=== PATIENT | male | born 1970 | race Caucasian/White ===

== ENCOUNTER 2019-06-30 15:58 | Inpatient (IN) ==
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
[2019-06-30 17:13] LABS: Basophils # 0.1 K/mm3 (0-0.2); Basophils % 0.4 % (0.1-2.0); Eosinophils # 0.3 K/mm3 (0.0-0.4); Hematocrit 48.4 % (42.0-52.0); Hemoglobin 15.7 g/dL (14.1-18.0); Lymphocytes % 7.9 % (10-50); Mean Corpuscular HGB Conc 32.5 g/dL (31.8-35.4); Mean Corpuscular Volume 84.7 fl (80-94); Mean Platelet Volume 7.3 fl (7.4-10.4); Monocytes # 0.5 K/mm3 (0.1-1.0); Monocytes % 3.9 % (1.7-9.3); Neutrophils # 10.8 K/mm3 (1.8-7.8); Neutrophils % 85.7 % (37.0-80.0); Platelet Count 253 K/mm3 (142-424); Red Blood Count 5.72 M/mm3 (4.60-6.20); White Blood Count 12.6 K/mm3 (4.8-10.8)
[2019-06-30 17:24] LABS: Eosinophils % 1 % (0-3); Lymphocytes % 11 % (10-50); Monocytes % 7 % (2-9); Neutrophils % 81 % (42-76); RBC Morphology Normal; Total Cells Counted 100
[2019-06-30 17:31] LABS: Albumin Level 3.6 gm/dL (3.4-5.0); Albumin/Globulin Ratio 1.1 (1.1-1.8); Anion Gap 11.6 mEq/L (5-15); Bilirubin,Total 0.4 mg/dL (0.2-1.0); Calcium 8.8 mg/dL (8.5-10.1); Globulin 3.4 gm/dl (1.3-3.2)
[2019-06-30 18:20] LABS: Activated Partial Thrombo Time 25.7 seconds (23.6-34.0); INR 1.08 (0.9-1.1); Prothrombin Time 11.2 seconds (9.4-11.8)
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
--- NOTE | 2019-06-30 20:44 | Progress Note ---
[facility] Anesthesia Record Part I Intake, IV Amount: 750 Estimated blood loss (mL): 100 Urine output (mL): 0 Blood Products used (#): none Blood Pressure: 149/84 SaO2: 99 Pulse Rate: 109 Respiratory Rate: 20 Temperature: 97.5 F Patient is:: Awake, Nasal O2, Stable Stable to PACU at:: 20:37
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
[2019-07-01 07:31] LABS: Hematocrit 40.8 % (42.0-52.0); Lymphocytes # 0.7 K/mm3 (0.7-4.5); Monocytes # 0.7 K/mm3 (0.1-1.0); Neutrophils # 9.7 K/mm3 (1.8-7.8); Red Blood Count 4.74 M/mm3 (4.60-6.20); White Blood Count 11.1 K/mm3 (4.8-10.8)
[2019-07-01 07:35] LABS: Anion Gap 11.8 mEq/L (5-15)
[2019-07-01 07:48] LABS: Calcium 7.7 mg/dL (8.5-10.1)
[2019-07-01 07:54] LABS: Basophils % 0.1 % (0.1-2.0); Eosinophils % 0.1 % (0.1-12.0); Lymphocytes % 6.3 % (10-50); Mean Corpuscular HGB Conc 31.7 g/dL (31.8-35.4); Mean Platelet Volume 7.7 fl (7.4-10.4); Monocytes % 6.4 % (1.7-9.3); Neutrophils % 87.2 % (37.0-80.0); Platelet Count 233 K/mm3 (142-424); Red Cell Distribution Width 15.3 % (11.5-17.5)
[2019-07-01 07:57] LABS: Hemoglobin 12.9 g/dL (14.1-18.0)
--- NOTE | 2019-07-01 08:09 | Progress Note ---
[facility] Anesthesia Record Part II Discharge Time: 21:07 Destination: Medical Surgical Department PACU nurse assessment reviewed?: Yes Patient Condition:: Good Anesthesia Complications:: None Swallowing reflex intact?: Yes Cyanosis?: No Blood Pressure: 138/71 Pulse Rate: 122 Temperature: 97.7 F Mental Status: Alert & Oriented Pain level:: 0 Nausea and/or vomitting:: None Intake, IV Amount: 0
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
[2019-07-01 10:15] LABS: Lymphocytes % 5 % (10-50); Monocytes % 9 % (2-9); Neutrophils % 86 % (42-76); RBC Morphology Normal; Total Cells Counted 100
--- NOTE | 2019-07-01 10:23 | Progress Note ---
Subjective Date: 07/01/19 Time: 09:00 Principal diagnosis: RUE compartment syndrome Interval history: The patient is doing well this morning, has little pain and has not needed pain medication overnight; he feels much better than he did pre-operatively. Some residual numbness persists in the ulnar digits of the hand. PN: Obj Ex Vital signs: Temp Pulse Resp BP Pulse Ox 97.7 F 122 H 16 138/71 95 07/01/19 08:09 07/01/19 08:09 07/01/19 04:10 07/01/19 08:09 07/01/19 06:05 - Constitutional no acute distress - Routine HEENT Exam Head: Present: normocephalic Eye: Present: EOMI ENT: Present: mucous membranes moist - Routine Respiratory Exam Present: CTA bilaterally - Routine Cardiovascular Exam Present: RRR - Routine Extremities Exam Comments: RUE dressings c/d/i, no strikethrough, compartments soft AIN/PIN/ulnar nerves motor intact distally RUE SILT distally m/r/u dist RUE palpable radial pulse R wrist fingers warm, pink, well-perfused ROM R elbow remains difficult for patient, but wrist flex/ext intact - Routine Neurological Exam Present: alert, oriented X3 - Urinary Catheter Management Laureano Cath placed during this visit: no Progress Note: A&P (1) Compartment syndrome of right upper extremity Status: Acute Current Visit: Yes (2) Biceps tendon rupture, proximal Status: Acute Current Visit: Yes (3) Elevated blood pressure reading Status: Acute Current Visit: Yes Assessment and Plan for All Diagnoses:: 49yo M POD 1 s/p RUE fasciotomy for ACS triggered by proximal biceps tendon rupture -- continue elevation, ice RUE -- continue IV antibiotics while wound is open, will d/w pharmacy -- pain control PRN -- d/c laureano today, switch to straight caths q3-4hr per patient's baseline schedule -- plan on wound closure in OR in 1-2 days
--- NOTE | 2019-07-01 10:59 | Pharmacy Consult Notes ---
- Pharmacy Consult Date: 07/01/19 Time: 10:58 Referring provider: DR. VORA Reason for Consult:: VANCOMYCIN DOSING Allergies and ADEs:: Allergies Allergy/AdvReac Type Severity Reaction Status Date / Time cephalexin [From KEFLEX] Allergy Unknown Verified 07/01/19 05:21 nitrofurantoin Allergy Unknown Verified 07/01/19 05:21 [From MACRODANTIN] Penicillins [PENICILLINS] Allergy Unknown Verified 07/01/19 05:21 Home Medications:: Home Medications Medication Instructions Recorded Confirmed Type No Known Home Medications 06/30/19 06/30/19 History Height: 1.73 m Weight: 103.192 kg Laboratory Results:: Laboratory Results - last 24 hr 06/30/19 17:00: WBC 12.6 H, RBC 5.72, Hgb 15.7, Hct 48.4, MCV 84.7, MCH 27.5, MCHC 32.5, RDW 15.0, Plt Count 253, MPV 7.3 L, Neut % (Auto) 85.7 H, Lymph % (Auto) 7.9 L, [place] % (Auto) 3.9, Eos % (Auto) 2.0, Baso % (Auto) 0.4, Neut # (Auto) 10.8 H, Lymph # (Auto) 1.0, [place] # (Auto) 0.5, Eos # (Auto) 0.3, Baso # (Auto) 0.1, Total Counted 100, Neutrophils % (Manual) 81 H, Lymphocytes % (Manual) 11, Monocytes % (Manual) 7, Eosinophils % (Manual) 1, Platelet Estimate Normal, RBC Morphology Normal 06/30/19 17:00: Sodium 142, Potassium 3.6, Chloride 105, Carbon Dioxide 29, Anion Gap 11.6, BUN 14, Creatinine 0.61 L, Estimated Creat Clear 207, Estimated GFR 140, Est GFR ( Amer) 170, Glucose 145 H, Calcium 8.8, Total Bilirubin 0.4, AST 13 L, ALT 22, Alkaline Phosphatase 123 H, Total Protein 7.0, Albumin 3.6, Globulin 3.4 H, Albumin/Globulin Ratio 1.1 06/30/19 18:05: PT 11.2, INR 1.08, APTT 25.7 06/30/19 21:30: Urine Color Yellow, Urine Appearance Cloudy, Urine pH 7.5, Ur Specific [place] 1.020, Urine Protein Trace, Urine Glucose (UA) Negative, Urine Ketones Negative, Urine Blood Negative, Urine Nitrate Negative, Urine Bilirubin Negative, Urine Urobilinogen 2.0, Ur Leukocyte Esterase Negative 07/01/19 06:51: WBC 11.1 H, RBC 4.74, Hgb 12.9 L D, Hct 40.8 L, MCV 86.0, MCH 27.2, MCHC 31.7 L, RDW 15.3, Plt Count 233, MPV 7.7, Neut % (Auto) 87.2 H, Lymph % (Auto) 6.3 L, [place] % (Auto) 6.4, Eos % (Auto) 0.1, Baso % (Auto) 0.1, Neut # (Auto) 9.7 H, Lymph # (Auto) 0.7, [place] # (Auto) 0.7, Eos # (Auto) 0.0, Baso # (Auto) 0.0, Total Counted 100, Neutrophils % (Manual) 86 H, Lymphocytes % (Manual) 5 L, Monocytes % (Manual) 9, Platelet Estimate Normal, RBC Morphology Normal 07/01/19 06:51: Sodium 141, Potassium 3.8, Chloride 106, Carbon Dioxide 27, Anion Gap 11.8, BUN 12, Creatinine 0.51 L, Estimated Creat Clear 256, Estimated GFR 173, Est GFR ( Amer) 209 D, Glucose 145 H, Calcium 7.7 L D Medical History: Reports:: Asthma Denies:: Cancer, Diabetes Mellitus Type 1, Diabetes Mellitus Type 2, MRSA, Seizures Assessment and Plan (1) Compartment syndrome of right upper extremity Current visit: Yes Status: Acute Category: Medical Code(s): T79.A11A - Traumatic compartment syndrome of right upper extremity, initial encounter (2) Biceps tendon rupture, proximal Current visit: Yes Status: Acute Category: Medical Code(s): S46.119A - Strain of muscle, fascia and tendon of long head of biceps, unspecified arm, initial encounter (3) Elevated blood pressure reading Current visit: Yes Status: Acute Category: Medical Code(s): R03.0 - Elevated blood-pressure reading, without diagnosis of hypertension - Assessment and plan all Dx Assessment and Plan for all problems:: RECOMMEND STARTING VANCOMYCIN AT 1750 MG Q8H AT THIS TIME. WILL OBTAIN TROUGH LEVEL PRIOR TO 4TH DOSE (07/02 1100 DOSE). PHARMACY WILL FOLLOW DAILY AND ADJUST APPROPRIATE.
--- NOTE | 2019-07-01 11:28 | Pharmacy Consult Notes ---
[facility] Pharmacy VTE Monitoring - Patient Demographics Admission date: 06/30/19 Report Date: 07/01/19 Time: 11:27 Allergies/Adverse Reactions: Patient Allergies cephalexin [From KEFLEX] Allergy (Unknown, Verified 07/01/19 05:21) nitrofurantoin [From MACRODANTIN] Allergy (Unknown, Verified 07/01/19 05:21) Penicillins [PENICILLINS] Allergy (Unknown, Verified 07/01/19 05:21) Height: 1.73 m Weight: 103.192 kg Patient Problems: Current Active Problems Compartment syndrome of right upper extremity (Acute) Biceps tendon rupture, proximal (Acute) Elevated blood pressure reading (Acute) - VTE Risk Labs: VTE Related Lab Results Hgb 12.9 g/dL (14.1-18.0) L D 07/01/19 06:51 Hct 40.8 % (42.0-52.0) L 07/01/19 06:51 Plt Count 233 K/mm3 (142-424) 07/01/19 06:51 PT 11.2 seconds (9.4-11.8) 06/30/19 18:05 INR 1.08 (0.9-1.1) 06/30/19 18:05 APTT 25.7 seconds (23.6-34.0) 06/30/19 18:05 BUN 12 mg/dL (7-18) 07/01/19 06:51 Creatinine 0.51 mg/dL (0.70-1.30) L 07/01/19 06:51 Estimated Creat Clear 256 mL/min (50-200) 07/01/19 06:51 Was VTE Risk Assessment Performed: Yes VTE Score: 2 VTE Risk Level: Very Low Risk - Prophylaxis VTE Prophylaxis Ordered?: Yes Types of VTE Prophylaxis: IPCS Thigh High (SCDS ORDERED BUT PATIENT IS A PARAPLEGIC) Location of Applied Device: Bilateral Lower Extremeties
--- NOTE | 2019-07-02 13:27 | Progress Note ---
Internal Medicine - PN: Subj *Date: 07/02/19 *Time: 13:24 Interval history: Mr. Bauer is done well overnight. Pain is fairly well-controlled. Neurovascularly intact in his hands distal to the injury. Blood pressure stable. Denies any shortness of breath or chest pain. Overall doing well. Exam Vital signs and Labs for Last 24 Hours: Temp Pulse Resp BP Pulse Ox 98.5 F 93 H 17 135/87 93 L 07/02/19 07:55 07/02/19 07:55 07/02/19 07:55 07/02/19 07:55 07/02/19 07:55 Laboratory Results - last 24 hr 07/02/19 10:40: Vancomycin Trough 26.6 H I & O for Last 24 hours: Intake & Output 06/29/19 06/30/19 07/01/19 07/02/19 23:59 23:59 23:59 23:59 Intake Total 750 / 750 3432 / 3672 2255 / 2255 Output Total 2000 / 2000 800 / 800 Balance 750 / 750 1432 / 1672 1455 / 1455 Weight 103.192 kg 104.043 kg Narrative: No change in patient's neurologic exam from baseline; neurovascularly intact in distal right upper extremity He is awake, alert, oriented x3. Heart rate regular. No JVD or murmur Abdomen soft and benign. Lungs clear. Right arm in surgical dressing, good capillary refill in fingers Assessment and Plan (1) Compartment syndrome of right upper extremity Current visit: Yes Status: Acute Category: Medical Code(s): T79.A11A - Traumatic compartment syndrome of right upper extremity, initial encounter (2) Biceps tendon rupture, proximal Current visit: Yes Status: Acute Category: Medical Code(s): S46.119A - Strain of muscle, fascia and tendon of long head of biceps, unspecified arm, initial encounter (3) Elevated blood pressure reading Current visit: Yes Status: Acute Category: Medical Code(s): R03.0 - Elevated blood-pressure reading, without diagnosis of hypertension - Assessment and plan all Dx Assessment and Plan for all problems:: Elevated blood-pressure reading, without diagnosis of hypertension Postoperative hypertension. Possible essential hypertension now presenting given his age and other risk factors versus neurologic changes from autonomic neuropathy issues versus postoperative pain issues. Continue low-dose carvedilol given his slightly high heart rate, fluid support, close observation. Would recommend stopping at time of discharge and we will follow-up in the outpatient setting for further management given high suspicion is related to pain and surgery.
--- NOTE | 2019-07-02 14:57 | Progress Note ---
[facility] Anesthesia Record Part I Intake, IV Amount: 700 Estimated blood loss (mL): 50 Urine output (mL): 0 (NM) Blood Products used (#): none Blood Pressure: 140/83 SaO2: 96 Pulse Rate: 81 Respiratory Rate: 16 Temperature: 97.5 F Patient is:: Awake, Drowsy, Nasal O2, Stable Stable to PACU at:: 14:50
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
[2019-07-03 06:58] LABS: Anion Gap 10.2 mEq/L (5-15); Calcium 7.7 mg/dL (8.5-10.1)
[2019-07-03 07:06] LABS: Basophils % 0.2 % (0.1-2.0); Eosinophils # 0.1 K/mm3 (0.0-0.4); Eosinophils % 0.4 % (0.1-12.0); Hematocrit 36.8 % (42.0-52.0); Lymphocytes # 1.2 K/mm3 (0.7-4.5); Lymphocytes % 10.5 % (10-50); Mean Corpuscular HGB Conc 32.6 g/dL (31.8-35.4); Mean Corpuscular Volume 86.8 fl (80-94); Mean Platelet Volume 7.7 fl (7.4-10.4); Monocytes % 8.5 % (1.7-9.3); Neutrophils # 9.2 K/mm3 (1.8-7.8); Neutrophils % 80.4 % (37.0-80.0); Platelet Count 211 K/mm3 (142-424); Red Blood Count 4.24 M/mm3 (4.60-6.20); Red Cell Distribution Width 14.4 % (11.5-17.5); White Blood Count 11.4 K/mm3 (4.8-10.8)
--- NOTE | 2019-07-03 09:48 | Progress Note ---
Internal Medicine - PN: Subj *Date: 07/03/19 *Time: 09:47 Interval history: Internal medicine follow-up consult note Surgery note reviewed from yesterday. Good results. Patient feels good, minimal pain. No tachypnea, tachycardia or palpitation sensations. Exam Vital signs and Labs for Last 24 Hours: Temp Pulse Resp BP Pulse Ox 98.6 F 88 16 139/74 96 07/03/19 07:57 07/03/19 07:57 07/03/19 07:57 07/03/19 07:57 07/03/19 07:57 Laboratory Results - last 24 hr 07/02/19 10:40: Vancomycin Trough 26.6 H 07/03/19 06:28: WBC 11.4 H, RBC 4.24 L, Hgb 12.0 L, Hct 36.8 L, MCV 86.8, MCH 28.3, MCHC 32.6, RDW 14.4, Plt Count 211, MPV 7.7, Neut % (Auto) 80.4 H, Lymph % (Auto) 10.5, [place] % (Auto) 8.5, Eos % (Auto) 0.4, Baso % (Auto) 0.2, Neut # (Auto) 9.2 H, Lymph # (Auto) 1.2, [place] # (Auto) 1.0, Eos # (Auto) 0.1, Baso # (Auto) 0.0 07/03/19 06:28: Sodium 143, Potassium 4.2, Chloride 108 H, Carbon Dioxide 29, Anion Gap 10.2, BUN 20 H D, Creatinine 0.86 D, Estimated Creat Clear 155, Estimated GFR 95, Est GFR ( Amer) 114 D, Glucose 166 H, Calcium 7.7 L I & O for Last 24 hours: Intake & Output 06/30/19 07/01/19 07/02/19 07/03/19 11:59 11:59 11:59 11:59 Intake Total 3942 / 3942 2495 / 2495 820 / 820 Output Total 1000 / 1000 1800 / 1800 1575 / 1575 Balance 2942 / 2942 695 / 695 -755 / -755 Weight 227 lb 8 oz 229 lb 6 oz 232 lb 8.027 oz Narrative: Alert. Pleasant. No JVD. Heart rate regular without murmurs. Lungs are clear and well-expanded. Neurologic exam unchanged. Abdomen soft and nontender. Assessment and Plan (1) Compartment syndrome of right upper extremity Current visit: Yes Status: Acute Category: Medical Code(s): T79.A11A - Traumatic compartment syndrome of right upper extremity, initial encounter (2) Biceps tendon rupture, proximal Current visit: Yes Status: Acute Category: Medical Code(s): S46.119A - Strain of muscle, fascia and tendon of long head of biceps, unspecified arm, initial encounter (3) Elevated blood pressure reading Current visit: Yes Status: Acute Category: Medical Code(s): R03.0 - Elevated blood-pressure reading, without diagnosis of hypertension - Assessment and plan all Dx Assessment and Plan for all problems:: Blood pressure under good control. Continue low-dose beta-nina. Patient will be getting up and trying his bowel regimen and sitting in a chair today. I discussed letting us know if he has palpitations or orthostasis symptomatology.
--- NOTE | 2019-07-03 09:50 | Progress Note ---
[facility] Anesthesia Record Part II Discharge Time: 15:20 Destination: Medical Surgical Department PACU nurse assessment reviewed?: Yes Patient Condition:: Good Anesthesia Complications:: None Swallowing reflex intact?: Yes Cyanosis?: No Blood Pressure: 155/79 Pulse Rate: 116 Temperature: 97.5 F Mental Status: Alert & Oriented Pain level:: 0 Nausea and/or vomitting:: None Intake, IV Amount: 0
--- NOTE | 2019-07-03 13:21 | Progress Note ---
Subjective Date: 07/03/19 Time: 12:00 Principal diagnosis: RUE compartment syndrome Interval history: The patient is doing well today, requiring very little pain medication. Having some persistent numbness over the ulnar aspect of the hand. Motor function intact. Drain has not been emptied since surgery. PN: Obj Ex Vital signs: Temp Pulse Resp BP Pulse Ox 98.6 F 80 17 139/76 95 07/03/19 12:00 07/03/19 12:00 07/03/19 12:00 07/03/19 12:07/03/19 12:00 - Constitutional no acute distress - Routine HEENT Exam Head: Present: normocephalic Eye: Present: EOMI ENT: Present: mucous membranes moist - Routine Respiratory Exam Present: CTA bilaterally - Routine Cardiovascular Exam Present: RRR - Routine Abdominal Exam Present: soft. Absent: tenderness - Routine Extremities Exam Comments: RUE dressings c/d/i, no strikethrough, compartments soft hemovac drain RUE emptied, 90cc out (since around 5pm yesterday) AIN/PIN/ulnar nerves motor intact distally RUE SILT distally m/r/u dist RUE; patient reports slightly diminished sensation in ulnar distribution palpable radial pulse R wrist fingers warm, pink, well-perfused ROM R elbow improving, able to perform small arc of motion without pain - Routine Skin Exam Present: warm - Routine Neurological Exam Present: alert, oriented X3 - Routine Psychiatric Exam Present: normal affect - Urinary Catheter Management Rosas Cath placed during this visit: no Straight Cath placed during this visit: no Progress Note: A&P (1) Compartment syndrome of right upper extremity Status: Acute Current Visit: Yes (2) Biceps tendon rupture, proximal Status: Acute Current Visit: Yes (3) Elevated blood pressure reading Status: Acute Current Visit: Yes Assessment and Plan for All Diagnoses:: 49yo M s/p RUE acute compartment syndrome from proximal biceps tendon rupture, POD #3 s/p fasciotomy, POD #1 s/p I&D with wound closure and biceps tenodesis -- will leave drain for now, anticipate removal tomorrow; empty & record output each shift -- continue elevation and cryotherapy RUE -- ok to perform light ROM of elbow but refrain from FWB -- may be out of bed ad quinten with assist -- IV blew and a new one could not be placed, will transition patient to oral antibiotics x5 days; this is for prophylaxis, both routine post-op and because of size of incision/dissection, presence of drain, and having wound open for 2 days -- dispo: will return home after home health is arranged, anticipate Monday
[2019-07-04 06:33] LABS: Basophils # 0.1 K/mm3 (0-0.2); Basophils % 0.5 % (0.1-2.0); Eosinophils # 0.3 K/mm3 (0.0-0.4); Eosinophils % 2.9 % (0.1-12.0); Hematocrit 37.2 % (42.0-52.0); Hemoglobin 12.1 g/dL (14.1-18.0); Lymphocytes # 1.5 K/mm3 (0.7-4.5); Lymphocytes % 14.3 % (10-50); Mean Corpuscular HGB Conc 32.5 g/dL (31.8-35.4); Mean Corpuscular Volume 87.1 fl (80-94); Mean Platelet Volume 7.6 fl (7.4-10.4); Monocytes # 0.9 K/mm3 (0.1-1.0); Neutrophils # 7.9 K/mm3 (1.8-7.8); Neutrophils % 74.4 % (37.0-80.0); Platelet Count 214 K/mm3 (142-424); Red Blood Count 4.27 M/mm3 (4.60-6.20); Red Cell Distribution Width 14.7 % (11.5-17.5); White Blood Count 10.7 K/mm3 (4.8-10.8)
[2019-07-04 06:40] LABS: Calcium 7.7 mg/dL (8.5-10.1)
--- NOTE | 2019-07-04 09:39 | Progress Note ---
Internal Medicine - PN: Subj *Date: 07/04/19 *Time: 09:35 Interval history: Mr. Bauer looks very good this morning. States he is doing very well and has no acute complaints. Pain well managed. Right arm and postsurgical bandage and ice wrapped. Blood pressure has been well controlled overnight. Tolerating regular diet. Had bowel movement yesterday. Afebrile. Denies shortness of breath, chest pain Exam Vital signs and Labs for Last 24 Hours: Temp Pulse Resp BP Pulse Ox 98 F 94 H 18 162/114 H 94 L 07/04/19 08:00 07/04/19 08:00 07/04/19 08:00 07/04/19 08:00 07/04/19 08:00 Laboratory Results - last 24 hr 07/03/19 15:12: ESR 20 H 07/03/19 15:12: C-Reactive Protein 2.6 H 07/04/19 05:55: WBC 10.7, RBC 4.27 L, Hgb 12.1 L, Hct 37.2 L, MCV 87.1, MCH 28.3, MCHC 32.5, RDW 14.7, Plt Count 214, MPV 7.6, Neut % (Auto) 74.4, Lymph % (Auto) 14.3, Davis % (Auto) 8.0, Eos % (Auto) 2.9, Baso % (Auto) 0.5, Neut # (A uto) 7.9 H, Lymph # (Auto) 1.5, Davis # (Auto) 0.9, Eos # (Auto) 0.3, Baso # (Auto) 0.1 07/04/19 05:55: Sodium 141, Potassium 4.0, Chloride 107, Carbon Dioxide 28, Anion Gap 10.0, BUN 19 H, Creatinine 0.70, Estimated Creat Clear 193, Estimated GFR 120, Est GFR ( Amer) 145 D, Glucose 109 H D, Calcium 7.7 L 07/04/19 08:50: Random Vancomycin 11.1 I & O for Last 24 hours: Intake & Output 07/01/19 07/02/19 07/03/19 07/04/19 23:59 23:59 23:59 23:59 Intake Total 3432 / 3672 2955 / 2955 960 / 960 240 / 240 Output Total 1999 1650 / 2175 1060 / 1060 435 / 435 Balance 1432 / 1672 1305 / 780 -100 / -100 -195 / -195 Weight 104.043 kg 105.461 kg 106.651 kg Narrative: Alert. Pleasant. No JVD. Heart rate regular without murmurs. Lungs are clear and well-expanded. Neurologic exam unchanged. Abdomen soft and nontender. Right upper extremity in surgical wrap. Neurovascularly intact in distal right upper extremity. Assessment and Plan (1) Compartment syndrome of right upper extremity Current visit: Yes Status: Acute Category: Medical Code(s): T79.A11A - Traumatic compartment syndrome of right upper extremity, initial encounter (2) Biceps tendon rupture, proximal Current visit: Yes Status: Acute Category: Medical Code(s): S46.119A - Strain of muscle, fascia and tendon of long head of biceps, unspecified arm, initial encounter (3) Elevated blood pressure reading Current visit: Yes Status: Acute Category: Medical Code(s): R03.0 - Elevated blood-pressure reading, without diagnosis of hypertension (4) Paraplegia Current visit: Yes Status: Chronic Category: Medical Code(s): G82.20 - Paraplegia, unspecified On admission. Complicates his disposal. Patient is very reliant on his upper extremities for transferring and mobility. Given his torn bicep, placed physical therapy consult as he may benefit from care home care and re habilitation prior to going home. - Assessment and plan all Dx Assessment and Plan for all problems:: Blood pressure under good control. Continue low-dose beta-nina, decreased by half today as I suspect his hypertension is more related to pain than true need. If tolerates this well plan to discharge on no blood pressure medication and will follow-up closely in the clinic for further adjustments or resumption. Patient will be getting up and trying his bowel regimen and sitting in a chair today.
--- NOTE | 2019-07-04 17:23 | Progress Note ---
Subjective Date: 07/04/19 Time: 17:00 Principal diagnosis: RUE compartment syndrome Interval history: The patient is doing well today, no pain reported in the arm. He has not had a BM since admission. Otherwise without complaint. PN: Obj Ex Vital signs: Temp Pulse Resp BP Pulse Ox 98.4 F 88 18 162/98 H 94 L 07/04/19 15:25 07/04/19 15:25 07/04/19 15:25 07/04/19 15:25 07/04/19 15:25 - Constitutional no acute distress - Routine HEENT Exam Head: Present: normocephalic Eye: Present: EOMI ENT: Present: mucous membranes moist - Routine Respiratory Exam Present: CTA bilaterally - Routine Cardiovascular Exam Present: RRR - Routine Abdominal Exam Present: soft. Absent: tenderness - Routine Extremities Exam Comments: RUE dressings c/d/i, no strikethrough, compartments soft hemovac drain RUE emptied, scant output --> removed intact, no drainage AIN/PIN/ulnar nerves motor intact distally RUE SILT distally m/r/u dist RUE; patient reports slightly diminished sensation in ulnar distribution palpable radial pulse R wrist fingers warm, pink, well-perfused ROM R elbow improving, able to perform small arc of motion without pain - Routine Neurological Exam Present: alert, oriented X3 - Routine Psychiatric Exam Present: normal affect - Urinary Catheter Management Rosas Cath placed during this visit: no Straight Cath placed during this visit: no Progress Note: A&P (1) Compartment syndrome of right upper extremity Status: Acute Current Visit: Yes (2) Biceps tendon rupture, proximal Status: Acute Current Visit: Yes (3) Elevated blood pressure reading Status: Acute Current Visit: Yes (4) Paraplegia Status: Chronic Current Visit: Yes Assessment and Plan for All Diagnoses:: 49yo M s/p RUE acute compartment syndrome from proximal biceps tendon rupture, POD #4 s/p fasciotomy, POD #2 s/p I&D with wound closure and biceps tenodesis -- drain removed, dressing changed -- continue elevation and cryotherapy RUE -- ok to perform light ROM of elbow but refrain from FWB -- may be out of bed ad quinten with assist -- continue oral antibiotics -- dispo: looking at d/c with HHPT vs SNF; patient is very independent at baseline and should not require a long SNF admission
--- NOTE | 2019-07-05 08:53 | Progress Note ---
Internal Medicine - PN: Subj *Date: 07/05/19 *Time: 11:02 Interval history: Mr. Bauer had some constipation which was addressed overnight with suppository, manual disimpaction, enema. Feeling much better. Tolerating regular diet. Denies any significant arm pain today. Blood pressure did creep up again yesterday after decreasing dose of carvedilol, transition to back to higher dose for today. Denies any symptoms. No shortness of breath, chest pain, nausea, vomiting. Of note he is concerned as he has developed a wound on his coccyx. Has had pressure wounds before on his sacrum. Denies any pain due to his paraplegia. Mom at bedside this morning, she is frustrated with this news. Exam Vital signs and Labs for Last 24 Hours: Temp Pulse Resp BP Pulse Ox 98.3 F 93 H 19 181/104 H 92 L 07/05/19 08:00 07/05/19 08:00 07/05/19 08:00 07/05/19 08:00 07/05/19 08:00 Laboratory Results - last 24 hr 07/04/19 08:50: Random Vancomycin 11.1 I & O for Last 24 hours: Intake & Output 07/02/19 07/03/19 07/04/19 07/05/19 23:59 23:59 23:59 23:59 Intake Total 2955 / 2955 960 / 960 480 / 480 360 / 360 Output Total 1650 / 2175 1060 / 1060 1035 / 1035 375 / 375 Balance 1305 / 780 -100 / -100 -555 / -555 -15 / -15 Weight 104.043 kg 105.461 kg 106.651 kg 106.141 kg Narrative: Alert. Pleasant. No acute distress on room air. Heart rate regular without murmurs. Lungs are clear and well-expanded. Neurologic exam unchanged, lack of muscle mass and movement in lower extremities. Abdomen soft and nontender, bowel sounds normoactive Stage II decubitus ulcer overlying sacrum. Approximately 4 cm in diameter. Breakdown of epidermis. [place] to red base. No surrounding erythema. Nontender to touch. No weeping or drainage Right upper extremity in surgical wrap. Neurovascularly intact in distal right upper extremity Assessment and Plan (1) Compartment syndrome of right upper extremity Current visit: Yes Status: Acute Category: Medical Code(s): T79.A11A - Traumatic compartment syndrome of right upper extremity, initial encounter (2) Biceps tendon rupture, proximal Current visit: Yes Status: Acute Category: Medical Code(s): S46.119A - Strain of muscle, fascia and tendon of long head of biceps, unspecified arm, initial encounter (3) Elevated blood pressure reading Current visit: Yes Status: Acute Category: Medical Code(s): R03.0 - Elevated blood-pressure reading, without diagnosis of hypertension (4) Paraplegia Current visit: Yes Status: Chronic Category: Medical Code(s): G82.20 - Paraplegia, unspecified (5) Decubitus ulcer Current visit: Yes Status: Acute Qualifiers: Pressure injury location: sacral region Pressure injury stage: stage 2 Qualified Code(s): L89.152 - Pressure ulcer of sacral region, stage 2 Category: Medical Code(s): L89.90 - Pressure ulcer of unspecified site, unspecified stage Sacral pressure ulcer in place. Wound consult placed. Treatment per wound care. Will attempt to place patient in bariatric bed with air mattress today if available. - Assessment and plan all Dx Assessment and Plan for all problems:: 49-year-old male with right biceps tear and compartment syndrome. Status post surgical fixation. Physical therapy has assessed patient, [facility] assessing patient today for possible rehab disposition. Blood pressure has been responding well to 6.25 mg carvedilol twice a day. New finding of decubitus ulcer on sacrum today. Continues to require inpatient management. Anticipate discharge to group home/rehab facility. At this time would recommend continuing carvedilol at discharge. Pressure ulcer management per wound care recommendations.
--- NOTE | 2019-07-05 15:08 | Progress Note ---
Subjective Date: 07/05/19 Time: 12:00 Principal diagnosis: RUE compartment syndrome Interval history: The patient has had a BM after suppository, edema and digital stimulation; he feels much better and his abdomen feels less distended. Otherwise the last 24 hours have been relatively uneventful: vitals are stable, patient remain afebrile, drain was removed and dressing change performed yesterday, and PT/OT have evaluated the patient. He has developed a small stage II sacral decubitus ulcer that has been evaluated/dressing by wound care. The patient was seen this morning by a home office representative from [facility], who is working to obtain insurance approval for treatment there. PN: Obj Ex Vital signs: Temp Pulse Resp BP Pulse Ox 98.3 F 93 H 19 153/82 H 98 07/05/19 08:00 07/05/19 08:00 07/05/19 08:00 07/05/19 12:57 07/05/19 12:57 - Constitutional no acute distress - Routine HEENT Exam Head: Present: normocephalic Eye: Present: EOMI ENT: Present: mucous membranes moist - Routine Respiratory Exam Present: CTA bilaterally - Routine Cardiovascular Exam Present: RRR - Routine Abdominal Exam Present: soft. Absent: tenderness - Routine Extremities Exam Comments: RUE dressings c/d/i, no strikethrough, compartments soft --> dressings changed AIN/PIN/ulnar nerves motor intact distally RUE SILT distally m/r/u dist RUE; patient reports slightly diminished sensation in ulnar distribution palpable radial pulse R wrist fingers warm, pink, well-perfused ROM R elbow improving, able to perform small arc of motion without pain - Routine Skin Exam Present: intact - Routine Neurological Exam Present: alert, oriented X3. Absent: altered mental status - Urinary Catheter Management Rosas Cath placed during this visit: no Straight Cath placed during this visit: no Progress Note: A&P (1) Compartment syndrome of right upper extremity Status: Acute Current Visit: Yes (2) Biceps tendon rupture, proximal Status: Acute Current Visit: Yes (3) Elevated blood pressure reading Status: Acute Current Visit: Yes (4) Paraplegia Status: Chronic Current Visit: Yes (5) Decubitus ulcer Status: Acute Current Visit: Yes Assessment and Plan for All Diagnoses:: 49yo M s/p RUE acute compartment syndrome from proximal biceps tendon rupture, POD #5 s/p fasciotomy, POD #3 s/p I&D with wound closure and biceps tenodesis -- dressings changed again today by myself -- continue elevation and cryotherapy RUE -- ok to perform light ROM of elbow but refrain from FWB; light activity is ok (i.e. eating, keyboarding, etc.) -- may be out of bed ad quinten with assist -- continue PT/OT -- continue oral antibiotics -- dispo: looking at d/c to [facility], awaiting insurance approval
--- NOTE | 2019-07-06 07:51 | Progress Note ---
Internal Medicine - PN: Subj *Date: 07/06/19 *Time: 07:49 Interval history: Patient has no complaints this morning. He reports his day went well yesterday. We discussed his blood pressure and how he will likely need additional medicine or increase in his carvedilol. Patient reports with initiation of carvedilol he noticed dyspnea. His dose was increased to 6.25 mg yesterday. Patient had no dyspnea overnight. Exam Vital signs and Labs for Last 24 Hours: Temp Pulse Resp BP Pulse Ox 98.1 F 82 18 161/91 H 96 07/06/19 07:28 07/06/19 07:28 07/06/19 07:28 07/06/19 07:28 07/06/19 07:28 Laboratory Results - last 24 hr 07/05/19 09:25: C-Reactive Protein 3.6 H D I & O for Last 24 hours: Intake & Output 07/03/19 07/04/19 07/05/19 07/06/19 11:59 11:59 11:59 11:59 Intake Total 820 / 820 1080 / 1080 600 / 600 1340 / 1340 Output Total 1575 / 1575 770 / 770 1300 / 1300 1335 / 1335 Balance -755 / -755 310 / 310 -700 / -700 5 / 5 Weight 232 lb 8.027 oz 235 lb 2 oz 234 lb 234 lb - Constitutional no acute distress - *Routine Respiratory Exam Present: CTA bilaterally - *Routine Cardiovascular Exam Present: RRR, Normal S1, Normal S2 Assessment and Plan (1) Compartment syndrome of right upper extremity Current visit: Yes Status: Acute Category: Medical Code(s): T79.A11A - Traumatic compartment syndrome of right upper extremity, initial encounter (2) Biceps tendon rupture, proximal Current visit: Yes Status: Acute Category: Medical Code(s): S46.119A - Strain of muscle, fascia and tendon of long head of biceps, unspecified arm, initial encounter (3) Elevated blood pressure reading Current visit: Yes Status: Acute Category: Medical Code(s): R03.0 - Elevated blood-pressure reading, without diagnosis of hypertension (4) Paraplegia Current visit: Yes Status: Chronic Category: Medical Code(s): G82.20 - Paraplegia, unspecified (5) Decubitus ulcer Current visit: Yes Status: Acute Qualifiers: Pressure injury location: sacral region Pressure injury stage: stage 2 Qualified Code(s): L89.152 - Pressure ulcer of sacral region, stage 2 Category: Medical Code(s): L89.90 - Pressure ulcer of unspecified site, unspecified stage - Assessment and plan all Dx Assessment and Plan for all problems:: Add lisinopril 5 mg to his regimen. Continue carvedilol 6.25 twice daily
--- NOTE | 2019-07-06 15:23 | Progress Note ---
Subjective Date: 07/06/19 Time: 15:00 Principal diagnosis: RUE compartment syndrome Interval history: Patient is status post anterior compartment fasciotomy right upper arm and subsequent second look and wound closure, post op day #6 fasciotomy and postop day #4 second look and wound closure. Patient is sitting out in the chair and says is doing well and reports no problems. Patient says he has no pain or discomfort in his right upper extremity. Patient says he is eating and drinking well. PN: Obj Ex Vital signs: Temp Pulse Resp BP Pulse Ox 98.1 F 82 18 143/86 H 96 07/06/19 07:28 07/06/19 07:28 07/06/19 07:28 07/06/19 11:43 07/06/19 07:28 Narrative: Exam General appearance: alert, active, awake, no acute distress Cardiovascular: regular rate & rhythm, normal peripheral pulses Respiratory: No respiratory distress noted, speaks in full sentences ABD: soft and non tender Neuro: alert, awake, oriented x 3 Psych: Appropriate mood and affect On examination of the right upper extremity, the dressings are clean, dry and intact; no strikethrough or bleeding noted; the compartments are soft. Movements of the elbow are limited; good range of wrist and finger movements noted. AIN/PIN/ulnar nerves motor intact distally RUE. Sensation intact to light touch distally over the median, ulnar and radial nerve distribution. Distal pulses are 2+; capillary refill brisk. Distal sensation is intact to light touch throughout. No motor deficits noted distally. - Urinary Catheter Management Rosas Cath placed during this visit: no Straight Cath placed during this visit: no Progress Note: A&P (1) Compartment syndrome of right upper extremity Status: Acute Current Visit: Yes (2) Biceps tendon rupture, proximal Status: Acute Current Visit: Yes (3) Elevated blood pressure reading Status: Acute Current Visit: Yes (4) Paraplegia Status: Chronic Current Visit: Yes (5) Decubitus ulcer Status: Acute Current Visit: Yes Assessment and Plan for All Diagnoses:: I have reviewed the clinical findings and with the patient and family. Patient is doing well and reports no problems. He is awaiting insurance approval for short-term rehab placement. Continue PT/OT as ordered by Dr. Galvan. Continue oral antibiotics. Continue medical management as per Dr. Faria.
--- NOTE | 2019-07-07 08:30 | Progress Note ---
Internal Medicine - PN: Subj *Date: 07/07/19 *Time: 08:29 Interval history: Patient has no complaints today. His arm is causing very little pain. Addition of lisinopril to his antihypertensive regimen yesterday showed improvement in blood pressures. Exam Vital signs and Labs for Last 24 Hours: Temp Pulse Resp BP Pulse Ox 98.0 F 85 18 145/77 H 98 07/07/19 07:18 07/07/19 07:18 07/07/19 07:18 07/07/19 07:18 07/07/19 07:18 I & O for Last 24 hours: Intake & Output 07/04/19 07/05/19 07/06/19 07/07/19 11:59 11:59 11:59 11:59 Intake Total 1080 / 1080 600 / 600 1460 / 1460 1090 / 1090 Output Total 770 / 770 1300 / 1300 1585 / 1585 1020 / 1020 Balance 310 / 310 -700 / -700 -125 / -125 70 / 70 Weight 235 lb 2 oz 234 lb 234 lb 236 lb 5.369 oz - Constitutional no acute distress - *Routine Respiratory Exam Present: CTA bilaterally - *Routine Cardiovascular Exam Present: RRR, Normal S1, Normal S2 Assessment and Plan (1) Compartment syndrome of right upper extremity Current visit: Yes Status: Acute Category: Medical Code(s): T79.A11A - Traumatic compartment syndrome of right upper extremity, initial encounter (2) Biceps tendon rupture, proximal Current visit: Yes Status: Acute Category: Medical Code(s): S46.119A - St rain of muscle, fascia and tendon of long head of biceps, unspecified arm, initial encounter (3) Elevated blood pressure reading Current visit: Yes Status: Acute Category: Medical Code(s): R03.0 - Elevated blood-pressure reading, without diagnosis of hypertension (4) Paraplegia Current visit: Yes Status: Chronic Category: Medical Code(s): G82.20 - Paraplegia, unspecified (5) Decubitus ulcer Current visit: Yes Status: Acute Qualifiers: Pressure injury location: sacral region Pressure injury stage: stage 2 Qualified Code(s): L89.152 - Pressure ulcer of sacral region, stage 2 Category: Medical Code(s): L89.90 - Pressure ulcer of unspecified site, unspecified stage - Assessment and plan all Dx Assessment and Plan for all problems:: 1. I will increase his lisinopril to 10 mg. Continue carvedilol 6.25 mg twice daily.
--- NOTE | 2019-07-07 18:13 | Progress Note ---
Subjective Date: 07/07/19 Time: 17:45 Principal diagnosis: RUE compartment syndrome Interval history: Patient is status post anterior compartment fasciotomy right upper arm and subsequent second look and wound closure, post op day #7 fasciotomy and postop day #5 second look and wound closure. Patient is sitting out in the chair and says is doing well and reports no problems. Patient says he has no pain or discomfort in his right upper extremity. He is eating and drinking well. PN: Obj Ex Vital signs: Temp Pulse Resp BP Pulse Ox 98.1 F 83 20 154/86 H 98 07/07/19 16:00 07/07/19 16:00 07/07/19 16:00 07/07/19 16:00 07/07/19 16:00 Narrative: Exam General appearance: alert, active, awake, no acute distress Cardiovascular: regular rate & rhythm, normal peripheral pulses Respiratory: No respiratory distress noted, speaks in full sentences ABD: soft and non tender Neuro: alert, awake, oriented x 3 Psych: Appropriate mood and affect On examination of the right upper extremity, the dressings are clean, dry and intact; no strikethrough or bleeding noted; the compartments are soft. Mild edema of the forearm and hand noted. Movements of the elbow are limited; good range of wrist and finger movements noted. AIN/PIN/ulnar nerves motor intact distally RUE. Sensation intact to light touch distally over the median, ulnar and radial nerve distribution. Distal pulses are 2+; capillary refill brisk. Distal sensation is intact to light touch throughout. No motor deficits noted distally. - Urinary Catheter Management Rosas Cath placed during this visit: no Straight Cath placed during this visit: no Progress Note: A&P (1) Compartment syndrome of right upper extremity Status: Acute Current Visit: Yes (2) Biceps tendon rupture, proximal Status: Acute Current Visit: Yes (3) Elevated blood pressure reading Status: Acute Current Visit: Yes (4) Paraplegia Status: Chronic Current Visit: Yes (5) Decubitus ulcer Status: Acute Current Visit: Yes Assessment and Plan for All Diagnoses:: I have reviewed the clinical findings and progress with the patient. Patient is doing well and reports no problems related to his surgery. He is awaiting insurance approval for short-term rehab placement. Continue PT/OT as ordered by Dr. Galvan. Continue oral antibiotics. Continue medical management as per Dr. Faria.
--- NOTE | 2019-07-08 08:50 | Progress Note ---
Internal Medicine - PN: Subj *Date: 07/08/19 *Time: 08:50 Interval history: Continues to have better blood pressure control on lisinopril. Continues to have some shortness of air and a mild oxygen requirement Exam Vital signs and Labs for Last 24 Hours: Temp Pulse Resp BP Pulse Ox 98.0 F 78 20 147/79 H 98 07/08/19 08:00 07/08/19 08:00 07/08/19 08:00 07/08/19 08:00 07/08/19 08:00 I & O for Last 24 hours: Intake & Output 07/05/19 07/06/19 07/07/19 07/08/19 11:59 11:59 11:59 11:59 Intake Total 600 / 600 1460 / 1460 1090 / 1090 720 / 720 Output Total 1300 / 1300 1585 / 1585 1295 / 1295 550 / 550 Balance -700 / -700 -125 / -125 -205 / -205 170 / 170 Weight 234 lb 234 lb 236 lb 5.369 oz 236 lb 5.369 oz Narrative: Pleasant, talkative, minimal crackles in both lower lung [place]. Heart rate regular. Assessment and Plan (1) Compartment syndrome of right upper extremity Current visit: Yes Status: Acute Category: Medical Code(s): T79.A11A - Traumatic compartment syndrome of right upper extremity, initial encounter (2) Biceps tendon rupture, proximal Current visit: Yes Status: Acute Category: Medical Code(s): S46.119A - Strain of muscle, fascia and tendon of long head of biceps, unspecified arm, initial encounter (3) Elevated blood pressure reading Current visit: Yes Status: Acute Category: Medical Code(s): R03.0 - Elevated blood-pressure reading, without diagnosis of hypertension (4) Paraplegia Current visit: Yes Status: Chronic Category: Medical Code(s): G82.20 - Paraplegia, unspecified (5) Decubitus ulcer Current visit: Yes Status: Acute Qualifiers: Pressure injury location: sacral region Pressure injury stage: stage 2 Qualified Code(s): L89.152 - Pressure ulcer of sacral region, stage 2 Category: Medical Code(s): L89.90 - Pressure ulcer of unspecified site, unspecified stage - Assessment and plan all Dx Assessment and Plan for all problems:: Continue blood pressure medications. 1 dose of IV Lasix.
--- NOTE | 2019-07-08 12:23 | Progress Note ---
Subjective Date: 07/08/19 Time: 12:00 Principal diagnosis: RUE compartment syndrome Interval history: The patient reports shortness of breath this morning, has required supplemental O2. No tachycardia or chest pain, but he feels his SOB is worsening. His mother reports he had difficulty getting words out yesterday on the phone due to his SOB. He has a past history of occasional dyspnea with exertion and reports a negative cardiac workup, but he says dyspnea at rest, especially to this level, is not normal for him. PN: Obj Ex Vital signs: Temp Pulse Resp BP Pulse Ox 98.0 F 78 20 147/79 H 98 07/08/19 08:00 07/08/19 08:00 07/08/19 08:40 07/08/19 08:00 07/08/19 08:40 - Constitutional no acute distress - Routine HEENT Exam Head: Present: normocephalic Eye: Present: EOMI ENT: Present: mucous membranes moist - Routine Respiratory Exam Absent: accessory muscle use, wheezes - Routine Cardiovascular Exam Present: RRR - Routine Abdominal Exam Present: soft. Absent: tenderness - Routine Extremities Exam Comments: RUE dressings c/d/i, no strikethrough, compartments soft AIN/PIN/ulnar nerves motor intact distally RUE SILT distally m/r/u dist RUE; patient reports slightly diminished sensation in ulnar distribution palpable radial pulse R wrist fingers warm, pink, well-perfused ROM R elbow improving, able to perform small arc of motion without pain - Routine Skin Exam Present: warm - Routine Neurological Exam Present: alert, oriented X3 - Urinary Catheter Management Rosas Cath placed during this visit: no Urethral indwelling: No Straight Cath placed during this visit: no Progress Note: A&P (1) Compartment syndrome of right upper extremity Status: Acute Current Visit: Yes (2) Biceps tendon rupture, proximal Status: Acute Current Visit: Yes (3) Elevated blood pressure reading Status: Acute Current Visit: Yes (4) Paraplegia Status: Chronic Current Visit: Yes (5) Decubitus ulcer Status: Acute Current Visit: Yes Assessment and Plan for All Diagnoses:: 49yo M s/p RUE acute compartment syndrome from proximal biceps tendon rupture, POD #8 s/p fasciotomy, POD #6 s/p I&D with wound closure and biceps tenodesis -- stat labs, CXR -- will d/w Dr. Corea CT chest PE protocol -- daily dressing changes, continue elevation/cryotherapy RUE -- ok to perform light ROM of elbow but refrain from FWB; light activity is ok (i.e. eating, keyboarding, etc.) -- may be out of bed ad quinten with assist -- continue PT/OT -- DVT prophy: SCDs BLE, continue lovenox -- dispo: looking at SNF/ARF options, being considered for [facility]
[2019-07-08 12:34] LABS: Basophils % 0.4 % (0.1-2.0); Eosinophils # 0.6 K/mm3 (0.0-0.4); Eosinophils % 7.8 % (0.1-12.0); Hemoglobin 10.9 g/dL (14.1-18.0); Lymphocytes # 0.9 K/mm3 (0.7-4.5); Lymphocytes % 11.5 % (10-50); Mean Corpuscular HGB Conc 33.1 g/dL (31.8-35.4); Mean Corpuscular Volume 85.7 fl (80-94); Mean Platelet Volume 8.4 fl (7.4-10.4); Monocytes # 0.4 K/mm3 (0.1-1.0); Monocytes % 5.8 % (1.7-9.3); Neutrophils # 5.7 K/mm3 (1.8-7.8); Neutrophils % 74.5 % (37.0-80.0); Platelet Count 285 K/mm3 (142-424); Red Blood Count 3.85 M/mm3 (4.60-6.20); Red Cell Distribution Width 14.4 % (11.5-17.5); White Blood Count 7.6 K/mm3 (4.8-10.8)
[2019-07-08 12:41] LABS: Calcium 8.1 mg/dL (8.5-10.1)
[2019-07-08 23:31] LABS: Microscopic, Urine URINE MICROSCOPIC (MICROSCOPIC)
[2019-07-08 23:33] LABS: Appearance,Urine CLEAR (Clear); Bilirubin,Urine Negative (Negative); Blood, Urine Negative (Negative); Color,Urine YELLOW (Yellow); Glucose,Urine (UA) Negative (Negative); Ketones,Urine Negative (Negative); Leukocyte Esterase,Urine Negative (Negative); PH,Urine 5.5 (5.0-8.5); Protein,Urine Negative (Negative); Specific Gravity, Urine 1.015 (1.005-1.030); Urobilinogen,Urine 0.2 EU/dl (0.2)
[2019-07-08 23:40] LABS: Bacteria,Urine Trace /lpf; WBC,Urine Occasional #/hpf (0-3)
--- NOTE | 2019-07-09 09:20 | Progress Note ---
Internal Medicine - PN: Subj *Date: 07/09/19 *Time: 09:16 Interval history: Patient did well overnight. Continuing to use oxygen however slept better and feels less dyspneic this morning. CT performed last night showing atelectasis and small effusions bilaterally, right worse than left. Continues to have normal hemodynamics, remains afebrile. Denies productive cough, nausea, vomiting. Overall feeling better. Using incentive spirometer. No overt sign of infection at this time. Decubitus ulcer on coccyx/sacrum transition to different dressing last night due to concern for some irritation from adhesive from prior dressing. Continues to await placement with [facility]. Worked w [facility] physical therapy yesterday. Exam Vital signs and Labs for Last 24 Hours: Temp Pulse Resp BP Pulse Ox 97.6 F 73 18 119/57 L 96 07/09/19 08:01 07/09/19 08:01 07/09/19 08:01 07/09/19 08:01 07/09/19 08:01 Laboratory Results - last 24 hr 07/08/19 11:55: D-Dimer 1910 H* 07/08/19 12:25: C-Reactive Protein 2.5 H 07/08/19 12:25: WBC 7.6, RBC 3.85 L, Hgb 10.9 L, Hct 33.0 L, MCV 85.7, MCH 28.3, MCHC 33.1, RDW 14.4, Plt Count 285, MPV 8.4, Neut % (Auto) 74.5, Lymph % (Auto) 11.5, [place] % (Auto) 5.8, Eos % (Auto) 7.8, Baso % (Auto) 0.4, Neut # (Auto) 5.7, Lymph # (Auto) 0.9, [place] # (Auto) 0.4, Eos # (Auto) 0.6 H, Baso # (Auto) 0.0 07/08/19 12:25: Sodium 139, Potassium 4.0, Chloride 103, Carbon Dioxide 32, Anion Gap 8.0, BUN 18, Creatinine 0.59 L, Estimated Creat Clear 230, Estimated GFR 146, Est GFR ( Amer) 177, Glucose 125 H, Calcium 8.1 L 07/08/19 21:35: Urine Color Yellow, Urine Appearance Clear, Urine pH 5.5, Ur Specific [place] 1.015, Urine Protein Negative, Urine Glucose (UA) Negative, Urine Ketones Negative, Urine Blood Negative, Urine Nitrate Negative, Urine Bilirubin Negative, Urine Urobilinogen 0.2, Ur Leukocyte Esterase Negative, Urine WBC Occasional, Urine Bacteria Trace I & O for Last 24 hours: Intake & Output 07/06/19 07/07/19 07/08/19 07/09/19 23:59 23:59 23:59 23:59 Intake Total 1470 / 1470 480 / 600 1440 / 1440 360 / 360 Output Total 1670 / 1670 975 / 975 1275 / 2675 1810 / 1810 Balance -200 / -200 -495 / -375 165 / -1235 -1450 / -1450 Weight 106.141 kg 107.2 kg 107.2 kg 106.9 kg Narrative: And oriented x3, no acute distress on 2 L nasal cannula oxygen. Lungs with good air movement bilaterally, faint end inspiratory crackles right lower lobe. Minimal wheeze right upper lobe. No rhonchi Heart rate regular, trace edema Abdomen soft, nontender, bowel sounds normoactive. Surgical incision clean dry and intact, no weeping or drainage Assessment and Plan (1) Compartment syndrome of right upper extremity Current visit: Yes Status: Acute Category: Medical Code(s): T79.A11A - Traumatic compartment syndrome of right upper extremity, initial encounter (2) Biceps tendon rupture, proximal Current visit: Yes Status: Acute Category: Medical Code(s): S46.119A - Strain of muscle, fascia and tendon of long head of biceps, unspecified arm, initial encounter (3) Elevated blood pressure reading Current visit: Yes Status: Acute Category: Medical Code(s): R03.0 - Elevated blood-pressure reading, without diagnosis of hypertension (4) Paraplegia Current visit: Yes Status: Chronic Category: Medical Code(s): G82.20 - Paraplegia, unspecified (5) Decubitus ulcer Current visit: Yes Status: Acute Qualifiers: Pressure injury location: sacral region Pressure injury stage: stage 2 Qualified Code(s): L89.152 - Pressure ulcer of sacral region, stage 2 Category: Medical Code(s): L89.90 - Pressure ulcer of unspecified site, unspecified stage (6) Pleural effusion Current visit: Yes Status: Acute Category: Medical Code(s): J90 - Pleural effusion, not elsewhere classified - Assessment and plan all Dx Assessment and Plan for all problems:: Overall doing well today. Continue diuresis with another dose of Lasix today. Requiring oxygen due to atelectasis and pleural effusion however no overt sign of infection. We will continue to hold on antibiotics at this time and assess response to diuretics. Continues to await placement with [facility] pending insurance approval. Continue wound care management for decubitus ulcer.
--- NOTE | 2019-07-09 14:05 | Progress Note ---
Subjective Date: 07/09/19 Time: 12:00 Principal diagnosis: RUE compartment syndrome Interval history: The patient is feeling much better today after diuresis. No chest pain, no shortness of breath, no pain in RUE. He has been accepted by Dr. Estrada at [facility] and transfer is expected today. PN: Obj Ex Vital signs: Temp Pulse Resp BP Pulse Ox 97.6 F 73 18 119/57 L 96 07/09/19 08:01 07/09/19 08:01 07/09/19 08:01 07/09/19 08:01 07/09/19 08:01 - Constitutional no acute distress - Routine Extremities Exam Comments: RUE dressings c/d/i, no strikethrough, compartments soft AIN/PIN/ulnar nerves motor intact distally RUE SILT distally m/r/u dist RUE; patient reports slightly diminished sensation in ulnar distribution palpable radial pulse R wrist fingers warm, pink, well-perfused ROM R elbow improving, able to perform small arc of motion without pain stage II sacral decub, stable - Urinary Catheter Management Rosas Cath placed during this visit: no Urethral indwelling: No Straight Cath placed during this visit: no Progress Note: A&P (1) Compartment syndrome of right upper extremity Status: Acute Current Visit: Yes (2) Biceps tendon rupture, proximal Status: Acute Current Visit: Yes (3) Elevated blood pressure reading Status: Acute Current Visit: Yes (4) Paraplegia Status: Chronic Current Visit: Yes (5) Decubitus ulcer Status: Acute Current Visit: Yes (6) Pleural effusion Status: Acute Current Visit: Yes Assessment and Plan for All Diagnoses:: 49yo M s/p RUE acute compartment syndrome from proximal biceps tendon rupture, POD #9 s/p fasciotomy, POD #7 s/p I&D with wound closure and biceps tenodesis -- to be transferred to [facility] today -- RUE: wound healing well, keep covered and change dressing as needed. May perform ROM of elbow/shoulder as tolerated, light activity ok but recommend lifting <1-2 pounds. Weightbearing will be protected until incision has healed, to prevent dehiscence. Once healed, can resume regular activity/transfers. -- continue PT/OT at [facility] -- continue DVT prophy: transition to Xarelto x2 weeks -- continue carvedilol, lisinopril, symbicort -- wound care for sacral decub, air flotation mattress, frequent turning while in bed -- f/u with me on 07/15/19 at 10am
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
== END 2019-07-09 15:38 | DRG 908 ==
LOC: ER 15:58 → SDC 18:45 → ER 18:51 → 2ND 20:08
PROVIDERS: ADMIT Orthopaedic Surgery; ATTEND Orthopaedic Surgery
DX: Z72.0 Tobacco use; Z88.1 Allergy status to other antibiotic agents; J90 Pleural effusion, not elsewhere classified; Z88.0 Allergy status to penicillin; X50.0XXA Overexertion from strenuous movement or load, initial encounter; R03.0 Elevated blood-pressure reading, without diagnosis of hypertension; S46.111A Strain of muscle, fascia and tendon of long head of biceps, right arm, initial encounter; J45.909 Unspecified asthma, uncomplicated; Z79.51 Long term (current) use of inhaled steroids; L89.152 Pressure ulcer of sacral region, stage 2; T79.A11A Traumatic compartment syndrome of right upper extremity, initial encounter; Y92.012 Bathroom of single-family (private) house as the place of occurrence of the external cause; G82.20 Paraplegia, unspecified; Z88.2 Allergy status to sulfonamides
CPT/HCPCS: 36415; 71010; 71045; 71275; 73030; 73060; 80048; 80053; 80202; 81001; 85007; 85025; 85378; 85610; 85651; 85730; 86140; 94761; 97140; 97163; 97166; 97530; 97535; 99283; J2405; J3370; Q9967; S0077

== ENCOUNTER → 2019-07-26 14:09 | Outpatient (CLI) | payer OTHER, SELFPAY ==
[2019-07-26 14:42] LABS: Basophils % 0.5 % (0.1-2.0); Eosinophils # 0.4 K/mm3 (0.0-0.4); Hematocrit 38.3 % (42.0-52.0); Hemoglobin 11.6 g/dL (14.1-18.0); Lymphocytes # 1.3 K/mm3 (0.7-4.5); Lymphocytes % 16.6 % (10-50); Mean Corpuscular HGB Conc 30.2 g/dL (31.8-35.4); Mean Corpuscular Hemoglobin 26.6 pg (27.0-31.2); Mean Corpuscular Volume 88.3 fl (80-94); Mean Platelet Volume 8.1 fl (7.4-10.4); Monocytes # 0.6 K/mm3 (0.1-1.0); Neutrophils # 5.5 K/mm3 (1.8-7.8); Neutrophils % 69.9 % (37.0-80.0); Platelet Count 247 K/mm3 (142-424); Red Blood Count 4.34 M/mm3 (4.60-6.20); Red Cell Distribution Width 15.1 % (11.5-17.5); White Blood Count 7.8 K/mm3 (4.8-10.8)
[2019-07-26 15:34] LABS: Alanine Aminotransferase 29 U/L (12-78); Albumin Level 3.5 gm/dL (3.4-5.0); Albumin/Globulin Ratio 1.3 (1.1-1.8); Alkaline Phosphatase 86 U/L (46-116); Aspartate Amino Transferase 14 U/L (15-37); Bilirubin,Total 0.4 mg/dL (0.2-1.0); Blood Urea Nitrogen 22 mg/dL (7-18); Calcium 8.8 mg/dL (8.5-10.1); Carbon Dioxide 37 mmol/L (21.0-32.0); Chloride 105 mmol/L (98-107); Creatinine,Serum 0.62 mg/dL (0.70-1.30); Estimated Glomerular Filt Rate 138 ml/min (>60); GFR (African American) 167 ML/MIN (>60); Globulin 2.8 gm/dl (1.3-3.2); Glucose 80 mg/dL (74-106); Sodium 145 mmol/L (136-145); Total Protein,Serum 6.3 gm/dL (6.4-8.2)
== END ==
PROVIDERS: Visit Provider Orthopaedic Surgery
DX: Z09 Encounter for follow-up examination after completed treatment for conditions other than malignant neoplasm (principal); S46.211D Strain of muscle, fascia and tendon of other parts of biceps, right arm, subsequent encounter; T79.A11D Traumatic compartment syndrome of right upper extremity, subsequent encounter; G82.20 Paraplegia, unspecified
CPT/HCPCS: 36415; 80053; 85025

== ENCOUNTER → 2020-07-28 15:48 | Outpatient (CLI) | payer OTHER, SELFPAY ==
--- NOTE | 2020-07-28 15:55 | XR_ITS ---
PROCEDURE: XR CHEST 2V CLINICAL HISTORY: SEVERE HYPERTENSION, SOA COMPARISON: CR XR CHEST PORTABLE from 07/08/2019 FINDINGS: Limited exam performed in the wheelchair. Hartley rods are present along with lateral bone plate and cage device along the lower thoracic spine. There is cardiomegaly with mild prominence of the mediastinum. The lower lobe pneumonia has shown improvement from the previous exam. There are old right-sided rib fractures. Suspect some residual pneumonia in the right lower lobe. Lateral view is very limited for the lung findings.. IMPRESSION: Improving bilateral pneumonia with some residual infiltrate in the right lower lobe. Postsurgical changes with cardiomegaly Dictated by: Salas Hobbs MD 07/28/2020 16:39 Salas Hobbs MD in [place] 07/28/2020 16:39
== END ==
PROVIDERS: PCP Internal Medicine; Visit Provider Internal Medicine
DX: R06.02 Shortness of breath (principal); I10 Essential (primary) hypertension
CPT/HCPCS: 71046

== ENCOUNTER → 2020-08-04 17:35 | Outpatient (CLI) | payer OTHER, SELFPAY ==
[2020-08-04 18:41] LABS: Chloride 98 mmol/L (98-107); Potassium 3.9 mmoL/L (3.5-5.1); Sodium 141 mmol/L (136-145)
[2020-08-04 18:44] LABS: Blood Urea Nitrogen 19 mg/dl (9-20); Estimated Glomerular Filt Rate 143 ml/min (>60); GFR (African American) 173 ML/MIN (>60)
[2020-08-04 18:45] LABS: Anion Gap 10.9 mEq/L (5-15); Calcium 9.2 mg/dl (8.4-10.2); Carbon Dioxide 36 mmol/L (22.0-30.0); Glucose 80 mg/dl (74-100)
== END ==
PROVIDERS: Visit Provider Internal Medicine
DX: I11.0 Hypertensive heart disease with heart failure (principal)
CPT/HCPCS: 80048

== ENCOUNTER → 2020-08-27 15:31 | Outpatient (CLI) | payer OTHER, SELFPAY ==
--- NOTE | 2020-08-27 | CA_ITS ---
APPROVED REPORT EXAM: Comprehensive 2D, Doppler, and color-flow Echocardiogram Budget Engineer: Marita Mckinney [facility], S Ht: 5 ft 9 in Wt: 235lbs BSA: 2.21 BP: 167/78 mmHg Indications: paraplegic since age 5, Asthma, HTN, smoker, CHF Echo Enhancing Agent Comments: Poor acoustic windows throughout exam, limited by large body habitus. Patient declined contrast. 2D Dimensions Left Atrium 3.41 cm LA Volume 34.80 mL LVOT 2.19 cm (M/F) 1.5-2.5 LA Volume Index 15.30 mL/m2 (M/F) 16-34 Ascending Aorta 3.25 cm M-Mode Dimensions RVDd 3.13 cm (0.9-2.6) LA Diam 3.24 cm (1.9-4.0) LVDd 4.23 cm (3.5-5.7) Ao Diam 3.36 cm (2.0-3.7) LVDs 3.39 cm (3.5-5.7) IVSd 1.33 cm (0.6-1.1) PWd 1.18 cm (0.6-1.1) EF (Teich) 41.10% EPSs 1.26 cm FS 19.90% EDV (Teich) 79.90 mL TAPSE 2.18 (<1.7) ESV (Teich) 47.10 mL LV Diastology E Decel Time 113.00 (160-240 msec) E/A Ratio 0.87 MED E' 5.30 (< 7 cm/sec) MED A' 9.30 cm/s E'/MED E' Ratio 13.36 (>14) LAT E' 6.30 (<10 cm/sec) LAT A' 8.10 cm/s E/LAT E' Ratio 11.24 (>14) Aortic Valve AO Peak GR. 2.80 mmHg Mitral Valve MV E Max Errol. 71.00 (40-130 cm/s) MV A Velocity 82.00 (40-130 cm/s) E/A Ratio 0.87 MV Decel. Time 113.00 (160-240 ms) MV PHT 33.00 ms Tricuspid Valve TR P. Velocity 357.00 cm/s RAP Estimate 10.00 mmHg RVSP 61.10 mmHg Left Ventricle Left atrium is mildly enlarged, left ventricle is normal size, mild concentric left ventricular hypertrophy, visually estimated ejection fraction 55% with no regional wall motion abnormality, grade 1 diastolic dysfunction seen without tissue Doppler evidence of raise left atrial pressure. Right Ventricle Right atrium and right ventricle are mildly enlarged with normal contractility. Aortic Valve Aortic valve is minimally thickened and fibrosed, there is no aortic stenosis or aortic insufficiency. Mitral Valve Mitral valve is grossly normal, there is trace mitral regurgitation. Tricuspid Valve Tricuspid valve grossly normal, there is trace tricuspid regurgitation, tricuspid regurgitation jet velocity is inadequate for accurate assessment of the right ventricular systolic pressure. Pulmonic Valve Pulmonic valve is poorly visualized. Great Vessels Aortic root is normal size. Pericardium No significant pericardial effusion noted. Conclusion 1. Mild biatrial enlargement, normal left ventricular size, mild concentric left ventricular hypertrophy, visually estimated ejection fraction 55% with no regional wall motion abnormality, grade 1 diastolic dysfunction seen without tissue Doppler evidence of raise left atrial pressure. 2. Mildly enlarged right ventricle with normal contractility. 3. Trace mitral and tricuspid regurgitation. 4. No significant pericardial effusion noted. Electronically signed by : Wesley Gonsalez, 08/28/2020 10:11:53
== END ==
PROVIDERS: PCP Internal Medicine; Visit Provider Internal Medicine
DX: I11.0 Hypertensive heart disease with heart failure (principal)
CPT/HCPCS: 93306

== ENCOUNTER → 2020-10-22 12:18 | Outpatient (CLI) | payer OTHER, SELFPAY ==
--- NOTE | 2020-10-22 | CA_ITS ---
APPROVED REPORT Exam: Pharmacologic Technologist: Ene Moralez, Ht: 5 ft 9 in Wt: 235 lbs BSA: 2.21 m2 HR: 76 bpm Rhythm: NSR/ RAD/borderline voltage criteria for FELICITA Medical History Medical History: HTN Medications: Hydralazine,,,,, Lasix,,,,, SyMBICORT,,,,, Albuterol,,,,, Lisinopri/HCTZ,,,,, Stress Test Details Test: LEXISCAN HR Resting HR: 80 bpm Max Heart Rate (APMHR): 170.604809 bpm Max HR Achieved: 103 bpm Target HR (85% APMHR): 144.387309 bpm % of APMHR: 60.59 Recovery HR: 83 bpm BP Resting BP: 177/99 mmHg Max BP: 177/99 mmHg Recovery BP: 153.0/74.0 mmHg ECG Resting ECG: NSR/RAD/BORDERLINE VOLTAGE CRITERIA FOR FELICITA Clinical Exercise duration: 04:22 min Highest Stage Achieved: Stress ECG Conclusion DURING LEXISCAN PT EXPERINCED SOA, MALAISE, NO CP. TRANSILENT, SEVERE SINUS ANGELA AND [address] PAUSE. NS [address] CHNAGES INFERIORLY AND LATERALLY. SINUS PAUSE AMD TRANSIENT MARKED ANGELA. OTHERWISE UNREMARKABLE LEXISCAN STRESS. MYOVIEW IMAGES REPORTED SEPARATELY. Electronically signed by : Wesley Gonsalez, 10/22/2020 16:58:57
--- NOTE | 2020-10-22 12:18 | NM_ITS ---
APPROVED REPORT Exam: Nuclear Stress Test Indication: SOB, Abnormal EKG, HTN Patient Location: Outpatient Stress Tech: Tatiana Zafar OR Tech:Yanelis Brewer, ARRT, RT (R)(N) Ht: 5 ft 10 in Wt: 245 lbs HR: 76 bpm BP: 177/99 mmHg BSA: 2.28 m2 BMI: 35.1 History: SOB, Abnormal EKG, HTN Procedure: Patient received a 0.4 mg of intravenous Lexiscan, resting heart rate 76 bpm, resting blood pressure 177/99 mmHg, with Lexiscan maximum heart rate achived was 89 bpm which is Less than 85 % of the maximum predicted heart rate and blood pressure was 141/69 mmHg. With Lexiscan, patient denied any complaint of chest pain. Electrocardiogram Resting electrocardiogram shows sinus rhythm nonspecific ST-T changes, with Lexiscan there is less than 1.[address] segment depression noted from the baseline EKG. Cardiac Stress and Resting SPECT Images: Cardiac Stress and Resting SPECT images were obtained using technetium 99m Myoview 30.9 mCi stress and 10.23 mCi at rest. Patient is a paraplegic. Unable to lay on stomach to do prone images. Gated SPECT for analysis of segmental wall motion and calculation of the ejection fraction also done. Cardiac stress and resting SPECT images show uniform myocardial activity without segmental perfusion abnormality, computer derived ejection fraction is 51% with no regional wall motion abnormality, there is transient ischemic dilatation of the left ventricle seen, raising the concern for presence of balanced ischemia, other causes for for transient ischemic dilatation includes increased left ventricular end-diastolic pressure, microvascular disease and hypertensive heart disease. Conclusion: 1. The EKG portion of the Lexiscan is nondiagnostic. 2. No scintigraphic evidence of reversible ischemia seen, computer derived ejection fraction is 51% with no regional wall motion abnormality, right ventricle is normal size and contractility, however there is transient ischemic dilatation of the left ventricle as described above seen. Clinical correlation is recommended. Electronically signed by : Wesley Gonsalez, 10/22/2020 17:02:06
--- NOTE | 2020-10-22 14:02 | HMH.ITSHM ---
Current Home Medications as stated by this patient Martin Bauer or regional sales representative. []METOPROLOL LISINOPRIL FUROSEMIDE AMLODIPINE BUDESONIDE ALBUTEROL
== END ==
PROVIDERS: PCP Family Medicine; Visit Provider Internal Medicine Cardiovascular Disease
DX: R06.00 Dyspnea, unspecified (principal); R94.31 Abnormal electrocardiogram [ECG] [EKG]; G82.20 Paraplegia, unspecified; I10 Essential (primary) hypertension; G47.9 Sleep disorder, unspecified; R06.83 Snoring; Z87.891 Personal history of nicotine dependence
CPT/HCPCS: 78452; 93017; A9502; J2785

== ENCOUNTER → 2020-10-29 08:30 | Outpatient (CLI) | payer SELFPAY ==
--- NOTE | 2020-10-29 08:31 | CT_ITS ---
PROCEDURE: CT HEART W CALCIUM SCORE CLINICAL HISTORY: dyspnea COMPARISON: CT CT ANGIO CHEST from 07/08/[address] ANGIO CHEST from 07/08/2019 TECHNIQUE: Axial images obtained with sagittal and coronal reformats. All CT scans at the facility use one or more dose reduction, viz: automated exposure control, ma/kV adjustment per patient size (including targeted exams where dose is matched to indication, i.e. head), or iterative reconstruction technique. FINDINGS: Coronary artery calcium score is 1. Minimal calcific plaque burden with low cardiovascular disease risk. Calcified nodes are present in the right hilar region. There are small rods and inter pedicular screws within the thoracic spine with bony hypertrophy and a cage device in the lower thoracic region and upper lumbar spine. IMPRESSION: Minimal calcific plaque burden with low cardiovascular disease risk Dictated by: Salas Hobbs MD 10/29/2020 18:50 Salas Hobbs MD in [place] 10/29/2020 18:50
== END ==
PROVIDERS: PCP Family Medicine; Visit Provider Internal Medicine Cardiovascular Disease
DX: Z13.6 Encounter for screening for cardiovascular disorders (principal); R94.31 Abnormal electrocardiogram [ECG] [EKG]
CPT/HCPCS: 75571

== ENCOUNTER → 2020-10-29 10:08 | Outpatient (CLI) | payer OTHER, SELFPAY ==
--- NOTE | 2020-10-29 10:09 | CA_ITS ---
APPROVED REPORT Soldering Inspector: Yvette Venegas RVT Study Quality: Adequate Indications: HTN,HX KIDNEY STONES,PARAPLEGIC Risk Factors Hypertension Obesity Renal Artery Doppler Mid (R) 102.8/ cm/sec Distal (R) 56.3/ cm/sec Renal Aorta Ratio (R) 1.60 Segmental A. (R) 25.5/9.6 cm/sec RI: 0.62 Segmental A. Sup (R) 18.5/4.9 cm/sec Segmental A. Mid (R) 25.5/9.6 cm/sec Segmental A. Inf (R) 16.7/5.6 cm/sec Mid (L) 104.4/ cm/sec Distal (L) 73.0/ cm/sec Renal Aorta Ratio (L) 1.62 Segmental A. (L) 34.6/11.5 cm/sec RI: 0.66 Segmental A. Sup (L) 34.6/11.5 cm/sec Segmental A. Mid (L) 28.8/9.9 cm/sec Segmental A. Inf (L) 33.7/13.2 cm/sec Renal Measurements Kidney Size (R) 10.7x7.0 cm Cortical Thickness (R) 1.6 cm Kidney Size (L) 10.9x8.2 cm Cortical Thickness (L) 1.1 cm Findings Study suggests no evidence of stenosis of the bilateral renal arteries. Bilateral proximal renal arteries were not visualized. Non-obstructing nephrolithiasis seen in the right kidney. Conclusion Study suggests no evidence of stenosis of the bilateral renal arteries. Bilateral proximal renal arteries were not visualized. Non-obstructing nephrolithiasis seen in the right kidney. Electronically signed by : Salas Hobbs MD 10/29/2020 18:30:24
== END ==
PROVIDERS: PCP Family Medicine; Visit Provider Internal Medicine Cardiovascular Disease
DX: R06.00 Dyspnea, unspecified (principal); I10 Essential (primary) hypertension; R94.31 Abnormal electrocardiogram [ECG] [EKG]; G82.20 Paraplegia, unspecified; G47.9 Sleep disorder, unspecified; R06.83 Snoring
CPT/HCPCS: 93976

== ENCOUNTER → 2020-11-05 12:46 | Outpatient (CLI) | payer OTHER, SELFPAY ==
[2020-11-05 13:55] LABS: Chloride 99 mmol/L (98-107)
[2020-11-05 13:56] LABS: Sodium 141 mmol/L (136-145)
[2020-11-05 13:59] LABS: Blood Urea Nitrogen 16 mg/dl (9-20); Calcium 9.2 mg/dl (8.4-10.2); Carbon Dioxide 36 mmol/L (22.0-30.0); Estimated Glomerular Filt Rate 143 ml/min (>60); GFR (African American) 173 ML/MIN (>60); Glucose 105 mg/dl (74-100)
[2020-11-05 14:09] LABS: NT Pro Brain Natriuretic Pep. 248 pg/mL (0-125)
== END ==
PROVIDERS: Visit Provider Internal Medicine Cardiovascular Disease
DX: G82.20 Paraplegia, unspecified (principal); R06.00 Dyspnea, unspecified; R94.31 Abnormal electrocardiogram [ECG] [EKG]; I50.9 Heart failure, unspecified; G47.9 Sleep disorder, unspecified; I10 Essential (primary) hypertension
CPT/HCPCS: 36415; 80048; 83880

== ENCOUNTER → 2020-11-13 18:38 | Outpatient (CLI) | payer OTHER, SELFPAY | PROVIDERS: PCP Family Medicine; Visit Provider Internal Medicine Cardiovascular Disease | DX: G47.33 Obstructive sleep apnea (adult) (pediatric) (principal); R06.83 Snoring; R06.00 Dyspnea, unspecified | CPT/HCPCS: 95806 ==

== ENCOUNTER → 2021-01-14 12:49 | Outpatient (CLI) | payer OTHER, SELFPAY ==
--- NOTE | 2021-01-14 12:52 | XR_ITS ---
PROCEDURE: XR CHEST 2V CLINICAL HISTORY: HTN COMPARISON: CT CT ANGIO CHEST from 07/08/2019 CR XR CHEST PORTABLE from 07/08/2019 DX XR CHEST 2V from 07/28/2020 FINDINGS: There is mild cardiomegaly without failure. Hartley rods are in place as before. There is thoracic scoliosis convex left. There is a cage like device with right-sided paralumbar fixator at the thoracolumbar junction. Study is somewhat under penetrated . No definite lobar consolidation or collapse. There is an old right 5th rib fracture. There has been resection of the right 6th rib IMPRESSION: Stable appearance of the chest. No change with no acute finding. Extensive postsurgical changes of the thoracic spine which appear stable compared to the previous exam Dictated by: Salas Hobbs MD 01/14/2021 14:19 Salas Hobbs MD in [place] 01/14/2021 14:19
== END ==
PROVIDERS: PCP Family Medicine; Visit Provider Family Medicine
DX: I10 Essential (primary) hypertension (principal)
CPT/HCPCS: 71046

== ENCOUNTER → 2021-02-28 14:41 | Outpatient (CLI) | payer OTHER, SELFPAY | PROVIDERS: PCP Family Medicine; Visit Provider Specialist | DX: Z01.812 Encounter for preprocedural laboratory examination (principal); Z11.52 Encounter for screening for COVID-19; U07.1 COVID-19 | CPT/HCPCS: U0003 ==

== ENCOUNTER → 2021-03-17 16:51 | Outpatient (CLI) | payer OTHER, SELFPAY ==
[2021-03-17 19:41] LABS: Anion Gap 14.3 mEq/L (5-15); Blood Urea Nitrogen 15 mg/dl (9-20); Calcium 9.1 mg/dl (8.4-10.2); Carbon Dioxide 30 mmol/L (22.0-30.0); Chloride 102 mmol/L (98-107); Estimated Glomerular Filt Rate 142 ml/min (>60); GFR (African American) 172 ML/MIN (>60); Glucose 111 mg/dl (74-100); Potassium 4.3 mmoL/L (3.5-5.1); Sodium 142 mmol/L (136-145)
== END ==
PROVIDERS: Visit Provider Internal Medicine Cardiovascular Disease
DX: R06.00 Dyspnea, unspecified (principal); I10 Essential (primary) hypertension; R94.31 Abnormal electrocardiogram [ECG] [EKG]; G47.33 Obstructive sleep apnea (adult) (pediatric); G47.9 Sleep disorder, unspecified; G82.20 Paraplegia, unspecified; Z87.891 Personal history of nicotine dependence
CPT/HCPCS: 36415; 80048

== ENCOUNTER → 2021-04-08 09:57 | Outpatient (CLI) | payer OTHER, SELFPAY ==
[2021-04-08 11:05] LABS: Coronavirus 19 IgG Antibody Positive (Negative); Coronavirus 19 IgM Antibody Negative (Negative)
[2021-04-08 11:06] LABS: Glucose,Random 150 mg/dL (74-100)
[2021-04-08 11:43] LABS: Hemoglobin A1C 7.2 % (4.0-6.0)
== END ==
PROVIDERS: Visit Provider Family Medicine
DX: Z11.52 Encounter for screening for COVID-19 (principal); U07.1 COVID-19; R73.9 Hyperglycemia, unspecified
CPT/HCPCS: 36415; 82947; 83036; 86328

== ENCOUNTER 2021-10-24 15:28 | Emergency (ER) | payer OTHER, SELFPAY ==
[2021-10-24 15:29] VITALS: BP 168/93; PULSE 84; RESP 16; TEMP 37.1; O2SAT 100; BMI 36.5
[2021-10-24 15:32] VITALS: BP 168/93; PULSE 81; RESP 21; O2SAT 99
--- NOTE | 2021-10-24 15:34 | HMH.EDGENADL ---
ED Disposition Clinical Impression: Tendinitis of wrist Disposition: Home, Self-Care Condition on Discharge: Good Additional Instructions: Wear wrist brace. Prednisone as prescribed. [place] as needed for pain. Follow-up with orthopedics, Dr. Hadley. Call tomorrow morning to make appointment to be seen this week. Ice 20 minutes 4 times a day and elevate your extremity to reduce pain and swelling. Additional instructions for EXTREMITY PAIN: Return to an emergency department immediately if you have uncontrollable pain, fever, loss of feeling or inability to move your injured extremity. Prescriptions: Hydrocod/Acet 5/325 mg [[place] 5/325mg tablet] 1 tab PO Q6HP PRN #10 tab PRN Reason: Pain Transmission Status: Sent to [id number] predniSONE [Prednisone 20mg Tab] 20 mg PO BID #10 tab Transmission Status: Pending to [facility] Referrals: Wilmar Diego MD [Primary Care Provider] - - Critical Care Critical Care Time: No Attestation: On , the high probability of a clinically significant, sudden or life threatening deterioration of the following system(s) required my full and direct attention, intervention and personal management. The time I documented below is in addition to time spent performing reported procedures but includes the following listed in this critical care notation. Medical Decision Making - Sumanth Inquiry Pt receiving controlled substance: Yes (Declines pain medication in the ER but would like prescription) Sumanth was queried for this patient: Yes Risks and benefits of using a controlled substance: were discussed with pt by me Vital Signs: 10/24/21 15:29 10/24/21 15:32 Temperature 98.7 F Temperature Source Oral Pulse Rate 81 Pulse Rate [Right Radial] 84 Respiratory Rate 16 21 Blood Pressure 168/93 H Blood Pressure [Right Arm] 168/93 H Blood Pressure Mean 118 Blood Pressure Mean [Right Arm] 118 Blood Pressure Source [Right Arm] Automatic Cuff Blood Pressure Position [Right Arm] Supine 02 Sat by Pulse Oximetry 100 99 Oxygen Delivery Method Room Air Orders (Tests/Meds): ORDERS Category Date Time Status Wrist XR left minimum 3 views [XR wrist LT min 3V] Stat Exams 10/24/21 15:49 Taken Medical Decision Narrative: No findings to suggest compartment syndrome. Patient's symptoms in his left wrist today seem most consistent with a tendinitis of the extensor tendons. However, he also has some intermittent sharp pains in his flexor aspect of his forearm for the past month and noticed some weakness of his left wellness nurse over the past week. I am also concerned that he may have a nerve compression/neuropathy. I have advised him to follow-up with orthopedics for both of these conditions. General Adult HPI - General Stated complaint: wrist pain Time Seen by Provider: 10/24/21 15:34 - History of Present Illness HPI narrative: Patient is paraplegic, he arrives by ambulance with complaint of left wrist pain and swelling. States that he developed some pain in his left wrist yesterday. He saw his primary care provider yesterday for routine follow-up visit for hypertension and mentioned his wrist pain. He says that his primary care provider, Dr. Diego, examined his wrist, but at that time it was not swollen. He told him it might be related to some tendon problems. Since then his pain is increased and he has developed swelling of the wrist. No fever. No trauma recalled. He locates the pain as on the dorsum of the wrist at the joint between the radius and ulna. It hurts when he tries to extend his wrist. It does not hurt when he deviates his wrist radially and ulnarly. No numbness. No fever, no redness. He also states that he has had some intermittent sharp pains in his left forearm with certain movements, sporadically, over the past month. He says that he began using some spring-loaded hand wellness nurse strength thinners abou
--- NOTE | 2021-10-24 15:49 | XR_ITS ---
PROCEDURE INFORMATION: Exam: XR Left Wrist Exam date and time: 10/24/2021 3:53 PM Age: 51 years old Clinical indication: Patient HX: Left wrist pain and swelling started yesterday. Patient stated he was using a hand exercising device last week. ; Additional info: Pain, swelling TECHNIQUE: Imaging protocol: XR Left wrist. Views: 3 or more views. COMPARISON: No relevant prior studies available. FINDINGS: Bones/joints: Mild osteophytosis and eburnation most notably in the region of the trapezium and 1st metacarpal. Periosteal reaction of the distal ulnar diaphysis appears nonaggressive and likely is due to remote injury and healing. Soft tissues: No radiopaque foreign object or focal soft tissue IMPRESSION: No acute fracture is identified. Osteoarthritis. Periosteal reaction of the distal ulnar diaphysis appears nonaggressive and likely is due to remote injury and healing.
[2021-10-24 16:01] VITALS: BP 165/91; PULSE 79; RESP 18; O2SAT 98
[2021-10-24 17:07] VITALS: BP 164/91; PULSE 79; RESP 17; TEMP 37.1; O2SAT 99
== END 2021-10-24 17:09 | disposition home or self-care (01) ==
PROVIDERS: Emergency Provider Emergency Medicine; PCP Family Medicine
DX: M70.832 Other soft tissue disorders related to use, overuse and pressure, left forearm (principal); I10 Essential (primary) hypertension; E78.5 Hyperlipidemia, unspecified; J45.909 Unspecified asthma, uncomplicated; Z87.891 Personal history of nicotine dependence
CPT/HCPCS: 73110; 99283

== ENCOUNTER 2021-12-14 08:00 | Emergency (ER) | payer OTHER, SELFPAY ==
[2021-12-14 08:16] VITALS: BP 151/77; PULSE 66; RESP 17; TEMP 37; O2SAT 96; BMI 36.5
--- NOTE | 2021-12-14 08:24 | HMH.EDUTC ---
[facility] [place] Clinical Impression: Viral syndrome Disposition: Home, Self-Care Condition on Discharge: Good Instructions: Sore Throat, DI for COVID-19 (Suspected or Confirmed ), Preventing the Spread of Coronavirus Discharge Instructions Additional Instructions: *Monitor Temp, Over the counter Motrin or Tylenol as directed/as needed Tylenol every 4 hours and Motrin every 6 hours (as long as your family doctor has told you that you can take it) for fever or pain. and straight to ER if unable to lower temp less than 101.0 after medication given *Warm salt water gargles may help to soothe the throat *Throat Lozenges *Warm fluids like tea with honey may help to soothe the throat *Sleep elevated *Humidifier/Vaporizer Your throat swab was sent for culture. Those results are typically sent to your primary care. Be sure to follow up in 2-3 days with your family doctor/primary care physician if no improvement so they can review those result and treat if necessary. If you don?t have a primary care doctor, I recommend you get one but in the mean time, you will have to return to a walk in clinic Follow up IMMEDIATELY for new or worsening symptoms or no Noticeable improvement over the next 48-72 hours. 911 for difficulty breathing or swallowing You were tested for today for COVID19 your test result should be back in the next 24-48 hours, your results will be available for viewing on the [facility] My Health Portal Referrals: Wilmar Diego MD [Primary Care Provider] - As needed Forms: Work/School Release Time of Disposition: 08:45 Medical Decision Making - Sumanth Inquiry Pt receiving controlled substance: No Sumanth was queried for this patient: No Vital Signs: 12/14/21 08:16 Temperature 98.6 F Temperature Source Oral Pulse Rate [Left Radial] 66 Respiratory Rate 17 Blood Pressure [Right Arm] 151/77 H Blood Pressure Mean [Right Arm] 101 02 Sat by Pulse Oximetry 96 - Lab Data Lab Results 12/14/21 08:19: Group A Strep Rapid Negative Orders (Tests/Meds): ORDERS Category Date Time Status Covid-19 Nasal PCR ([facility]) Routine Lab 12/14/21 08:19 Received Strep Screen Confirmation Stat Micro 12/14/21 08:19 Received [facility] HPI - General Stated complaint: cough, sore throat, covid exposure Time Seen by Provider: 12/14/21 08:24 Mode of Arrival: Wheelchair Source of Information: Patient Description of Symptoms (Recalled from Triage Doc. by RN): patient comes in today with sore throat and congestion. patient lives with mother, who was recently diagnosed with covid, 12/06/21. patient began having symptoms yesterday. HEENT Symptoms (Recalled from RN notes): Yes Resp Symptoms (Recalled from RN notes): Yes Skin Symptoms (Recalled from RN notes): No MS Symptoms (Recalled from RN notes): No Functional Status (Recalled from RN notes): wnl - History of Present Illness Provider Complaint: Patient states that he lives with his mother that tested positive last week for COVID States that now he is having sore throat and nasal congestion yesterday and not sure if he may have strep throat or COVID so he came in to get tested - Related Data Home Medications Medication Instructions Recorded Confirmed Albuterol Sulfate [Albuterol 2 puffs IH QID PRN 07/01/19 11/10/21 Sulfate Hfa] Budesonide/Formoterol Fumarate 2 puffs IH BID 07/01/19 12/14/21 [Symbicort 160-4.5 Mcg Inhaler] furosemide 40 mg tablet 40 mg PO DAILY tab 10/15/20 11/10/21 empagliflozin 10 mg tablet 10 mg PO DAILY 10/29/21 11/10/21 amlodipine 5 mg tablet 5 mg PO DAILY 11/10/21 11/10/21 clonidine HCl 0.1 mg tablet 0.1 mg PO BID 11/10/21 11/10/21 Previous Rx's Medication Instructions Recorded spironolactone 25 mg tablet 25 mg PO DAILY #30 tab 02/18/21 metoprolol succinate 25 mg See Rx Instructions .ROUTE 09/27/21 tablet,extended release 24 hr .COMPLEX #30 tab lisinopril 40 mg tablet See Rx Instructions .ROUTE 10/25/21 .COMPLEX #90 tab
[2021-12-14 08:40] LABS: Strep Scrn Group A (Rapid) Negative (Negative)
[2021-12-14 08:45] VITALS: BP 151/77; PULSE 66; RESP 17; TEMP 37
== END 2021-12-14 08:49 | disposition home or self-care (01) ==
PROVIDERS: Emergency Provider Nurse Practitioner; PCP Family Medicine
DX: B34.9 Viral infection, unspecified (principal); J02.9 Acute pharyngitis, unspecified; R94.31 Abnormal electrocardiogram [ECG] [EKG]; Z20.822 Contact with and (suspected) exposure to COVID-19; I11.0 Hypertensive heart disease with heart failure; I50.30 Unspecified diastolic (congestive) heart failure; E78.5 Hyperlipidemia, unspecified; I49.9 Cardiac arrhythmia, unspecified; G47.33 Obstructive sleep apnea (adult) (pediatric); G25.81 Restless legs syndrome; G47.69 Other sleep related movement disorders; J45.909 Unspecified asthma, uncomplicated; Z79.51 Long term (current) use of inhaled steroids; Z79.899 Other long term (current) drug therapy; Z87.891 Personal history of nicotine dependence; Z88.0 Allergy status to penicillin; Z88.2 Allergy status to sulfonamides; Z88.8 Allergy status to other drugs, medicaments and biological substances
CPT/HCPCS: 87430; 99213; C9803; G0463; U0003; U0005

== ENCOUNTER 2022-03-12 15:17 | Emergency (ER) | payer OTHER, SELFPAY ==
[2022-03-12 15:32] VITALS: BP 187/82; PULSE 80; RESP 18; TEMP 37; O2SAT 96; BMI 31.2
--- NOTE | 2022-03-12 15:42 | HMH.EDGENADL ---
Discharge Plan Disposition Patient Disposition: Home, Self-Care Condition: Good Prescriptions Prescriptions: New clindamycin HCl 300 mg capsule 300 mg PO Q8H 7 Days Qty: 21 0RF No Action furosemide 40 mg tablet 40 mg PO DAILY amlodipine 5 mg tablet 5 mg PO DAILY spironolactone [Aldactone] 25 mg tablet 25 mg PO DAILY Qty: 30 5RF Jardiance 10 mg tablet 10 mg PO DAILY lisinopril 40 mg tablet See Rx Instructions .ROUTE .COMPLEX Qty: 90 1RF Dose Instruction: Take 1 tablet by mouth once daily Rx Instructions: Take 1 tablet by mouth once daily metoprolol succinate 25 mg tablet extended release 24 hr See Rx Instructions .ROUTE .COMPLEX Qty: 30 5RF Dose Instruction: Take 1 tablet by mouth once daily Rx Instructions: Take 1 tablet by mouth once daily clonidine HCl 0.1 mg tablet See Rx Instructions .ROUTE .COMPLEX Qty: 90 5RF Dose Instruction: TAKE 1 TABLET BY MOUTH EVERY 8 HOURS Rx Instructions: TAKE 1 TABLET BY MOUTH EVERY 8 HOURS albuterol sulfate 8.5 GM HFA aerosol inhaler 2 puffs IH QID PRN (Reason: Shortness Of Breath) Label Comments: INHALE 2 PUFFS BY MOUTH 4 TIMES DAILY NEEDED budesonide-formoterol 10.2 GM HFA aerosol inhaler 2 puffs IH BID Label Comments: INHALE 2 PUFFS BY MOUTH TWICE DAILY FOR 30 DAYS Referrals Follow up/Referrals: Bharti Chen MD [Primary Care Provider] - See instructions Moira Hidalgo DPM [Staff Physician] - See instructions (foot ulcer, paraplegic) Activity Restrictions/Add. Instructions Additional Instructions/Restrictions: You have been evaluated for foot wound, diagnosed with an ulcer. Concern for infection. Please take clindamycin as prescribed. Keep wound dressed and use antibiotic ointment. Follow-up with podiatry, Dr. Hidalgo as soon as available. Return to the emergency department at once for any new or worsening symptoms, redness, swelling, fevers, pain or other concerns. Clinical Impressions Clinical Impression: Diabetic foot ulcer Instructions Patient Instructions: DI for Skin Abscess Discharge ED Provider: Cristela Izaguirre Adult [facility] General Chief complaint: Skin/Abscess/Foreign Body Stated complaint: Diab/right foot with a sore Time Seen by Provider: 03/12/22 15:42 Mode of Arrival: Wheelchair Source of Information: Patient Limitations: No Limitations History of Present Illness HPI narrative: 52-year-old male presenting to the emergency department with a wound on the right foot. He noticed it this morning. When he was putting on his socks there was a small amount of dark red blood. When he checked the bottom of his foot he saw a small circular clear lesion on the plantar aspect of the foot, near the base of the pinky toe. It is not painful. However, he is a paraplegic and does not have sensation in his legs or feet. Also diabetic. Does not follow with a gem expert. Has not needed foot exams. No other wounds. No fevers, chills, nausea, vomiting. Related Data Home Medications Medication Instructions Recorded Confirmed albuterol sulfate 90 mcg/actuation 2 puffs inhalation QID PRN 07/01/19 03/02/22 aerosol inhaler Shortness Of Breath budesonide-formoterol HFA 160 2 puffs inhalation BID Asthma 07/01/19 03/02/22 mcg-4.5 mcg/actuation aerosol inhaler furosemide 40 mg tablet 40 mg PO DAILY 10/15/20 03/02/22 empagliflozin 10 mg tablet 10 mg PO DAILY 10/29/21 03/02/22 (Jardiance) amlodipine 5 mg tablet 5 mg PO DAILY 11/10/21 03/02/22 Previous Rx's Medication Instructions Recorded spironolactone 25 mg tablet 25 mg PO DAILY #30 tabs 02/18/21 (Aldactone) lisinopril 40 mg tablet See Rx Instructions .Route 10/25/21 .COMPLEX #90 tabs metoprolol succinate 25 mg See Rx Instructions .Route 12/27/21 tablet,extended release 24 hr .COMPLEX #30 tabs clonidine HCl 0.1 mg tablet See Rx Instructions .Route 01/17/22 .COMPLEX #90 tabs
[2022-03-12 16:04] LABS: POC Glucose,Bedside 115 (70-110)
[2022-03-12 16:17] VITALS: BP 167/88; PULSE 84; RESP 17; TEMP 37; O2SAT 96
== END 2022-03-12 16:19 | disposition home or self-care (01) ==
PROVIDERS: Emergency Provider Emergency Medicine; PCP Family Medicine
DX: E11.621 Type 2 diabetes mellitus with foot ulcer (principal); L97.519 Non-pressure chronic ulcer of other part of right foot with unspecified severity; Z79.84 Long term (current) use of oral hypoglycemic drugs; G82.20 Paraplegia, unspecified
CPT/HCPCS: 82962; 99283

== ENCOUNTER → 2022-03-17 16:00 | Outpatient (CLI) | payer OTHER, SELFPAY ==
--- NOTE | 2022-03-17 16:15 | XR_ITS ---
FINAL REPORT CLINICAL HISTORY: Right foot pain FINDINGS: RIGHT FOOT 3 views were obtained. There is no acute fracture or dislocation. There is diffuse osteopenia. There is a cavus deformity of the foot. There are cucp-cy-gsoilhlm degenerative changes. There is soft tissue swelling of the forefoot. IMPRESSION: No acute bony abnormality. Reviewed, Interpreted and Dictated by Andrew Berkowitz III, MD Transcribed by Sharon Barillas Authenticated and [facility]
[2022-03-17 16:28] LABS: Basophils # 0.2 K/mm3 (0-0.2); Basophils % 1.5 % (0.1-2.0); Eosinophils # 0.6 K/mm3 (0.0-0.4); Eosinophils % 5.1 % (0.1-12.0); Hematocrit 46.9 % (42.0-52.0); Hemoglobin 15.4 g/dL (14.1-18.0); Lymphocytes # 1.6 K/mm3 (0.7-4.5); Lymphocytes % 15.1 % (10-50); Mean Corpuscular HGB Conc 32.8 g/dL (31.8-35.4); Mean Corpuscular Hemoglobin 28.9 pg (27.0-31.2); Mean Corpuscular Volume 87.9 fl (80-94); Mean Platelet Volume 7.8 fl (7.4-10.4); Monocytes # 0.9 K/mm3 (0.1-1.0); Monocytes % 8.2 % (1.7-9.3); Neutrophils # 7.5 K/mm3 (1.8-7.8); Neutrophils % 70.1 % (37.0-80.0); Platelet Count 264 K/mm3 (142-424); Red Blood Count 5.33 M/mm3 (4.60-6.20); White Blood Count 10.7 K/mm3 (4.8-10.8)
[2022-03-17 16:54] LABS: Hemoglobin A1C 5.8 % (4.0-6.0)
[2022-03-17 16:55] LABS: Alanine Aminotransferase 22 U/L (12-78); Albumin Level 4.1 g/dl (3.5-5.0); Albumin/Globulin Ratio 1.4 (1.1-1.8); Alkaline Phosphatase 115 U/L (38-126); Anion Gap 13.3 mEq/L (5-15); Aspartate Amino Transferase 30 U/L (17-59); Bilirubin,Total 0.2 mg/dl (0.2-1.3); Blood Urea Nitrogen 24 mg/dl (9-20); Calcium 8.8 mg/dl (8.4-10.2); Carbon Dioxide 31 mmol/L (22.0-30.0); Chloride 100 mmol/L (98-107); Estimated Glomerular Filt Rate 141 ml/min (>60); GFR (African American) 171 ML/MIN (>60); Globulin 2.9 g/dL (1.3-3.2); Glucose 93 mg/dl (74-100); Potassium 4.3 mmoL/L (3.5-5.1); Sodium 140 mmol/L (136-145)
[2022-03-17 17:02] LABS: C-Reactive Protein 18.5 mg/L (0-4)
[2022-03-17 17:46] LABS: Erythrocyte Sedimentation Rate 24 mm/hr (0-20)
== END ==
PROVIDERS: PCP Family Medicine; Visit Provider Nurse Practitioner Family
DX: Z51.89 Encounter for other specified aftercare (principal); M79.671 Pain in right foot
CPT/HCPCS: 36415; 73630; 80053; 83036; 85025; 85651; 86140; 87070; 87077; 87102; 87186; 87205; 87206

== ENCOUNTER 2022-04-02 19:47 | Emergency (ER) | payer OTHER, SELFPAY ==
[2022-04-02 19:50] VITALS: BP 131/90; PULSE 88; RESP 19; TEMP 36.8; O2SAT 98; BMI 37.5
--- NOTE | 2022-04-02 20:09 | EXP.UTC ---
Discharge Plan Disposition Patient Disposition: Home, Self-Care Condition: Good Prescriptions Prescriptions: No Action furosemide 40 mg tablet 40 mg PO DAILY amlodipine 5 mg tablet 5 mg PO DAILY Januvia 100 mg tablet 100 mg PO DAILY spironolactone [Aldactone] 25 mg tablet 25 mg PO DAILY Qty: 30 5RF Jardiance 10 mg tablet 10 mg PO DAILY lisinopril 40 mg tablet See Rx Instructions .ROUTE .COMPLEX Qty: 90 1RF Dose Instruction: Take 1 tablet by mouth once daily Rx Instructions: Take 1 tablet by mouth once daily metoprolol succinate 25 mg tablet extended release 24 hr See Rx Instructions .ROUTE .COMPLEX Qty: 30 5RF Dose Instruction: Take 1 tablet by mouth once daily Rx Instructions: Take 1 tablet by mouth once daily clonidine HCl 0.1 mg tablet See Rx Instructions .ROUTE .COMPLEX Qty: 90 5RF Dose Instruction: TAKE 1 TABLET BY MOUTH EVERY 8 HOURS Rx Instructions: TAKE 1 TABLET BY MOUTH EVERY 8 HOURS albuterol sulfate 8.5 GM HFA aerosol inhaler 2 puffs IH QID PRN (Reason: Shortness Of Breath) Label Comments: INHALE 2 PUFFS BY MOUTH 4 TIMES DAILY NEEDED budesonide-formoterol 10.2 GM HFA aerosol inhaler 2 puffs IH BID Label Comments: INHALE 2 PUFFS BY MOUTH TWICE DAILY FOR 30 DAYS Referrals Follow up/Referrals: Bharti Chen MD [Primary Care Provider] - See instructions Clinical Impressions Clinical Impression: Tendinitis of wrist Instructions Patient Instructions: DI for Tendinitis [facility] [facility] [place] General Stated complaint: left wrist pain Mode of Arrival: Ambulatory Source of Information: Patient Limitations: No Limitations Time Seen by Provider: 04/02/22 20:09 Description of Symptoms (Recalled from Triage Doc. by RN): PATIENT C/O LEFT WRIST PAIN X 1 WEEK. NO KNOWN INJURIES HEENT Symptoms (Recalled from RN notes): No Resp Symptoms (Recalled from RN notes): No Skin Symptoms (Recalled from RN notes): No MS Symptoms (Recalled from RN notes): Yes Functional Status (Recalled from RN notes): WNL History of Present Illness Provider Complaint: 52 yr old male presents for left wrist pain. pt states he was told he has arthritis in the wrist. pt states he had this flare up a month ago and had a steroid shot and it improved. Related Data Home Medications Medication Instructions Recorded Confirmed albuterol sulfate 90 mcg/actuation 2 puffs inhalation QID PRN 07/01/19 03/23/22 aerosol inhaler Shortness Of Breath budesonide-formoterol HFA 160 2 puffs inhalation BID Asthma 07/01/19 03/23/22 mcg-4.5 mcg/actuation aerosol inhaler furosemide 40 mg tablet 40 mg PO DAILY 10/15/20 03/23/22 empagliflozin 10 mg tablet 10 mg PO DAILY 10/29/21 03/23/22 (Jardiance) amlodipine 5 mg tablet 5 mg PO DAILY 11/10/21 03/23/22 sitagliptin 100 mg tablet (Januvia) 100 mg PO DAILY 03/17/22 03/23/22 Previous Rx's Medication Instructions Recorded spironolactone 25 mg tablet 25 mg PO DAILY #30 tabs 02/18/21 (Aldactone) lisinopril 40 mg tablet See Rx Instructions .Route 10/25/21 .COMPLEX #90 tabs metoprolol succinate 25 mg See Rx Instructions .Route 12/27/21 tablet,extended release 24 hr .COMPLEX #30 tabs clonidine HCl 0.1 mg tablet See Rx Instructions .Route 01/17/22 .COMPLEX #90 tabs Allergies Allergy/AdvReac Type Severity Reaction Status Date / Time cephalexin [From KEFLEX] Allergy Unknown Unknown Verified 03/23/22 11:17 allergy reaction nitrofurantoin Allergy Unknown Unknown Verified 03/23/22 11:17 [From MACRODANTIN] allergy reaction Penicillins [PENICILLINS] Allergy Unknown Unknown Verified 03/23/22 11:17 allergy reaction sulfamethoxazole Allergy Unknown Unknown Verified 03/23/22 11:17 [From Bactrim] allergy reaction trimethoprim [From Bactrim] Allergy Unknown Unknown Verified 03/23/22 11:17 allergy
[2022-04-02 20:18] VITALS: BP 131/90; PULSE 88; RESP 19; TEMP 36.8; O2SAT 98
== END 2022-04-02 20:30 | disposition home or self-care (01) ==
PROVIDERS: Emergency Provider Nurse Practitioner Family; PCP Family Medicine
DX: M77.8 Other enthesopathies, not elsewhere classified (principal)
CPT/HCPCS: 96372; 99212; G0463

== ENCOUNTER → 2022-04-21 13:25 | Outpatient (CLI) | payer OTHER, SELFPAY ==
--- NOTE | 2022-04-21 13:33 | CA_ITS ---
FINAL REPORT TECHNIQUE: Duplex color Doppler with spectral analysis performed of the lower extremity. CLINICAL HISTORY: dectreased pulses, paraplegic from age 6, dm,htn FINDINGS: RIGHT LOWER EXTREMITY: Velocities cm/sec: Exam is limited due to contracture of legs. FIREWOOD CUTTER: 113 SFA Mid: 71 SFA Dist: POP: 54 PT: T2 PT Ankle: 50 DP Distal: 54 TIFFANIE: 0.8 Waveforms are biphasic and biphasic. IMPRESSION: Limited exam. No significant peripheral vascular disease. Reviewed, Interpreted and Dictated by Andrew Berkowitz III, MD Transcribed by Sharon Barillas Authenticated and [facility]
== END ==
PROVIDERS: PCP Family Medicine; Visit Provider Student in an Organized Health Care Education/Training Program
DX: L97.523 Non-pressure chronic ulcer of other part of left foot with necrosis of muscle (principal); I73.9 Peripheral vascular disease, unspecified; I87.2 Venous insufficiency (chronic) (peripheral); E11.621 Type 2 diabetes mellitus with foot ulcer; Z79.84 Long term (current) use of oral hypoglycemic drugs
CPT/HCPCS: 93926

== ENCOUNTER 2022-09-14 16:20 | Emergency (ER) | payer OTHER, SELFPAY ==
[2022-09-14 16:21] VITALS: BP 134/80; PULSE 95; RESP 20; TEMP 37; O2SAT 99; BMI 36.5
--- NOTE | 2022-09-14 16:50 | EXP.UTC ---
Discharge Plan Disposition Patient Disposition: Home, Self-Care Condition: Good Prescriptions Prescriptions: New azithromycin [Zithromax] 250 mg tablet 250 mg PO UD DOSE PK Qty: 6 0RF Rx Instructions: Take two (2) tablets today, then one (1) tablet days #2 thru #5 benzonatate [benzonatate] 100 mg capsule 100 mg PO TIDP PRN (Reason: Cough) Qty: 30 0RF No Action furosemide 40 mg tablet 40 mg PO DAILY amlodipine 5 mg tablet 5 mg PO DAILY Januvia 100 mg tablet 100 mg PO DAILY spironolactone [Aldactone] 25 mg tablet 25 mg PO DAILY Qty: 30 5RF Jardiance 10 mg tablet 10 mg PO DAILY lisinopril 40 mg tablet See Rx Instructions .ROUTE .COMPLEX Qty: 90 1RF Dose Instruction: Take 1 tablet by mouth once daily Rx Instructions: Take 1 tablet by mouth once daily clonidine HCl 0.1 mg tablet See Rx Instructions .ROUTE .COMPLEX Qty: 90 5RF Dose Instruction: TAKE 1 TABLET BY MOUTH EVERY 8 HOURS Rx Instructions: TAKE 1 TABLET BY MOUTH EVERY 8 HOURS metoprolol succinate 25 mg tablet extended release 24 hr See Rx Instructions .ROUTE .COMPLEX Qty: 90 3RF Dose Instruction: Take 1 tablet by mouth once daily Rx Instructions: Take 1 tablet by mouth once daily albuterol sulfate 8.5 GM HFA aerosol inhaler 2 puffs IH QID PRN (Reason: Shortness Of Breath) Label Comments: INHALE 2 PUFFS BY MOUTH 4 TIMES DAILY NEEDED budesonide-formoterol 10.2 GM HFA aerosol inhaler 2 puffs IH BID Label Comments: INHALE 2 PUFFS BY MOUTH TWICE DAILY FOR 30 DAYS Referrals Follow up/Referrals: Wilmar Diego MD [Primary Care Provider] - See instructions Activity Restrictions/Add. Instructions Additional Instructions/Restrictions: Drink plenty of fluids. Take tylenol or ibuprofen for pain or fever. Take the medications as directed. Follow up with your regular doctor. GO TO THE ER FOR ANY WORSENING SYMPTOMS Clinical Impressions Clinical Impression: Sinusitis Instructions Patient Instructions: DI for Sinusitis Discharge ED Provider: Nain Mcrae [facility] HPI General Stated complaint: exposed,want COVID test,sore throat Time Seen by Provider: 09/14/22 16:48 History of Present Illness Provider Complaint: He states that for the past 3 days he has had worsening bilateral ear pain and sinus congestion Related Data Home Medications Medication Instructions Recorded Confirmed albuterol sulfate 90 mcg/actuation 2 puffs inhalation QID PRN 07/01/19 04/28/22 aerosol inhaler Shortness Of Breath budesonide-formoterol HFA 160 2 puffs inhalation BID Asthma 07/01/19 04/28/22 mcg-4.5 mcg/actuation aerosol inhaler furosemide 40 mg tablet 40 mg PO DAILY 10/15/20 04/28/22 empagliflozin 10 mg tablet 10 mg PO DAILY 10/29/21 04/28/22 (Jardiance) amlodipine 5 mg tablet 5 mg PO DAILY 11/10/21 04/28/22 sitagliptin phosphate 100 mg 100 mg PO DAILY 03/17/22 04/28/22 tablet (Januvia) Previous Rx's Medication Instructions Recorded spironolactone 25 mg tablet 25 mg PO DAILY #30 tabs 02/18/21 (Aldactone) lisinopril 40 mg tablet See Rx Instructions .Route 10/25/21 .COMPLEX #90 tabs clonidine HCl 0.1 mg tablet See Rx Instructions .Route 01/17/22 .COMPLEX #90 tabs metoprolol succinate 25 mg See Rx Instructions .Route 07/04/22 tablet,extended release 24 hr .COMPLEX #90 tabs azithromycin 250 mg tablet 250 mg PO UD DOSE PK #6 tabs 09/14/22 (Zithromax) benzonatate 100 mg capsule 100 mg PO TIDP PRN Cough #30 caps 09/14/22 Allergies Allergy/AdvReac Type Severity Reaction Status Date / Time cephalexin [From KEFLEX] Allergy Unknown Unknown Verified 09/14/22 16:53 allergy reaction nitrofurantoin Allergy Unknown Unknown Verified 09/14/22 16:53 [From MACRODANTIN] allergy reaction Penicillins [PENICILLINS] Allergy Unknown Unknown Verified 09/14/22 16:53 allergy reactio
[2022-09-14 17:01] LABS: UTC Strep Screen (Rapid) Negative (Negative)
[2022-09-14 17:59] VITALS: BP 134/80; PULSE 95; RESP 20; TEMP 37; O2SAT 99
== END 2022-09-14 17:58 | disposition home or self-care (01) ==
PROVIDERS: Emergency Provider Nurse Practitioner Family; PCP Family Medicine
DX: U07.1 COVID-19 (principal); J01.90 Acute sinusitis, unspecified; R07.0 Pain in throat
CPT/HCPCS: 87880; 99212; 99214; C9803; G0463; U0003; U0005

== ENCOUNTER 2022-10-10 18:10 | Observation (INO) | payer OTHER, SELFPAY ==
[2022-10-10] VITALS (12 sets, daily range): BP systolic 139–176; BP diastolic 53–86; PULSE 91–121; RESP 15–20; TEMP 36.6–37.5; O2SAT 94–99; BMI 46.8; BMI 33.4; BMI 32.0
[2022-10-10 19:14] LABS: Apearance,Urine Clear (Clear); Bilirubin,Urine Negative (Negative); Blood, Urine Trace (Negative); Color,Urine Dark Yellow (Yellow); Glucose,Urine (UA) Negative (Negative); Ketones,Urine Negative (Negative); PH,Urine 5.5 (5.0-8.5); Protein,Urine Trace (Negative); Specific Gravity, Urine 1.025 (1.005-1.030); UTC Leukocyte Esterase,Urine 1+ (Negative); UTC Nitrate,Urine Negative (Negative); Urobilinogen,Urine 0.2 EU/dl (0.2)
--- NOTE | 2022-10-10 19:15 | EXP.UTC ---
Discharge Plan Disposition Patient Disposition: Still a Patient Condition: Fair Prescriptions Prescriptions: No Action furosemide 40 mg tablet 40 mg PO DAILY amlodipine 5 mg tablet 5 mg PO DAILY Januvia 100 mg tablet 100 mg PO DAILY spironolactone [Aldactone] 25 mg tablet 25 mg PO DAILY Qty: 30 5RF Jardiance 10 mg tablet 10 mg PO DAILY lisinopril 40 mg tablet See Rx Instructions .ROUTE .COMPLEX Qty: 90 1RF Dose Instruction: Take 1 tablet by mouth once daily Rx Instructions: Take 1 tablet by mouth once daily clonidine HCl 0.1 mg tablet See Rx Instructions .ROUTE .COMPLEX Qty: 90 5RF Dose Instruction: TAKE 1 TABLET BY MOUTH EVERY 8 HOURS Rx Instructions: TAKE 1 TABLET BY MOUTH EVERY 8 HOURS metoprolol succinate 25 mg tablet extended release 24 hr See Rx Instructions .ROUTE .COMPLEX Qty: 90 3RF Dose Instruction: Take 1 tablet by mouth once daily Rx Instructions: Take 1 tablet by mouth once daily albuterol sulfate 8.5 GM HFA aerosol inhaler 2 puffs IH QID PRN (Reason: Shortness Of Breath) Label Comments: INHALE 2 PUFFS BY MOUTH 4 TIMES DAILY NEEDED budesonide-formoterol 10.2 GM HFA aerosol inhaler 2 puffs IH BID Label Comments: INHALE 2 PUFFS BY MOUTH TWICE DAILY FOR 30 DAYS azithromycin [Zithromax] 250 mg tablet 250 mg PO UD DOSE PK Qty: 6 0RF Rx Instructions: Take two (2) tablets today, then one (1) tablet days #2 thru #5 benzonatate [benzonatate] 100 mg capsule 100 mg PO TIDP PRN (Reason: Cough) Qty: 30 0RF Referrals Follow up/Referrals: Wilmar Diego MD [Primary Care Provider] - See instructions Discharge ED Provider: Tatiana Rosenberg [facility] HPI General Stated complaint: Fever, Right foot/Hip wound, possible uti Mode of Arrival: Ambulatory Source of Information: Patient Limitations: No Limitations Time Seen by Provider: 10/10/22 19:15 Description of Symptoms (Recalled from Triage Doc. by RN): PATIENT C/O FEVER AND CHILLS SINCE THIS MORNING. HE STATES HE THINKS HE HAS A POSSILBE UTI OR POSSIBLE INFECTION TO WOUNDS ON HIS RIGHT FOOT AND HIP HEENT Symptoms (Recalled from RN notes): No Resp Symptoms (Recalled from RN notes): No Skin Symptoms (Recalled from RN notes): No MS Symptoms (Recalled from RN notes): No Functional Status (Recalled from RN notes): WNL History of Present Illness Provider Complaint: Patient paraplegia states he had a skin graph about 2 weeks ago on his right foot States he also has a wound on his right hip that they have been watching States that he does self cath and since this morning he has been having fever and chills noticed the bottom of his foot is now getting more red and worried about infection Related Data Home Medications Medication Instructions Recorded Confirmed albuterol sulfate 90 mcg/actuation 2 puffs inhalation QID PRN 07/01/19 04/28/22 aerosol inhaler Shortness Of Breath budesonide-formoterol HFA 160 2 puffs inhalation BID Asthma 07/01/19 04/28/22 mcg-4.5 mcg/actuation aerosol inhaler furosemide 40 mg tablet 40 mg PO DAILY 10/15/20 04/28/22 empagliflozin 10 mg tablet 10 mg PO DAILY 10/29/21 04/28/22 (Jardiance) amlodipine 5 mg tablet 5 mg PO DAILY 11/10/21 04/28/22 sitagliptin phosphate 100 mg 100 mg PO DAILY 03/17/22 04/28/22 tablet (Januvia) Previous Rx's Medication Instructions Recorded spironolactone 25 mg tablet 25 mg PO DAILY #30 tabs 02/18/21 (Aldactone) lisinopril 40 mg tablet See Rx Instructions .Route 10/25/21 .COMPLEX #90 tabs clonidine HCl 0.1 mg tablet See Rx Instructions .Route 01/17/22 .COMPLEX #90 tabs metoprolol succinate 25 mg See Rx Instructions .Route 07/04/22 tablet,extended release 24 hr .COMPLEX #90 tabs azithromycin 250 mg tablet 250 mg PO UD DOSE PK #6 tabs 09/14/22 (Zithromax) benzonatate 100 mg capsule 100 mg PO TIDP PRN Cough #30 caps 09/14/22 Allergies Allergy/AdvReac T
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
--- NOTE | 2022-10-10 19:33 | CT_ITS ---
PROCEDURE INFORMATION: Exam: CT Right Lower Extremity With Contrast, Foot Exam date and time: 10/10/2022 8:35 PM Age: 52 years old Clinical indication: Other: Deep tissue injury TECHNIQUE: Imaging protocol: CT of the right lower extremity with intravenous contrast was performed. Exam focused on the foot. Radiation optimization: All CT scans at this facility use at least one of these dose optimization techniques: automated exposure control; mA and/or kV adjustment per patient size (includes targeted exams where dose is matched to clinical indication); or iterative reconstruction. Contrast material: ISOVUE; Contrast volume: 75 ml; Contrast route: IV; REPORTING DATA: Count of CT and Cardiac NM exams in prior 12 months: This patient has received [address] and 0 known cardiac nuclear medicine studies in the 12 months prior to the current study. COMPARISON: CT HIP RT W CON 10/10/2022 8:30 PM FINDINGS: Bones/joints: Bones appear osteopenic. Moderate degenerative changes. No acute fracture or dislocation. Soft tissues: Normal. IMPRESSION: Chronic changes without definite acute abnormality. If there is concern for soft tissue injury, MRI would be more sensitive.
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
--- NOTE | 2022-10-10 19:46 | PC.NURSE ---
Patient changed into gown by staff, assisted into bed without incident.
[2022-10-10 19:57] LABS: Basophils # 0.1 K/mm3 (0-0.2); Basophils % 0.3 % (0.1-2.0); Eosinophils # 0.1 K/mm3 (0.0-0.4); Eosinophils % 0.5 % (0.1-12.0); Hemoglobin 14.6 g/dL (14.1-18.0); Lymphocytes # 1.3 K/mm3 (0.7-4.5); Mean Corpuscular HGB Conc 32.5 g/dL (31.8-35.4); Mean Corpuscular Hemoglobin 27.8 pg (27.0-31.2); Mean Corpuscular Volume 85.7 fl (80-94); Mean Platelet Volume 7.3 fl (7.4-10.4); Monocytes % 5.8 % (1.7-9.3); Neutrophils # 14.2 K/mm3 (1.8-7.8); Neutrophils % 85.5 % (37.0-80.0); Platelet Count 248 K/mm3 (142-424); Red Blood Count 5.25 M/mm3 (4.60-6.20); Red Cell Distribution Width 14.6 % (11.5-17.5); White Blood Count 16.7 K/mm3 (4.8-10.8)
[2022-10-10 19:58] LABS: MANUAL DIFFERENTIAL MANUAL DIFFERENTIAL (MANUAL DIFF)
[2022-10-10 20:02] LABS: Alanine Aminotransferase 22 U/L (12-78); Albumin Level 4.2 g/dl (3.5-5.0); Alkaline Phosphatase 75 U/L (38-126); Anion Gap 10.4 mEq/L (5-15); Aspartate Amino Transferase 24 U/L (17-59); Bilirubin,Indirect 0.6 mg/dL (0.0-0.9); Bilirubin,Total 0.6 mg/dl (0.2-1.3); Bilirubin,Unconjugated 0.7 mg/dL (0.0-1.1); Blood Urea Nitrogen 31 mg/dl (9-20); Carbon Dioxide 26 mmol/L (22.0-30.0); Chloride 102 mmol/L (98-107); Creatinine Clearance Estimated 136 mL/min (50-200); Estimated Glomerular Filt Rate 89 ml/min (>60); GFR (African American) 107 ML/MIN (>60); Glucose 119 mg/dl (74-100); Potassium 3.4 mmoL/L (3.5-5.1); Sodium 135 mmol/L (136-145); Total Protein,Serum 7.7 g/dl (6.3-8.2)
[2022-10-10 20:03] LABS: Lactic Acid 1.3 mmol/L (0.7-2.1)
[2022-10-10 20:04] LABS: Coronavirus 19, PCR Not Detected (NotDetected); Influenza A, PCR Not Detected (NotDetected); Influenza B, PCR Not Detected (NotDetected)
[2022-10-10 20:08] LABS: C-Reactive Protein 131.1 mg/L (0-4)
--- NOTE | 2022-10-10 20:16 | PC.NURSE ---
Radiology questioned validity of ct scan orders with dr galvan at this time. Reviewed labs with and rad and noted his renal function was adequate for scanning.
--- NOTE | 2022-10-10 20:22 | PC.NURSE ---
patient in CT at this time.
[2022-10-10 20:28] LABS: Lymphocytes % 10 % (10-50); Monocytes % 7 % (2-9); Neutrophils % 82 % (42-76); Total Cells Counted 100
[2022-10-10 20:29] LABS: Hypochromasia 1+; Platelet Estimate Normal
[2022-10-10 20:34] LABS: Erythrocyte Sedimentation Rate 37 mm/hr (0-20)
--- NOTE | 2022-10-10 20:45 | PC.NURSE ---
patient back in room at this time.
--- NOTE | 2022-10-10 20:49 | PC.NURSE ---
Rounded on patient, patient voiced no needs at this time.
[2022-10-10 21:16] LABS: Microscopic,Cath URINE MICROSCOPIC (MICROSCOPIC)
[2022-10-10 21:42] LABS: Appearance,Urine/Cath CLEAR (Clear); Bilirubin,Cath Negative (Negative); Blood, Urine/Cath 1+ (Negative); Color,Urine/Cath YELLOW (Yellow); Glucose,Urine/Cath (UA) Negative (Negative); Ketones,Urine/Cath Negative (Negative); Leukocyte Esterase,Cath 1+ (Negative); Nitrate,Cath Negative (Negative); PH,Urine/Cath 5.5 (5.0-8.5); Protein,Urine/Cath Negative (Negative); Urobilinogen,Cath 0.2 EU/dl (0.2)
[2022-10-10 22:05] LABS: Bacteria,Urine/Cath 1+ /lpf; RBC,Urine/Cath Occasional # /hpf (0-3)
--- NOTE | 2022-10-10 22:14 | PC.NURSE ---
Melanie speaking with Gustavo at this time
--- NOTE | 2022-10-10 22:18 | PC.NURSE ---
career technical supervisor notified for bed assignment
--- NOTE | 2022-10-10 22:46 | PC.NURSE ---
pt arrived to floor at this time
[2022-10-10 23:54] LABS: POC Glucose,Bedside 118 (70-110)
[2022-10-11] VITALS (7 sets, daily range): BP systolic 131–169; BP diastolic 66–96; PULSE 85–99; RESP 17–20; TEMP 36.6–37.3; O2SAT 92–99; BMI 32.0
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
[2022-10-11 05:37] LABS: POC Glucose,Bedside 119 (70-110)
[2022-10-11 06:28] LABS: Basophils # 0.1 K/mm3 (0-0.2); Basophils % 0.6 % (0.1-2.0); Eosinophils # 0.2 K/mm3 (0.0-0.4); Eosinophils % 1.9 % (0.1-12.0); Hematocrit 45.9 % (42.0-52.0); Hemoglobin 14.2 g/dL (14.1-18.0); Lymphocytes # 1.1 K/mm3 (0.7-4.5); Lymphocytes % 10.2 % (10-50); Mean Corpuscular HGB Conc 31.1 g/dL (31.8-35.4); Mean Corpuscular Hemoglobin 27.8 pg (27.0-31.2); Mean Corpuscular Volume 89.5 fl (80-94); Mean Platelet Volume 8.2 fl (7.4-10.4); Monocytes # 0.9 K/mm3 (0.1-1.0); Monocytes % 8.3 % (1.7-9.3); Neutrophils # 8.1 K/mm3 (1.8-7.8); Neutrophils % 78.9 % (37.0-80.0); Platelet Count 180 K/mm3 (142-424); Red Blood Count 5.12 M/mm3 (4.60-6.20); Red Cell Distribution Width 14.4 % (11.5-17.5); White Blood Count 10.3 K/mm3 (4.8-10.8)
[2022-10-11 06:41] LABS: Chloride 108 mmol/L (98-107); Sodium 140 mmol/L (136-145)
[2022-10-11 06:44] LABS: Blood Urea Nitrogen 22 mg/dl (9-20); Creatinine Clearance Estimated 195 mL/min (50-200); Estimated Glomerular Filt Rate 141 ml/min (>60); GFR (African American) 171 ML/MIN (>60)
[2022-10-11 06:45] LABS: Calcium 8.1 mg/dl (8.4-10.2); Carbon Dioxide 22 mmol/L (22.0-30.0); Glucose 118 mg/dl (74-100)
--- NOTE | 2022-10-11 07:31 | HMH.PHAINT1 ---
Pharmacy Intervention Comments: Reconciled patient's home medications using pharmacy fill history and patient/spouse interview.
--- NOTE | 2022-10-11 08:15 | EXP.PHA.CONS ---
Pharmacy Consult Date: 10/11/22 Time: 08:15 Referring provider: DR RIGGINS Reason for Consult:: VANCOMYCIN DOSING CONSULT Allergies Allergy/AdvReac Type Severity Reaction Status Date / Time cephalexin [From KEFLEX] Allergy Unknown Unknown Verified 09/14/22 16:53 allergy reaction nitrofurantoin Allergy Unknown Unknown Verified 09/14/22 16:53 [From MACRODANTIN] allergy reaction Penicillins [PENICILLINS] Allergy Unknown Unknown Verified 09/14/22 16:53 allergy reaction sulfamethoxazole Allergy Unknown Unknown Verified 09/14/22 16:53 [From Bactrim] allergy reaction trimethoprim [From Bactrim] Allergy Unknown Unknown Verified 09/14/22 16:53 allergy reaction gabapentin [From Neurontin] Allergy Verified 09/14/22 16:53 Sulfa (Sulfonamide Allergy Verified 09/14/22 16:53 Antibiotics) Home Medications Medication Instructions Recorded Confirmed Type albuterol sulfate 90 mcg/actuation 2 puffs inhalation QID PRN 07/01/19 10/10/22 History aerosol inhaler Shortness Of Breath furosemide 40 mg tablet 40 mg PO DAILY Fluid 10/15/20 10/11/22 History empagliflozin 10 mg tablet 10 mg PO DAILY Diabetes 10/29/21 10/11/22 History (Jardiance) amlodipine 5 mg tablet 5 mg PO DAILY High blood pressure 11/10/21 10/11/22 History sitagliptin phosphate 100 mg 100 mg PO DAILY Diabetes 03/17/22 10/11/22 History tablet (Januvia) clonidine HCl 0.1 mg tablet 0.1 mg PO BID Hypertension 10/10/22 10/11/22 History lisinopril 40 mg tablet 40 mg PO DAILY High blood pressure 10/10/22 10/11/22 History metoprolol succinate 25 mg 25 mg PO DAILY heart rate 10/10/22 10/11/22 History tablet,extended release 24 hr spironolactone 25 mg tablet 25 mg PO DAILY Fluid 10/10/22 10/10/22 History (Aldactone) New Prescriptions to Start Prescriptions: Height: 1.73 m Weight: 95.821 kg Laboratory Results:: Laboratory Results - last 24 hr 10/10/22 18:55: Urine Color Dark yellow, Urine Appearance Clear, Urine pH 5.5, Ur Specific [place] 1.025, Urine Protein Trace, Urine Glucose (UA) Negative, Urine Ketones Negative, Urine Blood Trace, Urine Nitrate Negative, Urine Bilirubin Negative, Urine Urobilinogen 0.2, Ur Leukocyte Esterase 1+ A 10/10/22 19:30: Urine Color Yellow, Urine Appearance Clear, Urine pH 5.5, Ur Specific [place] 1.020, Urine Protein Negative, Urine Glucose (UA) Negative, Urine Ketones Negative, Urine Blood 1+, Urine Nitrate Negative, Urine Bilirubin Negative, Urine Urobilinogen 0.2, Ur Leukocyte Esterase 1+ A, Urine RBC Occasional, Urine WBC 10-20 A, Urine Bacteria 1+ 10/10/22 19:38: WBC 16.7 H, RBC 5.25, Hgb 14.6, Hct 45.0, MCV 85.7, MCH 27.8, MCHC 32.5, RDW 14.6, Plt Count 248, MPV 7.3 L, Neut % (Auto) 85.5 H, Lymph % (Auto) 8.0 L, [place] % (Auto) 5.8, Eos % (Auto) 0.5, Baso % (Auto) 0.3, Neut # (Auto) 14.2 H, Lymph # (Auto) 1.3, [place] # (Auto) 1.0, Eos # (Auto) 0.1, Baso # (Auto) 0.1, Total Counted 100, Neutrophils % (Manual) 82 H, Lymphocytes % (Manual) 10, Monocytes % (Manual) 7, Basophils % (Manual) 1.0, Platelet Estimate Normal, Hypochromasia 1+ 10/10/22 19:38: Sodium 135 L, Potassium 3.4 L, Chloride 102, Carbon Dioxide 26, Anion Gap 10.4, BUN 31 H, Creatinine 0.90, Estimated Creat Clear 136, Estimated GFR 89, Est GFR ( Amer) 107, Glucose 119 H, Calcium 9.0, Total Bilirubin 0.6, Direct Bilirubin 0.0, Conjugated Bilirubin 0.0, Indirect Bilirubin 0.6, Unconjugated Bilirubin 0.7, AST 24, ALT 22, Alkaline Phosphatase 75, C-Reactive Protein 131.1 H, Total Protein 7.7, Albumin 4.2 10/10/22 19:38: Lactate 1.3 10/10/22 19:38: ESR 37 H 10/10/22 20:00: SARS-CoV-2 (PCR) Not detected, Influenza A Untype (PCR) Not detected, Influenza Type B (PCR) Not detected 10/10/22 23:46: POC Glucose 118 H 10/11/22 05:30: POC Glucose 119 H 10/11/22 06:00: WBC 10.3 D, RBC 5.12, Hgb 14.2, Hct 45.9, MCV 89.5, MCH 27.8, MCHC 31.1 L, RDW 14.4, Plt Count 180 D, MPV 8.2, Neut % (Auto) 78.9, Lymph % (Auto) 10.2, [place] % (Auto) 8.3, Eos %
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
[2022-10-11 11:31] LABS: POC Glucose,Bedside 112 (70-110)
[2022-10-11 16:42] LABS: POC Glucose,Bedside 96 (70-110)
[2022-10-11 20:27] LABS: POC Glucose,Bedside 119 (70-110)
[2022-10-12] VITALS: BP 154/84; PULSE 88; RESP 18; TEMP 36.8; O2SAT 95
[2022-10-12 04:00] VITALS: BP 139/71; PULSE 73; RESP 18; TEMP 36.6; O2SAT 97; BMI 32.3
--- NOTE | 2022-10-12 05:01 | PC.NURSE ---
No changes during the night.
[2022-10-12 05:15] LABS: POC Glucose,Bedside 99 (70-110)
[2022-10-12 06:33] LABS: MANUAL DIFFERENTIAL MANUAL DIFFERENTIAL (MANUAL DIFF)
[2022-10-12 06:42] LABS: Basophils % 0.4 % (0.1-2.0); Eosinophils # 0.6 K/mm3 (0.0-0.4); Eosinophils % 6.5 % (0.1-12.0); Hematocrit 41.1 % (42.0-52.0); Hemoglobin 13.2 g/dL (14.1-18.0); Lymphocytes # 1.3 K/mm3 (0.7-4.5); Lymphocytes % 14.7 % (10-50); Mean Corpuscular HGB Conc 32.2 g/dL (31.8-35.4); Mean Corpuscular Hemoglobin 27.7 pg (27.0-31.2); Mean Corpuscular Volume 86.2 fl (80-94); Monocytes # 0.7 K/mm3 (0.1-1.0); Monocytes % 8.2 % (1.7-9.3); Neutrophils # 6.4 K/mm3 (1.8-7.8); Neutrophils % 70.2 % (37.0-80.0); Platelet Count 219 K/mm3 (142-424); Red Blood Count 4.77 M/mm3 (4.60-6.20); Red Cell Distribution Width 14.5 % (11.5-17.5); White Blood Count 9.1 K/mm3 (4.8-10.8)
[2022-10-12 06:45] LABS: Chloride 113 mmol/L (98-107); Potassium 4.1 mmoL/L (3.5-5.1); Sodium 143 mmol/L (136-145)
[2022-10-12 06:48] LABS: Anion Gap 12.1 mEq/L (5-15); Blood Urea Nitrogen 17 mg/dl (9-20); Calcium 7.9 mg/dl (8.4-10.2); Carbon Dioxide 22 mmol/L (22.0-30.0); Creatinine Clearance Estimated 237 mL/min (50-200); Estimated Glomerular Filt Rate 175 ml/min (>60); GFR (African American) 211 ML/MIN (>60); Glucose 101 mg/dl (74-100)
[2022-10-12 07:45] LABS: Eosinophils % 1 % (0-3); Lymphocytes % 16 % (10-50); Monocytes % 9 % (2-9); Neutrophils % 74 % (42-76); Platelet Estimate Normal; RBC Morphology Normal; Total Cells Counted 100
[2022-10-12 07:54] VITALS: BP 150/97; PULSE 76; RESP 16; TEMP 36.8; O2SAT 94
--- NOTE | 2022-10-12 07:55 | EXP.ACUTE.PN ---
Subjective *Date: 10/12/22 *Time: 07:55 Interval history: Patient states he is doing well. He slept well. He is eating as usual. He denies chest pain and shortness of breath. He has had no further chilling spells. He denies any pain. White blood cell count has returned normal. Final culture results are pending. Intermittent cathing with 800 cc out last evening. Bowels have moved. Medical Exam Vital signs and Labs for Last 24 Hours: Vital Signs Temp Pulse Resp BP Pulse Ox 10/12/22 04:00 97.9 F 73 18 139/71 97 10/12/22 00:00 98.2 F 88 18 154/84 H 95 10/11/22 20:00 98.9 F 95 H 20 160/90 H 93 L 10/11/22 19:56 99 10/11/22 14:59 98.5 F 99 H 18 135/87 98 10/11/22 11:23 98.1 F 85 17 169/87 H 93 L Intake and Output 10/11/22 10/12/22 10/12/22 19:59 03:59 11:59 Intake Total 1900 / 1900 800 / 2700 Output Total 0 / 0 800 / 800 Balance 1900 / 1900 0 / 1900 Intake: Intake, Oral Amount 600 / 600 Intake, Total IV Amount 800 / 800 0.9 % Sodium Chloride 1000ML 1, 800 / 800 000 ml @ 100 mls/hr IV .Q10H RONNIE Rx#:[id number] Infusion Intake 1300 / 1300 0.9 % Sodium Chloride 1000ML 1, 1300 / 1300 000 ml @ 100 mls/hr IV .Q10H RONNIE Rx#:[id number] Output: Output, Urine Amount 0 / 0 800 / 800 Other: Number of Unmeasured Voids 0 1 Number of Bowel Movements 1 Weight 211 lb 3.951 oz 213 lb 10.047 oz Patient Weight 10/12/22 11:59 Weight 213 lb 10.047 oz Laboratory Results - last 24 hr 10/11/22 11:25: POC Glucose 112 H 10/11/22 16:36: POC Glucose 96 10/11/22 20:19: POC Glucose 119 H 10/12/22 05:06: POC Glucose 99 10/12/22 06:03: WBC 9.1, RBC 4.77, Hgb 13.2 L, Hct 41.1 L, MCV 86.2, MCH 27.7, MCHC 32.2, RDW 14.5, Plt Count 219, MPV 8.0, Neut % (Auto) 70.2, Lymph % (Auto) 14.7, [place] % (Auto) 8.2, Eos % (Auto) 6.5, Baso % (Auto) 0.4, Neut # (Auto) 6.4, Lymph # (Auto) 1.3, [place] # (Auto) 0.7, Eos # (Auto) 0.6 H, Baso # (Auto) 0.0, Total Counted 100, Neutrophils % (Manual) 74, Lymphocytes % (Manual) 16, Monocytes % (Manual) 9, Eosinophils % (Manual) 1, Platelet Estimate Normal, RBC Morphology Normal 10/12/22 06:03: Sodium 143, Potassium 4.1, Chloride 113 H, Carbon Dioxide 22, Anion Gap 12.1, BUN 17, Creatinine 0.50 L, Estimated Creat Clear 237, Estimated GFR 175, Est GFR ( Amer) 211 D, Glucose 101 H, Calcium 7.9 L I & O for Labs for Last 24 Hours: Intake & Output 10/09/22 10/10/22 10/11/22 10/12/22 11:59 11:59 11:59 11:59 Intake Total 1969 2700 / 2700 Output Total 0 / 0 800 / 800 Balance 1969 1900 / 1900 Weight 211 lb 4 oz 213 lb 10.047 oz Microbiology Reports for the Last 24 Hours: Microbiology 10/10/22 19:30 Urine,Clean Catch Urine Culture - Preliminary Gram Negative Rods Gram Negative Rods#2 Constitutional: Present no acute distress Comment:: Sitting up in the bed eating breakfast. Respiratory: Present CTA bilaterally Cardiac: Present Regular Rate GI: Present soft; Absent distention or tenderness Extremities: Present edema; Absent tenderness Comment:: Right lower leg and foot which is improved today. Erythema of the right foot is much less. Neuro: Present alert and oriented x 3 Assessment and Plan *Assessment and plan (1) Acute UTI (urinary tract infection): Status: Acute Category: Medical Code(s): N39.0 - Urinary tract infection, site not specified (2) Paraplegia: Status: Acute Category: Medical Code(s): G82.20 - Paraplegia, unspecified (3) Type 2 diabetes mellitus: Status: Acute Category: Medical Code(s): E11.9 - Type 2 diabetes mellitus without complications (4) HTN (hypertension): Status: Chronic Qualifiers: Hypertension type: essential hypertension Qualified Code(s): I10 - Essential (primary) hypertension Category: Medical
[2022-10-12 10:06] LABS: Hemoglobin A1C 8.6 % (4.0-6.0)
[2022-10-12 11:18] VITALS: BP 177/96; PULSE 70; RESP 18; TEMP 36.6; O2SAT 97
--- NOTE | 2022-10-12 11:58 | PC.NURSE ---
Gone to OR for surgery.
[2022-10-12 12:03] LABS: Vancomycin,Trough 15.7 ug/mL (5.0-10.0)
[2022-10-12 15:13] VITALS: BP 174/83; PULSE 77; RESP 18; TEMP 36.7; O2SAT 97
[2022-10-12 17:42] LABS: Vancomycin,Peak 34.8 ug/ml (11-39)
[2022-10-12 20:00] VITALS: BP 163/93; PULSE 82; RESP 18; TEMP 36.7; O2SAT 95
[2022-10-13] VITALS: BP 153/86; PULSE 84; RESP 18; TEMP 36.5; O2SAT 96
[2022-10-13 04:00] VITALS: BP 136/76; PULSE 72; RESP 18; TEMP 37.6; O2SAT 96; BMI 32.4
[2022-10-13 05:35] LABS: POC Glucose,Bedside 101 (70-110)
[2022-10-13 06:08] LABS: POC Glucose,Bedside 106 (70-110)
--- NOTE | 2022-10-13 06:11 | PC.NURSE ---
pt rested well through the night, pt wore home cpap most of night, no complaints of pain, pt is alert and oriented x4, vss, pt with mona boot to RLE, pt stated he had debridement with graft to right foot about a month ago, pt is alert and oriented x4, no acute distress, pt has not required any insulin coverage, pt was assisted x1 with in and out cath and noted clear yellow urine with aprox 200 ml of urine noted, pt tolerated well, pt stated he has a hard time cathing self laying in bed, pt sates he will get up to chair today. no other issues or concerns at this time.
[2022-10-13 06:19] LABS: MANUAL DIFFERENTIAL MANUAL DIFFERENTIAL (MANUAL DIFF)
[2022-10-13 06:21] LABS: Basophils % 0.3 % (0.1-2.0); Eosinophils # 0.8 K/mm3 (0.0-0.4); Eosinophils % 7.6 % (0.1-12.0); Hematocrit 42.3 % (42.0-52.0); Lymphocytes # 1.3 K/mm3 (0.7-4.5); Lymphocytes % 11.8 % (10-50); Mean Corpuscular HGB Conc 33.1 g/dL (31.8-35.4); Mean Corpuscular Hemoglobin 28.4 pg (27.0-31.2); Mean Corpuscular Volume 85.8 fl (80-94); Mean Platelet Volume 8.1 fl (7.4-10.4); Monocytes # 0.7 K/mm3 (0.1-1.0); Monocytes % 6.8 % (1.7-9.3); Neutrophils # 7.9 K/mm3 (1.8-7.8); Neutrophils % 73.4 % (37.0-80.0); Platelet Count 262 K/mm3 (142-424); Red Blood Count 4.93 M/mm3 (4.60-6.20); Red Cell Distribution Width 14.5 % (11.5-17.5); White Blood Count 10.8 K/mm3 (4.8-10.8)
[2022-10-13 06:30] LABS: Chloride 108 mmol/L (98-107); Potassium 4.8 mmoL/L (3.5-5.1); Sodium 137 mmol/L (136-145)
[2022-10-13 06:33] LABS: Anion Gap 14.8 mEq/L (5-15); Blood Urea Nitrogen 15 mg/dl (9-20); Calcium 8.1 mg/dl (8.4-10.2); Carbon Dioxide 19 mmol/L (22.0-30.0); Creatinine Clearance Estimated 237 mL/min (50-200); Estimated Glomerular Filt Rate 175 ml/min (>60); GFR (African American) 211 ML/MIN (>60); Glucose 107 mg/dl (74-100)
[2022-10-13 07:38] LABS: Eosinophils % 8 % (0-3); Lymphocytes % 12 % (10-50); Monocytes % 8 % (2-9); Neutrophils % 72 % (42-76); Platelet Estimate Normal; RBC Morphology Normal; Total Cells Counted 100
[2022-10-13 07:53] VITALS: BP 170/93; PULSE 71; RESP 16; TEMP 36.7; O2SAT 97
--- NOTE | 2022-10-13 08:22 | EXP.ACUTE.PN ---
Subjective *Date: 10/13/22 *Time: 08:22 Interval history: Patient states he is feeling much better this morning. He denies any pain and slept well last night. He has been eating normally. Medical Exam Vital signs and Labs for Last 24 Hours: Vital Signs Temp Pulse Resp BP Pulse Ox 10/13/22 07:53 98.0 F 71 16 170/93 H 97 10/13/22 04:00 99.7 F H 72 18 136/76 96 10/12/22 20:00 95 10/13/22 00:00 97.7 F 84 18 153/86 H 96 10/12/22 20:00 98.1 F 82 18 163/93 H 95 10/12/22 15:13 98.0 F 77 18 174/83 H 97 10/12/22 11:18 97.9 F 70 18 177/96 H 97 Intake and Output 10/12/22 10/13/22 10/13/22 19:59 03:59 11:59 Intake Total 600 / 1510 370 / 1510 540 / 1510 Output Total 1700 / 1701 1 / 1701 0 / 1701 Balance -1100 / -191 369 / -191 540 / -191 Intake: Intake, Oral Amount 600 / 1140 540 / 1140 Intake, Other Amount 20 / 20 Intake, Total IV Amount 350 / 350 Ceftriaxone Sodium 1 gm In 0.9 50 / 50 % Sodium Chloride 50 ml @ 100 mls/hr IV Q24H RONNIE Rx#:[id number] Vancomycin/Water For Inj (Peg) 300 / 300 1.5 gm In 300 ml @ 150 mls/hr IV Q12H RONNIE Rx#:[id number] Output: Output, Urine Amount 1700 / 1701 1 / 1701 0 / 1701 Other: Intake, Other Source Saline Solution Number of Unmeasured Voids 2 1 1 Weight 214 lb 1.102 oz Patient Weight 10/13/22 11:59 Weight 214 lb 1.102 oz Laboratory Results - last 24 hr 10/12/22 06:03: Hemoglobin A1c 8.6 H 10/12/22 11:03: Vancomycin Trough 15.7 H 10/12/22 16:15: Vancomycin Peak 34.8 10/12/22 20:55: POC Glucose 101 10/13/22 06:02: POC Glucose 106 10/13/22 06:04: WBC 10.8, RBC 4.93, Hgb 14.0 L, Hct 42.3, MCV 85.8, MCH 28.4, MCHC 33.1, RDW 14.5, Plt Count 262, MPV 8.1, Neut % (Auto) 73.4, Lymph % (Auto) 11.8, [place] % (Auto) 6.8, Eos % (Auto) 7.6, Baso % (Auto) 0.3, Neut # (Auto) 7.9 H, Lymph # (Auto) 1.3, [place] # (Auto) 0.7, Eos # (Auto) 0.8 H, Baso # (Auto) 0.0, Total Counted 100, Neutrophils % (Manual) 72, Lymphocytes % (Manual) 12, Monocytes % (Manual) 8, Eosinophils % (Manual) 8 H, Platelet Estimate Normal, RBC Morphology Normal 10/13/22 06:04: Sodium 137, Potassium 4.8, Chloride 108 H, Carbon Dioxide 19 L, Anion Gap 14.8, BUN 15, Creatinine 0.50 L, Estimated Creat Clear 237, Estimated GFR 175, Est GFR ( Amer) 211, Glucose 107 H, Calcium 8.1 L I & O for Labs for Last 24 Hours: Intake & Output 10/10/22 10/11/22 10/12/22 10/13/22 11:59 11:59 11:59 11:59 Intake Total 1969 3060 / 3060 1510 / 1510 Output Total 0 / 0 800 / 800 1701 / 1701 Balance 1969 2260 / 2260 -191 / -191 Weight 211 lb 4 oz 213 lb 10.047 oz 214 lb 1.102 oz Microbiology Reports for the Last 24 Hours: Microbiology 10/10/22 19:30 Urine,Clean Catch Urine Culture - Final Klebsiella pneumoniae Proteus mirabilis 10/10/22 19:38 Blood Blood Culture - Preliminary NO GROWTH AFTER 48 HOURS 10/10/22 19:38 Blood Blood Culture - Preliminary NO GROWTH AFTER 48 HOURS Constitutional: Present no acute distress Respiratory: Present CTA bilaterally Cardiac: Present Regular Rate GI: Present soft; Absent distention or tenderness Extremities: Present edema; Absent tenderness Comment:: Erythema of the right foot is much less. Neuro: Present alert and oriented x 3 Assessment and Plan *Assessment and plan (1) Acute UTI (urinary tract infection): Status: Acute Category: Medical Code(s): N39.0 - Urinary tract infection, site not specified (2) Paraplegia: Status: Acute Category: Medical Code(s): G82.20 - Paraplegia, unspecified (3) Type 2 diabetes mellitus: Status: Acute Category: Medical Code(s): E11.9 - Type 2 diabetes mellitus without complications (4) HTN (hypertension): Status: Chronic Qualifiers: Hypertension ty
--- NOTE | 2022-10-13 08:54 | EXP.PHA.CONS ---
Pharmacy Consult Date: 10/13/22 Time: 08:54 Referring provider: DR. CHEN Reason for Consult:: VANCOMYCIN LEVELS Allergies Allergy/AdvReac Type Severity Reaction Status Date / Time cephalexin [From KEFLEX] Allergy Unknown Unknown Verified 09/14/22 16:53 allergy reaction nitrofurantoin Allergy Unknown Unknown Verified 09/14/22 16:53 [From MACRODANTIN] allergy reaction Penicillins [PENICILLINS] Allergy Unknown Unknown Verified 09/14/22 16:53 allergy reaction sulfamethoxazole Allergy Unknown Unknown Verified 09/14/22 16:53 [From Bactrim] allergy reaction trimethoprim [From Bactrim] Allergy Unknown Unknown Verified 09/14/22 16:53 allergy reaction gabapentin [From Neurontin] Allergy Verified 09/14/22 16:53 Sulfa (Sulfonamide Allergy Verified 09/14/22 16:53 Antibiotics) Home Medications Medication Instructions Recorded Confirmed Type albuterol sulfate 90 mcg/actuation 2 puffs inhalation QID PRN 07/01/19 10/10/22 History aerosol inhaler Shortness Of Breath furosemide 40 mg tablet 40 mg PO DAILY Fluid 10/15/20 10/11/22 History empagliflozin 10 mg tablet 10 mg PO DAILY Diabetes 10/29/21 10/11/22 History (Jardiance) amlodipine 5 mg tablet 5 mg PO DAILY High blood pressure 11/10/21 10/11/22 History sitagliptin phosphate 100 mg 100 mg PO DAILY Diabetes 03/17/22 10/11/22 History tablet (Januvia) clonidine HCl 0.1 mg tablet 0.1 mg PO BID Hypertension 10/10/22 10/11/22 History lisinopril 40 mg tablet 40 mg PO DAILY High blood pressure 10/10/22 10/11/22 History metoprolol succinate 25 mg 25 mg PO DAILY heart rate 10/10/22 10/11/22 History tablet,extended release 24 hr spironolactone 25 mg tablet 25 mg PO DAILY Fluid 10/10/22 10/10/22 History (Aldactone) cefdinir 300 mg capsule 300 mg PO BID #14 caps 10/13/22 Rx New Prescriptions to Start Prescriptions: cefdinir Bharti Chen Height: 1.73 m Weight: 97.1 kg Laboratory Results:: Laboratory Results - last 24 hr 10/12/22 06:03: Hemoglobin A1c 8.6 H 10/12/22 11:03: Vancomycin Trough 15.7 H 10/12/22 16:15: Vancomycin Peak 34.8 10/12/22 20:55: POC Glucose 101 10/13/22 06:02: POC Glucose 106 10/13/22 06:04: WBC 10.8, RBC 4.93, Hgb 14.0 L, Hct 42.3, MCV 85.8, MCH 28.4, MCHC 33.1, RDW 14.5, Plt Count 262, MPV 8.1, Neut % (Auto) 73.4, Lymph % (Auto) 11.8, [place] % (Auto) 6.8, Eos % (Auto) 7.6, Baso % (Auto) 0.3, Neut # (Auto) 7.9 H, Lymph # (Auto) 1.3, [place] # (Auto) 0.7, Eos # (Auto) 0.8 H, Baso # (Auto) 0.0, Total Counted 100, Neutrophils % (Manual) 72, Lymphocytes % (Manual) 12, Monocytes % (Manual) 8, Eosinophils % (Manual) 8 H, Platelet Estimate Normal, RBC Morphology Normal 10/13/22 06:04: Sodium 137, Potassium 4.8, Chloride 108 H, Carbon Dioxide 19 L, Anion Gap 14.8, BUN 15, Creatinine 0.50 L, Estimated Creat Clear 237, Estimated GFR 175, Est GFR ( Amer) 211, Glucose 107 H, Calcium 8.1 L Medical History: Medical History (Updated 10/11/22 @ 09:16 by Dorothy Davies APRN) Abnormal EKG Arrhythmia Asthma Compartment syndrome Compartment syndrome of right upper extremity Diastolic dysfunction Dyspnea Ex-smoker HLD (hyperlipidemia) HTN (hypertension) KODI (obstructive sleep apnea) Overweight or obesity Paraplegia Pleural effusion Pressure injury of skin Restless sleeper Rupture of proximal biceps tendon Snoring T2DM (type 2 diabetes mellitus) Assessment and Plan Assessment and plan all Dx Assessment and Plan for all problems:: PATIENT'S VANCOMYCIN LEVELS WERE 15.7 MCG/ML AND 34.8 MCG/ML FOR TROUGH AND PEAK, RESPECTIVELY. RECOMMEND CONTINUING WITH CURRENT DOSE AND INTERVAL OF VANCOMYCIN 1500 MG Q12H AT THIS TIME.
[2022-10-13 11:17] VITALS: BP 151/76; PULSE 70; RESP 16; TEMP 36.8; O2SAT 93
--- NOTE | 2022-10-13 11:19 | HMH.PHAINT1 ---
Pharmacy Intervention Comments: Counseled patient on new medication (cefdinir) to START on discharge. Patient expressed understanding of medication indication, dose, route, frequency, and potential side effects.
[2022-10-13 11:38] LABS: POC Glucose,Bedside 103 (70-110)
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
--- NOTE | 2022-10-13 13:08 | PC.NURSE ---
patient ride would not be here before 330.
--- NOTE | 2022-10-14 15:04 | CARE MANAGER ---
Spoke with patient, for post-discharge phone interview. No issues noted.
== END 2022-10-13 15:22 | disposition home or self-care (01) ==
LOC: UTC 18:12 → ER 19:15 → 2ND 22:23
PROVIDERS: Nurse Practitioner; Admitting Provider Family Medicine; Emergency Provider Emergency Medicine; PCP Family Medicine; Visit Provider Family Medicine
DX: N39.0 Urinary tract infection, site not specified (principal); G82.20 Paraplegia, unspecified; I10 Essential (primary) hypertension; E11.621 Type 2 diabetes mellitus with foot ulcer; L97.511 Non-pressure chronic ulcer of other part of right foot limited to breakdown of skin; G47.33 Obstructive sleep apnea (adult) (pediatric); B96.4 Proteus (mirabilis) (morganii) as the cause of diseases classified elsewhere; B96.89 Other specified bacterial agents as the cause of diseases classified elsewhere; M77.8 Other enthesopathies, not elsewhere classified; Z79.84 Long term (current) use of oral hypoglycemic drugs; Z79.899 Other long term (current) drug therapy; Z20.822 Contact with and (suspected) exposure to COVID-19
CPT/HCPCS: 36415; 73701; 80048; 80076; 80202; 81001; 81003; 82962; 83036; 83605; 85007; 85014; 85018; 85025; 85048; 85049; 85651; 86140; 87040; 87086; 87088; 87186; 99285; C9803; G0378; J0696; J3370; Q9967; U0003; U0005

== ENCOUNTER 2022-10-14 10:55 | Outpatient (CLI) | payer OTHER, SELFPAY ==
[2022-10-14 11:24] VITALS: BP 144/85; PULSE 82; RESP 18; TEMP 36.8; O2SAT 98
[2022-10-14 11:30] VITALS: BP 151/84; PULSE 86; RESP 18; O2SAT 98
== END 2022-10-14 11:45 | disposition home or self-care (01) ==
LOC: INF 10:56
PROVIDERS: PCP Family Medicine; Visit Provider Physician Assistant
DX: N39.0 Urinary tract infection, site not specified (principal)
CPT/HCPCS: 96372; J1335

== ENCOUNTER → 2022-10-15 08:04 | Outpatient (CLI) | payer OTHER, SELFPAY | PROVIDERS: PCP Family Medicine; Visit Provider Physician Assistant | DX: N39.0 Urinary tract infection, site not specified (principal) | CPT/HCPCS: 96372; G0463; J1335 ==

== ENCOUNTER → 2022-10-16 10:10 | Outpatient (CLI) | payer OTHER, SELFPAY | PROVIDERS: PCP Family Medicine; Visit Provider Physician Assistant | DX: N39.0 Urinary tract infection, site not specified (principal) | CPT/HCPCS: 96372; G0463; J1335 ==

== ENCOUNTER 2022-10-17 10:08 | Outpatient (CLI) | payer OTHER, SELFPAY ==
[2022-10-17 10:30] VITALS: BP 136/95; PULSE 69; RESP 20; TEMP 36.6; O2SAT 95
== END 2022-10-17 10:56 | disposition home or self-care (01) ==
LOC: INF 10:08
PROVIDERS: PCP Family Medicine; Visit Provider Physician Assistant
DX: N39.0 Urinary tract infection, site not specified (principal)
CPT/HCPCS: 96372; J1335

== ENCOUNTER 2022-10-18 09:59 | Outpatient (CLI) | payer OTHER, SELFPAY ==
[2022-10-18 10:27] VITALS: BP 143/94; PULSE 61; RESP 18; TEMP 36.6; O2SAT 97
== END 2022-10-18 10:52 | disposition home or self-care (01) ==
LOC: INF 10:00
PROVIDERS: PCP Family Medicine; Visit Provider Physician Assistant
DX: N39.0 Urinary tract infection, site not specified (principal)
CPT/HCPCS: 96372; J1335

== ENCOUNTER → 2022-12-08 09:53 | Outpatient (CLI) | payer OTHER, SELFPAY ==
[2022-12-08 11:11] LABS: Alanine Aminotransferase 21 U/L (12-78); Albumin Level 4.5 g/dl (3.5-5.0); Alkaline Phosphatase 97 U/L (38-126); Aspartate Amino Transferase 25 U/L (17-59); Bilirubin,Indirect 0.3 mg/dL (0.0-0.9); Bilirubin,Total 0.3 mg/dl (0.2-1.3); Bilirubin,Unconjugated 0.4 mg/dL (0.0-1.1); Chol/HDL Ratio 7.3 (1-3.5); Cholesterol 174 mg/dl (140-200); HDL Cholesterol 24 mg/dl (40-60); Total Protein,Serum 7.8 g/dl (6.3-8.2); Triglycerides 159 mg/dl (30-150); VLDL Cholesterol 32 mg/dL (0-40)
[2022-12-08 11:22] LABS: Direct LDL Cholesterol 113.98 mg/dL (100-129)
== END ==
PROVIDERS: PCP Family Medicine; Visit Provider Nurse Practitioner
DX: I25.10 Atherosclerotic heart disease of native coronary artery without angina pectoris (principal); I10 Essential (primary) hypertension; E78.5 Hyperlipidemia, unspecified; E11.9 Type 2 diabetes mellitus without complications; Z79.84 Long term (current) use of oral hypoglycemic drugs
CPT/HCPCS: 36415; 80061; 80076

== ENCOUNTER 2023-09-21 08:43 | Emergency (ER) | payer BC, SELFPAY ==
[2023-09-21 09:05] VITALS: BP 160/98; PULSE 112; RESP 19; TEMP 37.2; O2SAT 98; BMI 34.0
[2023-09-21 09:12] LABS: Apearance,Urine Cloudy (Clear); Bilirubin,Urine Negative (Negative); Blood, Urine Trace (Negative); Color,Urine Dark Yellow (Yellow); Glucose,Urine (UA) Negative (Negative); Ketones,Urine Negative (Negative); PH,Urine 5.5 (5.0-8.5); Protein,Urine Negative (Negative); Urobilinogen,Urine 1 EU/dl (0.2)
[2023-09-21 09:13] LABS: UTC Leukocyte Esterase,Urine 2+ (Negative); UTC Nitrate,Urine Negative (Negative)
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
[2023-09-21 09:30] VITALS: BP 160/98; PULSE 112; RESP 19; TEMP 37.2; O2SAT 98
[2023-09-21 09:56] LABS: Coronavirus 19, PCR Not Detected (NotDetected); Influenza A, PCR Not Detected (NotDetected); Influenza B, PCR Not Detected (NotDetected)
== END 2023-09-21 09:53 | disposition home or self-care (01) ==
PROVIDERS: Emergency Provider Nurse Practitioner; PCP Family Medicine
DX: N39.0 Urinary tract infection, site not specified (principal); B96.29 Other Escherichia coli [E. coli] as the cause of diseases classified elsewhere; B96.89 Other specified bacterial agents as the cause of diseases classified elsewhere; G82.20 Paraplegia, unspecified; E11.9 Type 2 diabetes mellitus without complications; I10 Essential (primary) hypertension; E78.5 Hyperlipidemia, unspecified; Z87.891 Personal history of nicotine dependence; Z79.84 Long term (current) use of oral hypoglycemic drugs
CPT/HCPCS: 81003; 87086; 87636; 99212; 99214; G0463

== ENCOUNTER 2023-11-01 11:49 | Emergency (ER) | payer BC, SELFPAY ==
[2023-11-01 11:51] VITALS: BP 158/85; PULSE 85; RESP 18; TEMP 36.3; O2SAT 96; BMI 33.0
[2023-11-01 11:57] VITALS: BP 158/85; PULSE 83; O2SAT 95
--- NOTE | 2023-11-01 12:06 | XR_ITS ---
PROCEDURE INFORMATION: Exam: XR Right Foot Exam date and time: 11/01/2023 12:17 PM Age: 53 years old Clinical indication: Pain; Foot; Right; Additional info: Wound plantar 1st mtp, erythema TECHNIQUE: Imaging protocol: Radiologic exam of the right foot. Views: 3 or more views. COMPARISON: CT FOOT RT W CON 10/10/2022 8:35 PM FINDINGS: Bones/joints: Diffuse osteopenia is present. Soft tissues: Severe soft tissue swelling is seen around the foot especially in the dorsal aspect. IMPRESSION: 1. No acute findings. MRI is more sensitive for evaluation of acute osteomyelitis. 2. Diffuse osteopenia is present. 3. Severe soft tissue swelling is seen around the foot especially in the dorsal aspect.
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
[2023-11-01 12:31] VITALS: BP 138/76; PULSE 74; O2SAT 97
[2023-11-01 12:50] VITALS: BP 137/78; PULSE 72; O2SAT 98
[2023-11-01 12:50] LABS: Basophils # 0.1 K/mm3 (0-0.2); Basophils % 0.9 % (0.1-2.0); Eosinophils # 0.3 K/mm3 (0.0-0.4); Eosinophils % 2.5 % (0.1-12.0); Hematocrit 46.9 % (42.0-52.0); Hemoglobin 15.4 g/dL (14.1-18.0); Lymphocytes % 10.7 % (10-50); Mean Corpuscular HGB Conc 32.9 g/dL (31.8-35.4); Mean Corpuscular Hemoglobin 29.1 pg (27.0-31.2); Mean Corpuscular Volume 88.5 fl (80-94); Mean Platelet Volume 7.8 fl (7.4-10.4); Monocytes # 0.6 K/mm3 (0.1-1.0); Monocytes % 6.5 % (1.7-9.3); Neutrophils # 7.8 K/mm3 (1.8-7.8); Neutrophils % 79.4 % (37.0-80.0); Platelet Count 221 K/mm3 (142-424); Red Cell Distribution Width 16.4 % (11.5-17.5); White Blood Count 9.8 K/mm3 (4.8-10.8)
[2023-11-01 12:55] LABS: Alanine Aminotransferase 29 U/L (12-78); Albumin Level 4.4 g/dl (3.5-5.0); Albumin/Globulin Ratio 1.4 (1.1-1.8); Alkaline Phosphatase 75 U/L (38-126); Anion Gap 11.5 mEq/L (5-15); Aspartate Amino Transferase 28 U/L (17-59); Bilirubin,Total 0.9 mg/dl (0.2-1.3); Blood Urea Nitrogen 15 mg/dl (9-20); Calcium 9.6 mg/dl (8.4-10.2); Carbon Dioxide 27 mmol/L (22.0-30.0); Chloride 106 mmol/L (98-107); Creatinine Clearance Estimated 231 mL/min (50-200); Estimated Glomerular Filt Rate 174 ml/min (>60); GFR (African American) 210 ML/MIN (>60); Globulin 3.1 g/dL (1.3-3.2); Glucose 108 mg/dl (74-100); Potassium 3.5 mmoL/L (3.5-5.1); Sodium 141 mmol/L (136-145); Total Protein,Serum 7.5 g/dl (6.3-8.2)
[2023-11-01 13:05] LABS: Microscopic, Urine URINE MICROSCOPIC (MICROSCOPIC)
[2023-11-01 13:10] LABS: Appearance,Urine CLEAR (Clear); Bilirubin,Urine Negative (Negative); Blood, Urine 1+ (Negative); Color,Urine YELLOW (Yellow); Glucose,Urine (UA) Negative (Negative); Ketones,Urine Negative (Negative); Leukocyte Esterase,Urine 3+ (Negative); Nitrate,Urine POSITIVE (Negative); Protein,Urine Negative (Negative); Specific Gravity, Urine 1.025 (1.005-1.030); Urobilinogen,Urine 0.2 EU/dl (0.2)
[2023-11-01 13:27] LABS: Erythrocyte Sedimentation Rate 13 mm/hr (0-20)
[2023-11-01] MEDS: DALBAVANCIN HCL 1,500 MG in DEXTROSE 5 % IN WATER 250 ML 500 MG IV (13:51)
[2023-11-01 14:12] LABS: Bacteria,Urine 2+ /lpf; Calcium Oxalate Crystals,Urine 1+ /lpf; RBC,Urine Occasional #/hpf (0-3); Yeast,Urine 1+ /lpf
[2023-11-01] MEDS: levoFLOXacin 750 MG TABLET PO (14:19)
[2023-11-01 15:01] VITALS: BP 125/75; PULSE 80; RESP 18; TEMP 37.1; O2SAT 97
--- NOTE | 2023-11-03 18:29 | PC.NURSE ---
urine culture prelim discussed with scooter Randhawa on levaquin, ntd
== END 2023-11-01 15:02 | disposition home or self-care (01) ==
PROVIDERS: Emergency Provider Emergency Medicine; PCP Family Medicine
DX: N39.0 Urinary tract infection, site not specified (principal); B96.29 Other Escherichia coli [E. coli] as the cause of diseases classified elsewhere; R50.9 Fever, unspecified; L03.115 Cellulitis of right lower limb; E11.621 Type 2 diabetes mellitus with foot ulcer; G82.20 Paraplegia, unspecified; I10 Essential (primary) hypertension; E78.5 Hyperlipidemia, unspecified; Z79.84 Long term (current) use of oral hypoglycemic drugs
CPT/HCPCS: 73630; 80053; 81001; 85025; 85651; 87086; 96374; 99284; J0875

== ENCOUNTER 2024-01-31 09:19 | Outpatient (CLI) | payer BC, SELFPAY ==
[2024-01-31 10:05] LABS: Basophils # 0.1 K/mm3 (0-0.2); Basophils % 1.1 % (0.1-2.0); Eosinophils # 0.4 K/mm3 (0.0-0.4); Eosinophils % 5.8 % (0.1-12.0); Hematocrit 48.5 % (42.0-52.0); Hemoglobin 15.4 g/dL (14.1-18.0); Lymphocytes # 1.4 K/mm3 (0.7-4.5); Lymphocytes % 18.8 % (10-50); Mean Corpuscular HGB Conc 31.8 g/dL (31.8-35.4); Mean Corpuscular Hemoglobin 29.3 pg (27.0-31.2); Mean Corpuscular Volume 92.1 fl (80-94); Mean Platelet Volume 7.7 fl (7.4-10.4); Monocytes # 0.6 K/mm3 (0.1-1.0); Monocytes % 7.8 % (1.7-9.3); Neutrophils # 5.1 K/mm3 (1.8-7.8); Neutrophils % 66.5 % (37.0-80.0); Platelet Count 213 K/mm3 (142-424); Red Blood Count 5.27 M/mm3 (4.60-6.20); Red Cell Distribution Width 15.3 % (11.5-17.5); White Blood Count 7.6 K/mm3 (4.8-10.8)
[2024-01-31 11:30] LABS: Albumin Level 4.2 g/dl (3.5-5.0); Chloride 109 mmol/L (98-107); Sodium 141 mmol/L (136-145)
[2024-01-31 11:33] LABS: Alanine Aminotransferase 20 U/L (12-78); Alkaline Phosphatase 79 U/L (38-126); Aspartate Amino Transferase 25 U/L (17-59); Bilirubin,Direct 0.1 mg/dl (0.0-0.4); Bilirubin,Indirect 0.5 mg/dL (0.0-0.9); Bilirubin,Total 0.6 mg/dl (0.2-1.3); Bilirubin,Unconjugated 0.5 mg/dL (0.0-1.1); Blood Urea Nitrogen 23 mg/dl (9-20); Calcium 9.2 mg/dl (8.4-10.2); Carbon Dioxide 24 mmol/L (22.0-30.0); Cholesterol 159 mg/dl (140-200); Estimated Glomerular Filt Rate 173 ml/min (>60); GFR (African American) 210 ML/MIN (>60); Glucose 116 mg/dl (74-100); Total Protein,Serum 6.7 g/dl (6.3-8.2); Triglycerides 104 mg/dl (30-150); VLDL Cholesterol 21 mg/dL (0-40)
[2024-01-31 11:34] LABS: Chol/HDL Ratio 6.4 (1-3.5); HDL Cholesterol 25 mg/dl (40-60)
[2024-01-31 11:44] LABS: Direct LDL Cholesterol 109.31 mg/dL (100-129)
[2024-01-31 12:05] LABS: Thyroid Stimulating Hormone 1.66 uIU/mL (0.465-4.68)
[2024-01-31 18:50] LABS: Free T4 (Free Thyroxine) 1.37 ng/dl (0.78-2.19)
[2024-02-05 10:09] LABS: Dopamine, Plasma < 30 pg/mL (0-48); Epinephrine, Plasma < 15 pg/mL (0-62); Norepinephrine, Plasma 258 pg/mL (0-874)
[2024-02-05 14:11] LABS: Metanephrine Plasma < 25.0 pg/mL (0.0-88.0); Normetanephrine Plasma 26.9 pg/mL (0.0-244.0)
== END 2024-01-31 23:59 | disposition home or self-care (01) ==
LOC: LAB 09:20
PROVIDERS: PCP Family Medicine; Visit Provider Physician Assistant
DX: I10 Essential (primary) hypertension (principal); E78.5 Hyperlipidemia, unspecified; E11.69 Type 2 diabetes mellitus with other specified complication; G47.33 Obstructive sleep apnea (adult) (pediatric); I25.10 Atherosclerotic heart disease of native coronary artery without angina pectoris; Z87.891 Personal history of nicotine dependence; Z79.84 Long term (current) use of oral hypoglycemic drugs
CPT/HCPCS: 36415; 80048; 80061; 80076; 82088; 82384; 83735; 83835; 84244; 84439; 84443; 85025

== ENCOUNTER 2024-05-31 11:09 | Emergency (ER) | payer BC, SELFPAY ==
[2024-05-31 12:34] VITALS: BP 165/93; PULSE 76; RESP 18; TEMP 37.1; O2SAT 100; BMI 36.2
[2024-05-31 12:49] LABS: UTC Influenza A Antigen Negative (Negative); UTC Strep Screen (Rapid) Negative (Negative)
[2024-05-31 12:50] LABS: UTC Influenza B Antigen Negative (Negative)
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
[2024-05-31 13:09] VITALS: BP 165/93; PULSE 75; RESP 18; TEMP 37.1
== END 2024-05-31 13:09 | disposition home or self-care (01) ==
PROVIDERS: Emergency Provider Nurse Practitioner Family; PCP Family Medicine
DX: J01.90 Acute sinusitis, unspecified (principal)
CPT/HCPCS: 87804; 87880; 99213; G0381

== ENCOUNTER 2024-08-16 08:21 | Emergency (ER) | payer BC, SELFPAY ==
[2024-08-16 08:21] VITALS: BP 172/92; PULSE 79; RESP 20; TEMP 36.9; O2SAT 99; BMI 31.9
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
[2024-08-16 08:34] LABS: Coronavirus 19, PCR Not Detected (NotDetected); Influenza A, PCR Not Detected (NotDetected); Influenza B, PCR Not Detected (NotDetected)
[2024-08-16 08:52] VITALS: BP 172/90; PULSE 80; RESP 20; TEMP 36.9; O2SAT 99
== END 2024-08-16 08:58 | disposition home or self-care (01) ==
PROVIDERS: Emergency Provider Emergency Medicine; PCP Family Medicine
DX: J06.9 Acute upper respiratory infection, unspecified (principal); L98.9 Disorder of the skin and subcutaneous tissue, unspecified
CPT/HCPCS: 87636; 99283

== ENCOUNTER 2025-02-24 11:34 | Observation (INO) | payer BC, SELFPAY ==
--- OUTSIDE RECORDS SUMMARY | 2025-02-04 05:45 | XMS_ITS ---
Author Organization [facility] Address [address] [facility] 36 [facility] [address] [place] [phone] Care Team Providers Care Single Pointed Operator Name Role Phone Cherelle Diego Primary Care Provider [phone] Dinora Davies Unavailable [phone] Allergies Allergen (clinical drug ingredient) Drug/Non Drug [...] 22 Performing Lab: Notes/Report: Test performed by [email or web address] [address] [place] [address] , [address], [place] [address] Issac Romero MD, Chief Cloth Finishing Range Operator CLIA: [id number] Sodium 139 135-145 mmol/L Potassium 4.0 3.5-5.3 [...] Interpretation:293 Performing Lab: Notes/Report: Test performed by [email or web address] [address] [place] [address] , [place] [address] Issac Romero MD, Chief Cloth Finishing Range Operator CLIA: [id number] Testosterone Total 293.00 264.00-916.00 ng/dL P-Lipid Panel Reviewed date:02/05/2025 06:07:33 PM Interpretation:trigs 169, hdl 24, chol/hdl 6.58, non-hdl 134, ldl/hdl 4.2 Performing Lab: Notes/Report: Test performed by [email or web address] [address] [place] [address] , [address], [place] [address] Issac Romero MD, Chief Cloth Finishing Range Operator CLIA: [id number] Cholesterol 158 <200 mg/dL Triglycerides 169 <150 [...] Interpretation:Normal Performing Lab: Notes/Report: Test performed by [facility] [employer], [address] , [address], [place] [address] Issac Romero MD, Chief Cloth Finishing Range Operator CLIA: [id number] PSA 0.49 <4.00 ng/mL Please note this is an ultrasensitive PSA assay with a lower limit of detection of 0.014 ng/mL. This test is performed by the [employer] ECLIA methodology. Values obtained with different assay methods or kits cannot be directly compared. P-Microalbumin/Creatinine, R andom Urine Sample Reviewed date:02/05/2025 06:08:30 PM Interpretation:Normal Performing Lab: Notes/Report: Test performed by [email or web address] [address] [place] [address] , [address], [place] [address] Issac Romero MD, Chief Cloth Finishing Range Operator CLIA: [id number] Albumin/Creatinine Ratio, Urine 19 0-30 ug/mg Microalbumin, Urine, Random 1.9 Creatinine, Urine 100.2 P-Uric Acid Reviewed date:02/05/2025 06:07:58 PM Interpretation:Normal Performing Lab: Notes/Report: Test performed by [email or web address] [address] [place] [address] , [address], [place] [address] Issac Romero MD, Chief Cloth Finishing Range Operator CLIA: [id number] Uric Acid 5.1 3.4-8.0 mg/dL REASON FOR VISIT yearly checkup with fasting labs, Needs labs with PSA & shingles vaccine Medications Medication SIG (Take, Route, Frequency, Duration) Notes Start Date End Date Status Crestor 5 MG 1 tablet Orally Once a day; Duration: 30 day(s) 08/21/2023 Not-Taking CATHETER SELF-CATHETER 14FR - PRN [facility] code A4352, In&out Urinary catheters 14 Kenyan Quad tip 03/16/2022 Active Spironolactone 25 MG [...] Status Risk Notes Problem Erectile dysfunction (disorder) (780146152) ED (erectile dysfunction) (N52.9) Active confirmed Problem Neurogenic dysfunction of the urinary bladder (691563222) Neurogenic bladder disorder (N31.9) Active confirmed Vital Signs Blood pressure systolic 139 mm Hg 02/05/20 25 Blood pressure diastolic 91 mm Hg 025 Heart Rate 72 /min 02/04/2025 Height 000 in 02/04/2025 Weight 000 lbs 02/04/2025 Encounters Encounter Location Date Provider Diagnosis [place] [address] [id number] 02/04/2025 Dinora Davies ED (erectile dysfunction) N52.9 [...] routinely monitor BS; has been on a 4619-6339 amara diet for the last week with [...] Notes CATHETER SELF-CATHETER 14FR - PRN 03/16/2022 [facility] A4352 , In&out Urinary catheters 14 Kenyan Quad tip Spironolactone 25 MG 1 tab(s) [...] routinely monitor BS; has been on a 3068-6686 amara diet for the last week with [...] * LATANYA BAUEROB:1970 ([age] yo M)Acc No.[id number]:02/04/2025 Progress Notes Patient: JOSELINE LUTHER Provider: TIARA Ruiz :1970 A ge:55 Y S ex:Male Date:02/04/2025 Address:[address] [place] [address] Pcp:Cherelle Diego Subjective: * Chief Complaints: * 1 . Yearly checkup with fasting labs. 2. Needs labs with PSA & shingles vaccine. * HPI: C ardiology: The pt is here today for a check-up on Hypertension and diabetes. Pt states he is doing good and denies any new concerns. Pt is fasting. Pt states he is needing a refill for Spironolactone sent to [facility] in [place]. Denies : Chest Pain. D enies : [...] [facility] code A4352, In&out Urinary catheters 14 Kenyan Quad tip, Taking Januvia 100 MG Tablet [...] routinely monitor BS; has been on a 3454-7099 amara diet for the last week with [...] [facility] code A4352, In&out Urinary catheters 14 Kenyan Quad tip.??12.?Others? Continue Power Chair Battery, as directed, prn.?? Notes: encouraged his restart of exercise; will consider the Shingrix; had cicken pox as a child?? * Procedure Codes: 8 5025 CBC WITH AUTO DIFF, 62464 GLYCATED HEMOGLOBIN TEST, Modifiers: QW , 3044F HG A1C LEVEL LT 7.0%, 1036F TOBACCO NON-USER * Follow Up: 1 Year,and prn * Images: Billing Information: * Visit Code: 58262 Office Visit, Est Pt., Level 4. * Procedure Codes: 68084 CBC WITH AUTO DIFF. 67003 GLYCATED HEMOGLOBIN TEST. Modifiers: QW 3044F HG A1C LEVEL LT 7.0%. 1036F TOBACCO NON-USER. * Electronic signature of Rebecca Davies APRN on 02/24/2025 at 12:15 PM EDT Sign off status: Pending * Provider: TIARA Ruiz Date: 0 02/04/2025 Generated for Praveena spaulding/Adebayo/Denis on: 0 02/24/2025 12:15 PM EDT History and Physical Notes * [...]
[2025-02-24] VITALS (11 sets, daily range): BP systolic 110–144; BP diastolic 57–88; PULSE 92–106; RESP 16–20; TEMP 37.2–37.4; O2SAT 92–98; BMI 32.1
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
--- OUTSIDE RECORDS SUMMARY | 2025-02-24 12:15 | XMS_ITS | Clinical Summary ---
Author Organization [employer] ([place], [place], [place], [place]) Address [address] [place] [address] Care Team Providers Care Warehouse Guard Name Role Phone Provider Not In System, [facility] Primary Care Provide r Unavailable Roxann Corona RN Unavailable Unavailab Maddison Beth DPM Unavailable [phone] Roxann Corona RN Unavailable Unavailab le Allergies Active Allergy Reactions Criticality Noted Date Comments Cephalexin 05/02/2022 Nitrofurantoin Macrocrystal 05/02/20 22 Norfloxacin 05/16/2022 Penicillin 05/02/2022 Sulfa (Sulfonamide Antibiotics) 04/04 Medications amLODIPine (NORVASC) 10 MG tabletIndication s:Hypertension, unspecified type Take 5 mg by mouth daily. Active furosemide (LASIX) 40 MG tabletIndication s:Hypertension, unspecified type Take 40 mg by mouth daily. Active cloNIDine HCL (CATAPRES) 0.1 MG tabletIndication s:Hypertension, unspecified type Take 0.1 mg by mouth 2 (two) times daily. Active empagliflozin (Jardiance) 10 mg tabletIndication s:Type 2 diabetes mellitus with right diabetic foot ulcer (HCC) Take 10 mg by mouth daily. Active metoprolol succinate (TOPROL-XL) 100 MG 24 hr tabletIndication s:Hypertension, unspecified type Take 24 mg by mouth daily. Active spironolactone (ALDACTONE) 25 MG tabletIndication s:Hypertension, unspecified type Take 25 mg by mouth daily. Active diclofenac (VOLTAREN) 75 MG EC tablet Take 1 tablet (75 mg total) by mouth in the morning and 1 tablet (75 mg total) before bedtime. Active Active Problems No known active problems Family History Medical History Relation Name Comments Cancer Father Cancer Paternal Grandfather Cancer Paternal Grandmother Relation Name Status Comments Father Paternal Grandfather Paternal Grandmother Social History Tobacco Use Types Packs/Day Years Used Date Smoking Tobacco: Never Smokeless Tobacco: Never Tobacco Cessation:Counseling Given: Not Answered Alcohol Use Standard Drinks/Week Comments Never 0 (1 standard drink = 0.6 oz pur e alcohol) Food Insecurity Answer Date Recorded Food run out past 12 months Not on file 07/03 Food did not last past 12 months Not on file 07/21/2023 Employment Answer Date Recorded Help finding and keeping a job Not on file 0 07/21/2023 Family and Community Support Answer Shemar e Recorded Help with Day to Day Activities Not on file 07/21/2023 Feeling Lonely or Isolated Not on file 07/21 Educational Attainment Answer Date Kamran rded Speak language other than Persian at home Not on file 07/21/2023 Want help with school or training Not on file 07/21/2023 Substance Use Answer Date Recorded Used prescription meds for non-medical reasons N ot on file 07/21/2023 Used illegal drugs past 12 months Not on file 07/21/2023 Sex and Gender Information Value Date Recorded Sex Assigned at Male 12/30/2021 5:50 PM CDT Legal Sex Male 7:04 PM CDT Gender Identity Male 12/30/2021 5:50 PM CDT Sexual Orientation Not on file Last Filed Vital Signs Vital Sign Reading Time Taken Comments Blood Pressure 143/84 03/17/2023 9:06 AM EDT Pulse 67 03/17/2023 9:06 AM EDT Temperature 36.4 C (97.5 F) 03/17/2023 9:06 AM EDT Respiratory Rate 18 03/17/2023 9:06 AM EDT Oxygen Saturation - - Inhaled Oxygen Concentration - - Weight 107.5 kg (237 lb) 05/02/2022 9:31 AM EDT Height 172.7 cm (5' 8 ) 05/02/2022 9:31 AM EDT Body Mass Index 36.04 05/02/2022 9:31 AM EDT Plan of Treatment Health Maintenance Due Date Last Done Comments CT Colonography 1970 Colonoscopy 1970 Colorectal Cancer Screening 1970 FOBT/FIT 1970 Fit-DNA (Cologuard) 1970 Sigmoidoscopy 1970 Depression Screening (12+) 1982 HIV Screening 1985 Hepatitis C Screening 01/11/1988 Lipid Panel 2005 Pneumococcal 50+ years (1 of 1 - PCV) 01/11/2020 Shingles Vaccine (Zoster) (1 of 2) 01/11/2020 COVID-19 VACCINE (1 - 2023- season) 2024 Tobacco Cessation Counseling and Screening (12+) 03/1703/17/2023 Influenza Vaccine (#1) 2025 DTAP/TDAP/TD VACCINES (2 - Td or Tdap) 02/22/2028 Insurance [employer] Care Teams Warehouse Guard Relationship Specialty Start Date End Date Provider Not In System, [facility]T PCP - General 05/02/22 Roxann Corona, RN Registered Nurse 05/16/22 Maddison Mcfadden, DPBrian [address] [facility] [address] [place] [address] Consulting Physician Podiatry 06/06/22 Roxann Corona, RN Registered Nurse 10/04/22
--- OUTSIDE RECORDS SUMMARY | 2025-02-24 12:16 | XMS_ITS | Encounter Summary ---
Author Organization [employer] ([place], [place], [place], [place]) Address [address] [place] [address] Care Team Providers Care Pantomimist Name Role Phone Provider Not In System, [facility] Primary Care Provide r Unavailable Roxann Corona RN Unavailable Unavailab Maddison Beth DPM Unavailable Roxann Corona RN Unavailable Unavailab le Encounter Details Date Type Department Care Team (Late st Contact Info) Description 12/23/2019 Transcribed Document [facility] Family Medicine [place] [place] [address] ProviderMayte MD [address] [place] [id number] Social History Tobacco Use Types Packs/Day Years Used Date Smoking Tobacco: Never Assessed Sex and Gender Information Value Date Recorded Sex Assigned at Male 12/30/2021 5:50 PM CDT Legal Sex Male 7:04 PM CDT Gender Identity Male 12/30/2021 5:50 PM CDT Sexual Orientation Not on file documented as of this encounter Miscellaneous Notes * Cerner Conversion Note - Historical ProviderMD - 12/23/2019 12:25 PM CDT Advance Directive Entered On: 12/23/2019 14:39 EDT Performed On: 12/23/2019 12:25 EDT by SUHAIL RESENDIZ Advance Directive Patient has Advance Directive *Q : No, patient requests assist formulating Advance Directive Advance Directive Comment : Patient will request Drawer Upfitter when feeling up to discussing. SUHAIL RESENDIZ - 12/23/2019 14:39 EDT documented in this encounter Plan of Treatment Not on file documented as of this encounter Visit Diagnoses Not on filedocumented in this encounter Care Teams Pantomimist Relationship Specialty Start Date End Date Provider Not In System, [facility] PCP - General 05/02/22 Roxann Corona, RN Registered Nurse 05/16/22 Maddison Mcfadden DPM [address] [place] [address] Consulting Physician Podiatry 06/06/22 Roxann Corona, RN Registered Nurse 10/04/22 documented as of this encounter
--- OUTSIDE RECORDS SUMMARY | 2025-02-24 12:16 | XMS_ITS | Encounter Summary ---
Author Organization [employer] ([place], [place], [place], [place]) Address [address] [place] [address] Care Team Providers Care Forensic Toxicologist Name Role Phone Provider Not In System, [facility]T Primary Care Provide r Unavailable Roxann Corona RN Unavailable Unavailab Maddison Beth DPM Unavailable [phone] Roxann Corona RN Unavailable Unavailab le Encounter Details Date Type Department Care Team (Late st Contact Info) Description 12/23/2019 Transcribed Document [facility] Family [facility] [place] [address] ProviderMayte MD [address] [place] [id number] Social History Tobacco Use Types Packs/Day Years Used Date Smoking Tobacco: Never Assessed Sex and Gender Information Value Date Recorded Sex Assigned at Male 12/30/2021 5:50 PM CDT Legal Sex Male 7:04 PM CDT Gender Identity Male 12/30/2021 5:50 PM CDT Sexual Orientation Not on file documented as of this encounter Miscellaneous Notes * Cerner Conversion Note - Mayte ProviderMD - 12/23/2019 10:53 AM CDT Spiritual Care Assessment Entered On: 12/23/2019 14:40 EDT Performed On: 12/23/2019 12:25 EDT by SUHAIL RESENDIZ General Information Initial Visit : Yes Referred by : Patient Referral Reason Comment : Advance directive Ministry Provided to : Patient SUHAIL RESENDIZ - 12/23/2019 14:40 EDT Spiritual Assessment Spiritual Assessment Comment/Summary Points : Patient will request Agency Manager when feeling up to discussing advance directive. Provided supportive presence. Spirital Assessment Comment/Summary Report : SPIRITUAL ASSESSMENT COMMENT/SUMMARY No qualifying data available. SUHAIL RESENDIZ P - 12/23/2019 14:40 EDT Interventions Advance Directive Information Provided : No Spiritual and Anabaptist : Spiritual/Anabaptist support provided SUHAIL RESENDIZ P - 12/23/2019 14:40 EDT Electronically signed by [facility], [facility] Conversion Pit Inspector Cerner at 10/17/2022 2:17 PM CDT documented in this encounter Plan of Treatment Not on file documented as of this encounter Visit Diagnoses Not on filedocumented in this encounter Care Teams Forensic Toxicologist Relationship Specialty Start Date End Date Provider Not In System, [facility] PCP - General 05/02/22 Roxann Corona, RN Registered Nurse 05/16/22 Maddison Mcfadden DPM [address] [place] [address] Consulting Physician Podiatry 06/06/22 Roxann Corona, RN Registered Nurse 10/04/22 documented as of this encounter
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
--- OUTSIDE RECORDS SUMMARY | 2025-02-24 12:16 | XMS_ITS | Encounter Summary ---
Author Organization [employer] ([place], [place], [place], [place]) Address [address] [place] [address] Care Team Providers Care Director Of Strategic Marketing Name Role Phone Provider Not In System, McT Primary Care Provide r Unavailable Roxann Corona RN Unavailable Unavailab le Maddison Mcfadden DPM Unavailable [phone] Roxann Corona RN Unavailable Unavailab le Encounter Details Date Type Department Care Team (Late st Contact Info) Description 12/23/2019 Transcribed Document [facility] [place] [facility] [place] [address] ProviderMayte MD [address] [place] [address] Social History Tobacco Use Types Packs/Day Years Used Date Smoking Tobacco: Never Assessed Sex and Gender Information Value Date Recorded Sex Assigned at Male 12/30/2021 5:50 PM CDT Legal Sex Male 7:04 PM CDT Gender Identity Male 12/30/2021 5:50 PM CDT Sexual Orientation Not on file documented as of this encounter Miscellaneous Notes * Cerner Conversion Note - Mayte ProviderMD - 12/23/2019 5:00 AM CDT Chart Check - Review Order Profile Entered On: 12/25/2019 1:51 EDT Performed On: 12/23/2019 5:00 EDT by Samina Franco RN Chart Check Powerplans Initiated/Discontinued as Appropriate : Yes All Active Orders Reviewed : Yes Samina Franco RN - 12/25/2019 1:51 EDT Electronically signed by [facility] Conversion Logistics Analytics Manager Cerner at 10/17/2022 2:28 PM CDT documented in this encounter Plan of Treatment Not on file documented as of this encounter Visit Diagnoses Not on filedocumented in this encounter Care Teams Director Of Strategic Marketing Relationship Specialty Start Date End Date Provider Not In System, [facility] PCP - General 05/02/22 Roxann Corona, RN Registered Nurse 05/16/22 Maddison Mcfadden DPM [address] [place] [address] Consulting Physician Podiatry 06/06/22 Roxann Corona, RN Registered Nurse 10/04/22 documented as of this encounter
--- OUTSIDE RECORDS SUMMARY | 2025-02-24 12:16 | XMS_ITS | Encounter Summary ---
Author Organization [employer] ([place], [place], [place], [place]) Address [address] [place] [address] Care Team Providers Care Field Captain Name Role Phone Provider Not In System, McT Primary Care Provide r Unavailable Roxann Corona RN Unavailable Unavailab le Maddison Mcfadden DPM Unavailable [phone] Roxann Corona RN Unavailable Unavailab le Encounter Details Date Type Department Care Team (Late st Contact Info) Description 12/23/2019 Transcribed Document [facility] [place] [facility] [place] [address] ProviderMayte MD [address] [place] [id number] Social History Tobacco Use Types Packs/Day Years Used Date Smoking Tobacco: Never Assessed Sex and Gender Information Value Date Recorded Sex Assigned at Male 12/30/2021 5:50 PM CDT Legal Sex Male 7:04 PM CDT Gender Identity Male 12/30/2021 5:50 PM CDT Sexual Orientation Not on file documented as of this encounter Miscellaneous Notes * Cerner Conversion Note - Mayte ProviderMD - 12/23/2019 4:58 AM CDT [facility] Inpatient Documentation Entered On: 12/24/2019 6:51 EDT Performed On: 12/24/2019 6:50 EDT by CULLEN MACDONALD RN [facility] Admission Date : Admit Date 12/23/2019 03:[address] : Diagnosis (7) Chills Sepsis, unspecified organism Urinary tract infection, site not specified Paraplegia, unspecified Non-pressure chronic ulcer of back with unspecified severity Sepsis, unspecified organism Sepsis, unspecified organism Reason for WOCN Visit : Initial consult Admitting Diagnosis ST : Reason for Admission sepsis, uti WOCN Assessment Summary : Staff documented a stage 2 pressure injury to coccyx that has already been addressed using the PUPP. Staff to evaluate and reconsult WOCN if wound worsens. CULLEN MACDONALD RN - 12/24/2019 6:50 EDT Wound & Pressure Ulcer WOCN Wound Pressure Ulcer Documentation : No incision/wound/skin abnormality or pressure ulcer assessments reported. WOCN Ostomy Documentation : No ostomy assessments reported. CULLEN MACDONALD RN - 12/24/2019 6:50 EDT Electronically signed by [facility] Conversion Stone Product Fabricator Cerner at 10/17/2022 2:26 PM CDT documented in this encounter Plan of Treatment Not on file documented as of this encounter Visit Diagnoses Not on filedocumented in this encounter Care Teams Field Captain Relationship Specialty Start Date End Date Provider Not In System, [facility] PCP - General 05/02/22 Roxann Corona, RN Registered Nurse 05/16/22 Maddison Mcfadden DPM [address] [place] [address] Consulting Physician Podiatry 06/06/22 Roxann Corona, RN Registered Nurse 10/04/22 documented as of this encounter
--- OUTSIDE RECORDS SUMMARY | 2025-02-24 12:16 | XMS_ITS | Encounter Summary ---
Author Organization [employer] ([place], [place], [place], [place]) Address [address] [place] [address] Care Team Providers Care Mobility Architect Name Role Phone Provider Not In System, McT Primary Care Provide r Unavailable Roxann Corona RN Unavailable Unavailab le Maddison Mcfadden DPM Unavailable [phone] Roxann Corona RN Unavailable Unavailab le Encounter Details Date Type Department Care Team (Late st Contact Info) Description 12/23/2019 Transcribed Document [facility] [place] [facility] [place] [address] ProviderMayte MD [address] [place] [phone] Social History Tobacco Use Types Packs/Day Years Used Date Smoking Tobacco: Never Assessed Sex and Gender Information Value Date Recorded Sex Assigned at Male 12/30/2021 5:50 PM CDT Legal Sex Male 7:04 PM CDT Gender Identity Male 12/30/2021 5:50 PM CDT Sexual Orientation Not on file documented as of this encounter Miscellaneous Notes * [employer]ner Conversion Note - Mayte ProviderMD - 12/23/2019 8:12 AM CDT ED Event Note Entered On: 12/23/2019 8:13 EDT Performed On: 12/23/2019 8:12 EDT by JEAN CLAUDE SYED, OYSTERMAN Event Note ED Event Date/Time : 12/23/2019 8:12 EDT ED Event Location : Assigned room ED Description of Event : Pt is sleeping. JEAN CLAUDE SYED RN - 12/23/2019 8:12 EDT Electronically signed by [facility] Conversion Trim Carpenter Cerner at 10/17/2022 2:13 PM CDT documented in this encounter Plan of Treatment Not on file documented as of this encounter Visit Diagnoses Not on filedocumented in this encounter Care Teams Mobility Architect Relationship Specialty Start Date End Date Provider Not In System, [facility] PCP - General 05/02/22 Roxann Corona, RN Registered Nurse 05/16/22 Maddison Mcfadden DPM [address] [place] [address] Consulting Physician Podiatry 06/06/22 Roxann Corona, RN Registered Nurse 10/04/22 documented as of this encounter
--- OUTSIDE RECORDS SUMMARY | 2025-02-24 12:16 | XMS_ITS | Encounter Summary ---
Author Organization [employer] ([place], [place], [place], [place]) Address [address] [place] [address] Care Team Providers Care Data Engineer Name Role Phone Provider Not In System, McT Primary Care Provide r Unavailable Roxann Corona RN Unavailable Unavailab Maddison Beth DPM Unavailable [phone] Roxann Corona RN Unavailable Unavailab le Encounter Details Date Type Department Care Team (Late st Contact Info) Description 12/23/2019 Transcribed Document [facility] [place] Family Medicine [facility] [place] [address] ProviderMayte MD [address] [place] [address] Social History Tobacco Use Types Packs/Day Years Used Date Smoking Tobacco: Never Assessed Sex and Gender Information Value Date Recorded Sex Assigned at Male 12/30/2021 5:50 PM CDT Legal Sex Male 7:04 PM CDT Gender Identity Male 12/30/2021 5:50 PM CDT Sexual Orientation Not on file documented as of this encounter Miscellaneous Notes * Cerner Conversion Note - Mayte ProviderMD - 12/23/2019 1:03 AM CDT ED Triage Entered On: 12/23/2019 1:21 EDT Performed On: 12/23/2019 0:13 EDT by LANCE DENNIS ED Triage Across the Room Chief Complaint : c/o fever and chills onset tonight at approx 6pm, SOA with exertion. hx of T4 paraplegic. healing bedsore to coccyx. HR 142 Triage Date/Time : 12/23/2019 1:13 EDT LANCE DENNIS - 12/23/2019 1:17 EDT DCP GENERIC CODE Tracking Acuity : 2 - Emergent Tracking Group : [facility] LANCE DENNIS - 12/23/2019 1:17 EDT Mode of Arrival : Wheelchair Transported to ED by : Private vehicle To Room Via : Wheelchair Accompanied By : Unaccompanied ED Vital Signs : Document Height & Weight : Document ED Allergies : Document ED Reason for Visit : Document LANCE DENNIS - 12/23/2019 1:17 EDT Infectious Disease History Has the patient ever been tested for COVID-19? : No, Patient stated COVID19 Screening : No Experiencing Infectious Disease Symptoms : Chills Physical contact outside [place] in the last 30 days : No Infectious Disease Symptoms Score : 0.1 Infectious Disease History : None Tuberculosis Symptoms : None LANCE DENNIS - 12/23/2019 1:17 EDT Vital Signs ED Temperature Source : Oral Temperature Mode : Fahrenheit Temperature, Fahrenheit : 99.8 Deg F (HI) Clinical Temperature, C : 37.7 Deg C Oxygen Therapy Mode : Room air Peripheral Pulse Rate : 140 bpm (HI) Respiratory Rate : 22 Breaths/Min (HI) Oxygen Saturation : 93 % (LOW) JEANNIELANCE JUÁREZ Jorge - 12/23/2019 1:17 EDT Allergy (As Of: 12/23/2019 01:21:35 EDT) Allergies (Active) Macrodantin Estimated Onset Date: Unspecified ; Created By: LANCE DENNIS; Reaction Status: Active ; Category: Drug ; Substance: Macrodantin ; Type: Allergy ; Updated By: LANCE DENNIS; Reviewed Date: 12/23/2019 1:18 EDT sulfa drugs Estimated Onset Date: Unspecified ; Created By: LANCE DENNIS; Reaction Status: Active ; Category: Drug ; Substance: sulfa drugs ; Type: Allergy ; Updated By: LANCE DENNIS; Reviewed Date: 12/23/2019 1:18 EDT Diagnosis Control ED (As Of: 12/23/2019 01:21:35 EDT) Diagnoses(Active) Chills Date: 12/23/2019 ; Diagnosis Type: Reason For Visit ; Confirmation: Complaint of ; Clinical Dx: Chills ; Classification: Medical ; Clinical Service: Emergency medicine ; Code: PNED ; Probability: 0 ; Diagnosis Code: [id number] ED Height and Weight Height Source : Stated Height Entry Format : [place] Height, Feet : 5 ft(Converted to: 152 cm, 60 Inch) Height, Inches : 7 Inch(Converted to: 0 ft 7 Inch, 17.78 cm) Clinical Height : 170.18 cm Weight Source, ED : Critical estimated dosing weight Weight Entry Format : [place] Weight, Pounds : 230 lb Clinical Dosing Weight : 104.55 kg Body Surface Area (BSA) : 2.15 m2 Body Mass Index : 36.1 kg/m2 (HI) [place] Body Weight (IBW) : 65.16 kg LANCE DENNIS 12/23/2019 1:17 EDT Electronically signed by [facility] Conversion Tongue And Quarter Stitcher Cerner at 10/17/2022 2:25 PM CDT documented in this encounter Plan of Treatment Not on file documented as of this encounter Visit Diagnoses Not on filedocumented in this encounter Care Teams Data Engineer Relationship Specialty Start Date End Date Provider Not In System, [facility] PCP - General 05/02/22 Roxann Corona, RN Registered Nurse 05/16/22 Maddison Mcfadden DPM [address] [place] [address] Consulting Physician Podiatry 06/06/22 Roxann Corona, RN Registered Nurse 10/04/22 documented as of this encounter
--- OUTSIDE RECORDS SUMMARY | 2025-02-24 12:16 | XMS_ITS | Encounter Summary ---
Author Organization [employer] ([place], [place], [place], [place]) Address [address] [place] [address] Care Team Providers Care Component Assembler Supervisor Name Role Phone Provider Not In System, McT Primary Care Provide r Unavailable Roxann Corona RN Unavailable Unavailab le Maddison Mcfadden DPM Unavailable [phone] Roxann Corona RN Unavailable Unavailab le Encounter Details Date Type Department Care Team (Late st Contact Info) Description 12/23/2019 Transcribed Document [facility] [place] [address] ProviderMayte MD [address] [place] [id number] Social History Tobacco Use Types Packs/Day Years [...] ProviderMD - 12/23/2019 1:03 AM CDT ED Assessment Entered On: 12/23/2019 1:31 EDT Performed On: 12/23/2019 1:26 EDT by LANCE DENNIS ED Quick Look Assessment Level of Consciousness : Alert Affect/Behavior : Appropriate Orientation : Oriented x 4 Skin Temperature : Warm Skin Description : Dry LANCE DENNIS - 12/23/2019 1:26 EDT ED General-Functional Assess Information Obtained From : Patient Communication Barrier : None Primary Language : Cypriot Any Spiritual/Cultural Needs or Requests : No Currently in Unsafe Situation : No LANCE DENNIS Jorge James 12/23/2019 1:26 EDT Social Habits Smoking Status : Never (less than 100 in lifetime; none in last 30 days) Smokeless Tobacco Status : Never Desires Tobacco Cessation Calc : 0 LANCE DENNIS Jorge James 12/23/2019 1:26 EDT Social History (As Of: 12/23/2019 01:31:45 EDT) Tobacco: Comments: 12/23/2019 1:31 - RANJAN ELLIS MD-EMR: nonsmoker (Last Updated: 12/23/2019 01:31:04 EDT by RANJAN ELLIS MD-EMR) Substance Abuse: Drug Use Hx: No. Use in Last 12 Months: No. (Last Updated: 12/23/2019 01:31:09 EDT by RANJAN ELLIS MD-EMR) Cardiovascular ASMT, ED Cardiovascular Assessment WDL : WDL with exceptions Nail Bed Color : [place] Chest Pain : Yes EKG Time Completed : 12/23/2019 1:22 EDT EKG Communicated to Provider : RANJAN ELLIS MD-EMR EKG Time Communicated to Provider : 12/23/2019 1:23 EDT JEANNIE LANCE James 12/23/2019 1:26 EDT Respiratory Respiratory Assessment WDL : WDL with exceptions YAA DENNISDAPHNIE James 12/23/2019 1:26 EDT Breath Sounds Assessment Grid All Lobes Breath Sounds : Clear YAA DENNISDAPHNIE James 12/23/2019 1:26 EDT Respiratory Pattern Description : Tachypnea YAA DENNISDAPHNIE James 12/23/2019 1:26 EDT Gastrointestinal ED Gastrointestinal Assessment WDL : WDFABIO ULLOA RN - 12/23/2019 1:48 EDT Genitourinary Assessment, ED Genitourinary Assessment WDL : WDApryl with exceptions (Comment: self caths at home, states his urine has had a foul odor [FABIO VINCENT RN - 12/23/2019 1:48 EDT] ) FABIO VINCENT RN - 12/23/2019 1:48 EDT Musculoskeletal Musculoskeletal Assessment WDL : FABIO HUTCHINSON RN - 12/23/2019 1:48 EDT Integumentary Assessment Integumentary Assessment WDL : WDL FABIO VINCENT RN - 12/23/2019 1:48 EDT Neurologic ASMT, ED Neurologic Assessment WDL : WDL Neurological Symptoms : None Level of Consciousness : Alert, Awake Affect/Behavior : Appropriate, Calm Orientation : Oriented x 4 FABIO VINCENT RN - 12/23/2019 1:48 EDT Electronically signed by [facility] Conversion Machine Pack Assembler Cerner at 10/17/2022 2:29 PM CDT documented in this encounter Plan of Treatment Not on file documented as of this encounter Visit Diagnoses Not on filedocumented in this encounter Care Teams Component Assembler Supervisor Relationship Specialty Start Date End Date Provider Not In System, [facility] PCP - General 05/02/22 Roxann Corona, RN Registered Nurse 05/16/22 Maddison Mcfadden, DPM [address] [place] [address] Consulting Physician Podiatry 06/06/22 Roxann Corona, RN Registered Nurse 10/04/22 documented as of this encounter
--- OUTSIDE RECORDS SUMMARY | 2025-02-24 12:16 | XMS_ITS | Encounter Summary ---
Author Organization [employer] ([place], [place], [place], [place]) Address [address] [place] [address] Care Team Providers Care Water Ski Assembler Name Role Phone Provider Not In System, McT Primary Care Provide r Unavailable Roxann Corona RN Unavailable Unavailab Maddison Beth DPM Unavailable [phone] Roxann Corona RN Unavailable Unavailab le Encounter Details Date Type Department Care Team (Late st Contact Info) Description 12/23/2019 Transcribed Document [facility] [place] [address] ProviderMayte MD [address] [place] [address] [id number] Social History Tobacco Use Types Packs/Day Years Used Date Smoking Tobacco: Never Assessed Sex and Gender Information Value Date Recorded Sex Assigned at Male 12/30/2021 5:50 PM CDT Legal Sex Male 7:04 PM CDT Gender Identity Male 12/30/2021 5:50 PM CDT Sexual Orientation Not on file documented as of this encounter Miscellaneous Notes * Cerner Conversion Note - Mayte Giles MD - 12/23/2019 7:04 AM CDT Patient: MARTIN BAUER Age: 49 years Sex: Male : 1970 Associated Diagnoses: None Author: BENNY ROBINS MD-INF Basic Information CC: Fever, acute bacterial cystitis History of Present Illness 49-year-old white male with a history of T4 paraplegia since 1975 with a chronic sacral ulcer complained of increased fever and chills which began on 12/22/2019, and increased shortness of breath. No productive cough. [facility] custodial [facility] 12/23/2019. I was consulted on 12/23/2019 for further evaluation and treatment. Patient denies ill contacts, zoonotic exposures, TB, HIV, or significant travel. No previous MRSA exposure. No other localizing signs or symptoms of infection. He has allergies to Macrodantin and Bactrim. Laboratories revealed sodium 140, potassium 2.9, chloride 103, bicarb 27, glucose 110, BUN 14, creatinine 0.9, LFTs unremarkable except for a bilirubin of 1.3, lactic acid 3.1, WBC 12.4, hemoglobin 16, platelet 216. 91% PMNs. Urinalysis with 50-100 WBCs. Procalcitonin 0.16. Respiratory panel PCR negative. Chest x-ray from 12/22-. The patient was started empirically on meropenem and doxycycline. Antibiotics are changing to Zosyn until 12/30/2019 and reassess. Review of Systems Constitutional: Fever, Chills, Weakness, No sweats. Eye: No recent visual problem, No icterus, No blurring, No visual disturbances. Ear/Nose/Mouth/Throat: No decreased hearing, No sore throat. Respiratory: Shortness of breath, No cough, No sputum production. Cardiovascular: No palpitations, No bradycardia. Gastrointestinal: No nausea, No vomiting, No diarrhea, No abdominal pain. Genitourinary: No dysuria, No hematuria, No change in urine stream. Hematology/Lymphatics: No bruising tendency, No bleeding tendency, No swollen lymph glands. Endocrine: No excessive thirst, No polyuria, No cold intolerance. Immunologic: Not immunocompromised, No recurrent fevers, No recurrent infections. Musculoskeletal: No back pain, No neck pain, No joint pain, No muscle pain, No claudication, No decreased range of motion. Integumentary: Negative except as documented in history of present illness, No rash, No abrasions. Neurologic: No confusion, No headache. Psychiatric: No anxiety, No depression. Health Status Allergies: Allergies (2) Active Reaction Macrodantin None Documented sulfa drugs None Documented Current medications: Medications by Classification Antimicrobials meropenem + Sodium Chloride 0.9% intravenous solution 50 mL - 500 mg, IV Piggyback, Q6HInt, infuse over 3 Hour(s) doxycycline - 100 mg, Oral, Cap, BID Anticoagulant heparin - 5,000 Units, SubCutaneous, Inj, Q8H, Routine Cardiovascular cloNIDine - 0.1 mg, Oral, Tab, Q4H, PRN for Hypertension, Routine Respiratory albuterol-ipratropium (DuoNeb 0.5 mg-2.5 mg/3 mL inhalation - 3 mL, Nebulized Inhalation, Inh, Q2H, PRN for Shortness of Breath, Routine promethazine (Phenergan) - 6.25 mg, IntraVENous, Inj, Q6H, PRN for Nausea, Routine GI ondansetron (Zofran) - 4 mg, IV Push, Inj, Q4H, PRN for Nausea, Routine famotidine (Pepcid) - 20 mg, Oral, Tab, Daily, Routine Pain Meds morphine - 2 mg, IV Push, Inj, Q2H, PRN for Pain (Severe 7-10), Routine acetaminophen (Tylenol) - 650 mg, Oral, Tab, Q4H, PRN for Other (See Comment), Routine Undefined Medications hydrALAZINE - 10 mg, IV Push, Inj, Q6H, PRN for Hypertension, Routine Problem list: Medical History of UTI / SNOMED CT 6066609255 / Confirmed Paraplegia / SNOMED CT 460312364 / Confirmed Pressure ulcer of hip / SNOMED CT 9253532356 / Confirmed, Active Problems (3) History of UTI Paraplegia Pressure ulcer of hip Histories Past Medical History: No active or resolved past medical history items have been selected or recorded. Family History: No family history items have been selected or recorded. Procedure history: No active procedure history items have been selected or recorded. Social History Social & Psychosocial Habits Substance Abuse 12/23/2019 Recreational Drug Use History No Recreational Drug Use Last 12 Months No Tobacco Comment: nonsmoker - 12/23/2019 01:31 - RANJAN ELLIS MD-EMR . EXPOSURE HX: VACCINES: Physical Examination VS/Measurements Vitals Signs (last 24 hrs) Last Charted Minimum Maximum Temp 97.9 (DEC 22 05:00) 97.9 (DEC 22 05:00) H 99.8 (DEC 22:13) Mon HR 80 (DEC 22:30) 80 (DEC 22:30) 130 (DEC 22:30) Periph HR 140 (DEC 22:13) 140 (DEC 22:13) 140 (DEC 22:13) Resp Rate 19 (DEC 22:30) 19 (DEC 22 06:00) H 22 (DEC 22:13) SBP 93 (DEC 22:30) 93 (DEC 22:30) H 142 (DEC 22:) DBP L 42 (DEC 22) L 42 (DEC 22:30) 72 (DEC 22:13) MAP 56 (DEC 22:30) 56 (DEC 22:30) 91 (DEC 22:30) SpO2 L 91 (DEC 22) L 90 (DEC 22:00) L 93 (DEC 22:) General: Alert and oriented, Moderate distress. Eye: Pupils are equal, round and reactive to light, Extraocular movements are intact, Normal conjunctiva. HENT: Normocephalic, Oral mucosa is moist, No pharyngeal erythema, Ears externally normal, nose externally normal. Neck: Supple, Non-tender, No jugular venous distention, No lymphadenopathy. Respiratory: Lungs are clear to auscultation, Respirations are non-labored, Breath sounds are equal. Cardiovascular: Normal rate, No gallop, Normal peripheral perfusion. Gastrointestinal: Soft, Non-tender, Non-distended, Normal bowel sounds, No organomegaly. Genitourinary: No genital lesions, back straight, no CVA tenderness, breasts symmetric, rectal per history of present illness. Lymphatics: No lymphadenopathy neck, axilla, groin. Musculoskeletal: Normal range of motion, Normal strength, No tenderness. Integumentary: Warm, Dry, [place], No pallor, No rash, Sacral decub into subcutaneous tissue, no bone. Neurologic: Alert, Oriented, No focal deficits, Cranial Nerves II-XII are grossly intact, Normal deep tendon reflexes, T4 paraplegia with upper extremity strength 5/5. Cognition and Speech: Oriented, Speech clear and coherent. Psychiatric: Cooperative, Appropriate mood & affect. Review / Management Results review: Labs (Last four charted values) WBC H 12.4 (DEC 22) HB 16.3 (DEC 22) HCT 49.2 (DEC 22) Plt 216 (DEC 22) Na 140 (DEC 22) K L 2.9 (DEC 22) Cl 103 (DEC 22) CO2 27 (DEC 22) BUN 14 (DEC 22) Cr 0.90 (DEC 22) Glu R H 110 (DEC 22) Ca 9.3 (DEC 22) Lactic 1.5 (DEC 22) C 3.1 (DEC 22) PT 11.9 (DEC 22) INR 1.1 (DEC 22) AST 15 (DEC 22) ALT 21 (DEC 22) ALK P 93 (DEC 22) T Bili H 1.3 (DEC 22) PTN 8.0 (DEC 22) ALB 3.7 (DEC 22) Lipase 82 (DEC 22) . Radiology results No Radiology Results Found Diagnostic Findings: ACC: [id number] ORDER: Flu A/B Rapid Screen DATE: 12/23/2019 01:30 SOURCE: Nasal SITE: Reports Final 12/23/2019 02:07 Negative for Rapid Influenza A and B Antigen Rapid Influenza tests are for screening purposes only. Negative tests should be confirmed by more sensitive methodologies. == ACC: [id number] ORDER: Strep Throat Screen DATE: 12/23/2019 01:30 SOURCE: Throat SITE: Reports Final 12/23/2019 02:00 Strep Screen negative for Group A; Culture confirmation to follow == . Impression and Plan 1. Sepsis, present on admission, related to acute bacterial cystitis. Usual organisms are gram-negative rods of enterococci. Less likely from sacral decubitus. COVID test pending. 2. Acute bacterial cystitis. See organism discussion above. 3. Sacral decubitus chronic, increased risk for underlying osteomyelitis. 4. T4 paraplegia, 1976. 5. Leukocytosis, neutrophilic related to above issues. 6. Hypokalemia. 7. Cholestasis related to sepsis versus other. REC: 1. Diagnostically, continue to follow patient's physical exam, CBC, CMP, CRP, radiographic studies, and cultures which have been obtained from the blood and urine from 12/23/2019. 2. Therapeutically, changed to Zosyn 3.375 g IV every 6 hours until 12/30/2019 and reassess. Discontinue meropenem and doxycycline. 3. Continue local wound care. Thank you for consultation. I will follow. Plan has been discussed with patient including side effects of medications and line. At increased risk for side effects of abx and line. Electronically signed by Emir Braun Conversion Horticultural Specialty Grower Inside Cerner at 10/17/2022 2:23 PM CDT documented in this encounter Plan of Treatment Not on file documented as of this encounter Visit Diagnoses Not on filedocumented in this encounter Care Teams Water Ski Assembler Relationship Specialty Start Date End Date Provider Not In System, [facility] PCP - General 05/02/22 Roxann Corona, RN Registered Nurse 05/16/22 Maddison Mcfadden DPM [address] [place] [address] Consulting Physician Podiatry 06/06/22 Roxann Corona, RN Registered Nurse 10/04/22 documented as of this encounter
--- OUTSIDE RECORDS SUMMARY | 2025-02-24 12:16 | XMS_ITS | Encounter Summary ---
Author Organization [employer] ([place], [place], [place], [place]) Address [address] [place] [address] Care Team Providers Care Feed Weigher Name Role Phone Provider Not In System, McT Primary Care Provide r Unavailable Roxann Corona RN Unavailable Unavailab le Maddison Mcfadden DPM Unavailable [phone] Roxann Corona RN Unavailable Unavailab le Encounter Details Date Type Department Care Team (Late st Contact Info) Description 12/23/2019 Transcribed Document [facility] [place] [facility] [place] [address] ProviderMayte MD [address] [place] [address] [id number] Social History Tobacco Use Types Packs/Day Years [...] Mayte ProviderMD - 12/23/2019 1:03 AM CDT [place] Suicide Severity Rating Scale (C-SSRS) Entered On: 12/23/2019 1:31 EDT Performed On: 12/23/2019 1:26 EDT by LANCE DENNIS [place] Suicide Severity Rating Scale (C-SSRS) CSSRS Past Month Wish to be : No CSSRS Past Month Suicidal Thoughts : No CSSRS Lifetime Suicide Behavior : No Suicide Severity Rating Score : 0 Suicide Severity Rating : No Additional Care Required at this time LANCE DENNIS Jorge James 12/23/2019 1:26 EDT documented in this encounter Plan of Treatment Not on file documented as of this encounter Visit Diagnoses Not on filedocumented in this encounter Care Teams Feed Weigher Relationship Specialty Start Date End Date Provider Not In System, [facility] PCP - General 05/02/22 Roxann Corona, RN Registered Nurse 05/16/22 Maddison Mcfadden DPM [address] [place] [address] Consulting Physician Podiatry 06/06/22 Roxann Corona, RN Registered Nurse 10/04/22 documented as of this encounter
--- OUTSIDE RECORDS SUMMARY | 2025-02-24 12:16 | XMS_ITS | Encounter Summary ---
Author Organization [employer] ([place], [place], [place], [place]) Address [address] [place] [address] Care Team Providers Care Structural Design Engineer Name Role Phone Provider Not In System, McT Primary Care Provide r Unavailable Roxann Corona RN Unavailable Unavailab le Maddison Mcfadden DPM Unavailable [phone] Roxann Corona RN Unavailable Unavailab le Encounter Details Date Type Department Care Team (Late st Contact Info) Description 12/23/2019 Transcribed Document [facility] [place] [facility] [place] [address] ProviderMayte MD [address] [place] [address] [id number] Social History Tobacco Use Types Packs/Day Years Used Date Smoking Tobacco: Never Assessed Sex and Gender Information Value Date Recorded Sex Assigned at Male 12/30/2021 5:50 PM CDT Legal Sex Male 7:04 PM CDT Gender Identity Male 12/30/2021 5:50 PM CDT Sexual Orientation Not on file documented as of this encounter Miscellaneous Notes * Cerner Conversion Note - Mayte ProviderMD - 12/23/2019 3:58 AM CDT Pain Assessment Entered On: 12/25/2019 8:46 EDT Performed On: 12/24/2019 21:59 EDT by Samina Franco, RN Intervention Information: acetaminophen Performed by Samina Franco, RN on 12/24/2019 20:59:00 EDT acetaminophen,650mg Oral,Other (See Comment) Pain Assessment Pain Assessment : Follow-up assessment Pain Scale Goal : 0 Pain Improved by Intervention : Yes Samina Franco RN - 12/25/2019 8:46 EDT documented in this encounter Plan of Treatment Not on file documented as of this encounter Visit Diagnoses Not on filedocumented in this encounter Care Teams Structural Design Engineer Relationship Specialty Start Date End Date Provider Not In System, [facility] PCP - General 05/02/22 Roxann Corona, RN Registered Nurse 05/16/22 Maddison Mcfadden DPM [address] [place] [address] Consulting Physician Podiatry 06/06/22 Roxann Corona, RN Registered Nurse 10/04/22 documented as of this encounter
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
--- OUTSIDE RECORDS SUMMARY | 2025-02-24 12:16 | XMS_ITS | Encounter Summary ---
Author Organization [email or web address] ([place], [place], [place], [place]) Address [address] [place] [address] Care Team Providers Care Automatic Data Processing Planner Name Role Phone Provider Not In System, McT Primary Care Provide r Unavailable Roxann Corona RN Unavailable Unavailab le Maddison Mcfadden DPM Unavailable [phone] Roxann Corona RN Unavailable Unavailab le Encounter Details Date Type Department Care Team (Late st Contact Info) Description 12/23/2019 Transcribed Document [facility] [place] Medicine [facility] [place] [address] ProviderMayte MD [address] [place] [address] [id number] Social History Tobacco Use Types Packs/Day Years Used Date Smoking Tobacco: Never Assessed Sex and Gender Information Value Date Recorded Sex Assigned at Male 12/30/2021 5:50 PM CDT Legal Sex Male 7:04 PM CDT Gender Identity Male 12/30/2021 5:50 PM CDT Sexual Orientation Not on file documented as of this encounter Miscellaneous Notes * Cerner Conversion Note - Mayte ProviderMD - 12/23/2019 1:30 AM CDT Pain Assessment Entered On: 12/23/2019 2:53 EDT Performed On: 12/23/2019 2:53 EDT by FABIO VINCENT, RN Intervention Information: acetaminophen Performed by LANCE DENNIS on 12/23/2019 01:37:00 EDT acetaminophen,975mg Oral Pain Assessment Pain Assessment : Follow-up assessment Pain Scale Used : 0-10 Scale FABIO VINCENT RN - 12/23/2019 2:53 EDT Pain Scale Intensity : 0 FABIO VINCENT RN - 12/23/2019 2:53 EDT Image 4 - Images currently included in the form version of this document have not been included in the text rendition version of the form. Electronically signed by Aparna, [facility] Conversion Office Specialist Cerner at 10/17/2022 2:12 PM CDT documented in this encounter Plan of Treatment Not on file documented as of this encounter Visit Diagnoses Not on filedocumented in this encounter Care Teams Automatic Data Processing Planner Relationship Specialty Start Date End Date Provider Not In System, [facility] PCP - General 05/02/22 Roxann Corona, MATHEW Registered Nurse 05/16/22 Maddison Mcfadden DPM [address] [place] [address] Consulting Physician Podiatry 06/06/22 Roxann Corona, RN Registered Nurse 10/04/22 documented as of this encounter
--- OUTSIDE RECORDS SUMMARY | 2025-02-24 12:16 | XMS_ITS | Encounter Summary ---
Author Organization [employer] ([place], [place], [place], [place]) Address [address] [place] [address] Care Team Providers Care Commissary Worker Name Role Phone Provider Not In System, McT Primary Care Provide r Unavailable Roxann Corona RN Unavailable Unavailab Maddison Beth DPM Unavailable [phone] Roxann Corona RN Unavailable Unavailab le Encounter Details Date Type Department Care Team (Late st Contact Info) Description 12/24/2019 Transcribed Document [facility] [place] [facility] [place] [address] ProviderMayte MD [place] [address] Social History Tobacco Use Types Packs/Day Years Used Date Smoking Tobacco: Never Assessed Sex and Gender Information Value Date Recorded Sex Assigned at Male 12/30/2021 5:50 PM CDT Legal Sex Male 7:04 PM CDT Gender Identity Male 12/30/2021 5:50 PM CDT Sexual Orientation Not on file documented as of this encounter Miscellaneous Notes * Cerner Conversion Note - Mayte ProviderMD - 12/24/2019 7:39 PM CDT PLEASE MODIFY BEFORE SIGNING CLINICAL DOCUMENTATION CLARIFICATION FORM: Dear : Tammi Diaz Date: _12/24/19 Please exercise your independent, professional judgment in responding to the clarification form. Clinical indicators are provided on the bottom of this form for your review Please check appropriate box(es): Pressure Ulcer Location: __Stage 2 to Coccyx POA [ x ] Yes [ ] No [ ] Unable to determine No pressure ulcer diagnosis [ ] Other diagnosis [ ] Unable to determine [ ] For continuity of documentation, please document condition throughout progress notes and discharge summary. Thank You. To be completed by CDI/Coding staff for physician review: Present Clinical Indicators - Signs / Symptoms / Labs Results and Location in Medical Record [X] Abrasion, blister, partial thickness skin loss involving epidermis and/or dermis (Stage 2) 12/22 WOCN: Stage 2 to coccyx Present Risk Factors Results and Location in Medical Record [X] Paraplegia 12/22 H&P: Paraplegia [X] ADL'S 12/22 Nursing Note: Assist x 2 [X] Malnutrition 12/23 PN: Mild Malnutrition Present Treatments Results and Location in Medical Record [X] Wound care consult 12/22 Orders: WOCN [X] Specialty mattress 12/22 Orders: Envella AFT support [X] PUPP 12/22 Orders: PUPP in place per protocol prn [X] Silicone Dressing 12/22 Orders: Silicone dressing prn CDS Signature: __Daphne Mo RN Phone #: _[phone] PRESSURE ULCER STAGES Stage I: Erythema Stage II: Partial thickness Stage III: Full thickness Stage IV: Necrosis to muscle/bone This is a permanent part of the Medical Record Q50 2019 CrossCurrent Updated: documented in this encounter Plan of Treatment Not on file documented as of this encounter Visit Diagnoses Not on filedocumented in this encounter Care Teams Commissary Worker Relationship Specialty Start Date End Date Provider Not In System, [facility] PCP - General 05/02/22 Roxann Corona, RN Registered Nurse 05/16/22 Maddison Mcfadden DPM [address] [place] [address] Consulting Physician Podiatry 06/06/22 Roxann Corona, RN Registered Nurse 10/04/22 documented as of this encounter
--- OUTSIDE RECORDS SUMMARY | 2025-02-24 12:16 | XMS_ITS | Encounter Summary ---
Author Organization [employer] ([place], [place], [place], [place]) Address [address] [place] [address] Care Team Providers Care Heel Boom Operator Name Role Phone Provider Not In System, McT Primary Care Provide r Unavailable Roxann Corona RN Unavailable Unavailab le Maddison Mcfadden DPM Unavailable [phone] Roxann Corona RN Unavailable Unavailab le Encounter Details Date Type Department Care Team (Late st Contact Info) Description 12/24/2019 Transcribed Document [facility] Family Medicine [facility] [place] [address] ProviderMayte MD [address] [place] [address] [id number] Social History Tobacco Use Types Packs/Day Years Used Date Smoking Tobacco: Never Assessed Sex and Gender Information Value Date Recorded Sex Assigned at Male 12/30/2021 5:50 PM CDT Legal Sex Male 7:04 PM CDT Gender Identity Male 12/30/2021 5:50 PM CDT Sexual Orientation Not on file documented as of this encounter Miscellaneous Notes * Cerner Conversion Note - Mayte ProviderMD - 12/24/2019 8:15 AM CDT UM Authorization Entered On: 12/24/2019 8:15 EDT Performed On: 12/24/2019 8:15 EDT by CHELSY HENDERSON Rn-Utilization Review Primary Insurance Authorization Authorization and Policy Numbers : Insurance 1 Health Plan: [employer] Policy Number: [id number] Authorization Number: Insurance Primary Name : [employer] Policy Number: [id number] Historical Authorization Comments-Primary : No Authorization Comments Found CHELSY HENDERSON Rn-Utilization Review - 12/24/2019 8:15 EDT Electronically signed by Aparna [facility] Conversion Dye Penetrant Testing Technician Cerner at 10/17/2022 2:11 PM CDT documented in this encounter Plan of Treatment Not on file documented as of this encounter Visit Diagnoses Not on filedocumented in this encounter Care Teams Heel Boom Operator Relationship Specialty Start Date End Date Provider Not In System, [facility] PCP - General 05/02/22 Roxann Corona, RN Registered Nurse 05/16/22 Maddison Mcfadden DPM [address] [place] [address] Consulting Physician Podiatry 06/06/22 Roxann Corona, RN Registered Nurse 10/04/22 documented as of this encounter
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
--- OUTSIDE RECORDS SUMMARY | 2025-02-24 12:16 | XMS_ITS | Encounter Summary ---
Author Organization [employer] ([place], [place], [place], [place]) Address [address] [place] [address] Care Team Providers Care Permit Specialist Name Role Phone Provider Not In System, McT Primary Care Provide r Unavailable Roxann Corona RN Unavailable Unavailab le Maddison Mcfadden DPM Unavailable [phone] Roxann Corona RN Unavailable Unavailab le Encounter Details Date Type Department Care Team (Late st Contact Info) Description 12/23/2019 Transcribed Document [facility] [place] Family [place] [facility] [place] [address] ProviderMayte MD [address] [place] [address] [phone] Social History Tobacco Use Types Packs/Day Years Used Date Smoking Tobacco: Never Assessed Sex and Gender Information Value Date Recorded Sex Assigned at Male 12/30/2021 5:50 PM CDT Legal Sex Male 7:04 PM CDT Gender Identity Male 12/30/2021 5:50 PM CDT Sexual Orientation Not on file documented as of this encounter Miscellaneous Notes * Cerner Conversion Note - Historical ProviderMD - 12/23/2019 9:00 AM CDT Consult Phone Call Documentation Entered On: 12/23/2019 15:53 EDT Performed On: 12/23/2019 9:00 EDT by Geneva Chawla, [employer] Phone Call for Consults Consult Phone Call/Page Attempt : Other: already seen by doctor Geneva Chawla, [employer] [facility] [employer] - 12/23/2019 15:53 EDT documented in this encounter Plan of Treatment Not on file documented as of this encounter Visit Diagnoses Not on filedocumented in this encounter Care Teams Permit Specialist Relationship Specialty Start Date End Date Provider Not In System, [facility] PCP - General 05/02/22 Roxann Corona, RN Registered Nurse 05/16/22 Maddison Mcfadden DPM [address] [place] [address] Consulting Physician Podiatry 06/06/22 Roxann Corona, RN Registered Nurse 10/04/22 documented as of this encounter
--- OUTSIDE RECORDS SUMMARY | 2025-02-24 12:17 | XMS_ITS | Encounter Summary ---
Author Organization [employer] ([place], [place], [place], [place]) Address [address] [place] [address] Care Team Providers Care Bindery Manager Name Role Phone Provider Not In System, McT Primary Care Provide r Unavailable Roxann Corona RN Unavailable Unavailab Maddison Beth DPM Unavailable [phone] Roxann Corona RN Unavailable Unavailab le Encounter Details Date Type Department Care Team (Late st Contact Info) Description 08/29/2019 Transcribed Document [facility] [place] [address] ProviderMayte MD [address] [place] [address] [phone] Social History Tobacco Use Types Packs/Day Years Used Date Smoking Tobacco: Never Assessed Sex and Gender Information Value Date Recorded Sex Assigned at Male 12/30/2021 5:50 PM CDT Legal Sex Male 7:04 PM CDT Gender Identity Male 12/30/2021 5:50 PM CDT Sexual Orientation Not on file documented as of this encounter Miscellaneous Notes * Cerner Conversion Note - Historical ProviderMD - 08/29/2019 6:41 PM VALUATION CONSULTANT DATE OF CONSULTATION: 08/29/2019 SUBJECTIVE: A 49-year-old male paraplegic with pressure injuries on his sacral-buttock area. This first came up about 4 weeks ago. Primarily had a cluster of pressure injuries on his upper inner right buttock and then over a couple weeks this expanded to include part of the sacral area and the upper lynda cleft. We are currently treating this with topical Santyl. His mother does most of his wound care for him. On examination today, in contrast to last visit, there has been a nice interval improvement in the size of the wounds and the quality of the wounds. Skin edges starting to flow into the wound bed. The degree of necrotic tissue is diminishing and periwound skin is free from evidence of pressure. We are still struggling to get placement for a proper offloading mattress for him and possibly upgrade his wheelchair cushion. We had a discussion about continue with the Santyl. His co-pay is 50 dollars or so. However, the wound is responding rather nicely, so we mutually agreed to try another tube of Santyl, so a prescription for 30 g was prepared. We will see him back here again in 2 weeks to reassess our treatment. /[id number] MD WESLEY Farrell III/JEANETTE / WESLEY / MODL /[id number] Electronically signed by Aparna, [facility] Conversion Sales And Service Representative Cerner at 10/17/2022 2:20 PM CDT documented in this encounter Plan of Treatment Not on file documented as of this encounter Visit Diagnoses Not on filedocumented in this encounter Care Teams Bindery Manager Relationship Specialty Start Date End Date Provider Not In System, [facility] PCP - General 05/02/22 Roxann Corona, RN Registered Nurse 05/16/22 Maddison Mcfadden DPM [address] [place] [address] Consulting Physician Podiatry 06/06/22 Roxann Corona, RN Registered Nurse 10/04/22 documented as of this encounter
--- OUTSIDE RECORDS SUMMARY | 2025-02-24 12:17 | XMS_ITS | Encounter Summary ---
Author Organization [employer] ([place], [place], [place], [place]) Address [address] [place] [address] Care Team Providers Care Structural Steel Fitter Name Role Phone Provider Not In System, McT Primary Care Provide r Unavailable Roxann Corona RN Unavailable Unavailab Maddison Beth DPM Unavailable [phone] Roxann Corona RN Unavailable Unavailab le Encounter Details Date Type Department Care Team (Late st Contact Info) Description 08/27/2019 Transcribed Document [facility] [place] [facility] [place] [address] ProviderMayte MD [address] [place] [address] [phone] Social History Tobacco Use Types Packs/Day Years Used Date Smoking Tobacco: Never Assessed Sex and Gender Information Value Date Recorded Sex Assigned at Male 12/30/2021 5:50 PM CDT Legal Sex Male 7:04 PM CDT Gender Identity Male 12/30/2021 5:50 PM CDT Sexual Orientation Not on file documented as of this encounter Miscellaneous Notes * Cerner Conversion Note - Historical ProviderMD - 08/27/2019 5:10 PM ORDER PICKER/ASSEMBLER DATE OF CONSULTATION: 08/15/2019 This a 49-year-old paraplegic male, who recently acquired a fairly expansive area of pressure injury on his right upper buttock encroaching on the sacral space. At the time we saw him this was actually rather fresh and only stage II, not breaching through the dermis. However, the patient does not have proper offloading mattress at home. He is trying to acquire some local sources, but is having difficulty doing so. Our current dressing is Santyl daily dressing. This is held in place with gauze and OptiLock. On examination, the wound still weeps moderately. There has also been some expansion of the wound and is now encroaching more into the sacral space and in addition, we are seeing some areas of breach through the dermis down in to the underlying fat layer making this now a stage III wound. We need to press on with the Santyl. We will try to arrange for him to get an improved offloading mattress and plan to reassess him here again in 2 weeks. /[id number] MD WESLEY Farrell III/JEANETTE / WESLEY / MODL /[id number] documented in this encounter Plan of Treatment Not on file documented as of this encounter Visit Diagnoses Not on filedocumented in this encounter Care Teams Structural Steel Fitter Relationship Specialty Start Date End Date Provider Not In System, [facility] PCP - General 05/02/22 Roxann Corona, RN Registered Nurse 05/16/22 Maddison Mcfadden, DPM [address] [place] [address] Consulting Physician Podiatry 06/06/22 Roxann Corona, RN Registered Nurse 10/04/22 documented as of this encounter
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
--- OUTSIDE RECORDS SUMMARY | 2025-02-24 12:17 | XMS_ITS | Encounter Summary ---
Author Organization [employer] ([place], [place], [place], [place]) Address [address] [place] [address] Care Team Providers Care Water Control Supervisor Name Role Phone Provider Not In System, McT Primary Care Provide r Unavailable Roxann Corona RN Unavailable Unavailab le Maddison Mcfadden DPM Unavailable [phone] Roxann Corona RN Unavailable Unavailab le Encounter Details Date Type Department Care Team (Late st Contact Info) Description 12/23/2019 Transcribed Document [facility] [place] [facility] [place] [address] ProviderMayte MD [address] [place] [address] [phone] Social History Tobacco Use Types Packs/Day Years Used Date Smoking Tobacco: Never Assessed Sex and Gender Information Value Date Recorded Sex Assigned at Male 12/30/2021 5:50 PM CDT Legal Sex Male 7:04 PM CDT Gender Identity Male 12/30/2021 5:50 PM CDT Sexual Orientation Not on file documented as of this encounter Miscellaneous Notes * Cerner Conversion Note - Mayte ProviderMD - 12/23/2019 3:58 PM CDT WOCN Inpatient Documentation Entered On: 12/23/2019 16:00 EDT Performed On: 12/23/2019 15:58 EDT by Mandie Dominguez Rn-Enterostomal WOCN Admission Date : Admit Date 12/23/2019 03:[address] : Diagnosis (7) Chills Sepsis, unspecified organism Urinary tract infection, site not specified Paraplegia, unspecified Non-pressure chronic ulcer of back with unspecified severity Sepsis, unspecified organism Sepsis, unspecified organism Mandie Dominguez Rn-Enterostomjuventino - 12/23/2019 16:04 EDT Reason for WOCN Visit : Initial consult Mandie Dominguez Rn-Enterostomjuventino - 12/23/2019 15:[address] : Reason for Admission sepsis, uti Mandie Dominguez Rn-Enterostomal - 12/23/2019 16:04 EDT Past Medical History/Comorbidities : History of UTI Paraplegia Pressure ulcer of hip Mandie Dominguez Rn-Enterostomjuventino - 12/23/2019 15:58 EDT WOCN Assessment Summary : Patient with documented stage 2 PI to coccyx POA with silicone border dressing documented in place which is appropriate per guidelines. Note patient previously followed in the outpatient wound care center for a healing stage 3 PI to the right buttock. Per last visit 12/10 this area was closed. PIPP in place, patient on KENROY surface. Discussed with bedside RN, patient would like to try an Envella AFT support surface with maximum envelopment and immersion. Order placed. Please see orders for additional recommendations. If alteration in skin integrity observed or change in wound bed presentation noted please contact WOCN department. Mandie Dominguez Rn-Enterostomjuventino - 12/23/2019 16:04 EDT documented in this encounter Plan of Treatment Not on file documented as of this encounter Visit Diagnoses Not on filedocumented in this encounter Care Teams Water Control Supervisor Relationship Specialty Start Date End Date Provider Not In System, [facility] PCP - General 05/02/22 Roxann Corona, RN Registered Nurse 05/16/22 Maddison Mcfadden DPM [address] [place] [address] Consulting Physician Podiatry 06/06/22 Roxann Corona, RN Registered Nurse 10/04/22 documented as of this encounter
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
--- OUTSIDE RECORDS SUMMARY | 2025-02-24 12:17 | XMS_ITS | Clinical Summary ---
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 coli infection, non-shiga toxing-produci ng B96.29 (ICD-10-CM ) 12/31 Active 12/31 Chioma Bill Other Escherichia coli [E. coli] as the cause of diseases classified elsewhere Gram-neg mihir infection B96.89 (ICD-10-CM ) 12/31 Active 12/31 Chioma Bill Other specified bacterial agents as the cause of diseases classified elsewhere Neutrophilic leukemoid reaction D72.823 (ICD-10-CM ) 12/31 Active 12/31 Chioma Bill Leukemoid reaction Cholestasis 48554455 (SNOMED CT) 12/31 Active 12/31 Chioma Bill Cholestasis Hypoalbuminemi a 854211895 (SNOMED CT) 12/31 Active 12/31 Chioma Bill Hypoalbuminemia Anemia in chronic diseases(docum ent disease) D63.8 (ICD-10-CM ) 12/31 Active 12/31 Chioma Khan Anemia in other chronic diseases classified elsewhere Medications Medication Instructions Start Date Stop Date Generic Name NDC Provider SYMBICORT 80-4.5 MCG/ACT AERO 2 Puff, Inhalation, BID 0 BUDESONIDE-FOR MOTEROL FUMARATE 82773490775 Paige Aguirre POTASSIUM CHLORIDE ER 10 MEQ CR-CAPS Take by mouth twice a day 0 POTASSIUM CHLORIDE 95357531900 Paige Aguirre LISINOPRIL-HYD ROCHLOROTHIAZI DE 10-12.5 MG TABS Take one by mouth daily 0 LISINOPRIL-HYD ROCHLOROTHIAZI DE [id number] Paige Aguirre CEFUROXIME AXETIL 500 MG TABS Take by mouth twice a day 0 CEFUROXIME AXETIL 01451463095 Paige Aguirre Medications Administered No information available. 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 Vital Signs Date Name Value Unit Description BMI (Body Mass Index) 34.97 kg/m2 Bod y Mass Index (Ratio) Body Temperature 97.5 [degF] temperat ure E&M BP Diastolic 70 mm[Hg] blood pressu re, diastolic BP Systolic 148 mm[Hg] blood pressur e, systolic Heart Rate 76 /min pulse rate Height 68 [in_us] height E&M Respiratory Rate 12 /min respirat ory rate E&M Weight Measured 230 [lb_av] weight E& M Weight Measured 230 [lb_av] weight E& M Immunizations No information available. Advance Directives Directive Description Start Date NO DIRECTIVES AT THIS TIME
--- OUTSIDE RECORDS SUMMARY | 2025-02-24 12:17 | XMS_ITS | Encounter Summary ---
Author Organization [employer] ([place], [place], [place], [place]) Address [address] [place] [address] Care Team Providers Care Servicing Rep Name Role Phone Provider Not In System, McT Primary Care Provide r Unavailable Roxann Corona RN Unavailable Unavailab le Maddison Mcfadden DPM Unavailable [phone] Roxann Corona RN Unavailable Unavailab le Encounter Details Date Type Department Care Team (Late st Contact Info) Description 12/24/2019 Transcribed Document [facility] [place] [address] ProviderMayte MD [address] [place] [address] [id number] Social History Tobacco Use Types Packs/Day Years Used Date Smoking Tobacco: Never Assessed Sex and Gender Information Value Date Recorded Sex Assigned at Male 12/30/2021 5:50 PM CDT Legal Sex Male 7:04 PM CDT Gender Identity Male 12/30/2021 5:50 PM CDT Sexual Orientation Not on file documented as of this encounter Miscellaneous Notes * Cerner Conversion Note - Mayte ProviderMD - 12/24/2019 8:05 AM CDT WO Inpatient Documentation Entered On: 12/25/2019 12:02 EDT Performed On: 12/24/2019 8:05 EDT by CULLEN MACDONALD RN [facility] Admission Date : Admit Date 12/24/2019 08:[address] : Diagnosis (7) Chills Sepsis, unspecified organism Urinary tract infection, site not specified Paraplegia, unspecified Non-pressure chronic ulcer of back with unspecified severity Sepsis, unspecified organism Sepsis, unspecified organism Reason for WOCN Visit : Initial consult, Assessment, ongoing Admitting Diagnosis ST : Reason for Admission per MD WOCN Assessment Summary : Pt in Envella bed but not comfortable. Breakfast tray over his bed. WOCN to assess wound. Pt states he has been followed by Dr Garcia at the [facility] and currently states his coccyx wound has healed but has a scab. Pt has pictures on his phone from his last [facility] visit. WOCNs able to assess wound to reveal exactly what is noted on pt's phone. Pt has a healing stage 3 or 4 Coccyx pressure injury with echar /vs/Scabbing noted. Periwound has blancable redness . Staff have appropriately place an Allevyn dressing and the Envella bed was restarted and straightened to allow pt for comfort. Pt repositioned and pulled up to allow for better placement in bed. Pt states he feels better. Will continue with PUPP> CULLEN MACDONALD RN - 12/25/2019 11:56 EDT Wound & Pressure Ulcer WOCN Wound Pressure Ulcer Documentation : Pressure Ulcer Assessment: Coccyx Middle on 12/25/2019 11:52 by CULLEN MACDONALD RN Present on Adm to Hosp: Yes Stage: Stage 3 Dressing Status: Clean, Dry, Intact Dressing Activity: Assessed Bed Color(s): Black, Brown PU Bed Color Black Percentage: 50 PU Bed Color Brown Percentage: 50 Wound Edge: Attached Surrounding Tissue: Other: Blanchable Redness Length: 1 Width: 1 Photographed: Yes Dressing Type/Treatment: Silicone Foam WOCN Ostomy Documentation : No ostomy assessments reported. CULLEN MACDONALD RN - 12/25/2019 11:56 EDT Electronically signed by Apar[facility] Conversion Cable Installation Manager Cerner at 10/17/2022 2:15 PM CDT documented in this encounter Plan of Treatment Not on file documented as of this encounter Visit Diagnoses Not on filedocumented in this encounter Care Teams Servicing Rep Relationship Specialty Start Date End Date Provider Not In System, [facility] PCP - General 05/02/22 Roxann Corona, RN Registered Nurse 05/16/22 Maddison Mcfadden, JAIR [address] [place] [address] Consulting Physician Podiatry 06/06/22 Roxann Corona, RN Registered Nurse 10/04/22 documented as of this encounter
--- OUTSIDE RECORDS SUMMARY | 2025-02-24 12:17 | XMS_ITS | Encounter Summary ---
Author Organization [employer] ([place], [place], [place], [place]) Address [address] [place] [address] Care Team Providers Care Learning Engineer Name Role Phone Provider Not In System, McT Primary Care Provide r Unavailable Roxann Corona RN Unavailable Unavailab le Maddison Mcfadden DPM Unavailable [phone] Roxann Corona RN Unavailable Unavailab le Encounter Details Date Type Department Care Team (Late st Contact Info) Description 12/23/2019 Transcribed Document [facility] [place] [facility] [place] [address] ProviderMayte MD [address] [place] [address] [id number] Social History Tobacco Use Types Packs/Day Years Used Date Smoking Tobacco: Never Assessed Sex and Gender Information Value Date Recorded Sex Assigned at Male 12/30/2021 5:50 PM CDT Legal Sex Male 7:04 PM CDT Gender Identity Male 12/30/2021 5:50 PM CDT Sexual Orientation Not on file documented as of this encounter Miscellaneous Notes * [employer]ner Conversion Note - Mayte ProviderMD - 12/23/2019 4:11 AM CDT Admission History, Adult Entered On: 12/23/2019 10:53 EDT Performed On: 12/23/2019 10:46 EDT by Nessa España, RN Advance Directive Patient has Advance Directive *Q : No, patient requests assist formulating Advance Directive Nessa España RN - 12/23/2019 10:46 EDT Anesthesia/Transfusion History Family History of Anesthesia Reaction : Prior transfusion without reaction Transfusion History : Prior anesthesia without reaction Family History of Anesthesia Reaction : None Nessa España RN - 12/23/2019 10:46 EDT Anticipated Discharge Needs Discharge To, Anticipated : Home Anticipated Discharge Needs at This Time : Nessa Hancock RN - 12/23/2019 10:46 EDT Education Topics, Admission Orientation DCP GENERIC CODE Advance Directives : Verbalizes understanding Allergy Band Applied : Verbalizes understanding Assessment/Vital Signs : Verbalizes understanding Bed Control : Verbalizes understanding Call Light : Verbalizes understanding Confidentiality : Verbalizes understanding Diet/Room Service : Verbalizes understanding Fall Prevention : Verbalizes understanding Hand Hygiene : Verbalizes understanding Healthcare Provider Visit : Verbalizes understanding ID Band Applied : Verbalizes understanding Isolation Precautions : Verbalizes understanding Orientation to Room/Bathroom : Verbalizes understanding Patient Bill of Rights : Verbalizes understanding Patient Rights/Responsibilities : Verbalizes understanding Patient Safety : Verbalizes understanding Personal Privacy Code : Verbalizes understanding Rapid Response Initiated by Patient/Family : Verbalizes understanding Rounding : Verbalizes understanding Siderails use/risks : Verbalizes understanding Skin Precautions : Verbalizes understanding Smoking Policy : Verbalizes understanding Telemetry Monitoring : Verbalizes understanding Television/Phone : Verbalizes understanding Visiting Policy : Verbalizes understanding Nessa España RN - 12/23/2019 10:46 EDT Functional Assessment Living Situation : Home Patient Lives With : Parent(s) Mobility Assistance Prior to Admission : Partial assistance LOVE Hx Falls Immediate/Within 3 Months : No Current Home Treatments : Wound care Wound Date of Last Care *Q : 12/23/2019 EDT Nessa España RN - 12/23/2019 10:46 EDT General Info Mode of Arrival on Unit : Wheelchair Legal Guardian : Unaccompanied Contact Password : snowball Want Family/Rep/Phys Notified of Admit : No Emergency Contact #1 : Yojana Bauer Emergency Contact #1 Emergency Contact #1 Relationship : mom Emergency Contact #2 : n/a Emergency Contact #2 Phone Number : n/a Emergency Contact #2 Relationship : n/a Chief Complaint : c/o fever and chills onset tonight at approx 6pm, SOA with exertion. hx of T4 paraplegic. healing bedsore to coccyx. HR 142 Information Obtained From : Patient Primary Language : Tamazight Communication Barrier : None Nessa España RN - 12/23/2019 10:46 EDT Fall Risk Scales ABCs Fall Injury Risk Identification : Bones ABC Fall Injury Risk : Moderate to high injury risk Injury Moderate to High Risk Interventions : Fall contract/letter per facility policy, High Risk for Fall Injury sign in place per policy, Personal alarm on, Specialty low bed, Supervise toileting as indicated, Toileting schedule, Transport methods appropriate to patient, Visual cues in place LOVE Hx Falls Immediate/Within 3 Months : No Love Secondary Diagnosis : Yes LOVE Use of Ambulatory Aid : Crutches/Cane/Walker LOVE IV Therapy or IV Access : Yes Love Gait/Transferring : Weak Love Mental Status : Oriented to own ability Love Fall Risk Score : 60 LOVE Fall Scale Risk Level : 46 or > High Risk [place] Fall Interventions : Adequate lighting, Assistive devices within reach, Bed in low position, Call device within reach, Fall prevention handout/education per facility policy, Frequent orientation to call device, Frequent orientation to surroundings, Hourly comfort/safety rounds, Non-slip footwear, Personal items within reach, Reinforced to call for assistance before getting out of bed, Room free of clutter/spills, Upper side-rails up, Wheels locked, Wires/Cords secured Fall Moderate to High Risk Interventions : Fall contract/letter per facility policy, High Risk for Fall sign in place per policy, Supervise toileting as indicated, Transport methods appropriate to patient, Toileting schedule, Visual cues in place, Wrist band (fall risk) on Nessa España RN - 12/23/2019 10:46 EDT Fall Risk Education Grid Alarms : Verbalizes understanding Assistive Equipment Use : Verbalizes understanding Bed Height/Stabilization : Verbalizes understanding Call light use : Verbalizes understanding Door Open : Verbalizes understanding Environmental Management : Verbalizes understanding Eyeglasses Use : Verbalizes understanding Fall Community Resources : Verbalizes understanding Fall Contract/Letter : Verbalizes understanding Fall Prevention in the Home : Verbalizes understanding Fall Prevention Protocol : Verbalizes understanding Hearing Aid Use : Verbalizes understanding Home Risk Assessment : Verbalizes understanding Need Constant Observation : Verbalizes understanding Night Light Use : Verbalizes understanding Nonskid Footwear Use : Verbalizes understanding Notification of Staff When Leaving : Verbalizes understanding Orthostatic Hypotension Precautions : Verbalizes understanding Personal Article Availability : Verbalizes understanding Prevention Responsibility Family : Verbalizes understanding Prevention Responsibility Patient : Verbalizes understanding Risk Alert Methods : Verbalizes understanding Risk Factors : Verbalizes understanding Safety Aids : Verbalizes understanding Siderails use/risks : Verbalizes understanding Special Assistive Devices : Verbalizes understanding Staff Responsiveness : Verbalizes understanding Symptom Identification & Action Plan *Q : Verbalizes understanding Symptom Reporting : Verbalizes understanding Toileting Schedule : Verbalizes understanding Transfer/Mobility Techniques : Verbalizes understanding Urinal/Bedpan Availability : Verbalizes understanding Wait for Assistance : Verbalizes understanding Wheelchair Safety : Verbalizes understanding Nessa España RN - 12/23/2019 10:46 EDT Fall Risk Scale Calc Temp : 1 Nessa España RN - 12/23/2019 10:46 EDT Health Histories Smoking Status : Never (less than 100 in lifetime; none in last 30 days) Smokeless Tobacco Status : Never Nessa España RN - 12/23/2019 10:46 EDT Social History (As Of: 12/23/2019 10:53:26 EDT) Tobacco: Comments: 12/23/2019 1:31 - RANJAN ELLIS MD-EMR: nonsmoker (Last Updated: 12/23/2019 01:31:04 EDT by RANJAN ELLIS MD-EMR) Substance Abuse: Drug Use Hx: No. Use in Last 12 Months: No. (Last Updated: 12/23/2019 01:31:09 EDT by RANJAN ELLIS MD-EMR) Height and Weight, Clinical Dosing Height Source : Stated Height Entry Format : [place] Height, Feet : 5 ft(Converted to: 152 cm, 60 Inch) Height, Inches : 7 Inch(Converted to: 0 ft 7 Inch, 17.78 cm) Clinical Height : 170.18 cm Weight Source : Bed scale Weight Entry Format : [place] Clinical Dosing Weight : 104.55 kg Weight, Pounds : 230 lb Body Surface Area (BSA) : 2.15 m2 Body Mass Index : 36.1 kg/m2 (HI) [place] Body Weight : 65 kg Nessa España RN - 12/23/2019 10:46 EDT Infectious Disease History Has the patient ever been tested for COVID-19? : No, Patient stated COVID19 Screening : No Experiencing Infectious Disease Symptoms : Chills Physical contact outside [place] in the last 30 days : No Infectious Disease Symptoms Score : 0.1 Infectious Disease History : None Tuberculosis Symptoms : None Nessa España RN - 12/23/2019 10:46 EDT Tetanus Immunization Status Previous Tetanus Immunizations : No qualifying data available. Nessa España RN - 12/23/2019 10:46 EDT Influenza Vaccine Asmt, Adult Previous Vaccines from Immunization Schedule : No qualifying data available. Influenza Immunization, Current Season : Outside of influenza season Nessa España RN - 12/23/2019 10:46 EDT Pneumococcal Vaccine Previous Vaccines from Immunization Schedule : No qualifying data available. Pneumonia Immunization Received : No Pneumococcal Risk Assessment < Age 65 : None Nessa España RN - 12/23/2019 10:46 EDT Order Details Transport Mode Order Detail : Stretcher/Gurney Isolation Precautions Order Detail : Standard Precautions Order Detail : N/A IV Order Detail : 1 Oxygen Order Detail : 0 Nurse Collect Order Detail : 0 Lift/Transfer : Moderate assist Central Line Order Detail : No Room Service : Appropriate Arterial Line : No Nessa España RN - 12/23/2019 10:46 EDT Nutrition History Eating Poorly Due to Decreased Appetite : No Unplanned Weight Loss in Past 3-6 Months : No Malnutrition Screening Tool Total(mal) : 0 Malnutrition Screening Tool Risk Level : Patient not at risk Nessa España RN - 12/23/2019 10:46 EDT [place] Suicide Severity Rating Scale (C-SSRS) CSSRS Past Month Wish to be : No CSSRS Past Month Suicidal Thoughts : No CSSRS Lifetime Suicide Behavior : No Suicide Severity Rating Score : 0 Suicide Severity Rating : No Additional Care Required at this time Nessa España RN - 12/23/2019 10:46 EDT Psychosocial History Currently in Unsafe Situation : No Nessa España RN - 12/23/2019 10:46 EDT Sleep Apnea Risk Assmt Hx of Obstructive Sleep Apnea Diagnosis : No Snore Loudly : Yes Tired, Fatigued, or Sleepy During Day : No Observed Stopping Breathing During Sleep : No Have/Are Being Treated for Hypertension : Yes BMI Greater Than 35 kg/m2 : Yes Age over 50 Years Old : No Neck Circumference Greater Than 40 cm : No Gender Male : Yes STOP-BANG Sleep Apnea Risk Level Score : 4 Nessa España RN - 12/23/2019 10:46 EDT Spiritual/Cultural Needs Any Spiritual/Cultural Needs or Requests : No Nessa España RN - 12/23/2019 10:46 EDT Valuables and Belongings Valuables and Belongings : Personal devices, Personal items, Medications Personal Device Disposition : Bedside, With patient Personal Devices : Glasses Personal Items : Cell phone Personal Items Disposition : Bedside, With patient, Declines to send to security/safe Medication Disposition : Bedside, With patient, Declines to send to security/safe Medication Brought With Patient : Yes Nessa España RN - 12/23/2019 10:46 EDT Electronically signed by [facility] Conversion Group Reservations Coordinator Cerner at 10/17/2022 2:11 PM CDT documented in this encounter Plan of Treatment Not on file documented as of this encounter Visit Diagnoses Not on filedocumented in this encounter Care Teams Learning Engineer Relationship Specialty Start Date End Date Provider Not In System, [facility] PCP - General 05/02/22 Roxann Corona, RN Registered Nurse 05/16/22 Maddison Mcfadden DPM [address] [place] [address] Consulting Physician Podiatry 06/06/22 Roxann Corona, RN Registered Nurse 10/04/22 documented as of this encounter
--- OUTSIDE RECORDS SUMMARY | 2025-02-24 12:17 | XMS_ITS | Encounter Summary ---
Author Organization [employer] ([place], [place], [place], [place]) Address [address] [place] [address] Care Team Providers Care Fibrous Wallboard Inspector Name Role Phone Provider Not In System, McT Primary Care Provide r Unavailable Roxann Corona RN Unavailable Unavailab Maddison Beth DPM Unavailable [phone] Roxann Corona RN Unavailable Unavailab le Encounter Details Date Type Department Care Team (Late st Contact Info) Description 12/23/2019 Transcribed Document [facility] Family [place] [facility] [place] [address] ProviderMayte MD [address] [place] [address] [id number] Social History Tobacco Use Types Packs/Day Years Used Date Smoking Tobacco: Never Assessed Sex and Gender Information Value Date Recorded Sex Assigned at Male 12/30/2021 5:50 PM CDT Legal Sex Male 7:04 PM CDT Gender Identity Male 12/30/2021 5:50 PM CDT Sexual Orientation Not on file documented as of this encounter Miscellaneous Notes * Cerner Conversion Note - Mayte Giles MD - 12/23/2019 1:32 AM CDT Patient: MARTIN BAUER Age: 49 years Sex: Male : 1970 Associated Diagnoses: Sepsis; Acute UTI; Paraplegia; Sacral ulcer Author: RANJAN ELLIS MD-EMR Basic Information Additional information: Chief Complaint from Nursing Triage Note : Chief Complaint 12/23/2019 0:13 EDT Chief Complaint c/o fever and chills onset tonight at approx 6pm, SOA with exertion. hx of T4 paraplegic. healing bedsore to coccyx. HR 142 . History of Present Illness The patient is a 49-year-old white male. He is a history of T4 paraplegia since 1975. He presents with sudden onset of fever chills at approximately 1800 last night, 12/22/19. He admits to mild shortness of breath which is chronic for him. No productive cough. He does report a pressure ulceration on his sacral area which has been chronic in nature. He does self catheterize and does report a known history of previous urinary tract infections. No vomiting. He did take some Tylenol at approximately 6 PM last night. No known sick contacts. No travel abroad. Review of Systems Constitutional symptoms: Negative except as documented in HPI. Skin symptoms: Negative except as documented in HPI. Eye symptoms: Negative except as documented in HPI. ENMT symptoms: Negative except as documented in HPI. Respiratory symptoms: Negative except as documented in HPI. Cardiovascular symptoms: Negative except as documented in HPI. Gastrointestinal symptoms: Negative except as documented in HPI. Genitourinary symptoms: Negative except as documented in HPI. Musculoskeletal symptoms: Negative except as documented in HPI. Neurologic symptoms: Negative except as documented in HPI. Psychiatric symptoms: Negative except as documented in HPI. Endocrine symptoms: Negative except as documented in HPI. Hematologic/Lymphatic symptoms: Negative except as documented in HPI. Allergy/immunologic symptoms: Negative except as documented in HPI. Additional review of systems information: All other systems reviewed and otherwise negative, All systems reviewed as documented in chart. Health Status Allergies: Allergic Reactions (Selected) Severity Not Documented Macrodantin- No reactions were documented. Sulfa drugs- No reactions were documented.. Medications: (Selected) Inpatient Medications Ordered Sodium Chloride 0.9% intravenous solution 1,000 mL: 1,000 mL/Hr, IntraVENous Tylenol: 975 mg, Oral, 1-Time. Past Medical/ Family/ Social History Surgical history: No active procedure history items have been selected or recorded.. Family history: No family history items have been selected or recorded.. Social history: Social & Psychosocial Habits Substance Abuse 12/23/2019 Recreational Drug Use History No Recreational Drug Use Last 12 Months No Tobacco Comment: nonsmoker - 12/23/2019 01:31 - RANJAN ELLIS MD-EMR . Problem list: Active Problems (3) History of UTI Paraplegia Pressure ulcer of hip . Physical Examination Vital Signs Vital Signs/Vital Measures 12/23/2019 0:13 EDT Systolic Blood Pressure 114 mmHg Diastolic Blood Pressure 72 mmHg Temperature Source Oral Temperature Mode Fahrenheit Temperature, Fahrenheit 99.8 Deg F HI Clinical Temperature, C 37.7 Deg C Peripheral Pulse Rate 140 bpm HI Respiratory Rate 22 Breaths/Min HI Oxygen Saturation 93 % LOW Oxygen Therapy Mode Room air . Measurements 12/23/2019 0:13 EDT Height Source Stated Height Entry Format Coffee Height/Length, TOGOLESE (ft) 5 ft Height/Length TOGOLESE 7 Inch CLINICALHEIGHT 170.18 cm [place] Body Weight 65.16 kg Weight Source, ED Critical estimated dosing weight Weight Entry Format Coffee Weight Yi lb 230 lb CLINICALWEIGHT 104.55 kg Body Surface Area (BSA) 2.15 m2 Body Mass Index 36.1 kg/m2 HI . Oxygen Saturation 12/23/2019 0:13 EDT Oxygen Saturation 93 % LOW . General: Alert, mild distress. Skin: Warm, moist, On the sacral area there is a very small stage II ulceration with some scab noted. No secondary cellulitis. Head: Normocephalic, atraumatic. Neck: Supple, No meningismus. Eye: Pupils are equal, round and reactive to light, extraocular movements are intact. Ears, nose, mouth and throat: Oral mucosa moist. Cardiovascular: Rate is rapid, rhythm is regular. Trace pretibial edema bilaterally. Respiratory: Decreased breath sounds in the bases, clear bilaterally. Gastrointestinal: Soft, Nontender, Non distended, Normal bowel sounds. Back: Nontender. Musculoskeletal: Patient is paraplegic. Well healing incision right upper arm.. Neurological: Patient is awake alert oriented ??4. Speech intact. No facial palsy. 5 over 5 strength bilateral upper extremities. He is a T4 paraplegic.. Lymphatics: No lymphadenopathy. Psychiatric: Cooperative. Medical Decision Making Documents reviewed: Emergency department nurses' notes. Orders Include Previous Orders (Selected) Inpatient Orders Ordered Aerosol Treatment (RT): Air Mattress: Ambulate: CAUTI Risk Assessment: Consult to Case Management: DVT VTE Prophylaxis Education: DVT VTE Prophylaxis Education: Diet, Adult: DuoNeb 0.5 mg-2.5 mg/3 mL inhalation solution: 3 mL, Nebulized Inhalation, Q6H, PRN: Shortness of Breath ECG: ED Fall Risk Documented: ED Isolation: ED SIRS Alert: Facility Protocol: Isolation: Pepcid: 20 mg, Oral, Daily Phenergan: 6.25 mg, IntraVENous, Q6H, PRN: Nausea Place in Observation: Respiratory Care Assessment: Resuscitation Status: Saline Lock Insert: Sequential Compression Device: Telemetry ADT: Telemetry Monitoring: Tylenol: 650 mg, Oral, Q4H, PRN: Other (See Comment) Vital Signs: Zofran: 4 mg, IV Push, Q4H, PRN: Nausea cloNIDine: 0.1 mg, Oral, Q4H, PRN: Hypertension hydrALAZINE: 10 mg, IV Push, Q6H, PRN: Hypertension morphine: 2 mg, IV Push, Q2H, PRN: Pain (Severe 7-10) Ordered (Collected) Culture Urine: Ordered (Dispatched) COVID-19: Ordered (Exam Completed) CR Chest 1 Vw Portable: Ordered (In-Lab) .Strep A Confirmation: Completed .Automated Differential: .RBC Morphology: .Urinalysis Microscopic: CBC w/ Auto Diff: CMP Comprehensive Metabolic Panel: Cardiac Monitoring: ED Adult Fall Risk Assessment: ED Adult Triage: ED C-SSRS: ED Clinical Reconciliation: ED community relations specialist: ED Sepsis Alert: Flu A/B Rapid Screen: Lactic Acid Level with Reflex if Indicated: Lactic Acid Level: Lipase Level: Magnesium Level: Merrem + Sodium Chloride 0.9% intravenous solution 50 mL: 1 Gram, 16.67 mL/Hr, IV Piggyback, 1-Time PT/INR Prothrombin Time: Pepcid: 20 mg, IV Push, 1-Time Peripheral IV Insertion: Phosphorus Level: Procalcitonin: Pulse Oximetry Continuous Monitoring: Rapid Strep Screen: TSH Thyroid Stimulating Hormone: Tylenol: 975 mg, Oral, 1-Time Urinalysis w Microscopic: Urinary Catheter Insertion: potassium chloride 20 mEq oral tablet, extended release: 40 mEq, 2 Tab, Oral, 1-Time Pending Complete (Ordered) Culture Blood: Voided With Results Sodium Chloride 0.9% intravenous solution 1,000 mL: 1,000 mL/Hr, IntraVENous. Results review: Lab results : Lab Results 12/23/2019 3:20 EDT Lactic Acid Level 1.5 mmol/L 12/23/2019 1:49 EDT Specimen Type, Urine POC Urine Action Taken, Urine Testing Orders received 12/23/2019 1:32 EDT Sodium Level 140 mmol/L Potassium Level 2.9 mmol/L LOW Chloride Level 103 mmol/L Carbon Dioxide Level 27 mmol/L Anion Gap 13 Glucose Level 110 mg/dL HI Blood Urea Nitrogen 14 mg/dL Creatinine Level 0.90 mg/dL eGFR >60 mL/min/1.73m2 eGFR NonAfrican >60 mL/min/1.73m2 Bun/Creatinine 15.6 Calcium Level 9.3 mg/dL Protein Total 8.0 Gram/dL Albumin Level 3.7 Gram/dL Globulin 4.3 Gram/dL A/G Ratio 0.9 LOW Bilirubin Total 1.3 mg/dL HI Alk Phos 93 Units/Liter AST 15 Units/Liter ALT 21 Units/Liter Magnesium Level 1.9 mg/dL Phosphorus 0.9 mg/dL LOW Lipase Level 82 Units/Liter Lactic Acid Level 3.1 mmol/L CRIT WBC 12.4 K/uL HI RBC 5.88 Million/uL HI Hgb 16.3 g/dL Hct 49.2 % MCV 83.7 fL MCH 27.7 pg MCHC 33.1 Gram/dL Platelet Count 216 K/uL MPV 10.0 fL RDW 15.2 % HI Neut % 91.1 % HI Neut # 11.33 K/uL HI Lymph % 2.4 % LOW Lymph # 0.30 x10(3)/uL LOW Wilcox % 5.0 % Wilcox # 0.62 K/uL Eos % 0.5 % Eos # 0.06 x10(3)/uL Baso % 0.3 % Baso # 0.04 x10(3)/uL RBC Morphology Normal Anisocytosis 1+ Platelet Ct Estimate Adequate Slide Review Technologist IG# 0.09 x10(3)/uL HI IG% 0.70 % HI PT 11.9 Second(s) INR 1.1 Urine Type U CleanCatch Urine Color Yellow Urine Appearance Cloudy Urine Specific [place] 1.012 Urine pH Dipstick 6.0 Urine Leukocyte Esterase Large Urine Nitrite Negative Urine Protein Dipstick 30 Urine Glucose Dipstick Negative Urine Ketones Dipstick Negative Urine Urobilinogen Dipstick 2.0 EU/dL Urine Bilirubin Dipstick Negative Urine Blood Dipstick Moderate Ur RBC 2-5 /HPF Ur WBC 50-100 /HPF Ur WBC Clumps Present Ur Bacteria 2+ Ur Mucous Trace Ur Amorph 1+ Procalcitonin 0.62 ng/mL TSH 0.761 mcInt Units/mL Rapid Strep Test See Result Influenza A+B Antigen See Result . Notes: EKG at 0122 reveals sinus tachycardia with a rate of 137. Nonspecific ST-T wave changes. Reexamination/ Reevaluation Time: 12/23/2019 04:00:00 . Assessment: exam improved. Impression and Plan Diagnosis Sepsis - Discharge, Emergency medicine, Medical Acute UTI - Discharge, Emergency medicine, Medical Paraplegia - Discharge, Emergency medicine, Medical Sacral ulcer - Discharge, Emergency medicine, Medical Calls-Consults - 12/23/2019 04:01:00 , AKASH GREY MD-[facility], will admit to observation. Plan Condition: Improved, Stable. Counseled: Patient. Electronically signed by Aparna [facility] Conversion Industrial/Organizational Psychologist Cerner at 10/17/2022 2:04 PM CDT documented in this encounter Plan of Treatment Not on file documented as of this encounter Visit Diagnoses Not on filedocumented in this encounter Care Teams Fibrous Wallboard Inspector Relationship Specialty Start Date End Date Provider Not In System, [facility] PCP - General 05/02/22 Roxann Corona, RN Registered Nurse 05/16/22 Maddison Mcfadden DPM [address] [place] [address] Consulting Physician Podiatry 06/06/22 Roxann Corona, RN Registered Nurse 10/04/22 documented as of this encounter
--- OUTSIDE RECORDS SUMMARY | 2025-02-24 12:17 | XMS_ITS | Encounter Summary ---
Author Organization [email or web address] ([place], [place], [place], [place]) Address [address] [place] [address] Care Team Providers Care Business Analytics Faculty Member Name Role Phone Provider Not In System, McT Primary Care Provide r Unavailable Roxann Corona RN Unavailable Unavailab Maddison Beth DPM Unavailable [phone] Roxann Corona RN Unavailable Unavailab le Encounter Details Date Type Department Care Team (Late st Contact Info) Description 11/07/2019 Transcribed Document [facility] Family [place] [facility] [place] [address] ProviderMayte MD [address] [place] [id number] Social History Tobacco Use Types Packs/Day Years Used Date Smoking Tobacco: Never Assessed Sex and Gender Information Value Date Recorded Sex Assigned at Male 12/30/2021 5:50 PM CDT Legal Sex Male 7:04 PM CDT Gender Identity Male 12/30/2021 5:50 PM CDT Sexual Orientation Not on file documented as of this encounter Miscellaneous Notes * Cerner Conversion Note - Historical ProviderMD - 11/07/2019 4:47 PM CDT DATE OF CONSULTATION: 11/06/2019 A 49-year-old paraplegic male, we have been following for some time for pressure injuries primarily in the sacral area. These were re-openings of previous stage IV wound sites. We had arranged for the patient to get a proper offloading mattress, and the patient has been very adherent about staying out of his wheelchair except for just a couple of hours a day. We have used a variety of topicals, most recently Santyl ointment and saline moistened gauze. We have not seen the patient since September 11, primarily due to the COVID pandemic. He was able to make it at today for reassessment. There is just a small 0.5 cm area left in the sacral area. His anatomy has been significantly distorted by previous surgery and kyphoscoliosis. Nonetheless, this wound is all just excellent granulation tissue. All other wound sites and areas of erosion have resolved. We therefore discussed re-mobilizing up into his wheelchair. He has been getting up for about 2 hours a day, principally for supper. My recommendation is to start doing two 2-hour sessions a day, do that for a week, inspect the area closely and if no evident relapse, increase to three 2-hour sessions daily. We will then see him back in about 3 weeks or so and see how he is holding up with this increase in activity. He does have a high quality offloading cushion for his wheelchair in addition to his low air loss mattress. He lives with his mother, who is his primary caregiver and is very vigilant over his wounds and needs. PLAN: The patient had been in the habit of working from his wheelchair. Obviously, he has not been able to do that for the past few months because of his severe limitation on time up in his wheelchair. This offloading was an essential part of his recovery and he has in fact done better than most patients in this status perform, largely because of adherence to the offloading requirements. This information will be provided to [employer], which has requested updates on his temporarily added disability. /[id number] MD WESLEY Farrell III/JEANETTE / WESLEY / MICKIL /[id number] Electronically signed by Emir Braun Conversion Workers Compensation Claims Specialist Cerner at 10/17/2022 2:26 PM CDT documented in this encounter Plan of Treatment Not on file documented as of this encounter Visit Diagnoses Not on filedocumented in this encounter Care Teams Business Analytics Faculty Member Relationship Specialty Start Date End Date Provider Not In System, [facility] PCP - General 05/02/22 Roxann Corona, RN Registered Nurse 05/16/22 Maddison Mcfadden DPBrian [address] [place] [address] Consulting Physician Podiatry 06/06/22 Roxann Corona, RN Registered Nurse 10/04/22 documented as of this encounter
--- OUTSIDE RECORDS SUMMARY | 2025-02-24 12:17 | XMS_ITS | Encounter Summary ---
Author Organization [employer] ([place], [place], [place], [place]) Address [address] [place] [address] Care Team Providers Care Sign Language Teacher Name Role Phone Provider Not In System, McT Primary Care Provide r Unavailable Roxann Corona RN Unavailable Unavailab le Maddison Mcfadden DPM Unavailable [phone] Roxann Corona RN Unavailable Unavailab le Encounter Details Date Type Department Care Team (Late st Contact Info) Description 12/24/2019 Transcribed Document [facility] [place] [address] ProviderMayte MD [address] [place] [id number] Social History Tobacco Use Types Packs/Day Years Used Date Smoking Tobacco: Never Assessed Sex and Gender Information Value Date Recorded Sex Assigned at Male 12/30/2021 5:50 PM CDT Legal Sex Male 7:04 PM CDT Gender Identity Male 12/30/2021 5:50 PM CDT Sexual Orientation Not on file documented as of this encounter Miscellaneous Notes * Cerner Conversion Note - Mayte ProviderMD - 12/24/2019 5:00 AM CDT Chart Check - Review Order Profile Entered On: 12/24/2019 8:00 EDT Performed On: 12/24/2019 5:00 EDT by Samina Franco RN Chart Check Powerplans Initiated/Discontinued as Appropriate : Yes All Active Orders Reviewed : Yes Samina Franco RN - 12/24/2019 8:00 EDT Electronically signed by Aparna [facility] Conversion Horse Racing Manager Cerner at 10/17/2022 2:20 PM CDT documented in this encounter Plan of Treatment Not on file documented as of this encounter Visit Diagnoses Not on filedocumented in this encounter Care Teams Sign Language Teacher Relationship Specialty Start Date End Date Provider Not In System, [facility] PCP - General 05/02/22 Roxann Corona, RN Registered Nurse 05/16/22 Maddison Mcfadden DPM [address] [place] [address] Consulting Physician Podiatry 06/06/22 Roxann Corona, RN Registered Nurse 10/04/22 documented as of this encounter
--- OUTSIDE RECORDS SUMMARY | 2025-02-24 12:17 | XMS_ITS | Encounter Summary ---
Author Organization [employer] ([place], [place], [place], [place]) Address [address] [place] [address] Care Team Providers Care Stock Supervisor Name Role Phone Provider Not In System, McT Primary Care Provide r Unavailable Roxann Corona RN Unavailable Unavailab le Maddison Mcfadden DPM Unavailable [phone] Roxann Corona RN Unavailable Unavailab le Encounter Details Date Type Department Care Team (Late st Contact Info) Description 12/25/2019 Transcribed Document [facility] Family [place] [address] ProviderMayte MD [address] [place] [id number] Social History Tobacco Use Types Packs/Day Years Used Date Smoking Tobacco: Never Assessed Sex and Gender Information Value Date Recorded Sex Assigned at Male 12/30/2021 5:50 PM CDT Legal Sex Male 7:04 PM CDT Gender Identity Male 12/30/2021 5:50 PM CDT Sexual Orientation Not on file documented as of this encounter Miscellaneous Notes * Cerner Conversion Note - Mayte ProviderMD - 12/25/2019 5:00 AM CDT Chart Check - Review Order Profile Entered On: 12/25/2019 8:45 EDT Performed On: 12/25/2019 5:00 EDT by Samina Franco RN Chart Check Powerplans Initiated/Discontinued as Appropriate : Yes All Active Orders Reviewed : Yes Samina Franco RN - 12/25/2019 8:45 EDT Electronically signed by Aparna [facility] Conversion Wallet Assembler Cerner at 10/17/2022 2:21 PM CDT documented in this encounter Plan of Treatment Not on file documented as of this encounter Visit Diagnoses Not on filedocumented in this encounter Care Teams Stock Supervisor Relationship Specialty Start Date End Date Provider Not In System, [facility] PCP - General 05/02/22 Roxann Corona, RN Registered Nurse 05/16/22 Maddison Mcfadden DPM [address] [place] [address] Consulting Physician Podiatry 06/06/22 Roxann Corona, RN Registered Nurse 10/04/22 documented as of this encounter
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
--- OUTSIDE RECORDS SUMMARY | 2025-02-24 12:17 | XMS_ITS | Encounter Summary ---
Author Organization [employer] ([place], [place], [place], [place]) Address [address] [place] [address] Care Team Providers Care Bus Mechanic Name Role Phone Provider Not In System, McT Primary Care Provide r Unavailable Roxann Corona RN Unavailable Unavailab Maddison Beth DPM Unavailable [phone] Roxann Corona RN Unavailable Unavailab le Encounter Details Date Type Department Care Team (Late st Contact Info) Description 12/25/2019 Transcribed Document [facility] [place] [facility] [place] [address] ProviderMayte MD [address] [place] [id number] Social History Tobacco Use Types Packs/Day Years Used Date Smoking Tobacco: Never Assessed Sex and Gender Information Value Date Recorded Sex Assigned at Male 12/30/2021 5:50 PM CDT Legal Sex Male 7:04 PM CDT Gender Identity Male 12/30/2021 5:50 PM CDT Sexual Orientation Not on file documented as of this encounter Miscellaneous Notes * Cerner Conversion Note - Mayte ProviderMD - 12/25/2019 2:00 AM CDT Inspector Raw Quartz Details Entered On: 12/25/2019 8:45 EDT Performed On: 12/25/2019 2:00 EDT by Samina Franco RN Order Details Transport Mode Order Detail : Stretcher/Gurney Isolation Precautions Order Detail : Standard Precautions Order Detail : N/A IV Order Detail : 1 Oxygen Order Detail : 0 Nurse Collect Order Detail : 0 Lift/Transfer : Moderate assist Central Line Order Detail : No Room Service : Appropriate Arterial Line : No Samina Franco, MATHEW - 12/25/2019 8:45 EDT documented in this encounter Plan of Treatment Not on file documented as of this encounter Visit Diagnoses Not on filedocumented in this encounter Care Teams Bus Mechanic Relationship Specialty Start Date End Date Provider Not In System, [facility] PCP - General 05/02/22 Roxann Corona, RN Registered Nurse 05/16/22 Maddison Mcfadden DPM [address] [place] [address] Consulting Physician Podiatry 06/06/22 Roxann Corona, RN Registered Nurse 10/04/22 documented as of this encounter
--- OUTSIDE RECORDS SUMMARY | 2025-02-24 12:17 | XMS_ITS | Encounter Summary ---
Author Organization [employer] ([place], [place], [place], [place]) Address [address] [place] [address] Care Team Providers Care Brickmason Apprentice Name Role Phone Provider Not In System, McT Primary Care Provide r Unavailable Roxann Corona RN Unavailable Unavailab Maddison Beth DPM Unavailable [phone] Roxann Corona RN Unavailable Unavailab le Encounter Details Date Type Department Care Team (Late st Contact Info) Description 12/11/2019 Transcribed Document [facility] [place] Family Medicine [facility] [place] [address] ProviderMayte MD [address] [place] [id number] Social History Tobacco Use Types Packs/Day Years Used Date Smoking Tobacco: Never Assessed Sex and Gender Information Value Date Recorded Sex Assigned at Male 12/30/2021 5:50 PM CDT Legal Sex Male 7:04 PM CDT Gender Identity Male 12/30/2021 5:50 PM CDT Sexual Orientation Not on file documented as of this encounter Miscellaneous Notes * Cerner Conversion Note - Historical ProviderMD - 12/11/2019 6:01 PM CDT DATE OF CONSULTATION: 12/11/2019 HISTORY: 49-year-old paraplegic male whom we have been following for several months. He developed a stage III pressure injury in the sacral and buttock area. It was initially a fairly substantial wound. He and his mother have been extremely diligent in following offloading recommendations and treatment recommendations and had done very well. When I saw him last about 2 weeks ago, there was a minimal remnant of the wound. At that time, we decided to liberalize his activity and let him get up in his wheelchair more. He says he has been up for as much as 6 and 7 hours at a time. Also within the last couple of days, he got up into his vehicle and drove around some. His goal was to get back to work, but the job he has requires a 10 hours, sometimes more daily as well as a 30-minute trip to work and then again back home from work. On examination today, there is a little bit of bruising along the ridge of a scar in the wound complex area. There is no actual open area. Nothing was draining, dripping. No exudate or fluid could be expressed; however, this is fresh injury that has happened in the last few days. We discussed his future, and I strongly recommended that he go to his employer and see if he can be allowed a shorter working day for a few weeks at least. However, for the next 2 weeks, I do not want him to attempt to work at all, but would like for him to increase his activities including driving to see if his closure will endure more environmental impact. We will reassess him in 2 weeks. /[id number] MD WESLEY Farrell III/JEANETTE / WESLEY / SUSAN /[id number] documented in this encounter Plan of Treatment Not on file documented as of this encounter Visit Diagnoses Not on filedocumented in this encounter Care Teams Brickmason Apprentice Relationship Specialty Start Date End Date Provider Not In System, [facility] PCP - General 05/02/22 Roxann Corona, MATHEW Registered Nurse 05/16/22 Maddison Mcfadden DPM [address] [place] [address] Consulting Physician Podiatry 06/06/22 Roxann Corona, RN Registered Nurse 10/04/22 documented as of this encounter
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
--- OUTSIDE RECORDS SUMMARY | 2025-02-24 12:17 | XMS_ITS | Encounter Summary ---
Author Organization [email or web address] ([place], [place], [place], [place]) Address [address] [place] [address] Care Team Providers Care Inspector Fibrous Wallboard Name Role Phone Provider Not In System, McT Primary Care Provide r Unavailable Roxann Corona RN Unavailable Unavailab le Maddison Mcfadden DPM Unavailable [phone] Roxann Corona RN Unavailable Unavailab le Encounter Details Date Type Department Care Team (Late st Contact Info) Description 12/24/2019 Transcribed Document [facility] [place] [facility] [address] ProviderMayte MD [address] [place] [address] [id number] Social History Tobacco Use Types Packs/Day Years Used Date Smoking Tobacco: Never Assessed Sex and Gender Information Value Date Recorded Sex Assigned at Male 12/30/2021 5:50 PM CDT Legal Sex Male 7:04 PM CDT Gender Identity Male 12/30/2021 5:50 PM CDT Sexual Orientation Not on file documented as of this encounter Miscellaneous Notes * Cerner Conversion Note - Mayte ProviderMD - 12/24/2019 8:39 AM CDT UM Authorization Entered On: 12/24/2019 8:40 EDT Performed On: 12/24/2019 8:39 EDT by CHELSY HENDERSON Rn-Utilization Review Primary Insurance Authorization Authorization and Policy Numbers : Insurance 1 Health Plan: [employer] Policy Number: [id number] Authorization Number: Insurance Primary Name : [employer] Policy Number: [id number] Authorization Status-Primary : Awaiting callback Reference Number-Primary : pending # [id number] Authorized Service Begin Date-Primary : 12/24/2019 EDT Authorization Comments-Primary : Submitted Inpt Auth on Availity with Pended status. RN reviewer has EMR access Historical Authorization Comments-Primary : No Authorization Comments Found CHELSY HENDERSON Rn-Utilization Review - 12/24/2019 8:39 EDT Electronically signed by [facility], [facility] Conversion Flat Surfacer Jewel Cerner at 10/17/2022 2:27 PM CDT documented in this encounter Plan of Treatment Not on file documented as of this encounter Visit Diagnoses Not on filedocumented in this encounter Care Teams Inspector Fibrous Wallboard Relationship Specialty Start Date End Date Provider Not In System, [facility] PCP - General 05/02/22 Roxann Corona, RN Registered Nurse 05/16/22 Maddison Mcfadden, DPM [address] [place] [address] Consulting Physician Podiatry 06/06/22 Roxann Corona, RN Registered Nurse 10/04/22 documented as of this encounter
--- OUTSIDE RECORDS SUMMARY | 2025-02-24 12:17 | XMS_ITS | Encounter Summary ---
Author Organization [employer] ([place], [place], [place], [place]) Address [address] [place] [address] Care Team Providers Care Senior Advocate Name Role Phone Provider Not In System, McT Primary Care Provide r Unavailable Roxann Corona RN Unavailable Unavailab le Maddison Mcfadden DPM Unavailable [phone] Roxann Corona RN Unavailable Unavailab le Encounter Details Date Type Department Care Team (Late st Contact Info) Description 12/24/2019 Transcribed Document [facility] [place] [facility] [place] [address] ProviderMayte MD [address] [place] [address] Social History Tobacco Use Types Packs/Day [...] Note - Mayte ProviderMD - 12/24/2019 5:00 PM CDT Chart Check - Review Order Profile Entered On: 12/24/2019 20:17 EDT Performed On: 12/24/2019 17:00 EDT by MELISSA SHERMAN, RN Chart Check Powerplans Initiated/Discontinued as Appropriate : Yes MELISSA SHERMAN, RN - 12/24/2019 20:17 EDT Electronically signed by Aparna [facility] Conversion Agency Trainer Cerner at 10/17/2022 2:14 PM CDT documented in this encounter Plan of Treatment Not on file documented as of this encounter Visit Diagnoses Not on filedocumented in this encounter Care Teams Senior Advocate Relationship Specialty Start Date End Date Provider Not In System, [facility] PCP - General 05/02/22 Roxann Corona, RN Registered Nurse 05/16/22 Maddison Mcfadden, DPM [address] [place] [address] Consulting Physician Podiatry 06/06/22 Roxann Corona, RN Registered Nurse 10/04/22 documented as of this encounter
--- OUTSIDE RECORDS SUMMARY | 2025-02-24 12:17 | XMS_ITS | Encounter Summary ---
Author Organization [employer] ([place], [place], [place], [place]) Address [address] [place] [address] Care Team Providers Care Insurance Appraiser Name Role Phone Provider Not In System, McT Primary Care Provide r Unavailable Roxann Corona RN Unavailable Unavailab Maddison Beth DPM Unavailable [phone] Roxann Corona RN Unavailable Unavailab le Encounter Details Date Type Department Care Team (Late st Contact Info) Description 11/27/2019 Transcribed Document [facility] [place] [facility] [place] [address] ProviderMayte MD [address] [place] [id number] Social History Tobacco Use Types Packs/Day Years Used Date Smoking Tobacco: Never Assessed Sex and Gender Information Value Date Recorded Sex Assigned at Male 12/30/2021 5:50 PM CDT Legal Sex Male 7:04 PM CDT Gender Identity Male 12/30/2021 5:50 PM CDT Sexual Orientation Not on file documented as of this encounter Miscellaneous Notes * Cerner Conversion Note - Mayte ProviderMD - 11/27/2019 6:42 PM CDT DATE OF CONSULTATION: 11/27/2019 This is a 49-year-old paraplegic male who came to us with a significant ulcer complex in his sacrum-buttock area. This was mostly on the left buttock. He has significant kyphosis of the spine and abnormal spinal contour creating abnormal pressure. His mother is his primary care provider. Between the two of them they have done an excellent job of offloading and following dressing instructions. Last time when we saw him, the wound was really quite small, and we felt it was time to start liberalizing more time up in his wheelchair, which he has been doing. The patient returns today and the wound site is really dry. He has a pitted scar, but dry. This time I think, we can discontinue any actual cover dressing. Recommend just use the coconut oil over the entire buttock, sacral area including the wound site. He can also start liberalizing his time in the wheelchair even more. We all agreed to reconvene in another 2-3 weeks to reassess the site and make sure that he is going to stay closed. /[id number] MD WESLEY Farrell III/JEANETTE / WESLEY / MODL /[id number] Electronically signed by Aparna [facility] Conversion Soldering Machine Operator Automatic Cerner at 10/17/2022 2:11 PM CDT documented in this encounter Plan of Treatment Not on file documented as of this encounter Visit Diagnoses Not on filedocumented in this encounter Care Teams Insurance Appraiser Relationship Specialty Start Date End Date Provider Not In System, [facility] PCP - General 05/02/22 Roxann Corona, RN Registered Nurse 05/16/22 Maddison Mcfadden DPM [address] [place] [address] Consulting Physician Podiatry 06/06/22 Roxann Corona, RN Registered Nurse 10/04/22 documented as of this encounter
--- OUTSIDE RECORDS SUMMARY | 2025-02-24 12:17 | XMS_ITS | Encounter Summary ---
Author Organization [employer] ([place], [place], [place], [place]) Address [address] [place] [address] Care Team Providers Care Dehydrogenation Supervisor Name Role Phone Provider Not In System, McT Primary Care Provide r Unavailable Roxann Corona RN Unavailable Unavailab Maddison Beth DPM Unavailable [phone] Roxann Corona RN Unavailable Unavailab le Encounter Details Date Type Department Care Team (Late st Contact Info) Description 12/24/2019 Transcribed Document [facility] [place] [facility] [place] [address] ProviderMayte MD [address] [place] [address] Social History Tobacco Use Types Packs/Day Years Used Date Smoking Tobacco: Never Assessed Sex and Gender Information Value Date Recorded Sex Assigned at Male 12/30/2021 5:50 PM CDT Legal Sex Male 7:04 PM CDT Gender Identity Male 12/30/2021 5:50 PM CDT Sexual Orientation Not on file documented as of this encounter Miscellaneous Notes * Cerner Conversion Note - Mayte ProviderMD - 12/24/2019 2:00 AM CDT Unemployment Benefits Claims Taker Details Entered On: 12/24/2019 7:59 EDT Performed On: 12/24/2019 2:00 EDT by Samina Franco RN Order Details Transport Mode Order Detail : Stretcher/Gurney Isolation Precautions Order Detail : Standard Precautions Order Detail : N/A IV Order Detail : 1 Oxygen Order Detail : 0 Nurse Collect Order Detail : 0 Lift/Transfer : Moderate assist Central Line Order Detail : No Room Service : Appropriate Arterial Line : No Samina Franco RN - 12/24/2019 7:59 EDT Electronically signed by Aparna [facility] Conversion Networker Cerner at 10/17/2022 2:12 PM CDT documented in this encounter Plan of Treatment Not on file documented as of this encounter Visit Diagnoses Not on filedocumented in this encounter Care Teams Dehydrogenation Supervisor Relationship Specialty Start Date End Date Provider Not In System, [facility] PCP - General 05/02/22 Roxann Corona, RN Registered Nurse 05/16/22 Maddison Mcfadden DPM [address] [place] [address] Consulting Physician Podiatry 06/06/22 Roxann Corona, RN Registered Nurse 10/04/22 documented as of this encounter
--- OUTSIDE RECORDS SUMMARY | 2025-02-24 12:17 | XMS_ITS | Encounter Summary ---
Author Organization [employer] ([place], [place], [place], [place]) Address [address] [place] [address] Care Team Providers Care Human Resources Project Manager Name Role Phone Provider Not In System, McT Primary Care Provide r Unavailable Roxann Corona RN Unavailable Unavailab Maddison Beth DPM Unavailable [phone] Roxann Corona RN Unavailable Unavailab le Encounter Details Date Type Department Care Team (Late st Contact Info) Description 12/23/2019 Transcribed Document [facility] [place] [facility] [address] ProviderMayte MD [address] [place] [address] [id number] Social History Tobacco Use Types Packs/Day Years Used Date Smoking Tobacco: Never Assessed Sex and Gender Information Value Date Recorded Sex Assigned at Male 12/30/2021 5:50 PM CDT Legal Sex Male 7:04 PM CDT Gender Identity Male 12/30/2021 5:50 PM CDT Sexual Orientation Not on file documented as of this encounter Miscellaneous Notes * Cerner Conversion Note - Mayte ProviderMD - 12/23/2019 5:01 AM CDT Patient: MARTIN BAUER Age: 49 years Sex: Male : 1970 Associated Diagnoses: None Author: AKASH GREY MD-[facility] R/O Covid 19 patient with fever Covid 19 result pending will consult ID documented in this encounter Plan of Treatment Not on file documented as of this encounter Visit Diagnoses Not on filedocumented in this encounter Care Teams Human Resources Project Manager Relationship Specialty Start Date End Date Provider Not In System, [facility] PCP - General 05/02/22 Roxann Corona, RN Registered Nurse 05/16/22 Maddison Mcfadden, DPM [address] [place] [address] Consulting Physician Podiatry 06/06/22 Roxann Corona, RN Registered Nurse 10/04/22 documented as of this encounter
--- OUTSIDE RECORDS SUMMARY | 2025-02-24 12:17 | XMS_ITS | Encounter Summary ---
Author Organization [employer] ([place], [place], [place], [place]) Address [address] [place] [address] Care Team Providers Care Institute Director Name Role Phone Provider Not In System, McT Primary Care Provide r Unavailable Roxann Corona RN Unavailable Unavailab le Maddison Mcfadden DPM Unavailable [phone] Roxann Corona RN Unavailable Unavailab le Encounter Details Date Type Department Care Team (Late st Contact Info) Description 12/25/2019 Transcribed Document [facility] [place] [facility] [place] [address] ProviderMayte MD [address] [place] [address] [phone] Social History Tobacco Use Types Packs/Day Years Used Date Smoking Tobacco: Never Assessed Sex and Gender Information Value Date Recorded Sex Assigned at Male 12/30/2021 5:50 PM CDT Legal Sex Male 7:04 PM CDT Gender Identity Male 12/30/2021 5:50 PM CDT Sexual Orientation Not on file documented as of this encounter Miscellaneous Notes * Cerner Conversion Note - Mayte ProviderMD - 12/25/2019 9:44 AM CDT UM Authorization Entered On: 12/25/2019 9:45 EDT Performed On: 12/25/2019 9:44 EDT by CHELSY HENDERSON Rn-Utilization Review Primary Insurance Authorization Authorization and Policy Numbers : Insurance 1 Health Plan: [employer] Policy Number: [id number] Authorization Number: Insurance Primary Name : [employer] Policy Number: [id number] Authorization Status-Primary : Awaiting callback Reference Number-Primary : [id number] Number of Days Authorized-Primary : 1 Day(s) Authorized Service Begin Date-Primary : 12/24/2019 EDT Authorized Service End Date-Primary : 12/25/2019 EDT Authorization Comments-Primary : Marshall Lopez [employer] Auth approved 12/23-12/24. Historical Authorization Comments-Primary : Comment 1: Submitted Inpt Auth on Availity with Pended status. RN reviewer has EMR access (CHELSY HENDERSON Rn-Utilization Review 12/24/2019 08:39) CHELSY HENDERSON Rn-Utilization Review - 12/25/2019 9:44 EDT Electronically signed by [facility] Conversion Grief Counsellor Cerner at 10/17/2022 2:04 PM CDT documented in this encounter Plan of Treatment Not on file documented as of this encounter Visit Diagnoses Not on filedocumented in this encounter Care Teams Institute Director Relationship Specialty Start Date End Date Provider Not In System, [facility] PCP - General 05/02/22 Roxann Corona, RN Registered Nurse 05/16/22 Maddison Mcfadden DPM [address] [place] [address] Consulting Physician Podiatry 06/06/22 Roxann Corona, RN Registered Nurse 10/04/22 documented as of this encounter
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
--- OUTSIDE RECORDS SUMMARY | 2025-02-24 12:17 | XMS_ITS | Encounter Summary ---
Author Organization [employer] ([place], [place], [place], [place]) Address [address] [place] [address] Care Team Providers Care Hardboard Grinder Name Role Phone Provider Not In System, McT Primary Care Provide r Unavailable Roxann Corona RN Unavailable Unavailab Maddison Beth DPM Unavailable [phone] Roxann Corona RN Unavailable Unavailab le Encounter Details Date Type Department Care Team (Late st Contact Info) Description 09/12/2019 Transcribed Document [facility] [place] [facility] [place] [address] ProviderMayte MD [address] [place] [address] [id number] Social History Tobacco Use Types Packs/Day Years Used Date Smoking Tobacco: Never Assessed Sex and Gender Information Value Date Recorded Sex Assigned at Male 12/30/2021 5:50 PM CDT Legal Sex Male 7:04 PM CDT Gender Identity Male 12/30/2021 5:50 PM CDT Sexual Orientation Not on file documented as of this encounter Miscellaneous Notes * Cerner Conversion Note - Historical ProviderMD - 09/12/2019 4:10 PM CDT DATE OF PROCEDURE: 09/12/2019 SURGEON: Nain Garcia III, MD PREPROCEDURE DIAGNOSIS: Chronic pressure injury, buttock and sacral area, stage III. POSTPROCEDURE DIAGNOSIS: Chronic pressure injury, buttock and sacral area, stage III. PROCEDURE: Non-excisional debridement. INDICATION: A 49-year-old male with a cluster of wounds at the vertex of the cleft, which includes portions present on the sacrum and the bilateral upper inner buttocks. The entire wound cluster measures 6.7 x 3.8 x 0.1. There are a few areas of accumulated necrotic tissue around some of the margins, which need to be debrided. DESCRIPTION OF PROCEDURE: Correct patient, correct site, cleansed with normal saline, anesthesia not required. Using a combination of forceps and scalpel, I excised away from the surface areas of devitalized marginal tissue down to the bleeding level right at the upper dermis. Bleeding was minimal. The patient had no discomfort. Certainly less than 10 sq cm of tissue was debrided. /[id number] MD WESLEY Farrell III/JEANETTE / WESLEY / MODL /[id number] Electronically signed by Aparna [facility] Conversion Long Line Teamster Cerner at 10/17/2022 2:16 PM CDT documented in this encounter Plan of Treatment Not on file documented as of this encounter Visit Diagnoses Not on filedocumented in this encounter Care Teams Hardboard Grinder Relationship Specialty Start Date End Date Provider Not In System, [facility] PCP - General 05/02/22 Roxann Corona, RN Registered Nurse 05/16/22 Maddison Mcfadden, DPBrian [address] [place] [address] Consulting Physician Podiatry 06/06/22 Roxann Corona, RN Registered Nurse 10/04/22 documented as of this encounter
--- OUTSIDE RECORDS SUMMARY | 2025-02-24 12:17 | XMS_ITS | Encounter Summary ---
Author Organization [employer] ([place], [place], [place], [place]) Address [address] [place] [address] Care Team Providers Care Loader Demolder Name Role Phone Provider Not In System, McT Primary Care Provide r Unavailable Roxann Corona RN Unavailable Unavailab le Maddison Mcfadden DPM Unavailable [phone] Roxann Corona RN Unavailable Unavailab le Encounter Details Date Type Department Care Team (Late st Contact Info) Description 12/23/2019 Transcribed Document [facility] [place] [address] ProviderMayte MD [address] [place] [address] [phone] Social History Tobacco Use Types Packs/Day Years Used Date Smoking Tobacco: Never Assessed Sex and Gender Information Value Date Recorded Sex Assigned at Male 12/30/2021 5:50 PM CDT Legal Sex Male 7:04 PM CDT Gender Identity Male 12/30/2021 5:50 PM CDT Sexual Orientation Not on file documented as of this encounter Miscellaneous Notes * Cerner Conversion Note - Mayte ProviderMD - 12/23/2019 2:05 AM CDT Provider Notification Entered On: 12/23/2019 3:22 EDT Performed On: 12/23/2019 3:22 EDT by FABIO VINCENT, MATHEW Provider Notification Provider Notified of Concerns/Results : Critical value result FABIO VINCENT RN - 12/23/2019 3:22 EDT Electronically signed by Aparna [facility] Conversion Heel Varnisher Cerner at 10/17/2022 2:08 PM CDT documented in this encounter Plan of Treatment Not on file documented as of this encounter Visit Diagnoses Not on filedocumented in this encounter Care Teams Loader Demolder Relationship Specialty Start Date End Date Provider Not In System, [facility] PCP - General 05/02/22 Roxann Corona, RN Registered Nurse 05/16/22 Maddison Mcfadden, DPM [address] [place] [address] Consulting Physician Podiatry 06/06/22 Roxann Corona, RN Registered Nurse 10/04/22 documented as of this encounter
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
--- OUTSIDE RECORDS SUMMARY | 2025-02-24 12:17 | XMS_ITS | Encounter Summary ---
Author Organization [employer] ([place], [place], [place], [place]) Address [address] [place] [address] Care Team Providers Care Assembler Tester Name Role Phone Provider Not In System, McT Primary Care Provide r Unavailable Roxann Corona RN Unavailable Unavailab Maddison Beth DPM Unavailable [phone] Roxann Corona RN Unavailable Unavailab le Encounter Details Date Type Department Care Team (Late st Contact Info) Description 09/12/2019 Transcribed Document [facility] [place] [facility] [place] [address] ProviderMayte MD [address] [place] [place] [address] [id number] Social History Tobacco Use Types Packs/Day Years [...] - 09/12/2019 4:10 PM CDT DATE OF CONSULTATION: 09/12/2019 HISTORY: A 49 year-old paraplegic male with cluster pressure injuries at the sacrum and the vertex of the upper inner buttocks. This is a convoluted area with at least 3 separately identifiable closely approximated wounds, which we are measuring as a cluster. He has also had previous flap rotations, which makes for an even more irregular surface. He evidently had a diarrheal illness recently. He lives with his mother, who does his wound care. She was very aggressive in keeping this area clean. While this illness was going on, the Santyl was not applied. Mother thought the wound actually looked significantly better after just doing the soap and water scrubbing and not the Santyl. Examination today also confirms this. The size of the wound cluster has diminished somewhat. The surfaces are generally good. There is some fibrin material present, some of which I debrided away from the surface, but overall there is continuing improvement in the wound surface. In addition, the patient has now received his group 2 air therapeutic mattress and is using that as well as his ROHO cushion in his wheelchair; however, he is spending most of his time in bed. Overall, the patient continues to show progress. He is adhering to his regimen. We will continue with the same program and reassess him here again in another 2 weeks. /[id number] MD WESLEY Farrell III/JEANETTE / WESLEY / MODL /[id number] Electronically signed by Emir Braun Conversion Bindery Library Technical Assistant Cerner at 10/17/2022 2:17 PM CDT documented in this encounter Plan of Treatment Not on file documented as of this encounter Visit Diagnoses Not on filedocumented in this encounter Care Teams Assembler Tester Relationship Specialty Start Date End Date Provider Not In System, [facility] PCP - General 05/02/22 Roxann Corona, RN Registered Nurse 05/16/22 Maddison Mcfadden DPM [address] [place] [address] Consulting Physician Podiatry 06/06/22 Roxann Corona, RN Registered Nurse 10/04/22 documented as of this encounter
--- OUTSIDE RECORDS SUMMARY | 2025-02-24 12:18 | XMS_ITS | Referral Summary ---
Author Organization [employer] ([place], [place], [place], [place]) Address [address] [place] [address] Care Team Providers Care Tractor Trailer Technician Name Role Phone Provider Not In System, [facility] Primary Care Provide r Unavailable Roxann Corona RN Unavailable Unavailab Maddison Beth DPM Unavailable [phone] Roxann Corona RN Unavailable Unavailab le Allergies [...] Active Active Problems No known active problems Social History Tobacco Use Types Packs/Day Years [...] Date Kamran rded Speak language other than Wolof at home Not on file 07/21/2023 Want [...] 05/02/2022 9:31 AM EDT Plan of Treatment Not on file Insurance [employer] Care Teams Tractor Trailer Technician Relationship Specialty Start Date End Date Provider Not In System, [facility] PCP - General 05/02/22 Roxann Corona, RN Registered Nurse 05/16/22 Maddison Mcfadden, DPBrian [address] [place], [place] [id number] [place] [address] Consulting Physician Podiatry 06/06/22 Roxann Corona, RN Registered Nurse 10/04/22
--- OUTSIDE RECORDS SUMMARY | 2025-02-24 12:18 | XMS_ITS | Encounter Summary ---
Author Organization [employer] ([place], [place], [place], [place]) Address [address] [place] [address] Care Team Providers Care Patternmaker Sample Name Role Phone Provider Not In System, McT Primary Care Provide r Unavailable Roxann Corona RN Unavailable Unavailab le Maddison Mcfadden DPM Unavailable [phone] Roxann Corona RN Unavailable Unavailab le Encounter Details Date Type Department Care Team (Late st Contact Info) Description 12/26/2019 Transcribed Document [facility] [place] [facility] [place] [address] ProviderMayte MD [address] [place] [address] Social History Tobacco Use Types Packs/Day Years Used Date Smoking Tobacco: Never Assessed Sex and Gender Information Value Date Recorded Sex Assigned at Male 12/30/2021 5:50 PM CDT Legal Sex Male 7:04 PM CDT Gender Identity Male 12/30/2021 5:50 PM CDT Sexual Orientation Not on file documented as of this encounter Miscellaneous Notes * Cerner Conversion Note - Mayte ProviderMD - 12/26/2019 5:00 PM CDT Chart Check - Review Order Profile Entered On: 12/26/2019 16:29 EDT Performed On: 12/26/2019 17:00 EDT by AUBREY WILCOX RN Chart Check Powerplans Initiated/Discontinued as Appropriate : Yes All Active Orders Reviewed : Yes AUBREY WILCOX RN - 12/26/2019 16:29 EDT Electronically signed by Aparna [facility] Conversion Integrated Logistics Support Manager Cerner at 10/17/2022 2:14 PM CDT documented in this encounter Plan of Treatment Not on file documented as of this encounter Visit Diagnoses Not on filedocumented in this encounter Care Teams Patternmaker Sample Relationship Specialty Start Date End Date Provider Not In System, [facility] PCP - General 05/02/22 Roxann Corona, RN Registered Nurse 05/16/22 Maddison Mcfadden DPM [address] [place] [address] Consulting Physician Podiatry 06/06/22 Roxann Corona, RN Registered Nurse 10/04/22 documented as of this encounter
--- OUTSIDE RECORDS SUMMARY | 2025-02-24 12:18 | XMS_ITS | Encounter Summary ---
Author Organization [employer] ([place], [place], [place], [place]) Address [address] [place] [address] Care Team Providers Care Digital Media Producer Name Role Phone Provider Not In System, McT Primary Care Provide r Unavailable Roxann Corona RN Unavailable Unavailab Maddison Beth DPM Unavailable [phone] Roxann Corona RN Unavailable Unavailab le Encounter Details Date Type Department Care Team (Late st Contact Info) Description 12/26/2019 Transcribed Document [place] [facility] [place] [address] ProviderMayte MD [address] [place] [address] Social History Tobacco Use Types Packs/Day Years Used Date Smoking Tobacco: Never Assessed Sex and Gender Information Value Date Recorded Sex Assigned at Male 12/30/2021 5:50 PM CDT Legal Sex Male 7:04 PM CDT Gender Identity Male 12/30/2021 5:50 PM CDT Sexual Orientation Not on file documented as of this encounter Miscellaneous Notes * Cerner Conversion Note - Historical ProviderMD - 12/26/2019 2:31 PM CDT Therapy Screen, PT Entered On: 12/26/2019 14:31 EDT Performed On: 12/26/2019 14:31 EDT by DALILA DE LEON PT Therapy Screen, PT Medical Chart Reviewed : Yes Screen Completed : Yes Recommendation for Evaluation, PT : None Additional Therapy Screen Comment : pt disch per chart review DALILA DE LEON PT - 12/26/2019 14:31 EDT documented in this encounter Plan of Treatment Not on file documented as of this encounter Visit Diagnoses Not on filedocumented in this encounter Care Teams Digital Media Producer Relationship Specialty Start Date End Date Provider Not In System, [facility] PCP - General 05/02/22 Roxann Corona, RN Registered Nurse 05/16/22 Maddison Mcfadden DPM [address] [place] [address] Consulting Physician Podiatry 06/06/22 Roxann Corona, RN Registered Nurse 10/04/22 documented as of this encounter
--- OUTSIDE RECORDS SUMMARY | 2025-02-24 12:18 | XMS_ITS | Encounter Summary ---
Author Organization [employer] ([place], [place], [place], [place]) Address [address] [place] [address] Care Team Providers Care Gaming Manager Name Role Phone Provider Not In System, McT Primary Care Provide r Unavailable Roxann Corona RN Unavailable Unavailab le Maddison Mcfadden DPM Unavailable [phone] Roxann Corona RN Unavailable Unavailab le Encounter Details Date Type Department Care Team (Late st Contact Info) Description 12/26/2019 Transcribed Document [facility] [place] [address] ProviderMayte MD [address] [place] [address] [id number] Social History Tobacco Use Types Packs/Day Years Used Date Smoking Tobacco: Never Assessed Sex and Gender Information Value Date Recorded Sex Assigned at Male 12/30/2021 5:50 PM CDT Legal Sex Male 7:04 PM CDT Gender Identity Male 12/30/2021 5:50 PM CDT Sexual Orientation Not on file documented as of this encounter Miscellaneous Notes * Cerner Conversion Note - Mayte ProviderMD - 12/26/2019 2:13 PM CDT Stroke/Warfarin Instructions Entered On: 12/26/2019 14:13 EDT Performed On: 12/26/2019 14:13 EDT by AUBREY WILCOX RN Stroke/Warfarin Instructions Stroke/TIA Discharge Ins : N/A Warfarin Discharge Ins : N/A AUBREY WILCOX RN - 12/26/2019 14:13 EDT documented in this encounter Plan of Treatment Not on file documented as of this encounter Visit Diagnoses Not on filedocumented in this encounter Care Teams Gaming Manager Relationship Specialty Start Date End Date Provider Not In System, [facility] PCP - General 05/02/22 Roxann Corona, RN Registered Nurse 05/16/22 Maddison Mcfadden DPM [address] [place] [address] Consulting Physician Podiatry 06/06/22 Roxann Corona, RN Registered Nurse 10/04/22 documented as of this encounter
--- OUTSIDE RECORDS SUMMARY | 2025-02-24 12:18 | XMS_ITS | Encounter Summary ---
Author Organization [employer] ([place], [place], [place], [place]) Address [address] [place] [address] Care Team Providers Care Director Of Player Personnel Name Role Phone Provider Not In System, McT Primary Care Provide r Unavailable Roxann Corona RN Unavailable Unavailab Maddison Beth DPM Unavailable [phone] Roxann Corona RN Unavailable Unavailab le Encounter Details Date Type Department Care Team (Late st Contact Info) Description 12/26/2019 Transcribed Document [facility] [place] [facility] [place] [address] ProviderMayte MD [address] [place] [address] Social History Tobacco Use Types Packs/Day [...] Historical ProviderMD - 12/26/2019 2:[address] [facility] Charges Entered On: 12/26/2019 14:31 EDT Performed On: 12/26/2019 14:31 EDT by DALILA DE LEON PT [facility] Physical Therapy Screen : 1 DALILA DE LEON PT - 12/26/2019 14:31 EDT Electronically signed by Aparna [facility] Conversion Locator Cerner at 10/17/2022 2:24 PM CDT documented in this encounter Plan of Treatment Not on file documented as of this encounter Visit Diagnoses Not on filedocumented in this encounter Care Teams Director Of Player Personnel Relationship Specialty Start Date End Date Provider Not In System, [facility] PCP - General 05/02/22 Roxann Corona, RN Registered Nurse 05/16/22 Maddison Mcfadden, DPM [address] [place] [address] Consulting Physician Podiatry 06/06/22 Roxann Corona, RN Registered Nurse 10/04/22 documented as of this encounter
--- OUTSIDE RECORDS SUMMARY | 2025-02-24 12:18 | XMS_ITS | Encounter Summary ---
Author Organization [employer] ([place], [place], [place], [place]) Address [address] [place] [address] Care Team Providers Care Finance Business Partner Name Role Phone Provider Not In System, McT Primary Care Provide r Unavailable Roxann Corona RN Unavailable Unavailab le Maddison Mcfadden DPM Unavailable [phone] Roxann Corona RN Unavailable Unavailab le Encounter Details Date Type Department Care Team (Late st Contact Info) Description 12/25/2019 Transcribed Document [facility] [place] [address] ProviderMayte MD [address] [place] [phone] Social History Tobacco Use Types Packs/Day Years Used Date Smoking Tobacco: Never Assessed Sex and Gender Information Value Date Recorded Sex Assigned at Male 12/30/2021 5:50 PM CDT Legal Sex Male 7:04 PM CDT Gender Identity Male 12/30/2021 5:50 PM CDT Sexual Orientation Not on file documented as of this encounter Miscellaneous Notes * Cerner Conversion Note - Mayte ProviderMD - 12/25/2019 9:50 AM CDT UM Authorization Entered On: 12/25/2019 9:50 EDT Performed On: 12/25/2019 9:50 EDT by CHELSY HENDERSON Rn-Utilization Review Primary Insurance Authorization Authorization and Policy Numbers : Insurance 1 Health Plan: [employer] Policy Number: [id number] Authorization Number: Insurance Primary Name : [employer] Policy Number: [id number] Authorization Status-Primary : Admit approved Reference Number-Primary : [id number] Number of Days Authorized-Primary : 1 Day(s) Authorized Service Begin Date-Primary : 12/24/2019 EDT Authorized Service End Date-Primary : 12/25/2019 EDT Historical Authorization Comments-Primary : Comment 1: Per John Ingraec Auth approved 12/23-12/24. (CHELYS HENDERSON, Rn-Utilization Review 12/25/2019 09:44) Comment 2: Submitted Inpt Auth on Availity with Pended status. RN reviewer has EMR access (CHELSY HENDERSON, Rn-Utilization Review 12/24/2019 08:39) CHLESY HENDERSON Rn-Utilization Review - 12/25/2019 9:50 EDT Electronically signed by Aparna [facility] Conversion Slubber Frame Changer Cerner at 10/17/2022 2:27 PM CDT documented in this encounter Plan of Treatment Not on file documented as of this encounter Visit Diagnoses Not on filedocumented in this encounter Care Teams Finance Business Partner Relationship Specialty Start Date End Date Provider Not In System, [facility] PCP - General 05/02/22 Roxann Corona, RN Registered Nurse 05/16/22 Maddison Mcfadden DPM [address] [place] [address] Consulting Physician Podiatry 06/06/22 Roxann Corona, RN Registered Nurse 10/04/22 documented as of this encounter
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
--- OUTSIDE RECORDS SUMMARY | 2025-02-24 12:18 | XMS_ITS | Encounter Summary ---
Author Organization [employer] ([place], [place], [place], [place]) Address [address] [place] [address] Care Team Providers Care Official Court Interpreter Name Role Phone Provider Not In System, McT Primary Care Provide r Unavailable Roxann Corona RN Unavailable Unavailab le Maddison Mcfadden DPM Unavailable [phone] Roxann Corona RN Unavailable Unavailab le Encounter Details Date Type Department Care Team (Late st Contact Info) Description 12/26/2019 Transcribed Document [facility] [place] [facility] [place] [address] ProviderMayte MD [address] [place] [address] Social History Tobacco Use Types Packs/Day [...] Note - Mayte ProviderMD - 12/26/2019 5:00 AM CDT Chart Check - Review Order Profile Entered On: 12/26/2019 8:31 EDT Performed On: 12/26/2019 5:00 EDT by Samina Franco RN Chart Check Powerplans Initiated/Discontinued as Appropriate : Yes All Active Orders Reviewed : Yes Samina Franco RN - 12/26/2019 8:31 EDT Electronically signed by Aparna [facility] Conversion Superintendent Distribution Cerner at 10/17/2022 2:15 PM CDT documented in this encounter Plan of Treatment Not on file documented as of this encounter Visit Diagnoses Not on filedocumented in this encounter Care Teams Official Court Interpreter Relationship Specialty Start Date End Date Provider Not In System, [facility] PCP - General 05/02/22 Roxann Corona, RN Registered Nurse 05/16/22 Maddison Mcfadden DPM [address] [place] [address] Consulting Physician Podiatry 06/06/22 Roxann Corona, RN Registered Nurse 10/04/22 documented as of this encounter
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
--- OUTSIDE RECORDS SUMMARY | 2025-02-24 12:18 | XMS_ITS | Encounter Summary ---
Author Organization [employer] ([place], [place], [place], [place]) Address [address] [place] [address] Care Team Providers Care Edge Trimmer Name Role Phone Provider Not In System, McT Primary Care Provide r Unavailable Roxann Corona RN Unavailable Unavailab Maddison Beth DPM Unavailable [phone] Roxann Corona RN Unavailable Unavailab le Encounter Details Date Type Department Care Team (Late st Contact Info) Description 12/26/2019 Transcribed Document [facility] [place] [facility] [place] [address] ProviderMayte MD [address] [place] [id number] Social History Tobacco Use Types Packs/Day Years Used Date Smoking Tobacco: Never Assessed Sex and Gender Information Value Date Recorded Sex Assigned at Male 12/30/2021 5:50 PM CDT Legal Sex Male 7:04 PM CDT Gender Identity Male 12/30/2021 5:50 PM CDT Sexual Orientation Not on file documented as of this encounter Miscellaneous Notes * Cerner Conversion Note - Mayte Giles MD - 12/26/2019 2:13 PM CDT Patient Education Materials Follows:Disease Sepsis, Self Care, Adult Sepsis is a serious illness that may require intensive care in the hospital. The following information explains what you need to know in order to manage your condition after you are discharged from the hospital. What are the risks? After being treated for sepsis and discharged from the hospital, you may be at a higher risk for certain problems. These problems may be physical or mental. Physical problems: ??? Weakness and tiredness. ??? Shortness of breath. ??? Pain in many areas of the body. ??? Difficulty walking. ??? Dry, itchy skin. ??? Lack of appetite. This may lead to weight loss. ??? Organ failure. Mental problems: ??? Difficulty sleeping. ??? Depression. ??? Confusion. ??? Anxiety and worry caused by having gone through a bad experience (post-traumatic stress disorder,PTSD). ??? Low self-esteem. Follow these instructions at home: Medicines ??? Take [id number] and prescription medicines only as told by your health care provider. ??? If you were prescribed an antibiotic, antiviral, or antifungal medicine, take it as told by your health care provider. Do not stop taking the medicine even if you start to feel better. Eating and drinking ??? Eat a healthy diet that includes plenty of vegetables, fruits, whole grains, low-fat dairy products, and lean protein. Ask your health care provider if you should avoid certain foods. ??? Drink enough fluid to keep your urine pale yellow. Alcohol use ??? Do not drink alcohol if: ? Your health care provider tells you not to drink. ? You are , may be , or are planning to become . ??? If you drink alcohol, limit how much you use to: ? 0?1 drink a day for women. ? 0?2 drinks a day for men. ? Be aware of how much alcohol is in your drink. In the [place] one drink equals one 12 oz bottle of beer (355 mL), one 5 oz glass of wine (148 mL), or one 1? oz glass of hard liquor (44 mL). Activity ??? Rest and gradually return to your normal activities. Ask your health care provider what activities are safe for you. ??? Avoid sitting for a long time without moving. Get up to take short walks every 1?2 hours. This is important to improve blood flow and breathing. Ask for help if you feel weak or unsteady. ??? Try to set small, achievable goals each week, such as dressing yourself, bathing, or walking up the stairs. It may take a while to rebuild your strength. ??? Try to exercise regularly if you feel healthy enough to do so. Ask your health care provider what exercises are safe for you. Preventing infection ??? Keep your vaccinations up to date. Get the flu shot every year. ??? Wash your hands often using soap and water. Use hand special procedure tech if soap and water are not available. ??? Practice good hygiene. Keep cuts clean and covered until healed. Managing stress Talk with your health care provider or counselor about ways to reduce stress. He or she may suggest: ??? Meditation, muscle relaxation, and breathing exercises. ??? Talk therapy. ??? Spending time on hobbies and activities that you enjoy. General instructions ??? Get the right amount and quality of sleep. Most adults need 7?9 hours of sleep each night. To help with sleep: ? Keep your bedroom cool and dark. ? Do not eat a heavy meal within one hour of bedtime. ? Do not drink alcohol or caffeinated drinks before bed. ? Avoid screen time, such as television, computers, tablets, or cell phones before bed. ??? Do not use any products that contain nicotine or tobacco, such as cigarettes, e-cigarettes, and chewing tobacco. If you need help quitting, ask your health care provider. ??? Talk to trusted family members and friends about your condition. Explain your symptoms to them, and let them know that you are working with a health care provider to treat your condition. This can provide you with one way to get support and guidance. ??? Keep all follow-up visits as told by your health care provider. This is important. Questions to ask your health care provider: ??? What physical and emotional changes do I need to report? Do I need to have someone with me all the time? Is it safe for me to drive? Contact a health care provider if you: ??? Do not feel like you are getting better or regaining strength. ??? Have muscle or joint pain. ??? Frequently feel tired. ??? Are having trouble coping with your recovery. ??? Have nightmares, or trouble falling asleep or staying asleep. ??? Feel sad, down, or depressed more often than not, every day for more than 2 weeks. ??? Have difficulty concentrating. ??? Feel irritable or you cry for no reason. Get help right away if you: ??? Have difficulty breathing. ??? Have a rapid or skipping heartbeat. ??? Become confused or disoriented. ??? See, hear, or feel things that do not exist (hallucinations). ??? Have a high fever. ??? Have an infection that is getting worse or not getting better. ??? You have thoughts of hurting yourself or others. If you ever feel like you may hurt yourself or others, or have thoughts about taking your own life, get help right away. You can go to your nearest emergency department or call: ??? Your local emergency services (911 in the [place] ??? A suicide crisis helpline, such as the National Suicide Prevention Lifeline at . This is open 24 hours a day. Summary ??? Sepsis is a serious illness that may require intensive care in a hospital. You may experience long-term health effects after you are discharged from the hospital. ??? Try to set small, achievable goals each week, such as dressing yourself, bathing, or walking up the stairs. It may take a while to rebuild your strength. ??? Keep all follow-up visits as told by your health care provider. This is important. ??? Know what symptoms you should get help right away for. This information is not intended to replace advice given to you by your health care provider. Make sure you discuss any questions you have with your health care provider. Document Released: 01/25/2019 Document Revised: 01/25/2019 Document Reviewed: 01/25/2019 [employer] Interactive Patient Education ? 2020 [employer]. documented in this encounter Plan of Treatment Not on file documented as of this encounter Visit Diagnoses Not on filedocumented in this encounter Care Teams Edge Trimmer Relationship Specialty Start Date End Date Provider Not In System, [facility] PCP - General 05/02/22 Roxann Corona, RN Registered Nurse 05/16/22 Maddison Mcfadden DPM [address] [place] [address] Consulting Physician Podiatry 06/06/22 Roxann Corona, RN Registered Nurse 10/04/22 documented as of this encounter
--- OUTSIDE RECORDS SUMMARY | 2025-02-24 12:18 | XMS_ITS | Encounter Summary ---
Author Organization [employer] ([place], [place], [place], [place]) Address [address] [place] [address] Care Team Providers Care Street Flusher Driver Name Role Phone Provider Not In System, McT Primary Care Provide r Unavailable Rxoann Corona RN Unavailable Unavailab Maddison Beth DPM Unavailable [phone] Roxann Corona RN Unavailable Unavailab le Encounter Details Date Type Department Care Team (Late st Contact Info) Description 12/26/2019 Transcribed Document [facility] [place] [facility] [place] [address] ProviderMayte MD [address] [place] [id number] Social History Tobacco Use Types Packs/Day Years Used Date Smoking Tobacco: Never Assessed Sex and Gender Information Value Date Recorded Sex Assigned at Male 12/30/2021 5:50 PM CDT Legal Sex Male 7:04 PM CDT Gender Identity Male 12/30/2021 5:50 PM CDT Sexual Orientation Not on file documented as of this encounter Miscellaneous Notes * Cerner Conversion Note - Mayte ProviderMD - 12/26/2019 2:00 AM CDT Diabetes Educator Details Entered On: 12/26/2019 8:31 EDT Performed On: 12/26/2019 2:00 EDT by Samina Franco RN Order Details Transport Mode Order Detail : Stretcher/Gurney Isolation Precautions Order Detail : Standard Precautions Order Detail : N/A IV Order Detail : 1 Oxygen Order Detail : 1 Nurse Collect Order Detail : 0 Lift/Transfer : Maximal assist Central Line Order Detail : No Room Service : Appropriate Arterial Line : No Samina Franco RN - 12/26/2019 8:30 EDT Electronically signed by Aparna [facility] Conversion Topper Press Operator Cerner at 10/17/2022 2:21 PM CDT documented in this encounter Plan of Treatment Not on file documented as of this encounter Visit Diagnoses Not on filedocumented in this encounter Care Teams Street Flusher Driver Relationship Specialty Start Date End Date Provider Not In System, [facility] PCP - General 05/02/22 Roxann Corona, RN Registered Nurse 05/16/22 Maddison Mcfadden DPM [address] [place] [address] Consulting Physician Podiatry 06/06/22 Roxann Corona, RN Registered Nurse 10/04/22 documented as of this encounter
--- OUTSIDE RECORDS SUMMARY | 2025-02-24 12:18 | XMS_ITS | Encounter Summary ---
Author Organization [employer] ([place], [place], [place], [place]) Address [address] [place] [address] Care Team Providers Care Steam Station Supervisor Name Role Phone Provider Not In System, McT Primary Care Provide r Unavailable Roxann Corona RN Unavailable Unavailab Maddison Beth DPM Unavailable [phone] Roxann Corona RN Unavailable Unavailab le Encounter Details Date Type Department Care Team (Late st Contact Info) Description 01/02/2020 Transcribed Document [facility] [place] [facility] [place] [address] ProviderMayte MD [address] [place] [address] [id number] Social History Tobacco Use Types Packs/Day Years Used Date Smoking Tobacco: Never Assessed Sex and Gender Information Value Date Recorded Sex Assigned at Male 12/30/2021 5:50 PM CDT Legal Sex Male 7:04 PM CDT Gender Identity Male 12/30/2021 5:50 PM CDT Sexual Orientation Not on file documented as of this encounter Miscellaneous Notes * Cerner Conversion Note - Historical ProviderMD - 01/02/2020 3:46 PM CDT DATE OF CONSULTATION: 01/02/2020 A 49-year-old paraplegic male we have been treating for a 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 We have been liberalizing his activity after his wound had seemingly closed. For the past 2 weeks, he was supposed to be spending several hours a day up in his wheelchair and also driving his vehicle some, so we could see how well his closure would endure in a more active environment. Unfortunately, part of the past 2 weeks were spent in the hospital with a complex urinary tract infection. Nevertheless, on examination today, the skin is still closed. He gets a bit of a crusty scale over some of the scar areas, but there is no weeping, no draining, no bleeding, and no visibly open tissue. Therefore, we will consider him to be closed. The next concern is working. He has been a full-time worker until he developed his pressure injury. Since then, he has been off work in order to comply with the offloading needs for sacral wound healing. Now, he wishes to return back to work. He did speak to his work and they are willing to offer him a six-hour work day to start back. His usual working day however has been a ten-hour workday. Therefore, I released him from Wound Care followup. A note was sent to his workplace saying that he may do a six-hour workday for one-calendar month. If there are no exacerbations and the wound stays closed, he may then increase to an eight-hour workday for the next calendar month. If there is no exacerbation through the second month, he may then return to his usual 10-hour work day. The patient is to come back to us promptly if there is any setback in his wound and it opens back up at all. The patient also has been on a group 2 therapeutic air mattress. He will now have to surrender that since his wound is closed. However, he would like to have the option to purchase the bed since he did like it and it would be an excellent prophylaxis for him. He will have to work that out with the [employer], but I certainly see the advantage of doing it. /[id number] MD WESLEY Farrell III/JEANETTE / WESLEY / MICKIL /[id number] documented in this encounter Plan of Treatment Not on file documented as of this encounter Visit Diagnoses Not on filedocumented in this encounter Care Teams Steam Station Supervisor Relationship Specialty Start Date End Date Provider Not In System, [facility] PCP - General 05/02/22 Roxann Corona, RN Registered Nurse 05/16/22 Maddiosn Mcfadden, DPM [address] [place] [address] Consulting Physician Podiatry 06/06/22 Roxann Corona, RN Registered Nurse 10/04/22 documented as of this encounter
--- OUTSIDE RECORDS SUMMARY | 2025-02-24 12:18 | XMS_ITS | Encounter Summary ---
Author Organization [employer] ([place], [place], [place], [place]) Address [address] [place] [address] Care Team Providers Care Real Estate Asset Manager Name Role Phone Provider Not In System, McT Primary Care Provide r Unavailable Roxann Corona RN Unavailable Unavailab le Maddison Mcfadden DPM Unavailable [phone] Roxann Corona RN Unavailable Unavailab le Encounter Details Date Type Department Care Team (Late st Contact Info) Description 12/26/2019 Transcribed Document [facility] [place] [facility] [place] [address] ProviderMayte MD [address] [place] [address] [id number] Social History Tobacco Use Types Packs/Day Years [...] Mayte ProviderMD - 12/26/2019 2:13 PM CDT Nursing Discharge Summary Entered On: 12/26/2019 14:13 EDT Performed On: 12/26/2019 14:13 EDT by AUBREY WILCOX, machine tailer Documentation Patient Disposition, General : Discharge Discharge To : Home with ambulatory/outpatient follow-up AUBREY WILCOX RN - 12/26/2019 14:13 EDT documented in this encounter Plan of Treatment Not on file documented as of this encounter Visit Diagnoses Not on filedocumented in this encounter Care Teams Real Estate Asset Manager Relationship Specialty Start Date End Date Provider Not In System, [facility] PCP - General 05/02/22 Roxann Corona, RN Registered Nurse 05/16/22 Maddison Mcfadden, DPBrian [address] [place] [address] Consulting Physician Podiatry 06/06/22 Roxann Corona, RN Registered Nurse 10/04/22 documented as of this encounter
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
--- OUTSIDE RECORDS SUMMARY | 2025-02-24 12:18 | XMS_ITS | Encounter Summary ---
Author Organization [employer] ([place], [place], [place], [place]) Address [address] [place] [address] Care Team Providers Care Curriculum Advisory Teacher Name Role Phone Provider Not In System, McT Primary Care Provide r Unavailable Roxann Corona RN Unavailable Unavailab le Maddison Mcfadden DPM Unavailable [phone] Roxann Corona RN Unavailable Unavailab le Encounter Details Date Type Department Care Team (Late st Contact Info) Description 12/26/2019 Transcribed Document [facility] [place] [facility] [place] [address] ProviderMayte MD [address] [place] [address] Social History Tobacco Use Types Packs/Day [...] Note - Mayte Giles MD - 12/26/2019 2:14 PM CDT [facility] [place] [address] [address] QUIÑONEZ :1970 Visit Time:12/24/2019 Your Visit Summary Your Care Team Admitting Physician - RANJAN ELLIS MD-EMR PHY, UNKNOWN AKASH GREY MD-FAM Attending Physician - RANJAN ELLIS MD-EMR ZOHARY, YASSER, MD-FAM Primary Care Physician - MADDISON, NOT LISTED Referring Physician - RANJAN ELLIS MD-EMR Your Diagnosis Acute UTI, Acute UTI Chills Paraplegia Sacral ulcer Sepsis, Sepsis, unspecified organism, Sepsis, unspecified organism Discharge Vitals Temperature 36.6 ??C Heart Rate (Monitored) 101 Respiratory Rate 18 Blood Pressure 167/96 What to do next Instructions From Your Care Team Discharge Activity: Discharge Activity: Activity as tolerated Diet: Discharge Diet: Resume usual diet as tolerated Follow-Up Appointments Follow Up with BENNY ROBINS When 01/06/2020 01:00 PM EDT Comments Appointment has been made Where: [address] [place] [address]- Business (1) Follow [facility] with [facility] When 01/02/2020 01:15 PM EDT Comments Appointment has been made Where: [address] [place] [address]- Follow Up with NATALI SYED MD When Within 1 week Comments Call for follow up appointment; office was closed on 12/25 Where: [address] [facility] [address] [place] [address]- Medications What How Much When Instructions Next Dose cefUROXIME (cefuroxime 500 mg oral tablet) 1 Tablet(s) Oral Two Times A Day Duration: 7 Day(s) Printed Prescription 12/25 potassium chloride (potassium chloride 10 mEq oral tablet, extended release) 1 Tablet(s) Oral Two Times A Day Duration: 14 Day(s) Printed Prescription 12/25 budesonide-formoterol (Symbicort 80 mcg-4.5 mcg/ inh inhalation aerosol) 2 Puff(s) Inhalation Two Times A Day hydrochlorothiazide-lisinopril (hydroCHLOROthiazide-lisinopril 12.5 mg-10 mg oral tablet) 1 Tablet(s) Oral Every Day 12/26 Take your medications faithfully. Do NOT skip medication. Do NOT stop taking medications without the direction of a physician. Carry a list of your medications with you at all times, and take this medication list with you to your first follow up visit. Report any side effects. Avoid herbal remedies unless discussed with your physician. As part of your treatment plan, your physician may have prescribed a limited course of a controlled substance. This medication may be given to help people with moderate or severe pain or for other medical conditions, but there are risks involved with treatment. Common side effects may include nausea, constipation, drowsiness, sweating, itching, dry mouth, and rash. More serious side effects may include cognitive and motor impairment, like problems with thinking, concentrating, alertness, and movement (e.g. slowed reflexes), and driving and operating heavy machinery can be dangerous. It is important for you to talk to your physician if you have these side effects or questions. These controlled substances can produce physical dependence and be habit-forming if taken for an extended period of time, which means that the body has gotten used to them and may experience withdrawal symptoms if they are abruptly stopped. Withdrawal symptoms can include runny nose, sweating, goose bumps, diarrhea, abdominal cramping, rapid heartbeat, difficulty sleeping, and nervousness. Please dispose of unused and medications per your retail pharmacy guidance. Allergies Macrodantin sulfa drugs Immunizations This Visit No Immunizations Found Education Materials Sepsis, Self Care, Adult Sepsis is a [...] these instructions at home: Medicines ??? Take axzx-rbo-oyrdsen and prescription medicines only as told by [...] limit how much you use to: ? 0???1 drink a day for women. ? 0???2 drinks a day for men. ? Be aware of how much alcohol is in your drink. In the [place] one drink equals one 12 oz bottle of beer (355 mL), one 5 oz glass of wine (148 mL), or one 1?? oz glass of hard liquor (44 mL). Activity ??? Rest and gradually return to your normal activities. Ask your health care provider what activities are safe for you. ??? Avoid sitting for a long time without moving. Get up to take short walks every 1???2 hours. This is important to improve blood [...] often using soap and water. Use hand carpet mechanic if soap and water are not available. [...] and quality of sleep. Most adults need 7???9 hours of sleep each night. To help [...] 01/25/2019 Document Revised: 01/25/2019 Document Reviewed: 01/25/2019 [employer] Interactive Patient Education ?? 2020 [employer]. Emergency Awareness and Preventative Care STROKE is an EMERGENCY Every Minute Counts Act FAST and Check for these signs: FACE Does the face look uneven? ARM Does one arm drift down? SPEECH Does their speech sound strange? TIME Call at any sign of stroke Stroke Risk Factors Atrial Fibrillation (irregular heartbeat) Diabetes Family history of stroke Heart Disease Heavy alcohol use High Blood Pressure High Cholesterol Physical inactivity and obesity Smoking Cigarette Smoking The facts are clear, cigarette smoking will shorten your life. Smoking can cause many illnesses along the way. As a healthcare provider, we recommend that you stop smoking. Assistance with quitting is available by contacting 8-413-VZCW-NOW. This is a free resource providing counseling, support, and referral. Or you may contact your personal physician. National Suicide Prevention Lifeline: The National Suicide Prevention Lifeline is a national network of local crisis centers that provides free and confidential emotional support to people in suicidal crisis or emotional distress 24 hours a day, 7 days a week. Don't Wait! Stop a Heart Attack Before it Starts What is a heart attack? A heart attack is damage or to a part of the heart from severely decreased or lack of blood flow to the heart. Over time, arteries can become narrow from the buildup of fat and cholesterol, which is called plaque. The plaque can rupture causing a blood clot to form. When the blood clot forms, the artery can become severely narrowed or completely blocked, causing a heart attack. Heart attack is the leading cause of in the [place]. 85% of muscle damage occurs within the first 2 hours. Delay in the recognition of heart attack symptoms increases the chances of . Know the early symptoms of a heart attack: Nausea Feeling of fullness in chest Jaw Pain Pain that travels down one or both arms Fatigue/being tired Anxiety Back Pain Chest pressure, squeezing, or discomfort Shortness of breath Sweating, or a cold sweat Feeling of impending doom There are unusual signs of a heart attack, too! Women, the elderly, and diabetics may present with atypical symptoms: Fainting/dizziness Weakness Confusion Risk Factors for a Heart Attack Some heart disease risk factors, such as age and family history, cannot be changed. Others, like smoking and lack of exercise, can be changed. Smoking High Cholesterol High Blood Pressure Family History Obesity Age Gender (Males are at higher risk) Lack of Exercise Diabetes Diet Stress Excessive Alcohol Intake If you or someone you know is experiencing the signs and symptoms of a heart attack, DON???T DELAY. Call immediately and seek help. If someone collapses, perform CPR! Do not attempt to drive if you are having symptoms of heart attack. Hands-Only CPR Why Hands-Only CPR? Hands-Only CPR has been shown to be as effective as conventional CPR for cardiac arrests that occur outside of a hospital. Survival depends on immediately receiving CPR from someone nearby. How do you perform Hands-Only CPR? There are two easy steps: Call if you see a teen or adult collapse Push hard and fast in the center of the chest at a beat of 100 beats per minute. Save a life! 4 WAYS TO GET AHEAD OF SEPSIS SEPSIS is a MEDICAL EMERGENCY. Time matters! Infections put you and your family at risk for a life-threatening condition called sepsis. Sepsis is the body's extreme response to an infection. It is life-threatening, and without timely treatment, sepsis can rapidly lead to tissue damage, organ failure, and . Sepsis happens when an infection you already have-in your skin, lungs, urinary tract or somewhere else-triggers a chain reaction throughout your body. 1 PREVENT INFECTIONS Take good care of chronic conditions. Talk to your doctor about getting the recommended vaccines. 2 PRACTICE GOOD HYGIENE Wash your hands frequently. Keep cuts or open sores clean and covered until they are healed. 3 KNOW THE SYMPTOMS Confusion or disorientation Shortness of breath High heart rate Fever, shivering, or feeling very cold Extreme pain or discomfort Clammy or sweaty skin 4 ACT FAST Get medical care IMMEDIATELY if you suspect sepsis or if you have an infection that is not getting better or is getting worse. To learn more about sepsis and how to prevent infections, visit www.cdc.gov/sepsis. Test Results Laboratory or Other Results This Visit (last charted value for your 12/24/2019 visit) Hematology 12/26/2019 5:57 AM WBC: 8.5 K/uL -- Normal range between ( 3.6 and 9.5 ) RBC: 4.69 Million/uL -- Normal range between ( 4.20 and 5.70 ) Hct: 40.2 % -- Normal range between ( 40.1 and 51.0 ) Hgb: 13.1 g/dL -- Normal range between ( 13.5 and 17.3 ) Platelet Count: 194 K/uL -- Normal range between ( 163 and 369 ) MCH: 27.9 pg -- Normal range between ( 25.6 and 32.2 ) MCHC: 32.6 Gram/dL -- Normal range between ( 32.2 and 36.5 ) MCV: 85.7 fL -- Normal range between ( 79.0 and 94.8 ) ALYC #: 1 K/uL RBC Morphology: Abnormal RDW: 15.4 % -- Normal range between ( 11.7 and 14.9 ) ANC #: 7 K/uL Bowman Percent Man: 5 % -- Normal range between ( 4 and 5 ) Baso Percent Man: 0 % -- Normal range between ( 0 and 1 ) Neutrophil Percent Man: 79 % -- Normal range between ( 50 and 65 ) Eos Percent Man: 4 % -- Normal range between ( 0 and 3 ) Anisocytosis: 1+ Platelet Ct Estimate: Adequate MPV: 10.5 fL -- Normal range between ( 9.4 and 12.4 ) Lymph Percent Man: 12 % -- Normal range between ( 24 and 44 ) 12/25/2019 4:12 AM Slide Review: No Eos %: 1.8 % -- Normal range between ( 0.0 and 7.0 ) Bowman #: 1.20 K/uL -- Normal range between ( 0.16 and 1.00 ) Eos #: 0.18 x10(3)/uL -- Normal range between ( 0.00 and 0.80 ) Bowman %: 12.3 % -- Normal range between ( 3.0 and 9.0 ) Baso %: 0.5 % -- Normal range between ( 0.0 and 1.5 ) Baso #: 0.05 x10(3)/uL -- Normal range between ( 0.00 and 0.20 ) Neut %: 74.4 % -- Normal range between ( 34.0 and 71.0 ) Neut #: 7.24 K/uL -- Normal range between ( 1.56 and 6.13 ) Lymph %: 10.5 % -- Normal range between ( 19.3 and 53.1 ) Lymph #: 1.02 x10(3)/uL -- Normal range between ( 1.00 and 3.90 ) IG#: 0.05 x10(3)/uL -- Normal range between ( 0.00 and 0.05 ) IG%: 0.50 % -- Normal range between ( 0.00 and 0.60 ) 12/24/2019 6:21 AM Band Percent Man: 9 % -- Normal range between ( 5 and 11 ) Ovalocytes: 1+ Urinalysis 12/23/2019 1:49 AM Specimen Type, Urine POC: Urine 12/23/2019 1:32 AM Ur RBC: 2-5 /HPF Urine Nitrite: Negative Urine Leukocyte Esterase: Large Urine Appearance: Cloudy Urine Glucose Dipstick: Negative Urine Blood Dipstick: Moderate Urine Type: U CleanCatch Urine Urobilinogen Dipstick: 2.0 EU/dL Urine Protein Dipstick: 30 Ur Amorph: 1+ Ur Bacteria: 2+ Ur WBC Clumps: Present Urine Color: Yellow Ur WBC: 50-100 /HPF Urine Ketones Dipstick: Negative Ur Mucous: Trace Urine pH Dipstick: 6.0 -- Normal range between ( 6.0 and 8.0 ) Urine Bilirubin Dipstick: Negative Urine Specific [place]: 1.012 -- Normal range between ( 1.005 and 1.030 ) Microbiology 12/23/2019 8:52 AM Wound Culture: POS 12/23/2019 5:00 AM Influenza A: Not Detected Respiratory Syncytial Virus: Not Detected Influenza B: Not Detected Influenza A H3: Not Detected Parainfluenza 3: Not Detected Influenza A H1: Not Detected Rhinovirus/Enterovirus: Not Detected Human metapneumovirus: Not Detected Parainfluenza 1: Not Detected Parainfluenza 2: Not Detected Adenovirus: Not Detected Parainfluenza 4: Not Detected Bordatella pertussis: Not Detected Coronavirus HKU1: Not Detected Coronavirus NL63: Not Detected Coronavirus OC43: Not Detected Coronavirus 229E: Not Detected Influenza A 2009 H1N1: Not Detected Mycoplasma pneumoniae: Not Detected Chlamydia pneumoniae: Not Detected Novel Coronavirus 2019: Negative 12/23/2019 1:32 AM Influenza A+B Antigen: See Result Urine Culture: POS Rapid Strep Test: See Result Strep A Screen: See Result General Chemistry 12/26/2019 5:57 AM Creatinine Level: 0.60 mg/dL -- Normal range between ( 0.70 and 1.30 ) Sodium Level: 139 mmol/L -- Normal range between ( 136 and 146 ) Potassium Level: 3.9 mmol/L -- Normal range between ( 3.5 and 5.1 ) Chloride Level: 108 mmol/L -- Normal range between ( 102 and 112 ) Carbon Dioxide Level: 28 mmol/L -- Normal range between ( 21 and 32 ) Anion Gap: 7 -- Normal range between ( 9 and 20 ) Bilirubin Total: 0.8 mg/dL -- Normal range between ( 0.2 and 1.2 ) A/G Ratio: 0.6 -- Normal range between ( 1.1 and 2.5 ) ALT: 45 Units/Liter -- Normal range between ( 16 and 61 ) AST: 25 Units/Liter -- Normal range between ( 5 and 37 ) Globulin: 4.2 Gram/dL -- Normal range between ( 1.5 and 4.5 ) Alk Phos: 65 Units/Liter -- Normal range between ( 27 and 136 ) Bun/Creatinine: 21.7 -- Normal range between ( 8.0 and 20.0 ) Calcium Level: 8.4 mg/dL -- Normal range between ( 8.4 and 10.1 ) CRP: 7.2 mg/dL -- Normal range between ( 0.0 and 0.9 ) eGFR : >60 mL/min/1.73m2 eGFR NonAfrican: >60 mL/min/1.73m2 Glucose Level: 115 mg/dL -- Normal range between ( 74 and 106 ) Magnesium Level: 2.2 mg/dL -- Normal range between ( 1.5 and 2.4 ) Blood Urea Nitrogen: 13 mg/dL -- Normal range between ( 7 and 22 ) Lactic Acid Level: 0.9 mmol/L -- Normal range between ( 0.4 and 2.0 ) Protein Total: 6.9 Gram/dL -- Normal range between ( 6.4 and 8.2 ) Albumin Level: 2.7 Gram/dL -- Normal range between ( 3.4 and 5.0 ) 12/25/2019 4:44 PM Glucose POC2: 130 mg/dL -- Normal range between ( 70 and 110 ) Device Comment 1: Device Comment 1 12/23/2019 1:32 AM Phosphorus: 0.9 mg/dL -- Normal range between ( 2.5 and 4.9 ) Lipase Level: 82 Units/Liter -- Normal range between ( 73 and 393 ) Cardiac Specific Markers 12/24/2019 6:21 AM CK: 39 Units/Liter -- Normal range between ( 39 and 308 ) Coagulation 12/23/2019 1:32 AM INR: 1.1 -- Normal range between ( 0.9 and 1.1 ) PT: 11.9 Second(s) -- Normal range between ( 9.6 and 12.0 ) Endocrinology 12/26/2019 5:57 AM Procalcitonin: 1.08 ng/mL -- Normal range between ( 0.00 and 2.00 ) 12/23/2019 1:32 AM TSH: 0.761 mcInt Units/mL -- Normal range between ( 0.358 and 3.740 ) Diagnostic Radiology 12/23/2019 1:40 AM CR Chest 1 Vw Portable: CR Chest 1 Vw Portable Patient Name:MARTIN BAUER I have received and understand this information and was given the opportunity to ask questions. Patient/Manager Hospitality Name: Patient/Manager Hospitality Signature: Relationship to Patient: Clinician/Hospital Manager Hospitality Signature: Date: documented in this encounter Plan of Treatment Not on file documented as of this encounter Visit Diagnoses Not on filedocumented in this encounter Care Teams Curriculum Advisory Teacher Relationship Specialty Start Date End Date Provider Not In System, [facility] PCP - General 05/02/22 Roxann Corona, RN Registered Nurse 05/16/22 Maddison Mcfadden DPM [address] [place] [address] Consulting Physician Podiatry 06/06/22 Roxann Corona, RN Registered Nurse 10/04/22 documented as of this encounter
--- OUTSIDE RECORDS SUMMARY | 2025-02-24 12:18 | XMS_ITS | Encounter Summary ---
Author Organization [employer] ([place], [place], [place], [place]) Address [address] [place] [address] Care Team Providers Care Certified Home Health Aide Name Role Phone Provider Not In System, McT Primary Care Provide r Unavailable Roxann Corona RN Unavailable Unavailab le Maddison Mcfadden DPM Unavailable [phone] Roxann Corona RN Unavailable Unavailab le Encounter Details Date Type Department Care Team (Late st Contact Info) Description 12/26/2019 Transcribed Document [facility] [place] [facility] [place] [address] ProviderMayte MD [address] [place] [id number] Social History Tobacco Use Types Packs/Day Years Used Date Smoking Tobacco: Never Assessed Sex and Gender Information Value Date Recorded Sex Assigned at Male 12/30/2021 5:50 PM CDT Legal Sex Male 7:04 PM CDT Gender Identity Male 12/30/2021 5:50 PM CDT Sexual Orientation Not on file documented as of this encounter Miscellaneous Notes * Cerner Conversion Note - Mayte ProviderMD - 12/26/2019 2:25 PM CDT [facility] Authorization Entered On: 12/26/2019 14:25 EDT Performed On: 12/26/2019 14:25 EDT by Ruma Rosales Rn-Utilization Review Primary Insurance Authorization Authorization and Policy Numbers : Insurance 1 Health Plan: [employer] Policy Number: [id number] Authorization Number: Insurance Primary Name : [employer] Policy Number: [id number] Authorization Status-Primary : Admit approved Reference Number-Primary : [id number] Number of Days Authorized-Primary : 1 Day(s) Authorized Service Begin Date-Primary : 12/24/2019 EDT Authorized Service End Date-Primary : 12/25/2019 EDT Historical Authorization Comments-Primary : Comment 1: Per John Ingrace Auth approved 12/23-12/24. (CHELSY HENDERSON, Rn-Utilization Review 12/25/2019 09:44) Comment 2: Submitted Inpt Auth on Availity with Pended status. RN reviewer has EMR access (CHELSY HENDERSON, Rn-Utilization Review 12/24/2019 08:39) Ruma Rosales Rn-Utilization Review - 12/26/2019 14:25 EDT Electronically signed by [facility] Conversion Frame Table Operator Cerner at 10/17/2022 2:29 PM CDT documented in this encounter Plan of Treatment Not on file documented as of this encounter Visit Diagnoses Not on filedocumented in this encounter Care Teams Certified Home Health Aide Relationship Specialty Start Date End Date Provider Not In System, [facility] PCP - General 05/02/22 Roxann Corona, RN Registered Nurse 05/16/22 Maddison Mcfadden, DPM [address] [place] [address] Consulting Physician Podiatry 06/06/22 Roxann Corona, RN Registered Nurse 10/04/22 documented as of this encounter
--- NOTE | 2025-02-24 12:20 | PC.NURSE ---
Notified Ivonne in resp that a green top was sent for a VBG
[2025-02-24 12:22] LABS: Coronavirus 19, PCR Not Detected (NotDetected); Influenza A, PCR Not Detected (NotDetected); Influenza B, PCR Not Detected (NotDetected)
[2025-02-24 12:28] LABS: Hematocrit 45.6 % (42.0-52.0); Hemoglobin 15.3 g/dL (14.1-18.0); Immature Granulocytes % 0.5 %; Mean Corpuscular HGB Conc 33.6 g/dL (31.8-35.4); Mean Corpuscular Hemoglobin 29.2 pg (27.0-31.2); Mean Corpuscular Volume 87.0 fl (80-94); Nucleated Red Blood Cells % 0 %; Platelet Count 281 K/mm3 (142-424); Red Blood Count 5.24 M/mm3 (4.60-6.20); Red Cell Distribution Width-SD 47.9 fL; White Blood Count 19.0 K/mm3 (4.8-10.8)
[2025-02-24 12:41] LABS: Alanine Aminotransferase 30 U/L (12-78); Albumin Level 4.8 g/dl (3.5-5.0); Albumin/Globulin Ratio 1.5 (1.1-1.8); Alkaline Phosphatase 82 U/L (38-126); Anion Gap 16.2 mEq/L (5-15); Aspartate Amino Transferase 27 U/L (17-59); Bilirubin,Total 1.0 mg/dl (0.2-1.3); Blood Urea Nitrogen 16 mg/dl (9-20); Calcium 9.1 mg/dl (8.4-10.2); Carbon Dioxide 26 mmol/L (22.0-30.0); Chloride 99 mmol/L (98-107); Creatinine Clearance Estimated 141 mL/min (50-200); Creatinine,Serum 0.80 mg/dl (0.66-1.25); Estimated Glomerular Filt Rate 100 ml/min (>60); GFR (African American) 121 ML/MIN (>60); Globulin 3.3 g/dL (1.3-3.2); Glucose 158 mg/dl (74-100); Potassium 4.2 mmoL/L (3.5-5.1); Sodium 137 mmol/L (136-145); Total Protein,Serum 8.1 g/dl (6.3-8.2)
[2025-02-24 12:43] LABS: Microscopic, Urine URINE MICROSCOPIC (MICROSCOPIC)
[2025-02-24 12:46] LABS: C-Reactive Protein 56.3 mg/L (0-4)
--- NOTE | 2025-02-24 12:46 | PC.NURSE ---
pt. stated nothing was needed at this time
[2025-02-24 12:59] LABS: Bilirubin,Urine Negative (Negative); Color,Urine YELLOW (Yellow); Glucose,Urine (UA) Negative (Negative); Ketones,Urine Negative (Negative); Leukocyte Esterase,Urine 3+ (Negative); PH,Urine 6.0 (5.0-8.5); Protein,Urine Negative (Negative); Specific Gravity, Urine 1.015 (1.005-1.030); Urobilinogen,Urine 1.0 EU/dl (0.2)
[2025-02-24 13:17] LABS: WBC,Urine TNTC #/hpf (0-3)
[2025-02-24 13:18] LABS: Bacteria,Urine 1+ /lpf
--- NOTE | 2025-02-24 13:27 | PC.NURSE ---
reached out to the hospitalist about possible admission, waiting to hear back.
[2025-02-24] MEDS: LEVOFLOXACIN/D5W 750 MG/150 ML 750 MG/150 ML PIGGYBACK 100 MG IV (13:30)
--- NOTE | 2025-02-24 13:44 | PC.NURSE ---
is speaking with about possible admission.
--- NOTE | 2025-02-24 13:51 | PC.NURSE ---
HS notified of the need for a bed to admit the pt to for sepsis/UTI
--- NOTE | 2025-02-24 14:10 | PC.NURSE ---
Attempted to call report to Med-Surg, Nurse states she will have to call me back. Awaiting return call.
--- NOTE | 2025-02-24 14:13 | HMH.PHAINT1 ---
Pharmacy Intervention Comments: MEDICATION RECONCILIATION COMPLETED ON PATIENT USING EXTERNAL FILL HISTORY FROM PHARMACY AND LIST FROM CARDIOLOGY OFFICE. -SHAINA GARY, PAULINED
--- NOTE | 2025-02-24 14:42 | PC.NURSE ---
Patient report called to Tatiana Casey RN
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
--- NOTE | 2025-02-24 15:53 | PC.WOUNDNOTE ---
REDDENED AREA NOTED TO TOP OF RIGHT OUTER HIP.
--- NOTE | 2025-02-24 22:12 | PC.NURSE ---
straight cath @2100. 375ml urine drained from bladder.
[2025-02-25] VITALS: BP 104/53; PULSE 96; RESP 16; TEMP 36.5; O2SAT 94
[2025-02-25 04:00] VITALS: BP 129/61; PULSE 86; RESP 16; TEMP 36.8; O2SAT 96; BMI 33.0
[2025-02-25 05:51] LABS: Hematocrit 41.5 % (42.0-52.0); Hemoglobin 13.8 g/dL (14.1-18.0); Immature Granulocytes % 0.3 %; Mean Corpuscular HGB Conc 33.3 g/dL (31.8-35.4); Mean Corpuscular Hemoglobin 29.1 pg (27.0-31.2); Mean Corpuscular Volume 87.6 fl (80-94); Nucleated Red Blood Cells % 0 %; Platelet Count 237 K/mm3 (142-424); Red Blood Count 4.74 M/mm3 (4.60-6.20); Red Cell Distribution Width-SD 49.0 fL; White Blood Count 17.5 K/mm3 (4.8-10.8)
[2025-02-25] MEDS: SITAGLIPTIN 50MG TABLET 100 MG PO (06:01)
[2025-02-25 06:03] LABS: Albumin Level 4.0 g/dl (3.5-5.0); Chloride 105 mmol/L (98-107); Potassium 3.5 mmoL/L (3.5-5.1); Sodium 137 mmol/L (136-145)
[2025-02-25 06:05] LABS: Alanine Aminotransferase 21 U/L (12-78); Anion Gap 11.5 mEq/L (5-15); Aspartate Amino Transferase 27 U/L (17-59); Blood Urea Nitrogen 22 mg/dl (9-20); Carbon Dioxide 24 mmol/L (22.0-30.0); Creatinine Clearance Estimated 167 mL/min (50-200); Creatinine,Serum 0.70 mg/dl (0.66-1.25); Estimated Glomerular Filt Rate 117 ml/min (>60); GFR (African American) 142 ML/MIN (>60)
[2025-02-25 06:06] LABS: Albumin/Globulin Ratio 1.3 (1.1-1.8); Alkaline Phosphatase 69 U/L (38-126); Bilirubin,Total 1.2 mg/dl (0.2-1.3); Calcium 8.7 mg/dl (8.4-10.2); Cholesterol 117 mg/dl (140-200); Globulin 3.0 g/dL (1.3-3.2); Glucose 133 mg/dl (74-100); HDL Cholesterol 28 mg/dl (40-60); Total Protein,Serum 7.0 g/dl (6.3-8.2); Triglycerides 84 mg/dl (30-150)
[2025-02-25 06:44] LABS: RBC Morphology Normal; Total Cells Counted 100
[2025-02-25 08:00] VITALS: BP 135/58; PULSE 100; RESP 18; TEMP 36.7; O2SAT 98
--- NOTE | 2025-02-25 08:03 | PC.NURSE ---
Urine culture results forwarded to hospitalist.
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
[2025-02-25] MEDS: METOPROLOL SUCCINATE XL 25MG TABLET 25 MG PO (09:41)
[2025-02-25] MEDS: LISINOPRIL 20MG TABLET 40 MG PO (09:41)
[2025-02-25] MEDS: AMLODIPINE 5MG TABLET 5 MG PO (09:41)
[2025-02-25] MEDS: EMPAGLIFLOZIN 10MG TABLET 10 MG PO (09:41)
[2025-02-25] MEDS: ALLOPURINOL 300MG TABLET 300 MG PO (09:41)
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
[2025-02-25 12:23] VITALS: BP 145/75; PULSE 69; RESP 15; TEMP 36.9; O2SAT 95
[2025-02-25] MEDS: LEVOFLOXACIN/D5W 750 MG/150 ML 750 MG/150 ML PIGGYBACK 100 MG IV (13:21)
[2025-02-25 15:12] VITALS: BMI 33.0
[2025-02-25 16:00] VITALS: BP 139/76; PULSE 93; RESP 18; TEMP 37.3; O2SAT 95
--- NOTE | 2025-02-25 16:49 | PC.NURSE ---
PT IS RESTING IN BED. ALERT AND ORIENTED X4. EATING AND DRINKING WELL. TURNED AND REPOSITIONED IN BED. OPEN AREA NOTED TO RIGHT HIP WITH DRESSING C/D/I. REDNESS NOTED TO BUTTOCKS. LUNG SOUNDS CLEAR. ABDOMEN SOFT/NON TENDER WITH ACTIVE BOWEL SOUNDS. VSS. PT WAS STRAIGHT CATHED AT 1330 (200 ML'S UOP). WILL CONTINUE TO MONITOR.
[2025-02-25 19:53] VITALS: BP 143/87; PULSE 93; RESP 16; TEMP 36.8; O2SAT 97
[2025-02-26] VITALS: BP 126/77; PULSE 83; RESP 16; TEMP 36.9; O2SAT 92
[2025-02-26 04:00] VITALS: BP 139/68; PULSE 80; RESP 16; TEMP 36.4; O2SAT 97; BMI 33.0
--- NOTE | 2025-02-26 05:47 | PC.NURSE ---
No acute changes over night. pt rested well with home CPAP in place. VSS. Call light in reach
[2025-02-26] MEDS: SITAGLIPTIN 50MG TABLET 100 MG PO (06:00)
--- NOTE | 2025-02-26 06:41 | PC.NURSE ---
bed bath competed. pt washed his hair and brushed his teeth. Gown, brief, and chux changed.
[2025-02-26 07:39] VITALS: BP 142/82; PULSE 88; RESP 16; TEMP 36.5; O2SAT 97
[2025-02-26] MEDS: METOPROLOL SUCCINATE XL 25MG TABLET 25 MG PO (08:26)
[2025-02-26] MEDS: EMPAGLIFLOZIN 10MG TABLET 10 MG PO (08:26)
[2025-02-26] MEDS: ALLOPURINOL 300MG TABLET 300 MG PO (08:26)
[2025-02-26] MEDS: AMLODIPINE 5MG TABLET 5 MG PO (08:26)
[2025-02-26] MEDS: LISINOPRIL 20MG TABLET 40 MG PO (08:26)
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
[2025-02-26 09:25] LABS: Hematocrit 40.9 % (42.0-52.0); Hemoglobin 14.0 g/dL (14.1-18.0); Immature Granulocytes % 0.6 %; Mean Corpuscular HGB Conc 34.2 g/dL (31.8-35.4); Mean Corpuscular Hemoglobin 30.0 pg (27.0-31.2); Mean Corpuscular Volume 87.8 fl (80-94); Nucleated Red Blood Cells % 0 %; Platelet Count 244 K/mm3 (142-424); Red Blood Count 4.66 M/mm3 (4.60-6.20); Red Cell Distribution Width-SD 49.9 fL; White Blood Count 11.5 K/mm3 (4.8-10.8)
--- NOTE | 2025-02-27 11:43 | SW/DCPLANNER ---
Spoke with patient on the phone. Patient stated that he is doing good. Patient stated that he is aware of his upcoming appointment. Patient stated that he was able to get his new medicine picked up. Patient stated that he has no concerns or quesitons at this time. Krzysztof Desai
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
== END 2025-02-26 11:26 | disposition home or self-care (01) ==
LOC: ER 13:21 → 2ND 14:03
PROVIDERS: Admitting Provider Family Medicine; Emergency Provider Student in an Organized Health Care Education/Training Program; PCP Family Medicine; Visit Provider Family Medicine
DX: N39.0 Urinary tract infection, site not specified (principal); A41.9 Sepsis, unspecified organism; G82.20 Paraplegia, unspecified; E11.9 Type 2 diabetes mellitus without complications; I11.9 Hypertensive heart disease without heart failure; G47.33 Obstructive sleep apnea (adult) (pediatric); E78.5 Hyperlipidemia, unspecified; I25.10 Atherosclerotic heart disease of native coronary artery without angina pectoris; R00.0 Tachycardia, unspecified; B96.20 Unspecified Escherichia coli [E. coli] as the cause of diseases classified elsewhere; Z87.891 Personal history of nicotine dependence; Z88.1 Allergy status to other antibiotic agents; Z88.0 Allergy status to penicillin; Z88.2 Allergy status to sulfonamides; Z88.8 Allergy status to other drugs, medicaments and biological substances; Z79.84 Long term (current) use of oral hypoglycemic drugs; Z79.899 Other long term (current) drug therapy; J45.909 Unspecified asthma, uncomplicated
CPT/HCPCS: 36415; 80053; 80061; 81001; 83605; 85007; 85025; 85027; 86140; 87040; 87086; 87088; 87186; 87636; 96365; 96366; 97162; 97166; 99284; G0378; J1956

== ENCOUNTER 2025-03-02 11:08 | Inpatient (IN) | payer BC, SELFPAY ==
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
--- OUTSIDE RECORDS SUMMARY | 2024-01-23 07:15 | XMS_ITS ---
Author Organization [facility] Address 1210 [facility] [address] [place] [id number] Care Team Providers Care Senior Hardware Engineer Name Role Phone Cherelle Diego Primary Care Provider [phone] Dinora Davies Unavailable [phone] Allergies Allergen (clinical drug ingredient) Drug/Non Drug Allergy documented on EMR Reaction Allergy Type Onset Date Status Information temporarily unavailable Bactrim DS Unknown Drug Allergy Active Information temporarily unavailable Cephalexin Unknown Drug Allergy Active Information temporarily unavailable Ciprofloxacin Unknown Drug Allergy Active Information temporarily unavailable Macrodantin Unknown Drug Allergy Active Information temporarily unavailable Cefuroxime rash Drug Allergy Active Results Component Value Reference Range Notes CBC [...] day Active CATHETER SELF-CATHETER 14FR - [facility]N [facility] A4352, In&out Urinary catheters 14 Haitian Quad tip 03/16/2022 Active cloNIDine HCl 0.1 [...] Encounter Location Date Provider Diagnosis [facility] 1210 [facility] [address] [place] [id number] 01/23/2024 Dinora Davies Essential hypertensi on I10 [...] code A4352 , In&out Urinary catheters 14 Haitian Quad tip cloNIDine HCl 0.1 MG 1 [...] Name:Jorge Charles er, 03/10/2025 04:00:00 PM, [address], [address], [place], [place], [id number], Progress Notes * LATANYA BAUEROB:1970 ([age] yo M)Acc No.[id number]:01/23/2024 Progress Notes Patient: JOSELINE LUTHER Provider: TIARA Ruiz :1970 A ge:54 Y S ex:Male Date:01/23/2024 Address:[address] [place] [address] , [facility] Pcp:Cherelle Diego Subjective: * Chief Complaints: * [...] sent to [facility], fax number is [phone]. * ROS: D ERMATOLOGY: no R eleni. [...] 14FR - PRN , Notes to Pharmacist: [facility] code A4352, In&out Urinary catheters 14 Haitian Quad tip *Please review for potential replacement [...] *Please review and pick correct strength-formulation from [employer] options. If intended option is not shown, [...] [facility] code A4352, In&out Urinary catheters 14 Haitian Quad tip. 3. M ild intermittent asthma [...] p lat 162 100 - 400 * EdCarmen 01/23/2024 12:0 7:01 PM > results reviewed w/ pt in office * Procedure Codes: 9 4760 [place], [address] CAPILLARY BLOOD DRAW, 60003 CBC WITH AUTO DIFF * Follow Up: p rn * Images: Billing Information: * Visit Code: 86676 Office Visit, Est Pt., Level 3. * Procedure Codes: [address] [place]. [address] CAPILLARY BLOOD DRAW. 58341 CBC WITH AUTO DIFF. * Electronic signature of Rebecca Davies APRN on 03/02/2025 at 11:18 AM EDT Sign off status: Pending * Provider: TIARA Ruiz Date: 0 01/23/2024 Generated for Praveena spaulding/Adebayo/Denis on: 0 03/02/2025 11:18 AM EDT History and Physical Notes * HPI (History of Present Illness) Category Sub-Category Detail Notes Category Not es Cardiology Blood Pressure Elevated Pt has b een seeing cardiology and they are adjusting his BP medications as needed HPI Patient is here today for a [facility] k up and refills of catheters. Pt needs refill sent to [facility], fax number is [phone] Examination Category Sub-Category Detail Notes Category Not es Cardiology Lungs: left base soft expiratory wh eeze Heart sounds: RRR Extremities: bilateral leg edema General Appearance: pleasant, NAD
--- OUTSIDE RECORDS SUMMARY | 2025-02-04 05:45 | XMS_ITS ---
Author Organization [facility] Address [address] [facility] 36 [facility] [address] [place] [id number] Care Team Providers Care Heel Compressor Name Role Phone Cherelle Diego Primary Care Provider [phone] Dinora Davies Unavailable [phone] Allergies Allergen (clinical drug ingredient) Drug/Non Drug [...] Interpretation:gluc 131, bun 22 Performing Lab: Notes/Report: Test performed by [facility] [address] [place] [address] , [address], [place] [address] Issac Romero MD, Railroad Operating Engineer CLIA: [id number] Sodium 139 135-145 mmol/L Potassium 4.0 3.5-5.3 [...] Interpretation:293 Performing Lab: Notes/Report: Test performed by [facility] [address] [place] [address] , [place] [address] Issac Romero MD, Railroad Operating Engineer CLIA: [id number] Testosterone Total 293.00 264.00-916.00 ng/dL P-Lipid Panel Reviewed date:02/05/2025 06:07:33 PM Interpretation:trigs 169, hdl 24, chol/hdl 6.58, non-hdl 134, ldl/hdl 4.2 Performing Lab: Notes/Report: Test performed by [facility] [address] [place] [address] , [address], [place] [address] Issac Romero MD, Railroad Operating Engineer CLIA: [id number] Cholesterol 158 <200 mg/dL Triglycerides 169 <150 [...] Interpretation:Normal Performing Lab: Notes/Report: Test performed by [employer] [facility], [address] , [address], [place] [address] Issac Romero MD, Railroad Operating Engineer CLIA: [id number] PSA 0.49 <4.00 ng/mL Please note this is an ultrasensitive PSA assay with a lower limit of detection of 0.014 ng/mL. This test is performed by the [employer] ECLIA methodology. Values obtained with different assay methods or kits cannot be directly compared. P-Microalbumin/Creatinine, R andom Urine Sample Reviewed date:02/05/2025 06:08:30 PM Interpretation:Normal Performing Lab: Notes/Report: Test performed by [facility] [address] [place] [address] , [address], [place] [address] Issac Romero MD, Railroad Operating Engineer CLIA: [id number] Albumin/Creatinine Ratio, Urine 19 0-30 ug/mg Microalbumin, Urine, Random 1.9 Creatinine, Urine 100.2 P-Uric Acid Reviewed date:02/05/2025 06:07:58 PM Interpretation:Normal Performing Lab: Notes/Report: Test performed by [facility] [address] [place] [address] , [address], [place] [address] Issac Romero MD, Railroad Operating Engineer CLIA: [id number] Uric Acid 5.1 3.4-8.0 mg/dL REASON FOR VISIT yearly checkup with fasting labs, Needs labs with PSA & shingles vaccine Medications Medication SIG (Take, Route, Frequency, Duration) Notes Start Date End Date Status Crestor 5 MG 1 tablet Orally Once a day; Duration: 30 day(s) 08/21/2023 Not-Taking CATHETER SELF-CATHETER 14FR - PRN [facility] code A4352, In&out Urinary catheters 14 Burmese Quad tip 03/16/2022 Active Spironolactone 25 MG [...] Status Risk Notes Problem Erectile dysfunction (disorder) (409523514) ED (erectile dysfunction) (N52.9) Active confirmed Problem Neurogenic bladder disorder (N31.9) Active confirmed Vital Signs Blood pressure systolic 139 mm Hg 02/05/20 25 Blood pressure diastolic 91 mm Hg 025 Heart Rate 72 /min 02/04/2025 Height 000 in 02/04/2025 Weight 000 lbs 02/04/2025 Encounters Encounter Location Date Provider Diagnosis [facility] [facility] 36 [facility] [address] [place] [id number] 02/04/2025 Dinora Davies ED (erectile dysfunction) N52.9 [...] routinely monitor BS; has been on a 1485-6642 amara diet for the last week with [...] Notes CATHETER SELF-CATHETER 14FR - PRN 03/16/2022 [facility] code A4352 , In&out Urinary catheters 14 Burmese Quad tip Spironolactone 25 MG 1 tab(s) [...] routinely monitor BS; has been on a 5650-6486 amara diet for the last week with assistance of an geoff to help keep track KODI (obstructive sleep apnea) wears CPAP Hyperlipidemia nerver started Crest or Edema of both legs discussed differnet types of support hose Other encouraged his restart of exercise; will consider the Shingrix; had cicken pox as a child Next Appt Details Follow Up: 1 Year,and Cherelle toth: Provider Name:Jorge Charles er, 03/10/2025 04:00:00 PM, [address] [facility] [address], [address], [place], [place], [id number], Progress Notes * GABY BAUERYVANOB:1970 ([age] yo M)Acc No.[id number]:02/04/2025 Progress Notes Patient: JOSELINE LUTHER Provider: TIARA Ruiz :1970 A ge:55 Y S ex:Male Date:02/04/2025 Address:[address] [place] [address] , [place], [facility] Pcp:Cherelle Diego Subjective: * Chief Complaints: * 1 . Yearly checkup with fasting labs. 2. Needs labs with PSA & shingles vaccine. * HPI: C ardiology: The pt is here today for a check-up on Hypertension and diabetes. Pt states he is doing good and denies any new concerns. Pt is fasting. Pt states he is needing a refill for Spironolactone sent to [facility] in [place]. Denies : Chest Pain. D enies : [...] soft drinks, 1 daily. Alcohol: yes. Occupation: [employer] for [employer]. * Medications: T aking [...] 14FR - PRN , [facility]ist: [facility] A[facility], In&out Urinary catheters 14 Burmese Quad tip, Taking Januvia 100 MG Tablet [...] routinely monitor BS; has been on a 9489-7143 amara diet for the last week with [...] [facility] code A4352, In&out Urinary catheters 14 Burmese Quad tip.??12.?Others? Continue Power Chair Battery, as directed, prn.?? Notes: encouraged his restart of exercise; will consider the Shingrix; had cicken pox as a child?? * Procedure Codes: 8 5025 CBC WITH AUTO DIFF, 28682 GLYCATED HEMOGLOBIN TEST, Modifiers: QW , 3044F HG A1C LEVEL LT 7.0%, 1036F TOBACCO NON-USER * Follow Up: 1 Year,and prn * Images: Billing Information: * Visit Code: 15036 Office Visit, Est Pt., Level 4. * Procedure Codes: 43005 CBC WITH AUTO DIFF. 65667 GLYCATED HEMOGLOBIN TEST. Modifiers: QW 3044F HG A1C LEVEL LT 7.0%. 1036F TOBACCO NON-USER. * Electronic signature of Rebecca Davies APRN on 03/03/2025 at 08:41 PM EDT Sign off status: Pending * Provider: TIARA Ruiz Date: 0 02/04/2025 Generated for Praveena spaulding/Adebayo/Densi on: 0 03/03/2025 08:41 PM EDT History and Physical Notes * [...]
--- OUTSIDE RECORDS SUMMARY | 2025-02-04 05:45 | XMS_ITS ---
Author Organization [facility] Address [address] [facility] 36 [facility] [address] [place] [id number] Care Team Providers Care Geographic Information Scientist Name Role Phone Cherelle Diego Primary Care Provider Dinora Davies Unavailable [phone] Allergies Allergen (clinical drug ingredient) Drug/Non Drug [...] 22 Performing Lab: Notes/Report: Test performed by [facility] [address] [place] [address] , [address], [place] [address] Issac Romero MD, Air And Hydronic Balancing Technician CLIA: [id number] Sodium 139 135-145 mmol/L Potassium 4.0 3.5-5.3 [...] Interpretation:293 Performing Lab: Notes/Report: Test performed by [facility] [address] [place] [address] , [address], [place] [address] Issac Romero MD, Air And Hydronic Balancing Technician CLIA: [id number] Testosterone Total 293.00 264.00-916.00 ng/dL P-Lipid Panel Reviewed date:02/05/2025 06:07:33 PM Interpretation:trigs 169, hdl 24, chol/hdl 6.58, non-hdl 134, ldl/hdl 4.2 Performing Lab: Notes/Report: Test performed by [facility] [address] [place] [address] , [address], [place] [address] Issac Romero MD, Air And Hydronic Balancing Technician CLIA: [id number] Cholesterol 158 <200 mg/dL Triglycerides 169 <150 [...] Interpretation:Normal Performing Lab: Notes/Report: Test performed by [employer] [address] [place] [address] , [address], [place] [address] Issac Romero MD, Air And Hydronic Balancing Technician CLIA: [id number] PSA 0.49 <4.00 ng/mL Please note this is an ultrasensitive PSA assay with a lower limit of detection of 0.014 ng/mL. This test is performed by the [employer] ECLIA methodology. Values obtained with different assay methods or kits cannot be directly compared. P-Microalbumin/Creatinine, R andom Urine Sample Reviewed date:02/05/2025 06:08:30 PM Interpretation:Normal Performing Lab: Notes/Report: Test performed by [facility] [address] [place] [address] , [address], [place] [address] Issac Romero MD, Air And Hydronic Balancing Technician CLIA: [id number] Albumin/Creatinine Ratio, Urine 19 0-30 ug/mg Microalbumin, Urine, Random 1.9 Creatinine, Urine 100.2 P-Uric Acid Reviewed date:02/05/2025 06:07:58 PM Interpretation:Normal Performing Lab: Notes/Report: Test performed by [facility] [address] [place] [address] , [address], [place] [id number] Issac Romero MD, Air And Hydronic Balancing Technician CLIA: [id number] Uric Acid 5.1 3.4-8.0 mg/dL REASON FOR VISIT yearly checkup with fasting labs, Needs labs with PSA & shingles vaccine Medications Medication SIG (Take, Route, Frequency, Duration) Notes Start Date End Date Status Crestor 5 MG 1 tablet Orally Once a day; Duration: 30 day(s) 08/21/2023 Not-Taking CATHETER SELF-CATHETER 14FR - PRN [facility] code A4352, In&out Urinary catheters 14 Swazi Quad tip 03/16/2022 Active Spironolactone 25 MG [...] Problem Status W/U Status Risk Notes Problem Information temporarily unavailable ED (erectile dysfunction) (N52.9) Active confirmed Problem Information temporarily unavailable Neurogenic bladder disorder (N31.9) Active confirmed Vital Signs Blood pressure systolic 139 mm Hg 02/05/20 25 Blood pressure diastolic 91 mm Hg 025 Heart Rate 72 /min 02/04/2025 Height 000 in 02/04/2025 Weight 000 lbs 02/04/2025 Encounters Encounter [facility] Date [facility] 36 [facility] [place] [id number] 02/04/2025 Dinora Davies ED (erectile dysfunction) N52.9 [...] routinely monitor BS; has been on a 0306-8564 amara diet for the last week with [...] Notes CATHETER SELF-CATHETER 14FR - PRN 03/16/2022 [facility] , In&out Urinary catheters 14 Swazi Quad tip Spironolactone 25 MG 1 tab(s) [...] routinely monitor BS; has been on a 0179-9779 amara diet for the last week with assistance of an geoff to help keep track KODI (obstructive sleep apnea) wears CPAP Hyperlipidemia nerver started Crest or Edema of both legs discussed differnet types of support hose Other encouraged his restart of exercise; will consider the Shingrix; had cicken pox as a child Next Appt Details Follow Up: 1 Year,and Cherelle toth: Provider Name:Jorge Anupam Araceli er, 03/10/2025 04:00:00 PM, [address] [facility] [address], [address], [place], [place], [id number], Progress Notes * LATANYA BAUEROB:1970 ([age] yo M)Acc No.[id number]:02/04/2025 Progress Notes Patient: JOSELINE LUTHER Provider: TIARA Ruiz :1970 A ge:55 Y S ex:Male Date:02/04/2025 Address:[address] [place] [address] , [place], [facility] Pcp:Cherelle Diego Subjective: * Chief Complaints: * 1 . Yearly checkup with fasting labs. 2. Needs labs with PSA & shingles vaccine. * HPI: C ardiology: The pt is here today for a check-up on Hypertension and diabetes. Pt states he is doing good and denies any new concerns. Pt is fasting. Pt states he is needing a refill for Spironolactone sent to [facility] in [place]. Denies : Chest Pain. D enies : [...] soft drinks, 1 daily. Alcohol: yes. Occupation: [employer] for [employer]. * Medications: T aking [...] [facility] code A4352, In&out Urinary catheters 14 Swazi Quad tip, Taking Januvia 100 MG Tablet [...] 263 100 - 400 * Crystal Vargas Apryl 02/04/2025 11: 39:29 AM EDT >Dinora Davies [...] 5 - 6.5 % * Crystal Vargas Apryl 02/04/2025 11: 38:00 AM EDT >Dinora Davies 02/05/2025 06:04:14 PM EDT >I spoke with pt and reported results; he is working on dietary changes; to repeat A1C and lipids in 4 months Notes: Does not routinely monitor BS; has been on a 6383-0664 amara diet for the last week with [...] P SA 0.49 <4.00 - ng/mL * DaviesOwen inmanine 02/05/2025 06:08:39 PM EDT >I spoke with [...] riglycerides 169 H <150 - mg/dL * Samson Dinora 02/05/2025 06:06:44 PM EDT >I spoke with pt and reviewed results with him will repeat in 4 months; he declines statin at this time Notes: nerver started Crestor??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 Continue Power Chair Battery, as directed, prn.?? Notes: encouraged his restart of exercise; will consider the Shingrix; had cicken pox as a child?? * Procedure Codes: 8 5025 CBC WITH AUTO DIFF, 84432 GLYCATED HEMOGLOBIN TEST, Modifiers: QW , 3044F HG A1C LEVEL LT 7.0%, 1036F TOBACCO NON-USER * Follow Up: 1 Year,and prn * Images: Billing Information: * Visit Code: 14157 Office Visit, Est Pt., Level 4. * Procedure Codes: 85002 CBC WITH AUTO DIFF. 91060 GLYCATED HEMOGLOBIN TEST. Modifiers: QW 3044F HG A1C LEVEL LT 7.0%. 1036F TOBACCO NON-USER. * Electronic signature of Rebecca Davies APRN on 03/02/2025 at 11:18 AM EDT Sign off status: Pending * Provider: TIARA Ruiz Date: 0 02/04/2025 Generated for Praveena spaulding/Adebayo/Denis on: 0 03/02/2025 [...]
[2025-03-02] VITALS (8 sets, daily range): BP systolic 108–148; BP diastolic 54–84; PULSE 73–98; RESP 16–18; TEMP 36.8–37.3; O2SAT 93–97; BMI 32.6; BMI 32.1
--- OUTSIDE RECORDS SUMMARY | 2025-03-02 11:18 | XMS_ITS | Encounter Summary ---
Author Organization [employer] ([place], [place], [place], [place]) Address [address] [place] [address] Care Team Providers Care Sandwich Hand Name Role Phone Provider Not In System, McT Primary Care Provide r Unavailable Roxann Corona RN Unavailable Unavailab Maddison Beth DPM Unavailable [phone] Roxann Corona RN Unavailable Unavailab le Encounter Details Date Type Department Care Team (Late st Contact Info) Description 12/24/2019 Transcribed Document [facility] [place] [facility] [place] [address] ProviderMayte MD [facility] [place] [address] Social History Tobacco Use Types [...] CDS Signature: __Daphne Mo RN Phone #: _[phone] PRESSURE ULCER STAGES Stage I: Erythema Stage II: Partial thickness Stage III: Full thickness Stage IV: Necrosis to muscle/bone This is a permanent part of the Medical Record Q50 2019 LE TOTE Updated: documented in this encounter Plan of Treatment Not on file documented as of this encounter Visit Diagnoses Not on filedocumented in this encounter Care Teams Sandwich Hand Relationship Specialty Start Date End Date Provider Not In System, [facility] PCP - General 05/02/22 Roxann Corona, RN Registered Nurse 05/16/22 Maddison Mcfadden DPM [address] [place] [address] Consulting Physician Podiatry 06/06/22 Roxann Corona, RN Registered Nurse 10/04/22 documented as of this encounter
--- OUTSIDE RECORDS SUMMARY | 2025-03-02 11:18 | XMS_ITS | Encounter Summary ---
Author Organization [employer] ([place], [place], [place], [place]) Address [address] [place] [address] Care Team Providers Care Turnstile Attendant Name Role Phone Provider Not In System, McT Primary Care Provide r Unavailable Roxann Corona RN Unavailable Unavailab le Maddison Mcfadden DPM Unavailable [phone] Roxann Corona RN Unavailable Unavailab le Encounter Details Date Type Department Care Team (Late st Contact Info) Description 12/23/2019 Transcribed Document [facility] [place] [facility] [place] [address] ProviderMyate MD [address] [place] [address] [phone] Social History Tobacco Use Types Packs/Day Years [...] Mayte ProviderMD - 12/23/2019 1:03 AM CDT [place] Suicide Severity Rating Scale (C-SSRS) Entered On: 12/23/2019 1:31 EDT Performed On: 12/23/2019 1:26 EDT by LANCE DENNIS [place] Suicide Severity Rating Scale (C-SSRS) CSSRS Past [...] on filedocumented in this encounter Care Teams Turnstile Attendant Relationship Specialty Start Date End Date Provider Not In System, [facility] PCP - General 05/02/22 Roxann Corona, RN Registered Nurse 05/16/22 Maddison Mcfadden DPM [address] [place] [address] Consulting Physician Podiatry 06/06/22 Roxann Corona, RN Registered Nurse 10/04/22 documented as of this encounter
--- OUTSIDE RECORDS SUMMARY | 2025-03-02 11:18 | XMS_ITS | Encounter Summary ---
Author Organization [employer] ([place], [place], [place], [place]) Address [address] [place] [address] Care Team Providers Care Foreign Policy Officer Name Role Phone Provider Not In System, McT Primary Care Provide r Unavailable Roxann Corona RN Unavailable Unavailab Maddison Beth DPM Unavailable Roxann Corona RN Unavailable Unavailab le Encounter Details Date Type Department Care Team (Late st Contact Info) Description 12/23/2019 Transcribed Document [facility] [place] [facility] [place] [address] ProviderMayte MD [address] [place] [address] [phone] Social History Tobacco Use Types Packs/Day Years [...] on filedocumented in this encounter Care Teams Foreign Policy Officer Relationship Specialty Start Date End Date Provider Not In System, [facility] PCP - General 05/02/22 Roxann Corona, RN Registered Nurse 05/16/22 Maddison Mcfadden, DPM [address] [place] [address] Consulting Physician Podiatry 06/06/22 Roxann Corona, RN Registered Nurse 10/04/22 documented as of this encounter
--- OUTSIDE RECORDS SUMMARY | 2025-03-02 11:18 | XMS_ITS | Encounter Summary ---
Author Organization [employer] ([place], [place], [place], [place]) Address [address] [place] [address] Care Team Providers Care Vocal Music Instructor Name Role Phone Provider Not In System, McT Primary Care Provide r Unavailable Roxann Corona RN Unavailable Unavailab le Maddison Mcfadden DPM Unavailable [phone] Roxann Corona RN Unavailable Unavailab le Encounter Details Date Type Department Care Team (Late st Contact Info) Description 12/23/2019 Transcribed Document [facility] [place] [facility] [place] [address] ProviderMayte MD [address] [place] [address] [phone] Social History Tobacco Use Types Packs/Day Years [...] On: 12/23/2019 9:00 EDT by Geneva Chawla, FRAME PULLEY MORTISING MACHINE OPERATOR-HEALTH UNIT COORD Phone Call for Consults Consult Phone Call/Page Attempt : Other: already seen by doctor Geneva Chawla, FRAME PULLEY MORTISING MACHINE OPERATOR-HEALTH UNIT COORD - 12/23/2019 15:53 EDT documented in this encounter Plan of Treatment Not on file documented as of this encounter Visit Diagnoses Not on filedocumented in this encounter Care Teams Vocal Music Instructor Relationship Specialty Start Date End Date Provider Not In System, [facility] PCP - General 05/02/22 Roxann Corona, RN Registered Nurse 05/16/22 Maddison Mcfadden DPM [address] [place] [address] Consulting Physician Podiatry 06/06/22 Roxann Corona, RN Registered Nurse 10/04/22 documented as of this encounter
--- OUTSIDE RECORDS SUMMARY | 2025-03-02 11:18 | XMS_ITS | Encounter Summary ---
Author Organization [employer] ([place], [place], [place], [place]) Address [address] [place] [address] Care Team Providers Care Sports Activities Foul Judge Name Role Phone Provider Not In System, McT Primary Care Provide r Unavailable Roxann Corona RN Unavailable Unavailab le Maddison Mcfadden DPM Unavailable [phone] Roxann Corona RN Unavailable Unavailab le Encounter Details Date Type Department Care Team (Late st Contact Info) Description 12/23/2019 Transcribed Document [facility] [place] [facility] [place] [address] ProviderMayte MD [address] [place] [address] [phone] Social History Tobacco Use Types Packs/Day Years [...] 12/23/2019 8:12 EDT by JEAN CLAUDE SYED, TUBE MOLDER [employer]ERGLASS Event Note ED Event Date/Time : 12/23/2019 8:12 EDT ED Event Location : Assigned room ED Description of Event : Pt is sleeping. JEAN CLAUDE SYED RN - 12/23/2019 8:12 EDT Electronically signed by Aparna [facility] Conversion Data Management Associate Cerner at 10/17/2022 2:13 PM CDT documented in this encounter Plan of Treatment Not on file documented as of this encounter Visit Diagnoses Not on filedocumented in this encounter Care Teams Sports Activities Foul Judge Relationship Specialty Start Date End Date Provider Not In System, [facility] PCP - General 05/02/22 Roxann Corona, RN Registered Nurse 05/16/22 Maddison Mcfadden DPM [address] [place] [address] Consulting Physician Podiatry 06/06/22 Roxann Corona, RN Registered Nurse 10/04/22 documented as of this encounter
--- OUTSIDE RECORDS SUMMARY | 2025-03-02 11:18 | XMS_ITS | Encounter Summary ---
Author Organization [employer] ([place], [place], [place], [place]) Address [address] [place] [address] Care Team Providers Care Order Control Clerk Blood Bank Name Role Phone Provider Not In System, McT Primary Care Provide r Unavailable Roxann Corona RN Unavailable Unavailab le Maddison Mcfadden DPM Unavailable [phone] Roxann Corona RN Unavailable Unavailab le Encounter Details Date Type Department Care Team (Late st Contact Info) Description 12/23/2019 Transcribed Document [facility] [place] [facility] [place] [address] ProviderMayte MD [address] [place] [phone] Social History Tobacco Use Types Packs/Day [...] 12/25/2019 1:51 EDT Electronically signed by Aparna [facility] Conversion School Bus Monitor Cerner at 10/17/2022 2:28 PM CDT documented in this encounter Plan of Treatment Not on file documented as of this encounter Visit Diagnoses Not on filedocumented in this encounter Care Teams Order Control Clerk Blood Bank Relationship Specialty Start Date End Date Provider Not In System, [facility] PCP - General 05/02/22 Roxann Corona, RN Registered Nurse 05/16/22 Maddison Mcfadden DPM [address] [place] [address] Consulting Physician Podiatry 06/06/22 Roxann Corona, RN Registered Nurse 10/04/22 documented as of this encounter
--- OUTSIDE RECORDS SUMMARY | 2025-03-02 11:18 | XMS_ITS | Encounter Summary ---
Author Organization [employer] ([place], [place], [place], [place]) Address [address] [place] [address] Care Team Providers Care Clinical Rehabilitation Aide Name Role Phone Provider Not In System, McT Primary Care Provide r Unavailable Roxann Corona RN Unavailable Unavailab Maddison Beth DPM Unavailable Roxann Corona RN Unavailable Unavailab le Encounter Details Date Type Department Care Team (Late st Contact Info) Description 12/23/2019 Transcribed Document [facility] [place] [facility] [place] [address] ProviderMayte MD [address] [place] [address] [phone] Social History Tobacco Use Types Packs/Day Years [...] Chart was reviewed. Time spent, 55 minutes. /[id number] MD ROSIO Sanchez/AQ / ROSIO / MODL CC: Dr. Rafa Griggs Electronically signed by [facility] Conversion Family Practice Doctor Cerner at 10/17/2022 2:25 PM CDT documented in this encounter Plan of Treatment Not on file documented as of this encounter Visit Diagnoses Not on filedocumented in this encounter Care Teams Clinical Rehabilitation Aide Relationship Specialty Start Date End Date Provider Not In System, [facility] PCP - General 05/02/22 Roxann Corona, RN Registered Nurse 05/16/22 Maddison Mcfadden, DPM [address] [place] [address] Consulting Physician Podiatry 06/06/22 Roxann Corona, RN Registered Nurse 10/04/22 documented as of this encounter
--- OUTSIDE RECORDS SUMMARY | 2025-03-02 11:18 | XMS_ITS | Encounter Summary ---
Author Organization [employer] ([place], [place], [place], [place]) Address [address] [place] [address] Care Team Providers Care Reference Data Expert Name Role Phone Provider Not In System, McT Primary Care Provide r Unavailable Roxann Corona RN Unavailable Unavailab Maddison Beth DPM Unavailable [phone] Roxann Corona RN Unavailable Unavailab le Encounter Details Date Type Department Care Team (Late st Contact Info) Description 12/23/2019 Transcribed Document [facility] [place] [address] ProviderMayte MD [address] [place] [address] Social History Tobacco Use Types Packs/Day [...] : 2 - Emergent Tracking Group : [facility] ED LANCE DENNIS - 12/23/2019 1:17 EDT [...] PNED ; Probability: 0 ; Diagnosis Code: [id number] ED Height and Weight Height Source : Stated Height Entry Format : [place] Height, Feet : 5 ft(Converted to: 152 cm, 60 Inch) Height, Inches : 7 Inch(Converted to: 0 ft 7 Inch, 17.78 cm) Clinical Height : 170.18 cm Weight Source, ED : Critical estimated dosing weight Weight Entry Format : [place] Weight, Pounds : 230 lb Clinical Dosing Weight : 104.55 kg Body Surface Area (BSA) : 2.15 m2 Body Mass Index : 36.1 kg/m2 (HI) [place] Body Weight (IBW) : 65.16 kg LANCE DENNIS 12/23/2019 1:17 EDT Electronically signed by [facility] Conversion Campaign Assistant Cerner at 10/17/2022 2:25 PM CDT documented in this encounter Plan of Treatment Not on file documented as of this encounter Visit Diagnoses Not on filedocumented in this encounter Care Teams Reference Data Expert Relationship Specialty Start Date End Date Provider Not In System, [facility] PCP - General 05/02/22 Roxann Corona, RN Registered Nurse 05/16/22 Maddison Mcfadden DPM [address] [place] [address] Consulting Physician Podiatry 06/06/22 Roxann Corona, RN Registered Nurse 10/04/22 documented as of this encounter
--- OUTSIDE RECORDS SUMMARY | 2025-03-02 11:18 | XMS_ITS | Encounter Summary ---
Author Organization [employer] ([place], [place], [place], [place]) Address [address] [place] [address] Care Team Providers Care Fry Cook Name Role Phone Provider Not In System, McT Primary Care Provide r Unavailable Roxann Corona RN Unavailable Unavailab le Maddison Mcfadden DPM Unavailable [phone] Roxann Corona RN Unavailable Unavailab le Encounter Details Date Type Department Care Team (Late st Contact Info) Description 12/23/2019 Transcribed Document [facility] [place] [facility] [place] [address] ProviderMayte MD [address] [place] [address] [phone] Social History Tobacco Use Types Packs/Day Years [...] of the form. Electronically signed by Aparna, [facility] Conversion Hot Header Operator Cerner at 10/17/2022 2:12 PM CDT documented in this encounter Plan of Treatment Not on file documented as of this encounter Visit Diagnoses Not on filedocumented in this encounter Care Teams Fry Cook Relationship Specialty Start Date End Date Provider Not In System, [facility] PCP - General 05/02/22 Roxann Corona, MATHEW Registered Nurse 05/16/22 Maddison Mcfadden DPM [address] [place] [address] Consulting Physician Podiatry 06/06/22 Roxann Corona, RN Registered Nurse 10/04/22 documented as of this encounter
--- OUTSIDE RECORDS SUMMARY | 2025-03-02 11:18 | XMS_ITS | Encounter Summary ---
Author Organization [employer] ([place], [place], [place], [place]) Address [address] [place] [address] Care Team Providers Care Ring Conductor Name Role Phone Provider Not In System, McT Primary Care Provide r Unavailable Roxann Corona RN Unavailable Unavailab le Maddison Mcfadden DPM Unavailable [phone] Roxann Corona RN Unavailable Unavailab le Encounter Details Date Type Department Care Team (Late st Contact Info) Description 12/23/2019 Transcribed Document [facility] [place] [address] ProviderMayte MD [address] [place] [address] [phone] Social History Tobacco Use Types Packs/Day Years [...] on filedocumented in this encounter Care Teams Ring Conductor Relationship Specialty Start Date End Date Provider Not In System, [facility] PCP - General 05/02/22 Roxann Corona, RN Registered Nurse 05/16/22 Maddison Mcfadden DPM [address] [place] [address] Consulting Physician Podiatry 06/06/22 Roxann Corona, RN Registered Nurse 10/04/22 documented as of this encounter
--- OUTSIDE RECORDS SUMMARY | 2025-03-02 11:18 | XMS_ITS | Encounter Summary ---
Author Organization [employer] ([place], [place], [place], [place]) Address [address] [place] [address] Care Team Providers Care Agricultural Pilot Name Role Phone Provider Not In System, McT Primary Care Provide r Unavailable Roxann Corona RN Unavailable Unavailab Maddison Beth DPM Unavailable [phone] Roxann Corona RN Unavailable Unavailab le Encounter Details Date Type Department Care Team (Late st Contact Info) Description 12/23/2019 Transcribed Document [facility] [place] [facility] [place] [address] ProviderMayte MD [address] [place] [address] [phone] Social History Tobacco Use Types Packs/Day Years [...] No productive cough. He was [facility] to [facility] on 12/23/2019. I was consulted on 12/23/2019 [...] Medical History of UTI / SNOMED CT 2413092686 / Confirmed Paraplegia / SNOMED CT 613352297 / Confirmed Pressure ulcer of hip / SNOMED CT 6782755104 / Confirmed, Active Problems (3) History of [...] Normal strength, No tenderness. Integumentary: Warm, Dry, Gl[place], No pallor, No rash, Sacral decub into [...] No Radiology Results Found Diagnostic Findings: ACC: [id number] ORDER: Flu A/B Rapid Screen DATE: 12/23/2019 01:30 SOURCE: Nasal SITE: Reports Final 12/23/2019 02:07 Negative for Rapid Influenza A and B Antigen Rapid Influenza tests are for screening purposes only. Negative tests should be confirmed by more sensitive methodologies. == ACC: [id number] ORDER: Strep Throat Screen DATE: 12/23/2019 01:30 [...] on filedocumented in this encounter Care Teams Agricultural Pilot Relationship Specialty Start Date End Date Provider Not In System, [facility] PCP - General 05/02/22 Roxann Corona, RN Registered Nurse 05/16/22 Maddison Mcfadden DPM [address] [place] [address] Consulting Physician Podiatry 06/06/22 Roxann Corona, RN Registered Nurse 10/04/22 documented as of this encounter
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
--- OUTSIDE RECORDS SUMMARY | 2025-03-02 11:18 | XMS_ITS | Encounter Summary ---
Author Organization [employer] ([place], [place], [place], [place]) Address [address] [place] [address] Care Team Providers Care Plater Production Name Role Phone Provider Not In System, McT Primary Care Provide r Unavailable Roxann Corona RN Unavailable Unavailab le Maddison Mcfadden DPM Unavailable [phone] Roxann Corona RN Unavailable Unavailab le Encounter Details Date Type Department Care Team (Late st Contact Info) Description 12/24/2019 Transcribed Document [facility] [place] [address] ProviderMayte MD [address] [place] [address] [phone] Social History Tobacco Use Types Packs/Day Years [...] Insurance 1 Health Plan: [employer] Policy Number: [id number] Authorization Number: Insurance Primary Name : [employer] Policy Number: [id number] Historical Authorization Comments-Primary : No Authorization Comments Found CHELSY HENDERSON Rn-Utilization Review - 12/24/2019 8:15 EDT Electronically signed by Aparna [facility] Conversion Personal Lines Sales Executive Cerner at 10/17/2022 2:11 PM CDT documented in this encounter Plan of Treatment Not on file documented as of this encounter Visit Diagnoses Not on filedocumented in this encounter Care Teams Plater Production Relationship Specialty Start Date End Date Provider Not In System, [facility] PCP - General 05/02/22 Roxann Corona, RN Registered Nurse 05/16/22 Maddison Mcfadden DPM [address] [place] [address] Consulting Physician Podiatry 06/06/22 Roxann Corona, RN Registered Nurse 10/04/22 documented as of this encounter
--- OUTSIDE RECORDS SUMMARY | 2025-03-02 11:18 | XMS_ITS | Encounter Summary ---
Author Organization [employer] ([place], [place], [place], [place]) Address [address] [place] [address] Care Team Providers Care Pack Changer Name Role Phone Provider Not In System, McT Primary Care Provide r Unavailable Roxann Corona RN Unavailable Unavailab Maddison Beth DPM Unavailable Roxann Corona RN Unavailable Unavailab le Encounter Details Date Type Department Care Team (Late st Contact Info) Description 12/23/2019 Transcribed Document [facility] [place] [facility] [place] [address] ProviderMayte MD [address] [place] [address] Social History Tobacco Use Types Packs/Day [...] Advance Directive Comment : Patient will request Drain Tiler when feeling up to discussing. SUHAIL RESENDIZ - 12/23/2019 14:39 EDT documented in this encounter Plan of Treatment Not on file documented as of this encounter Visit Diagnoses Not on filedocumented in this encounter Care Teams Pack Changer Relationship Specialty Start Date End Date Provider Not In System, [facility] PCP - General 05/02/22 Roxann Corona, RN Registered Nurse 05/16/22 Maddison Mcfadden DPM [address] [place] [address] Consulting Physician Podiatry 06/06/22 Roxann Corona, RN Registered Nurse 10/04/22 documented as of this encounter
--- OUTSIDE RECORDS SUMMARY | 2025-03-02 11:18 | XMS_ITS | Encounter Summary ---
Author Organization [employer] ([place], [place], [place], [place]) Address [address] [place] [address] Care Team Providers Care Invasive Cardiovascular Technologist Name Role Phone Provider Not In System, McT Primary Care Provide r Unavailable Roxann Corona RN Unavailable Unavailab Maddison Beth DPM Unavailable [phone] Roxann Corona RN Unavailable Unavailab le Encounter Details Date Type Department Care Team (Late st Contact Info) Description 09/12/2019 Transcribed Document [facility] [place] [facility] [place] [address] ProviderMayte MD [address] [place] [address] [phone] Social History Tobacco Use Types Packs/Day Years [...] 10 sq cm of tissue was debrided. /[id number] MD WESLEY Farrell III/JEANETTE / WESLEY / MODL /[id number] Electronically signed by Aparna [facility] Conversion Supervisor Treating And Pumping Cerner at 10/17/2022 2:16 PM CDT documented in this encounter Plan of Treatment Not on file documented as of this encounter Visit Diagnoses Not on filedocumented in this encounter Care Teams Invasive Cardiovascular Technologist Relationship Specialty Start Date End Date Provider Not In System, [facility] PCP - General 05/02/22 Roxann Corona, RN Registered Nurse 05/16/22 Maddison Mcfadden, DPBrian [address] [place] [address] Consulting Physician Podiatry 06/06/22 Roxann Corona, RN Registered Nurse 10/04/22 documented as of this encounter
--- OUTSIDE RECORDS SUMMARY | 2025-03-02 11:18 | XMS_ITS | Encounter Summary ---
Author Organization [employer] ([place], [place], [place], [place]) Address [address] [place] [address] Care Team Providers Care Electrolysis Investigator Name Role Phone Provider Not In System, McT Primary Care Provide r Unavailable Roxann Corona RN Unavailable Unavailab Maddison Beth DPM Unavailable [phone] Roxann Corona RN Unavailable Unavailab le Encounter Details Date Type Department Care Team (Late st Contact Info) Description 12/23/2019 Transcribed Document [facility] [place] Family Medicine [facility] [place] [address] ProviderMayte MD [address] [place] [address] [phone] Social History Tobacco Use Types Packs/Day Years [...] Assessment Comment/Summary Points : Patient will request Photonic Laboratory Technician when feeling up to discussing advance directive. Provided supportive presence. Spirital Assessment Comment/Summary Report : SPIRITUAL ASSESSMENT COMMENT/SUMMARY No qualifying data available. SUHAIL RESENDIZ P - 12/23/2019 14:40 EDT Interventions Advance Directive Information Provided : No Spiritual and Mu-Ism : Spiritual/Mu-Ism support provided SUHAIL RESENDIZ P - 12/23/2019 14:40 EDT Electronically signed by [facility] Conversion Analytics Developer Cerner at 10/17/2022 2:17 PM CDT documented in this encounter Plan of Treatment Not on file documented as of this encounter Visit Diagnoses Not on filedocumented in this encounter Care Teams Electrolysis Investigator Relationship Specialty Start Date End Date Provider Not In System, [facility] PCP - General 05/02/22 Roxann Corona, RN Registered Nurse 05/16/22 Maddison Mcfadden DPM [address] [place] [address] Consulting Physician Podiatry 06/06/22 Roxann Corona, RN Registered Nurse 10/04/22 documented as of this encounter
--- OUTSIDE RECORDS SUMMARY | 2025-03-02 11:18 | XMS_ITS | Encounter Summary ---
Author Organization [employer] ([place], [place], [place], [place]) Address [address] [place] [address] Care Team Providers Care Computer Forwarding System Markup Clerk Name Role Phone Provider Not In System, McT Primary Care Provide r Unavailable Roxann Corona RN Unavailable Unavailab le Maddison Mcfadden DPM Unavailable [phone] Roxann Corona RN Unavailable Unavailab le Encounter Details Date Type Department Care Team (Late st Contact Info) Description 12/23/2019 Transcribed Document [facility] [place] [facility] [place] [address] ProviderMayte MD [address] [place] [address] [phone] Social History Tobacco Use Types Packs/Day Years [...] Communication Barrier : None Primary Language : Belgian Any Spiritual/Cultural Needs or Requests : No [...] WDL with exceptions Nail Bed Color : [place] Chest Pain : Yes EKG Time Completed [...] - 12/23/2019 1:48 EDT Electronically signed by [facility] Conversion B2B Sales Manager Cerner at 10/17/2022 2:29 PM CDT documented in this encounter Plan of Treatment Not on file documented as of this encounter Visit Diagnoses Not on filedocumented in this encounter Care Teams Computer Forwarding System Markup Clerk Relationship Specialty Start Date End Date Provider Not In System, [facility] PCP - General 05/02/22 Roxann Corona, RN Registered Nurse 05/16/22 Maddison Mcfadden, DPM [address] [place] [address] Consulting Physician Podiatry 06/06/22 Roxann Corona, RN Registered Nurse 10/04/22 documented as of this encounter
--- OUTSIDE RECORDS SUMMARY | 2025-03-02 11:18 | XMS_ITS | Clinical Summary ---
Author Organization [employer] ([place], [place], [place], [place]) Address [address] [place] [address] Care Team Providers Care Museum Informatics Specialist Name Role Phone Provider Not In System, [facility] Primary Care Provide r Unavailable Roxann Corona RN Unavailable Unavailab Maddison Beth DPM Unavailable [phone] Roxann Corona RN Unavailable Unavailab le Allergies [...] Date Kamran rded Speak language other than Yoruba at home Not on file 07/21/2023 Want [...] Tdap) 02/22/2028 Insurance [employer] Care Teams Museum Informatics Specialist Relationship Specialty Start Date End Date Provider Not In System, McT PCP - General 05/02/22 Roxann Corona, RN Registered Nurse 05/16/22 Maddison Mcfadden, DPBrian [address] [facility] [address] [place] [address] Consulting Physician Podiatry 06/06/22 Roxann Corona, RN Registered Nurse 10/04/22
--- OUTSIDE RECORDS SUMMARY | 2025-03-02 11:18 | XMS_ITS | Encounter Summary ---
Author Organization [employer] ([place], [place], [place], [place]) Address [address] [place] [address] Care Team Providers Care Clinical Genetics Laboratory Chief Name Role Phone Provider Not In System, McT Primary Care Provide r Unavailable Roxann Corona RN Unavailable Unavailab Maddison Beth DPM Unavailable [phone] Roxann Corona RN Unavailable Unavailab le Encounter Details Date Type Department Care Team (Late st Contact Info) Description 12/24/2019 Transcribed Document [facility] [place] Medicine [facility] [place] [address] ProviderMayte MD [address] [place] [address] Social History Tobacco Use Types Packs/Day [...] Mayte ProviderMD - 12/24/2019 2:00 AM CDT Guide Rail Cleaner Details Entered On: 12/24/2019 7:59 EDT Performed [...] 12/24/2019 7:59 EDT Electronically signed by Aparna [facility] Conversion Nurse Paralegal Cerner at 10/17/2022 2:12 PM CDT documented in this encounter Plan of Treatment Not on file documented as of this encounter Visit Diagnoses Not on filedocumented in this encounter Care Teams Clinical Genetics Laboratory Chief Relationship Specialty Start Date End Date Provider Not In System, [facility] PCP - General 05/02/22 Roxann Corona, RN Registered Nurse 05/16/22 Maddison Mcfadden DPM [address] [place] [address] Consulting Physician Podiatry 06/06/22 Roxann Corona, RN Registered Nurse 10/04/22 documented as of this encounter
--- OUTSIDE RECORDS SUMMARY | 2025-03-02 11:18 | XMS_ITS | Encounter Summary ---
Author Organization [employer] ([place], [place], [place], [place]) Address [address] [place] [address] Care Team Providers Care Ward Assistant Name Role Phone Provider Not In System, McT Primary Care Provide r Unavailable Roxann Corona RN Unavailable Unavailab le Maddison Mcfadden DPM Unavailable [phone] Roxann Corona RN Unavailable Unavailab le Encounter Details Date Type Department Care Team (Late st Contact Info) Description 12/23/2019 Transcribed Document [facility] [place] [facility] [place] [address] ProviderMayte MD [address] [place] [address] [phone] Social History Tobacco Use Types Packs/Day Years [...] Mayte ProviderMD - 12/23/2019 4:58 AM CDT [facility] Inpatient Documentation Entered On: 12/24/2019 6:51 EDT Performed On: 12/24/2019 6:50 EDT by CULLEN MACDONALD RN [facility] Admission Date : Admit Date 12/23/2019 [...] - 12/24/2019 6:50 EDT Electronically signed by [facility] Conversion Auto Service Dispatcher Cerner at 10/17/2022 2:26 PM CDT documented in this encounter Plan of Treatment Not on file documented as of this encounter Visit Diagnoses Not on filedocumented in this encounter Care Teams Ward Assistant Relationship Specialty Start Date End Date Provider Not In System, [facility] PCP - General 05/02/22 Roxann Corona, RN Registered Nurse 05/16/22 Maddison Mcfadden DPM [address] [place] [address] Consulting Physician Podiatry 06/06/22 Roxann Corona, RN Registered Nurse 10/04/22 documented as of this encounter
--- OUTSIDE RECORDS SUMMARY | 2025-03-02 11:19 | XMS_ITS | Encounter Summary ---
Author Organization [employer] ([place], [place], [place], [place]) Address [address] [place] [address] Care Team Providers Care Production Shift Supervisor Name Role Phone Provider Not In System, McT Primary Care Provide r Unavailable Roxann Corona RN Unavailable Unavailab le Maddison Mcfadden DPM Unavailable [phone] Roxann Corona RN Unavailable Unavailab le Encounter Details Date Type Department Care Team (Late st Contact Info) Description 12/25/2019 Transcribed Document [facility] [place] [facility] [place] [address] ProviderMayte MD [address] [place] [address] [phone] Social History Tobacco Use Types Packs/Day Years [...] Insurance 1 Health Plan: [employer] Policy Number: [id number] Authorization Number: Insurance Primary Name : [employer] Policy Number: [id number] Authorization Status-Primary : Admit approved Reference Number-Primary : [id number] Number of Days Authorized-Primary : 1 Day(s) Authorized Service Begin Date-Primary : 12/24/2019 EDT Authorized Service End Date-Primary : 12/25/2019 EDT Historical Authorization Comments-Primary : Comment 1: Per John Ingrace Auth approved 12/23-12/24. (CHELSY HENDERSON, Rn-Utilization Review 12/25/2019 09:44) Comment 2: Submitted Inpt Auth on Availity with Pended status. RN reviewer has EMR access (CHELSY HENDERSON, Rn-Utilization Review 12/24/2019 08:39) CHELSY HENDERSON Rn-Utilization Review - 12/25/2019 9:50 EDT Electronically signed by Aparna [facility] Conversion Criminalist Cerner at 10/17/2022 2:27 PM CDT documented in this encounter Plan of Treatment Not on file documented as of this encounter Visit Diagnoses Not on filedocumented in this encounter Care Teams Production Shift Supervisor Relationship Specialty Start Date End Date Provider Not In System, [facility] PCP - General 05/02/22 Roxann Corona, RN Registered Nurse 05/16/22 Maddison Mcfadden DPM [address] [place] [address] Consulting Physician Podiatry 06/06/22 Roxann Corona, RN Registered Nurse 10/04/22 documented as of this encounter
--- OUTSIDE RECORDS SUMMARY | 2025-03-02 11:19 | XMS_ITS | Encounter Summary ---
Author Organization [employer] ([place], [place], [place], [place]) Address [address] [place] [address] Care Team Providers Care Coat Tailor Name Role Phone Provider Not In System, McT Primary Care Provide r Unavailable Roxann Corona RN Unavailable Unavailab Maddison Beth DPM Unavailable [phone] Roxann Corona RN Unavailable Unavailab le Encounter Details Date Type Department Care Team (Late st Contact Info) Description 12/23/2019 Transcribed Document [facility] [place] [facility] [place] [address] ProviderMayte MD [address] [place] [address] [phone] Social History Tobacco Use Types Packs/Day Years [...] 1970 Associated Diagnoses: None Author: AKASH GREY MD-[facility] R/O Covid 19 patient with fever Covid 19 result pending will consult ID documented in this encounter Plan of Treatment Not on file documented as of this encounter Visit Diagnoses Not on filedocumented in this encounter Care Teams Coat Tailor Relationship Specialty Start Date End Date Provider Not In System, [facility] PCP - General 05/02/22 Roxann Corona, RN Registered Nurse 05/16/22 Maddison Mcfadden, DPM [address] [place] [address] Consulting Physician Podiatry 06/06/22 Roxann Corona, RN Registered Nurse 10/04/22 documented as of this encounter
--- OUTSIDE RECORDS SUMMARY | 2025-03-02 11:19 | XMS_ITS | Encounter Summary ---
Author Organization [employer] ([place], [place], [place], [place]) Address [address] [place] [address] Care Team Providers Care It Applications Analyst Name Role Phone Provider Not In System, McT Primary Care Provide r Unavailable Roxann Corona RN Unavailable Unavailab le Maddison Mcfadden DPM Unavailable [phone] Roxann Corona RN Unavailable Unavailab le Encounter Details Date Type Department Care Team (Late st Contact Info) Description 12/24/2019 Transcribed Document [facility] [place] [facility] [place] [address] ProviderMayte MD [address] [place] [address] [phone] Social History Tobacco Use Types Packs/Day Years [...] Mayte ProviderMD - 12/24/2019 8:05 AM CDT [facility] Inpatient Documentation Entered On: 12/25/2019 12:02 EDT Performed On: 12/24/2019 8:05 EDT by CULLEN MACDONALD RN [facility] Admission Date : Admit Date 12/24/2019 08:26 [...] been followed by Dr Garcia at the [facility] and currently states his coccyx wound has healed but has a scab. Pt has pictures on his phone from his last [facility] visit. WOCNs able to assess wound to [...] CULLEN MACDONALD RN - 12/25/2019 11:56 EDT documented in this encounter Plan of Treatment Not on file documented as of this encounter Visit Diagnoses Not on filedocumented in this encounter Care Teams It Applications Analyst Relationship Specialty Start Date End Date Provider Not In System, [facility] PCP - General 05/02/22 Roxann Corona, RN Registered Nurse 05/16/22 Maddison Mcfadden, JAIR [address] [place] [address] Consulting Physician Podiatry 06/06/22 Roxann Corona, RN Registered Nurse 10/04/22 documented as of this encounter
--- OUTSIDE RECORDS SUMMARY | 2025-03-02 11:19 | XMS_ITS | Encounter Summary ---
Author Organization [employer] ([place], [place], [place], [place]) Address [address] [place] [address] Care Team Providers Care Facing Cutting Machine Operator Name Role Phone Provider Not In System, McT Primary Care Provide r Unavailable Roxann Corona RN Unavailable Unavailab Maddison Beth DPM Unavailable [phone] Roxann Corona RN Unavailable Unavailab le Encounter Details Date Type Department Care Team (Late st Contact Info) Description 08/27/2019 Transcribed Document [facility] [place] Family Medicine [facility] [place] [address] ProviderMayte MD [address] [place] [address] [phone] Social History Tobacco Use Types Packs/Day Years [...] - Historical ProviderMD - 08/27/2019 5:10 PM MANAGER CAREER DATE OF CONSULTATION: 08/15/2019 This a 49-year-old [...] reassess him here again in 2 weeks. /[id number] MD WESLEY Farrell III/JEANETTE / WESLEY / MODL /[id number] Electronically signed by Aparna [facility] Conversion Jailor Cerner at 10/17/2022 2:07 PM CDT documented in this encounter Plan of Treatment Not on file documented as of this encounter Visit Diagnoses Not on filedocumented in this encounter Care Teams Facing Cutting Machine Operator Relationship Specialty Start Date End Date Provider Not In System, [facility] PCP - General 05/02/22 Roxann Corona, RN Registered Nurse 05/16/22 Maddison Mcfadden, DPM [address] [place] [address] Consulting Physician Podiatry 06/06/22 Roxann Corona, RN Registered Nurse 10/04/22 documented as of this encounter
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
--- OUTSIDE RECORDS SUMMARY | 2025-03-02 11:19 | XMS_ITS | Encounter Summary ---
Author Organization [employer] ([place], [place], [place], [place]) Address [address] [place] [address] Care Team Providers Care Digital Content Producer Name Role Phone Provider Not In System, McT Primary Care Provide r Unavailable Roxann Corona RN Unavailable Unavailab le Maddison Mcfadden DPM Unavailable [phone] Roxann Corona RN Unavailable Unavailab le Encounter Details Date Type Department Care Team (Late st Contact Info) Description 12/24/2019 Transcribed Document [facility] [place] Family [place] [facility] [place] [address] ProviderMayte MD [address] [place] [address] [phone] Social History Tobacco Use Types Packs/Day Years [...] 12/24/2019 20:17 EDT Electronically signed by Aparna [facility] Conversion Puttying And Calking Supervisor Cerner at 10/17/2022 2:14 PM CDT documented in this encounter Plan of Treatment Not on file documented as of this encounter Visit Diagnoses Not on filedocumented in this encounter Care Teams Digital Content Producer Relationship Specialty Start Date End Date Provider Not In System, [facility] PCP - General 05/02/22 Roxann Corona, RN Registered Nurse 05/16/22 Maddison Mcfadden, DPM [address] [place] [address] Consulting Physician Podiatry 06/06/22 Roxann Corona, RN Registered Nurse 10/04/22 documented as of this encounter
--- OUTSIDE RECORDS SUMMARY | 2025-03-02 11:19 | XMS_ITS | Encounter Summary ---
Author Organization [employer] ([place], [place], [place], [place]) Address [address] [place] [address] Care Team Providers Care Retail Training Manager Name Role Phone Provider Not In System, McT Primary Care Provide r Unavailable Roxann Corona RN Unavailable Unavailab le Maddison Mcfadden DPM Unavailable [phone] Roxann Corona RN Unavailable Unavailab le Encounter Details Date Type Department Care Team (Late st Contact Info) Description 12/26/2019 Transcribed Document [facility] Radiology [address] [place] [address] Moises Mireles MD [address] [place] [address] [place] [address] Social History Tobacco Use Types Packs/Day Years [...] on filedocumented in this encounter Care Teams Retail Training Manager Relationship Specialty Start Date End Date Provider Not In System, Health system PCP - General 05/02/22 Roxann Corona, RN Registered Nurse 05/16/22 Maddison Mcfadden DPM [address] [place] [address] Consulting Physician Podiatry 06/06/22 Roxann Corona, RN Registered Nurse 10/04/22 documented as of this encounter
--- OUTSIDE RECORDS SUMMARY | 2025-03-02 11:19 | XMS_ITS | Encounter Summary ---
Author Organization [employer] ([place], [place], [place], [place]) Address [address] [place] [address] Care Team Providers Care Collections Agent Name Role Phone Provider Not In System, McT Primary Care Provide r Unavailable Rxoann Corona RN Unavailable Unavailab le Maddison Mcfadden DPM Unavailable [phone] Roxann Corona RN Unavailable Unavailab le Encounter Details Date Type Department Care Team (Late st Contact Info) Description 12/23/2019 Transcribed Document [facility] [place] [facility] [place] [address] ProviderMayte MD [address] [place] [address] [phone] Social History Tobacco Use Types Packs/Day Years [...] Admit : No Emergency Contact #1 : Yojnaa Bauer Emergency Contact #1 Emergency Contact #1 Relationship : mom Emergency Contact #2 : n/a Emergency Contact #2 Phone Number : n/a Emergency Contact #2 Relationship : n/a Chief Complaint : c/o fever and chills onset tonight at approx 6pm, SOA with exertion. hx of T4 paraplegic. healing bedsore to coccyx. HR 142 Information Obtained From : Patient Primary Language : Greek Communication Barrier : None Nessa España RN [...] Level : 46 or > High Risk [place] Fall Interventions : Adequate lighting, Assistive devices [...] Source : Stated Height Entry Format : [place] Height, Feet : 5 ft(Converted to: 152 cm, 60 Inch) Height, Inches : 7 Inch(Converted to: 0 ft 7 Inch, 17.78 cm) Clinical Height : 170.18 cm Weight Source : Bed scale Weight Entry Format : [place] Clinical Dosing Weight : 104.55 kg Weight, Pounds : 230 lb Body Surface Area (BSA) : 2.15 m2 Body Mass Index : 36.1 kg/m2 (HI) [place] Body Weight : 65 kg Nessa España [...] Nessa España RN - 12/23/2019 10:46 EDT [place] Suicide Severity Rating Scale (C-SSRS) CSSRS Past Month Wish to be : No CSSRS Past Month Suicidal Thoughts : No CSSRS Lifetime Suicide Behavior : No Suicide Severity Rating Score : 0 Suicide Severity Rating : No Additional Care Required at this time Nessa España RN - 12/23/2019 10:46 EDT Psychosocial History Currently in Unsafe Situation : No Nessa Espñaa RN - 12/23/2019 10:46 EDT Sleep Apnea [...] - 12/23/2019 10:46 EDT Electronically signed by [facility] Conversion Ux Architect Cerner at 10/17/2022 2:11 PM CDT documented in this encounter Plan of Treatment Not on file documented as of this encounter Visit Diagnoses Not on filedocumented in this encounter Care Teams Collections Agent Relationship Specialty Start Date End Date Provider Not In System, [facility] PCP - General 05/02/22 Roxann Corona, RN Registered Nurse 05/16/22 Maddison Mcfadden DPM [address] [place] [address] Consulting Physician Podiatry 06/06/22 Roxann Corona, RN Registered Nurse 10/04/22 documented as of this encounter
--- OUTSIDE RECORDS SUMMARY | 2025-03-02 11:19 | XMS_ITS | Encounter Summary ---
Author Organization [employer] ([place], [place], [place], [place]) Address [address] [place] [address] Care Team Providers Care Cleaning Crew Member Name Role Phone Provider Not In System, McT Primary Care Provide r Unavailable Roxann Corona RN Unavailable Unavailab le Maddison Mcfadden DPM Unavailable [phone] Roxann Corona RN Unavailable Unavailab le Encounter Details Date Type Department Care Team (Late st Contact Info) Description 12/26/2019 Transcribed Document [facility] [place] [facility] [place] [address] ProviderMayte MD [address] [place] [address] Social History Tobacco Use Types Packs/Day [...] 12/26/2019 8:31 EDT Electronically signed by Aparna [facility] Conversion Electrophonic Engineer Cerner at 10/17/2022 2:15 PM CDT documented in this encounter Plan of Treatment Not on file documented as of this encounter Visit Diagnoses Not on filedocumented in this encounter Care Teams Cleaning Crew Member Relationship Specialty Start Date End Date Provider Not In System, [facility] PCP - General 05/02/22 Roxann Corona, RN Registered Nurse 05/16/22 Maddison Mcfadden DPM [address] [place] [address] Consulting Physician Podiatry 06/06/22 Roxann Corona, RN Registered Nurse 10/04/22 documented as of this encounter
--- OUTSIDE RECORDS SUMMARY | 2025-03-02 11:19 | XMS_ITS | Encounter Summary ---
Author Organization [employer] ([place], [place], [place], [place]) Address [address] [place] [address] Care Team Providers Care Cable Splicer Name Role Phone Provider Not In System, McT Primary Care Provide r Unavailable Roxann Corona RN Unavailable Unavailab Maddison Beth DPM Unavailable [phone] Roxann Corona RN Unavailable Unavailab le Encounter Details Date Type Department Care Team (Late st Contact Info) Description 12/24/2019 Transcribed Document [facility] [place] [facility] [place] [address] ProviderMayte MD [address] [place] [address] [id number] Social History Tobacco Use Types Packs/Day Years [...] No productive cough. [facility]. I was [...] No tenderness, No deformity. Integumentary: Warm, Dry, [place], No pallor, No rash, Sacral decub into [...] 22) Lipase 82 (DEC 22) , ACC: [id number] ORDER: .Strep A Confirmation DATE: 12/23/2019 02:00 SOURCE: Throat SITE: Reports Pre 12/24/2019 06:53 No Beta Strep isolated at 24 hours == ACC: [id number] ORDER: Culture Wound and Stain DATE: 12/23/2019 08:45 SOURCE: Wound SITE: Sacrum Reports Pre 12/24/2019 06:37 Culture in progress GS 12/23/2019 15:22 Rare epithelial cells Rare Gram Positive Cocci == ACC: [id number] ORDER: Culture Blood DATE: 12/23/2019 01:30 SOURCE: Blood SITE: Reports Pre 12/24/2019 06:01 No growth at 1 day. Pre 12/23/2019 16:02 Culture less than 24 Hrs old == ACC: [id number] ORDER: Culture Blood DATE: 12/23/2019 01:30 SOURCE: Blood SITE: Reports Pre 12/24/2019 06:01 No growth at 1 day. Pre 12/23/2019 16:02 Culture less than 24 Hrs old == ACC: [id number] ORDER: Flu A/B Rapid Screen DATE: 12/23/2019 01:30 SOURCE: Nasal SITE: Reports Final 12/23/2019 02:07 Negative for Rapid Influenza A and B Antigen Rapid Influenza tests are for screening purposes only. Negative tests should be confirmed by more sensitive methodologies. == ACC: [id number] ORDER: Strep Throat Screen DATE: 12/23/2019 01:30 SOURCE: Throat SITE: Reports Final 12/23/2019 02:00 Strep Screen negative for Group A; Culture confirmation to follow == . Chest x-ray results Radiology Results (Last 48 hours) [id number] -- 12/24/2019 08:26 CR Chest 1 Vw [...] line. Electronically signed by Emir Braun Conversion Recreation Establishment Manager Cerner at 10/17/2022 2:27 PM CDT documented in this encounter Plan of Treatment Not on file documented as of this encounter Visit Diagnoses Not on filedocumented in this encounter Care Teams Cable Splicer Relationship Specialty Start Date End Date Provider Not In System, [facility] PCP - General 05/02/22 Roxann Corona, RN Registered Nurse 05/16/22 Maddison Mcfadden DPM [address] [place] [address] Consulting Physician Podiatry 06/06/22 Roxann Corona, RN Registered Nurse 10/04/22 documented as of this encounter
--- OUTSIDE RECORDS SUMMARY | 2025-03-02 11:19 | XMS_ITS | Encounter Summary ---
Author Organization [employer] ([place], [place], [place], [place]) Address [address] [place] [address] Care Team Providers Care Denial Management Representative Name Role Phone Provider Not In System, McT Primary Care Provide r Unavailable Roxann Corona RN Unavailable Unavailab Maddison Beth DPM Unavailable [phone] Roxann Corona RN Unavailable Unavailab le Encounter Details Date Type Department Care Team (Late st Contact Info) Description 08/29/2019 Transcribed Document [facility] [place] [facility] [place] [address] ProviderMayte MD [address] [place] [address] [phone] Social History Tobacco Use Types Packs/Day Years [...] - Historical ProviderMD - 08/29/2019 6:41 PM SUSTAINABILITY OFFICER DATE OF CONSULTATION: 08/29/2019 SUBJECTIVE: A 49-year-old [...] in 2 weeks to reassess our treatment. /[id number] MD WESLEY Farrell III/JEANETTE / WESLEY / MODL /[id number] Electronically signed by Aparna, [facility] Conversion Inspector Production Plastic Parts Cerner at 10/17/2022 2:20 PM CDT documented in this encounter Plan of Treatment Not on file documented as of this encounter Visit Diagnoses Not on filedocumented in this encounter Care Teams Denial Management Representative Relationship Specialty Start Date End Date Provider Not In System, [facility] PCP - General 05/02/22 Roxann Corona, RN Registered Nurse 05/16/22 Maddison Mcfadden DPM [address] [place] [address] Consulting Physician Podiatry 06/06/22 Roxann Corona, RN Registered Nurse 10/04/22 documented as of this encounter
--- OUTSIDE RECORDS SUMMARY | 2025-03-02 11:19 | XMS_ITS | Encounter Summary ---
Author Organization [employer] ([place], [place], [place], [place]) Address [address] [place] [address] Care Team Providers Care Treasury Agent Name Role Phone Provider Not In System, McT Primary Care Provide r Unavailable Roxann Corona RN Unavailable Unavailab Maddison Beth DPM Unavailable [phone] Roxann Corona RN Unavailable Unavailab le Encounter Details Date Type Department Care Team (Late st Contact Info) Description 11/07/2019 Transcribed Document [facility] [place] [facility] [place] [address] ProviderMayte MD [address] [place] [address] [phone] Social History Tobacco Use Types Packs/Day Years [...] requirements. This information will be provided to [employer], which has requested updates on his temporarily added disability. /[id number] MD WESLEY Farrell III/JEANETTE / WESLEY / MICKIL /[id number] documented in this encounter Plan of Treatment Not on file documented as of this encounter Visit Diagnoses Not on filedocumented in this encounter Care Teams Treasury Agent Relationship Specialty Start Date End Date Provider Not In System, [facility] PCP - General 05/02/22 Roxann Corona, RN Registered Nurse 05/16/22 Maddison Mcfadden DPBrian [address] [place] [address] Consulting Physician Podiatry 06/06/22 Roxann Corona, RN Registered Nurse 10/04/22 documented as of this encounter
--- OUTSIDE RECORDS SUMMARY | 2025-03-02 11:19 | XMS_ITS | Encounter Summary ---
Author Organization [employer] ([place], [place], [place], [place]) Address [address] [place] [address] Care Team Providers Care Postal Delivery Officer Name Role Phone Provider Not In System, McT Primary Care Provide r Unavailable Roxann Corona RN Unavailable Unavailab le Maddison Mcfadden DPM Unavailable Roxann Corona RN Unavailable Unavailab le Encounter Details Date Type Department Care Team (Late st Contact Info) Description 12/24/2019 Transcribed Document [facility] [place] [facility] [place] [address] ProviderMayte MD [address] [place] [address] Social History Tobacco Use Types Packs/Day [...] 12/24/2019 8:00 EDT Electronically signed by Aparna [facility] Conversion Maintenance Craftsman Cerner at 10/17/2022 2:20 PM CDT documented in this encounter Plan of Treatment Not on file documented as of this encounter Visit Diagnoses Not on filedocumented in this encounter Care Teams Postal Delivery Officer Relationship Specialty Start Date End Date Provider Not In System, [facility] PCP - General 05/02/22 Roxann Corona, RN Registered Nurse 05/16/22 Maddison Mcfadden DPM [address] [place] [address] Consulting Physician Podiatry 06/06/22 Roxann Corona, RN Registered Nurse 10/04/22 documented as of this encounter
--- OUTSIDE RECORDS SUMMARY | 2025-03-02 11:19 | XMS_ITS | Encounter Summary ---
Author Organization [employer] ([place], [place], [place], [place]) Address [address] [place] [address] Care Team Providers Care Wall Insulation Sprayer Name Role Phone Provider Not In System, McT Primary Care Provide r Unavailable Roxann Corona RN Unavailable Unavailab Maddison Beth DPM Unavailable [phone] Roxann Corona RN Unavailable Unavailab le Encounter Details Date Type Department Care Team (Late st Contact Info) Description 12/25/2019 Transcribed Document [facility] [place] [address] ProviderMayte MD [address] [place] [address] Social History Tobacco Use Types Packs/Day [...] Mayte ProviderMD - 12/25/2019 2:00 AM CDT Swim Coach Details Entered On: 12/25/2019 8:45 EDT Performed [...] Samina Franco, MATHEW - 12/25/2019 8:45 EDT Electronically signed by Aparna [facility] Conversion Dining Chair Seat Cushion Trimmer Cerner at 10/17/2022 2:10 PM CDT documented in this encounter Plan of Treatment Not on file documented as of this encounter Visit Diagnoses Not on filedocumented in this encounter Care Teams Wall Insulation Sprayer Relationship Specialty Start Date End Date Provider Not In System, [facility] PCP - General 05/02/22 Roxann Corona, RN Registered Nurse 05/16/22 Maddison Mcfadden DPM [address] [place] [address] Consulting Physician Podiatry 06/06/22 Roxann Corona, RN Registered Nurse 10/04/22 documented as of this encounter
--- OUTSIDE RECORDS SUMMARY | 2025-03-02 11:19 | XMS_ITS | Encounter Summary ---
Author Organization [employer] ([place], [place], [place], [place]) Address [address] [place] [address] Care Team Providers Care Experimental Aircraft Mechanic Name Role Phone Provider Not In System, McT Primary Care Provide r Unavailable Roxann Corona RN Unavailable Unavailab Maddison Beth DPM Unavailable [phone] Roxann Corona RN Unavailable Unavailab le Encounter Details Date Type Department Care Team (Late st Contact Info) Description 12/23/2019 Transcribed Document [facility] [place] [facility] [place] [address] ProviderMayte MD [address] [place] [address] [phone] Social History Tobacco Use Types Packs/Day Years [...] EDT Height Source Stated Height Entry Format Logan Height/Length, HONDURAN (ft) 5 ft Height/Length HONDURAN 7 Inch CLINICALHEIGHT 170.18 cm [place] Body Weight 65.16 kg Weight Source, ED Critical estimated dosing weight Weight Entry Format Logan Weight Hebrew lb 230 lb CLINICALWEIGHT 104.55 kg Body [...] Triage: ED C-SSRS: ED Clinical Reconciliation: ED solar project manager: ED Sepsis Alert: Flu A/B Rapid Screen: [...] % LOW Lymph # 0.30 x10(3)/uL LOW [place]ner % 5.0 % [place]ner # 0.62 K/uL Eos % 0.5 % Eos # 0.06 x10(3)/uL Baso % 0.3 % Baso # 0.04 x10(3)/uL RBC Morphology Normal Anisocytosis 1+ Platelet Ct Estimate Adequate Slide Review Technologist IG# 0.09 x10(3)/uL HI IG% 0.70 % HI PT 11.9 Second(s) INR 1.1 Urine Type U CleanCatch Urine Color Yellow Urine Appearance Cloudy Urine Specific [place] 1.012 Urine pH Dipstick 6.0 Urine Leukocyte [...] Calls-Consults - 12/23/2019 04:01:00 , AKASH GREY [facility], will admit to observation. Plan Condition: Improved, Stable. Counseled: Patient. Electronically signed by Aparna [facility] Conversion Messenger Copy Cerner at 10/17/2022 2:04 PM CDT documented in this encounter Plan of Treatment Not on file documented as of this encounter Visit Diagnoses Not on filedocumented in this encounter Care Teams Experimental Aircraft Mechanic Relationship Specialty Start Date End Date Provider Not In System, [facility] PCP - General 05/02/22 Roxann Corona, RN Registered Nurse 05/16/22 Maddison Mcfadden DPM [address] [place] [address] Consulting Physician Podiatry 06/06/22 Roxann Corona, RN Registered Nurse 10/04/22 documented as of this encounter
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
--- OUTSIDE RECORDS SUMMARY | 2025-03-02 11:19 | XMS_ITS | Encounter Summary ---
Author Organization [employer] ([place], [place], [place], [place]) Address [address] [place] [address] Care Team Providers Care Lvn Lpn Name Role Phone Provider Not In System, McT Primary Care Provide r Unavailable Roxann Corona RN Unavailable Unavailab le Maddison Mcfadden DPM Unavailable [phone] Roxann Corona RN Unavailable Unavailab le Encounter Details Date Type Department Care Team (Late st Contact Info) Description 12/25/2019 Transcribed Document [facility] [place] Medicine [facility] [address] ProviderMayte MD [address] [place] [address] [id number] Social History Tobacco Use Types Packs/Day Years [...] Insurance 1 Health Plan: [employer] Policy Number: [id number] Authorization Number: Insurance Primary Name : [employer] Policy Number: [id number] Authorization Status-Primary : Awaiting callback Reference Number-Primary : [id number] Number of Days Authorized-Primary : 1 Day(s) [...] - 12/25/2019 9:44 EDT Electronically signed by [facility] Conversion Director Of Student Life Cerner at 10/17/2022 2:04 PM CDT documented in this encounter Plan of Treatment Not on file documented as of this encounter Visit Diagnoses Not on filedocumented in this encounter Care Teams Lvn Lpn Relationship Specialty Start Date End Date Provider Not In System, [facility] PCP - General 05/02/22 Roxann Corona, RN Registered Nurse 05/16/22 Maddison Mcfadden DPM [address] [place] [address] Consulting Physician Podiatry 06/06/22 Roxann Corona, RN Registered Nurse 10/04/22 documented as of this encounter
--- OUTSIDE RECORDS SUMMARY | 2025-03-02 11:19 | XMS_ITS | Encounter Summary ---
Author Organization [employer] ([place], [place], [place], [place]) Address [address] [place] [address] Care Team Providers Care Educational Program Assistant Name Role Phone Provider Not In System, McT Primary Care Provide r Unavailable Roxann Corona RN Unavailable Unavailab le Maddison Mcfadden DPM Unavailable [phone] Roxann Corona RN Unavailable Unavailab le Encounter Details Date Type Department Care Team (Late st Contact Info) Description 12/26/2019 Transcribed Document [facility] [place] Medicine [facility] [place] [address] ProviderMayte MD [address] [place] [address] Social History Tobacco Use Types Packs/Day [...] 12/26/2019 16:29 EDT Electronically signed by Aparna [facility] Conversion Cabinet Mounter Cerner at 10/17/2022 2:14 PM CDT documented in this encounter Plan of Treatment Not on file documented as of this encounter Visit Diagnoses Not on filedocumented in this encounter Care Teams Educational Program Assistant Relationship Specialty Start Date End Date Provider Not In System, [facility] PCP - General 05/02/22 Roxann Corona, RN Registered Nurse 05/16/22 Maddison Mcfadden DPM [address] [place] [address] Consulting Physician Podiatry 06/06/22 Roxann Corona, RN Registered Nurse 10/04/22 documented as of this encounter
--- OUTSIDE RECORDS SUMMARY | 2025-03-02 11:19 | XMS_ITS | Encounter Summary ---
Author Organization [employer] ([place], [place], [place], [place]) Address [address] [place] [address] Care Team Providers Care Medical Writer Name Role Phone Provider Not In System, McT Primary Care Provide r Unavailable Roxann Corona RN Unavailable Unavailab Maddison Beth DPM Unavailable [phone] Roxann Corona RN Unavailable Unavailab le Encounter Details Date Type Department Care Team (Late st Contact Info) Description 08/27/2019 Transcribed Document [facility] [place] [address] ProviderMayte MD [address] [place] [address] [phone] Social History Tobacco Use Types Packs/Day Years [...] - Historical ProviderMD - 08/27/2019 5:34 PM CARE CLINICIAN DATE OF ADMISSION: 08/08/2019 HISTORY OF PRESENT ILLNESS: This is a 49-year-old male, resident of [place], [place]. We are seeing on his own referral. Concern is a wound in the sacral-buttock area. The patient indicates that about 3 weeks previous, he had an orthopedic procedure and was in the hospital for a few days and following that when he returned home, it was noted that he was having some abnormalities of skin. His mother is his primary high reach operator. She is present here today, but the [...] established a 1 week revisit to reassess. /[id number] MD WESLEY Farrell III/JEANETTE / WESLEY / SUSAN documented in this encounter Plan of Treatment Not on file documented as of this encounter Visit Diagnoses Not on filedocumented in this encounter Care Teams Medical Writer Relationship Specialty Start Date End Date Provider Not In System, [facility] PCP - General 05/02/22 Roxann Corona, RN Registered Nurse 05/16/22 Maddison Mcfadden DPM [address] [place] [address] Consulting Physician Podiatry 06/06/22 Roxann Corona, RN Registered Nurse 10/04/22 documented as of this encounter
--- OUTSIDE RECORDS SUMMARY | 2025-03-02 11:19 | XMS_ITS | Encounter Summary ---
Author Organization [employer] ([place], [place], [place], [place]) Address [address] [place] [address] Care Team Providers Care Mammalogist Name Role Phone Provider Not In System, McT Primary Care Provide r Unavailable Roxann Corona RN Unavailable Unavailab le Maddison Mcfadden DPM Unavailable [phone] Roxann Corona RN Unavailable Unavailab le Encounter Details Date Type Department Care Team (Late st Contact Info) Description 12/24/2019 Transcribed Document [facility] [place] Family Medicine Counts include 234 beds at the [facility] [place] [address] ProviderMayte MD [address] [place] [address] [id number] Social History Tobacco Use Types Packs/Day Years [...] EDT Performed On: 12/24/2019 8:39 EDT by CHESLY HENDERSON Rn-Utilization Review Primary Insurance Authorization Authorization and Policy Numbers : Insurance 1 Health Plan: [employer] Policy Number: [id number] Authorization Number: Insurance Primary Name : [employer] Policy Number: [id number] Authorization Status-Primary : Awaiting callback Reference Number-Primary : pending # [id number] Authorized Service Begin Date-Primary : 12/24/2019 EDT Authorization Comments-Primary : Submitted Inpt Auth on Availity with Pended status. RN reviewer has EMR access Historical Authorization Comments-Primary : No Authorization Comments Found CHELSY HENDERSON Rn-Utilization Review - 12/24/2019 8:39 EDT Electronically signed by [facility], [facility] Conversion Machinist Apprentice Wood Cerner at 10/17/2022 2:27 PM CDT documented in this encounter Plan of Treatment Not on file documented as of this encounter Visit Diagnoses Not on filedocumented in this encounter Care Teams Mammalogist Relationship Specialty Start Date End Date Provider Not In System, [facility] PCP - General 05/02/22 Roxann Corona, RN Registered Nurse 05/16/22 Maddison Mcfadden, DPM [address] [place] [address] Consulting Physician Podiatry 06/06/22 Roxann Corona, RN Registered Nurse 10/04/22 documented as of this encounter
--- OUTSIDE RECORDS SUMMARY | 2025-03-02 11:19 | XMS_ITS | Encounter Summary ---
Author Organization [employer] ([place], [place], [place], [place]) Address [address] [place] [address] Care Team Providers Care Sales Service Coordinator Name Role Phone Provider Not In System, McT Primary Care Provide r Unavailable Roxann Corona RN Unavailable Unavailab le Maddison Mcfadden DPM Unavailable [phone] Roxann Corona RN Unavailable Unavailab le Encounter Details Date Type Department Care Team (Late st Contact Info) Description 12/24/2019 Transcribed Document [facility] Radiology [address] [place] [address] Moises Mireles MD [address] [place] [address] [place] [address] Social History Tobacco Use Types Packs/Day Years [...] At risk for sleep apnea / IMO [id number] / Confirmed History of UTI / SNOMED CT 6696639467 / Confirmed Paraplegia / SNOMED CT 402393404 / Confirmed Pressure ulcer of hip / SNOMED CT 7848497746 / Confirmed, Active Problems (4) At risk [...] 05:23) 106 (DEC 23 02:21) 119 (ROBERTO 15:12) Resp Rate 18 (DEC 23 05:23) [...] Source Bed scale Routine Weight Entry Format [place] Routine Weight, Pounds 226 lb Routine Weight, Ounces 9 oz Routine Weight Calculation 102.98 kg 12/23/2019 10:46 EDT Height Source Stated Height Entry Format [place] Height/Length, LITHUANIAN (ft) 5 ft Height/Length LITHUANIAN 7 Inch CLINICALHEIGHT 170.18 cm Hewitt Body Weight 65 kg Weight Source Bed scale Weight Entry Format [place] Weight Bhutanese lb 230 lb CLINICALWEIGHT 104.55 kg Body Surface Area (BSA) 2.15 m2 Body Mass Index 36.1 kg/m2 HI 12/23/2019 0:13 EDT Height Source Stated Height Entry Format [place] Height/Length, LITHUANIAN (ft) 5 ft Height/Length LITHUANIAN 7 Inch CLINICALHEIGHT 170.18 cm [place] Body Weight 65.16 kg Weight Source, ED Critical estimated dosing weight Weight Entry Format [place] Weight Bhutanese lb 230 lb CLINICALWEIGHT 104.55 kg Body [...] a CBC and CMP in the morning. [employer] system used. Computer program makes numerous spelling grammar mistakes. If you have any questions or concerns do not hesitate call Dr. Moises Wilkerson at cell phone number [phone]. documented in this encounter Plan of Treatment Not on file documented as of this encounter Visit Diagnoses Not on filedocumented in this encounter Care Teams Sales Service Coordinator Relationship Specialty Start Date End Date Provider Not In System, [facility] PCP - General 05/02/22 Roxann Corona, RN Registered Nurse 05/16/22 Maddison Mcfadden DPM [address] [place] [address] Consulting Physician Podiatry 06/06/22 Roxann Corona, RN Registered Nurse 10/04/22 documented as of this encounter
--- OUTSIDE RECORDS SUMMARY | 2025-03-02 11:19 | XMS_ITS | Encounter Summary ---
Author Organization [employer] ([place], [place], [place], [place]) Address [address] [place] [address] Care Team Providers Care Park Interpretive Specialist Name Role Phone Provider Not In System, McT Primary Care Provide r Unavailable Roxann Corona RN Unavailable Unavailab Maddison Beth DPM Unavailable [phone] Roxann Corona RN Unavailable Unavailab le Encounter Details Date Type Department Care Team (Late st Contact Info) Description 12/11/2019 Transcribed Document [facility] [place] [facility] [place] [address] ProviderMayte MD [address] [place] [address] [phone] Social History Tobacco Use Types Packs/Day Years [...] We will reassess him in 2 weeks. /[id number] MD WESLEY Farrell III/JEANETTE / WESLEY / SUSAN /[id number] documented in this encounter Plan of Treatment Not on file documented as of this encounter Visit Diagnoses Not on filedocumented in this encounter Care Teams Park Interpretive Specialist Relationship Specialty Start Date End Date Provider Not In System, [facility] PCP - General 05/02/22 Roxann Corona, MATHEW Registered Nurse 05/16/22 Maddison Mcfadden DPM [address] [place] [address] Consulting Physician Podiatry 06/06/22 Roxann Corona, RN Registered Nurse 10/04/22 documented as of this encounter
--- OUTSIDE RECORDS SUMMARY | 2025-03-02 11:19 | XMS_ITS | Encounter Summary ---
Author Organization [employer] ([place], [place], [place], [place]) Address [address] [place] [address] Care Team Providers Care Vice President Of Nursing Name Role Phone Provider Not In System, McT Primary Care Provide r Unavailable Roxann Corona RN Unavailable Unavailab Maddison Beth DPM Unavailable Roxann Corona RN Unavailable Unavailab le Encounter Details Date Type Department Care Team (Late st Contact Info) Description 12/26/2019 Transcribed Document [facility] [place] Family Medicine [facility] [address] ProviderMayte MD [address] [place] [address] 194041 Social History Tobacco Use Types Packs/Day Years [...] No productive cough. [facility]. I was consulted on 12/23/2019 [...] No tenderness, No deformity. Integumentary: Warm, Dry, [place], No pallor, No rash, Sacral decub into [...] 22) Lipase 82 (ROBERTO 22) , ACC: [id number] ORDER: Culture Urine DATE: 12/23/2019 01:30 SOURCE: Urine, Clean Catch SITE: Reports Final 12/26/2019 08:51 >100,000 cfu/ml Escherichia coli Pre 12/25/2019 06:53 >100,000 cfu/ml Gram Negative Rods == ACC: [id number] ORDER: Culture Wound and Stain DATE: 12/23/2019 [...] cells Rare Gram Positive Cocci == ACC: [id number] ORDER: .Strep A Confirmation DATE: 12/23/2019 02:00 SOURCE: Throat SITE: Reports Final 12/25/2019 09:58 Culture confirmation: No Group A Strep isolated Pre 12/24/2019 06:53 No Beta Strep isolated at 24 hours == ACC: [id number] ORDER: Culture Blood DATE: 12/23/2019 01:30 SOURCE: Blood SITE: Reports Pre 12/26/2019 06:01 No growth at 3 days. Pre 12/25/2019 06:01 No growth at 2 days. Pre 12/24/2019 06:01 No growth at 1 day. Pre 12/23/2019 16:02 Culture less than 24 Hrs old == ACC: [id number] ORDER: Culture Blood DATE: 12/23/2019 01:30 SOURCE: Blood SITE: Reports Pre 12/26/2019 06:01 No growth at 3 days. Pre 12/25/2019 06:01 No growth at 2 days. Pre 12/24/2019 06:01 No growth at 1 day. Pre 12/23/2019 16:02 Culture less than 24 Hrs old == ACC: [id number] ORDER: Flu A/B Rapid Screen DATE: 12/23/2019 01:30 SOURCE: Nasal SITE: Reports Final 12/23/2019 02:07 Negative for Rapid Influenza A and B Antigen Rapid Influenza tests are for screening purposes only. Negative tests should be confirmed by more sensitive methodologies. == ACC: [id number] ORDER: Strep Throat Screen DATE: 12/23/2019 01:30 [...] line. Electronically signed by Emir [facility] Conversion Boring And Filling Machine Operator Cerner at 10/17/2022 2:12 PM CDT documented in this encounter Plan of Treatment Not on file documented as of this encounter Visit Diagnoses Not on filedocumented in this encounter Care Teams Vice President Of Nursing Relationship Specialty Start Date End Date Provider Not In System, [facility] PCP - General 05/02/22 Roxann Corona, RN Registered Nurse 05/16/22 Maddison Mcfadden DPM [address] [place] [address] Consulting Physician Podiatry 06/06/22 Roxann Corona, RN Registered Nurse 10/04/22 documented as of this encounter
--- OUTSIDE RECORDS SUMMARY | 2025-03-02 11:19 | XMS_ITS | Encounter Summary ---
Author Organization [employer] ([place], [place], [place], [place]) Address [address] [place] [address] Care Team Providers Care Rotary Cutter Feeder Name Role Phone Provider Not In System, McT Primary Care Provide r Unavailable Roxann Corona RN Unavailable Unavailab le Maddison Mcfadden DPM Unavailable [phone] Roxann Corona RN Unavailable Unavailab le Encounter Details Date Type Department Care Team (Late st Contact Info) Description 12/25/2019 Transcribed Document [facility] Radiology 1 [place] [address] Moises Mireles MD [address] [place] [address] [place] [address] Social History Tobacco Use Types Packs/Day Years [...] At risk for sleep apnea / IMO [id number] / Confirmed History of UTI / SNOMED CT 8776723961 / Confirmed Paraplegia / SNOMED CT 050947420 / Confirmed Pressure ulcer of hip / SNOMED CT 4423737364 / Confirmed, Active Problems (4) At risk [...] Source Bed scale Routine Weight Entry Format [place] Routine Weight, Pounds 226 lb Routine Weight, [...] (ROBERTO 22) Plt 179 (ROBERTO 24) 191 (ROEBRTO 23) 216 (ROBERTO 22) Na 141 (ROBERTO [...] Recheck a CBC CMP in the morning. [employer] system used. Computer program makes numerous spelling grammar mistakes. If you have any questions or concerns do not hesitate call Dr. Moises Wilkerson at cell phone number [phone]. documented in this encounter Plan of Treatment Not on file documented as of this encounter Visit Diagnoses Not on filedocumented in this encounter Care Teams Rotary Cutter Feeder Relationship Specialty Start Date End Date Provider Not In System, [facility] PCP - General 05/02/22 Roxann Corona, MATHEW Registered Nurse 05/16/22 Maddison Mcfadden DPBrian [address] [place] [address] Consulting Physician Podiatry 06/06/22 Roxann Corona, RN Registered Nurse 10/04/22 documented as of this encounter
--- OUTSIDE RECORDS SUMMARY | 2025-03-02 11:19 | XMS_ITS | Encounter Summary ---
Author Organization [employer] ([place], [place], [place], [place]) Address [address] [place] [address] Care Team Providers Care Medical Staff Manager Name Role Phone Provider Not In System, McT Primary Care Provide r Unavailable Roxann Corona RN Unavailable Unavailab Maddison Beth DPM Unavailable [phone] Roxann Corona RN Unavailable Unavailab le Encounter Details Date Type Department Care Team (Late st Contact Info) Description 12/25/2019 Transcribed Document [facility] [place] [address] ProviderMayte MD [address] [place] [address] [id number] Social History Tobacco Use Types Packs/Day Years [...] No productive cough. He was [facility] to [facility] the care home on 12/23/2019. I was consulted on 12/23/2019 [...] No tenderness, No deformity. Integumentary: Warm, Dry, [place], No pallor, No rash, Sacral decub into [...] Critical Care - Code Management Assessment: ACC: [id number] ORDER: Culture Urine DATE: 12/23/2019 01:30 SOURCE: Urine, Clean Catch SITE: Reports Pre 12/25/2019 06:53 >100,000 cfu/ml Gram Negative Rods == ACC: [id number] ORDER: .Strep A Confirmation DATE: 12/23/2019 02:00 SOURCE: Throat SITE: Reports Pre 12/24/2019 06:53 No Beta Strep isolated at 24 hours == ACC: [id number] ORDER: Culture Wound and Stain DATE: 12/23/2019 08:45 SOURCE: Wound SITE: Sacrum Reports Pre 12/24/2019 06:37 Culture in progress GS 12/23/2019 15:22 Rare epithelial cells Rare Gram Positive Cocci == ACC: [id number] ORDER: Culture Blood DATE: 12/23/2019 01:30 SOURCE: Blood SITE: Reports Pre 12/25/2019 06:01 No growth at 2 days. Pre 12/24/2019 06:01 No growth at 1 day. Pre 12/23/2019 16:02 Culture less than 24 Hrs old == ACC: [id number] ORDER: Culture Blood DATE: 12/23/2019 01:30 SOURCE: Blood SITE: Reports Pre 12/25/2019 06:01 No growth at 2 days. Pre 12/24/2019 06:01 No growth at 1 day. Pre 12/23/2019 16:02 Culture less than 24 Hrs old == [facility]: [id number] ORDER: Flu A/B Rapid Screen DATE: 12/23/2019 01:30 SOURCE: Nasal SITE: Reports Final 12/23/2019 02:07 Negative for Rapid Influenza A and B Antigen Rapid Influenza tests are for screening purposes only. Negative tests should be confirmed by more sensitive methodologies. == [facility]: [id number] ORDER: Strep Throat Screen DATE: 12/23/2019 01:30 [...] filedocumented in this encounter Care Teams Medical Staff Manager Relationship Specialty Start Date End Date Provider Not In System, [facility] PCP - General 05/02/22 Roxann Corona, RN Registered Nurse 05/16/22 Maddison Mcfadden DPM [address] [place] [address] Consulting Physician Podiatry 06/06/22 Roxann Corona, RN Registered Nurse 10/04/22 documented as of this encounter
--- OUTSIDE RECORDS SUMMARY | 2025-03-02 11:19 | XMS_ITS | Encounter Summary ---
Author Organization [employer] ([place], [place], [place], [place]) Address [address] [place] [address] Care Team Providers Care Tablet Making Machine Operator Name Role Phone Provider Not In System, McT Primary Care Provide r Unavailable Roxann Corona RN Unavailable Unavailab le Maddison Mcfadden DPM Unavailable [phone] Roxann Corona RN Unavailable Unavailab le Encounter Details Date Type Department Care Team (Late st Contact Info) Description 12/23/[address] [facility] [place] [address] ProviderMayte MD [address] [place] [address] [id number] Social History Tobacco Use Types Packs/Day Years [...] 12/23/2019 3:22 EDT Electronically signed by Aparna [facility] Conversion Systems Spec Cerner at 10/17/2022 2:08 PM CDT documented in this encounter Plan of Treatment Not on file documented as of this encounter Visit Diagnoses Not on filedocumented in this encounter Care Teams Tablet Making Machine Operator Relationship Specialty Start Date End Date Provider Not In System, [facility] PCP - General 05/02/22 Roxann Corona, RN Registered Nurse 05/16/22 Maddison Mcfadden, DPM [address] [place] [address] Consulting Physician Podiatry 06/06/22 Roxann Corona, RN Registered Nurse 10/04/22 documented as of this encounter
--- OUTSIDE RECORDS SUMMARY | 2025-03-02 11:19 | XMS_ITS | Encounter Summary ---
Author Organization [employer] ([place], [place], [place], [place]) Address [address] [place] [address] Care Team Providers Care Lead Based Paint Technician Name Role Phone Provider Not In System, McT Primary Care Provide r Unavailable Roxann Corona RN Unavailable Unavailab Maddison Beth DPM Unavailable [phone] Roxann Corona RN Unavailable Unavailab le Encounter Details Date Type Department Care Team (Late st Contact Info) Description 11/27/2019 Transcribed Document [facility] [place] Family [place] [facility] [place] [address] ProviderMayte MD [address] [place] [address] [id number] Social History Tobacco Use Types Packs/Day Years [...] that he is going to stay closed. /[id number] MD WESLEY Farrell III/JEANETTE / WESLEY / MODL /[id number] Electronically signed by Aparna [facility] Conversion Photographic Editor Cerner at 10/17/2022 2:11 PM CDT documented in this encounter Plan of Treatment Not on file documented as of this encounter Visit Diagnoses Not on filedocumented in this encounter Care Teams Lead Based Paint Technician Relationship Specialty Start Date End Date Provider Not In System, [facility] PCP - General 05/02/22 Roxann Corona, RN Registered Nurse 05/16/22 Maddison Mcfadden DPM [address] [place] [address] Consulting Physician Podiatry 06/06/22 Roxann Corona, RN Registered Nurse 10/04/22 documented as of this encounter
--- OUTSIDE RECORDS SUMMARY | 2025-03-02 11:19 | XMS_ITS | Encounter Summary ---
Author Organization [employer] ([place], [place], [place], [place]) Address [address] [place] [address] Care Team Providers Care Summer Nanny Name Role Phone Provider Not In System, McT Primary Care Provide r Unavailable Roxann Corona RN Unavailable Unavailab le Maddison Mcfadden DPM Unavailable [phone] Roxann Corona RN Unavailable Unavailab le Encounter Details Date Type Department Care Team (Late st Contact Info) Description 12/25/2019 Transcribed Document [facility] [place] [facility] [address] ProviderMayte MD [address] [place] [address] Social History Tobacco Use Types Packs/Day [...] by Aparna [facility] Conversion Hogshead Press Operator Cerner at 10/17/2022 2:21 PM CDT documented in this encounter Plan of Treatment Not on file documented as of this encounter Visit Diagnoses Not on filedocumented in this encounter Care Teams Summer Nanny Relationship Specialty Start Date End Date Provider Not In System, Janice PCP - General 05/02/22 Roxann Corona, RN Registered Nurse 05/16/22 Maddison Mcfadden DPM [address] [place] [address] Consulting Physician Podiatry 06/06/22 Roxann Corona, RN Registered Nurse 10/04/22 documented as of this encounter
--- OUTSIDE RECORDS SUMMARY | 2025-03-02 11:19 | XMS_ITS | Encounter Summary ---
Author Organization [employer] ([place], [place], [place], [place]) Address [address] [place] [address] Care Team Providers Care Ios Developer Name Role Phone Provider Not In System, McT Primary Care Provide r Unavailable Roxann Corona RN Unavailable Unavailab Maddison Beth DPM Unavailable [phone] Roxann Corona RN Unavailable Unavailab le Encounter Details Date Type Department Care Team (Late st Contact Info) Description 09/12/2019 Transcribed Document [facility] [place] Family Medicine [facility] [place] [address] ProviderMayte MD [address] [place] [address] [id number] Social History Tobacco Use Types Packs/Day Years [...] him here again in another 2 weeks. /[id number] MD WESLEY Farrell III/JEANETTE / WESLEY / MODL /[id number] documented in this encounter Plan of Treatment Not on file documented as of this encounter Visit Diagnoses Not on filedocumented in this encounter Care Teams Ios Developer Relationship Specialty Start Date End Date Provider Not In System, [facility] PCP - General 05/02/22 Roxann Corona, RN Registered Nurse 05/16/22 Maddison Mcfadden DPM [address] [place] [address] Consulting Physician Podiatry 06/06/22 Roxann Corona, RN Registered Nurse 10/04/22 documented as of this encounter
--- OUTSIDE RECORDS SUMMARY | 2025-03-02 11:19 | XMS_ITS | Encounter Summary ---
Author Organization [employer] ([place], [place], [place], [place]) Address [address] [place] [address] Care Team Providers Care Service Order Dispatcher Name Role Phone Provider Not In System, McT Primary Care Provide r Unavailable Roxann Corona RN Unavailable Unavailab le Maddison Mcfadden DPM Unavailable [phone] Roxann Corona RN Unavailable Unavailab le Encounter Details Date Type Department Care Team (Late st Contact Info) Description 12/23/2019 Transcribed Document [facility] [place] [address] ProviderMayte MD [address] [place] [address] [phone] Social History Tobacco Use Types Packs/Day Years [...] 12/23/2019 15:58 EDT by Mandie Dominguez Rn-Enterostomal WO Admission Date : Admit Date 12/23/2019 03:59 [...] on filedocumented in this encounter Care Teams Service Order Dispatcher Relationship Specialty Start Date End Date Provider Not In System, [facility] PCP - General 05/02/22 Roxann Corona, RN Registered Nurse 05/16/22 Maddison Mcfadden DPM [address] [place] [address] Consulting Physician Podiatry 06/06/22 Roxann Corona, RN Registered Nurse 10/04/22 documented as of this encounter
--- OUTSIDE RECORDS SUMMARY | 2025-03-02 11:20 | XMS_ITS | Encounter Summary ---
Author Organization [employer] ([place], [place], [place], [place]) Address [address] [place] [address] Care Team Providers Care Carcass Washer Name Role Phone Provider Not In System, McT Primary Care Provide r Unavailable Roxann Corona RN Unavailable Unavailab le Maddison Mcfadden DPM Unavailable [phone] Roxann Corona RN Unavailable Unavailab le Encounter Details Date Type Department Care Team (Late st Contact Info) Description 12/26/2019 Transcribed Document [facility] [place] [facility] [place] [address] ProviderMayte MD [address] [place] [address] Social History Tobacco Use Types Packs/Day [...] Giles MD - 12/26/2019 2:[address] [facility] KIMBERLY Paige [address] [address] :1970 Visit [...] Comments Appointment has been made Where: [address] [place] [address]- Business (1) Follow Up with [facility] When 01/02/2020 01:15 PM EDT Comments Appointment has been made Where: [address] [place] [address]- Follow Up with NATALI SYED MD When Within 1 week Comments Call for follow up appointment; office was closed on 12/25 Where: [address] [facility] [address] [place] [address]- Medications What How Much When Instructions Next [...] these instructions at home: Medicines ??? Take bcid-diy-cjkkpex and prescription medicines only as told by [...] often using soap and water. Use hand supervisor electric motor testing if soap and water are not available. [...] 01/25/2019 Document Revised: 01/25/2019 Document Reviewed: 01/25/2019 [employer] Interactive Patient Education ?? 2020 [employer]. Emergency Awareness and Preventative Care STROKE is [...] Assistance with quitting is available by contacting 9-571-OAOI-NOW. This is a free resource providing counseling, [...] and 14.9 ) ANC #: 7 K/uL Cache Percent Man: 5 % -- Normal range [...] range between ( 0.0 and 7.0 ) Cache #: 1.20 K/uL -- Normal range between ( 0.16 and 1.00 ) Eos #: 0.18 x10(3)/uL -- Normal range between ( 0.00 and 0.80 ) Cache %: 12.3 % -- Normal range between [...] ) Urine Bilirubin Dipstick: Negative Urine Specific [place]: 1.012 -- Normal range between ( 1.005 [...] was given the opportunity to ask questions. Patient/Activated Sludge Operator Name: Patient/Activated Sludge Operator Signature: Relationship to Patient: Clinician/Hospital Activated Sludge Operator Signature: Date: documented in this encounter Plan of Treatment Not on file documented as of this encounter Visit Diagnoses Not on filedocumented in this encounter Care Teams Carcass Washer Relationship Specialty Start Date End Date Provider Not In System, [facility] PCP - General 05/02/22 Roxann Corona, RN Registered Nurse 05/16/22 Maddison Mcfadden DPM [address] [place] [address] Consulting Physician Podiatry 06/06/22 Roxann Corona, RN Registered Nurse 10/04/22 documented as of this encounter
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
--- OUTSIDE RECORDS SUMMARY | 2025-03-02 11:20 | XMS_ITS | Encounter Summary ---
Author Organization [employer] ([place], [place], [place], [place]) Address [address] [place] [address] Care Team Providers Care Loss Prevention Research Engineer Name Role Phone Provider Not In System, McT Primary Care Provide r Unavailable Roxann Corona RN Unavailable Unavailab Maddison Beth DPM Unavailable Roxann Corona RN Unavailable Unavailab le Encounter Details Date Type Department Care Team (Late st Contact Info) Description 12/26/2019 Transcribed Document [facility] [place] Family [place] [address] ProviderMayte MD [address] [place] [address] Social History Tobacco Use Types Packs/Day [...] on filedocumented in this encounter Care Teams Loss Prevention Research Engineer Relationship Specialty Start Date End Date Provider Not In System, [facility] PCP - General 05/02/22 Roxann Corona, RN Registered Nurse 05/16/22 Maddison Mcfadden DPM [address] [place] [address] Consulting Physician Podiatry 06/06/22 Roxann Corona, RN Registered Nurse 10/04/22 documented as of this encounter
--- OUTSIDE RECORDS SUMMARY | 2025-03-02 11:20 | XMS_ITS | Encounter Summary ---
Author Organization [employer] ([place], [place], [place], [place]) Address [address] [place] [address] Care Team Providers Care Information Technology Account Manager Name Role Phone Provider Not In System, McT Primary Care Provide r Unavailable Roxann Corona RN Unavailable Unavailab Maddison Beth DPM Unavailable [phone] Roxann Corona RN Unavailable Unavailab le Encounter Details Date Type Department Care Team (Late st Contact Info) Description 12/26/2019 Transcribed Document [facility] [place] Family Medicine [facility] [place] [address] ProviderMayte MD [address] [place] [address] Social History Tobacco Use Types Packs/Day [...] Mayte ProviderMD - 12/26/2019 2:00 AM CDT Hog Room Supervisor Details Entered On: 12/26/2019 8:31 EDT Performed [...] 12/26/2019 8:30 EDT Electronically signed by Aparna [facility] Conversion Smoked Meat Preparer Cerner at 10/17/2022 2:21 PM CDT documented in this encounter Plan of Treatment Not on file documented as of this encounter Visit Diagnoses Not on filedocumented in this encounter Care Teams Information Technology Account Manager Relationship Specialty Start Date End Date Provider Not In System, [facility] PCP - General 05/02/22 Roxann Corona, RN Registered Nurse 05/16/22 Maddison Mcfadden DPM [address] [place] [address] Consulting Physician Podiatry 06/06/22 Roxann Corona, RN Registered Nurse 10/04/22 documented as of this encounter
--- OUTSIDE RECORDS SUMMARY | 2025-03-02 11:20 | XMS_ITS | Encounter Summary ---
Author Organization [employer] ([place], [place], [place], [place]) Address [address] [place] [address] Care Team Providers Care Roll Wrapper Name Role Phone Provider Not In System, McT Primary Care Provide r Unavailable Roxann Corona RN Unavailable Unavailab Maddison Beth DPM Unavailable [phone] Roxann Corona RN Unavailable Unavailab le Encounter Details Date Type Department Care Team (Late st Contact Info) Description 12/26/2019 Transcribed Document [facility] [place] [facility] [place] [address] ProviderMayte MD [address] [place] [phone] Social History Tobacco Use Types Packs/Day Years [...] these instructions at home: Medicines ??? Take yzwj-xur-lmerblk and prescription medicines only as told by [...] often using soap and water. Use hand nissan sales consultant if soap and water are not available. [...] 01/25/2019 Document Revised: 01/25/2019 Document Reviewed: 01/25/2019 [employer] Interactive Patient Education ? 2020 [employer]. documented in this encounter Plan of Treatment Not on file documented as of this encounter Visit Diagnoses Not on filedocumented in this encounter Care Teams Roll Wrapper Relationship Specialty Start Date End Date Provider Not In System, [facility] PCP - General 05/02/22 Roxann Corona, RN Registered Nurse 05/16/22 Maddison Mcfadden DPM [address] [place] [address] Consulting Physician Podiatry 06/06/22 Roxann Corona, RN Registered Nurse 10/04/22 documented as of this encounter
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
--- OUTSIDE RECORDS SUMMARY | 2025-03-02 11:20 | XMS_ITS | Referral Summary ---
Author Organization [employer] ([place], [place], [place], [place]) Address [address] [place] [address] Care Team Providers Care Underwear Finisher Name Role Phone Provider Not In System, [facility] Primary Care Provide r Unavailable Roxann Corona RN Unavailable Unavailab Maddison Beth DPM Unavailable [phone] Roxann Corona RN Unavailable Unavailab le Allergies [...] Date Kamran rded Speak language other than Pashto at home Not on file 07/21/2023 Want [...] on file Insurance [employer] Care Teams Underwear Finisher Relationship Specialty Start Date End Date Provider Not In System, [facility] PCP - General 05/02/22 Roxann Corona, RN Registered Nurse 05/16/22 Maddison Mcfadden, DPBrian [address] [place], [place] [id number] [place] [address] Consulting Physician Podiatry 06/06/22 Roxann Corona, RN Registered Nurse 10/04/22
--- OUTSIDE RECORDS SUMMARY | 2025-03-02 11:20 | XMS_ITS | Clinical Summary ---
Author Organization [facility] Address [address] [facility] [address] [place] [address] Phone Care Team Providers Care Cover Marker Name Role Phone Denny VIDAL, Rodolfo Benavidez Unavailable [ ] Conditions or Problems Problem Name Problem Code Onset Date Status Entry Date Provider Comment Standard Description Annotate Fungal dermatitis 30064406 (SNOMED CT) 01/05 Active 01/05 Rodolfo Baldwin MD Dermal mycosis Pressure ulcer of sacral region, stage 4 182679255 (SNOMED CT) 12/31 Active 12/31 Chioma Bill Pressure ulcer stage 4 Acute cystitis w/o hematuria 22585908 (SNOMED CT) 12/31 Active 12/31 Chioma Bill [...] Active 12/31 Chioma Bill Leukemoid reaction Cholestasis 29446529 (SNOMED CT) 12/31 Active 12/31 Chioma Bill Cholestasis Hypoalbuminemi a 182013866 (SNOMED CT) 12/31 Active 12/31 Chioma Bill Hypoalbuminemia Anemia in chronic diseases(docum ent disease) D63.8 (ICD-10-CM ) 12/31 Active 12/31 Chioma Khan Anemia in other chronic diseases classified elsewhere Medications Medication Instructions Start Date Stop Date Generic Name NDC Provider SYMBICORT 80-4.5 MCG/ACT AERO 2 Puff, Inhalation, BID 0 BUDESONIDE-FOR MOTEROL FUMARATE [id number] Paige Aguirre POTASSIUM CHLORIDE ER 10 MEQ CR-CAPS Take by mouth twice a day 0 POTASSIUM CHLORIDE 59259118055 Paige Aguirre LISINOPRIL-HYD ROCHLOROTHIAZI DE 10-12.5 MG TABS Take one by mouth daily 0 LISINOPRIL-HYD ROCHLOROTHIAZI DE 57527152176 Paige Aguirre CEFUROXIME AXETIL 500 MG TABS Take by mouth twice a day 0 CEFUROXIME AXETIL 41289071207 Paige Aguirre Medications Administered No information available. Allergies, Adverse Reactions, Alerts Allergy Name Reaction Description Start Date Severity Statu s Provider MACRODANTIN Moderate Active Paige Aguirre SULFA DRUGS Moderate Active Paige Aguirre Results Date Name Value Unit Range Flag Description Office Visit: Rm 1-HFU MEDS REVIEW Done Documenta tion of current medications (procedure) ORALTOBACUSE Never Tobacco smoking status SMOK STATUS Never smoker Toba financial accounting analyst smoking status Plan of Care Type Date [...]
--- OUTSIDE RECORDS SUMMARY | 2025-03-02 11:20 | XMS_ITS | Encounter Summary ---
Author Organization [employer] ([place], [place], [place], [place]) Address [address] [place] [address] Care Team Providers Care Drop Wire Operator Name Role Phone Provider Not In System, [facility] Primary Care Provide r Unavailable Roxann Corona RN Unavailable Unavailab Maddison Beth DPM Unavailable [phone] Roxann Corona RN Unavailable Unavailab le Encounter Details Date Type Department Care Team (Late st Contact Info) Description 01/02/2020 Transcribed Document [facility] Family Medicine [facility] [place] [address] ProviderMayte MD [address] [place] [id number] Social History Tobacco Use Types Packs/Day Years [...] have to work that out with the [facility], but I certainly see the advantage of doing it. /[id number] MD WESLEY Farrell III/JEANETTE / WESLEY / MICKIL /[id number] documented in this encounter Plan of Treatment Not on file documented as of this encounter Visit Diagnoses Not on filedocumented in this encounter Care Teams Drop Wire Operator Relationship Specialty Start Date End Date Provider Not In System, [facility] PCP - General 05/02/22 Roxann Corona, RN Registered Nurse 05/16/22 Maddison Mcfadden, DPM [address] [place] [address] Consulting Physician Podiatry 06/06/22 Roxann Corona, RN Registered Nurse 10/04/22 documented as of this encounter
--- OUTSIDE RECORDS SUMMARY | 2025-03-02 11:20 | XMS_ITS | Encounter Summary ---
Author Organization [employer] ([place], [place], [place], [place]) Address [address] [place] [address] Care Team Providers Care Incident Response Coordinator Name Role Phone Provider Not In System, McT Primary Care Provide r Unavailable Roxann Corona RN Unavailable Unavailab Maddison Beth DPM Unavailable [phone] Roxann Corona RN Unavailable Unavailab le Encounter Details Date Type Department Care Team (Late st Contact Info) Description 12/26/2019 Transcribed Document [facility] [place] [facility] [place] [address] ProviderMayte MD [address] [place] [id number] Social History Tobacco Use Types Packs/Day [...] 12/26/2019 14:31 EDT Electronically signed by Aparna [facility] Conversion Dock Builder Cerner at 10/17/2022 2:24 PM CDT documented in this encounter Plan of Treatment Not on file documented as of this encounter Visit Diagnoses Not on filedocumented in this encounter Care Teams Incident Response Coordinator Relationship Specialty Start Date End Date Provider Not In System, [facility] PCP - General 05/02/22 Roxann Corona, RN Registered Nurse 05/16/22 Maddison Mcfadden, DPM [address] [place] [address] Consulting Physician Podiatry 06/06/22 Roxann Corona, RN Registered Nurse 10/04/22 documented as of this encounter
--- OUTSIDE RECORDS SUMMARY | 2025-03-02 11:20 | XMS_ITS | Encounter Summary ---
Author Organization [facility] ([place], [place], [place], [place]) Address [address] [place] [address] Care Team Providers Care Floorwalker Name Role Phone Provider Not In System, McT Primary Care Provide r Unavailable Roxann Corona RN Unavailable Unavailab le Maddison Mcfadden DPM Unavailable [phone] Roxann Corona RN Unavailable Unavailab le Encounter Details Date Type Department Care Team (Late st Contact Info) Description 12/26/2019 Transcribed Document [facility] Family [facility] [place] [address] ProviderMayte MD [address] [place] [id number] Social History Tobacco Use Types Packs/Day Years [...] On: 12/26/2019 14:13 EDT by AUBREY WILCOX, access specialist Documentation Patient Disposition, General : Discharge Discharge To : Home with ambulatory/outpatient follow-up AUBREY WILCOX RN - 12/26/2019 14:13 EDT documented in this encounter Plan of Treatment Not on file documented as of this encounter Visit Diagnoses Not on filedocumented in this encounter Care Teams Floorwalker Relationship Specialty Start Date End Date Provider Not In System, [facility] PCP - General 05/02/22 Roxann Corona, RN Registered Nurse 05/16/22 Maddison Mcfadden, DPBrian [address] [place] [address] Consulting Physician Podiatry 06/06/22 Roxann Corona, RN Registered Nurse 10/04/22 documented as of this encounter
--- OUTSIDE RECORDS SUMMARY | 2025-03-02 11:20 | XMS_ITS | Encounter Summary ---
Author Organization [employer] ([place], [place], [place], [place]) Address [address] [place] [address] Care Team Providers Care Marketing Operations Specialist Name Role Phone Provider Not In System, McT Primary Care Provide r Unavailable Roxann Corona RN Unavailable Unavailab le Maddison Mcfadden DPM Unavailable [phone] Roxann Cornoa RN Unavailable Unavailab le Encounter Details Date Type Department Care Team (Late st Contact Info) Description 12/26/2019 Transcribed Document [facility] Family Medicine [facility] [place] [address] ProviderMayte MD [address] [place] [id number] Social History Tobacco Use Types Packs/Day Years [...] Insurance 1 Health Plan: [employer] Policy Number: [id number] Authorization Number: Insurance Primary Name : [employer] Policy Number: [id number] Authorization Status-Primary : Admit approved Reference Number-Primary : [id number] Number of Days Authorized-Primary : 1 Day(s) [...] 12/26/2019 14:25 EDT Electronically signed by Aparna [facility] Conversion Candle Wrapper Cerner at 10/17/2022 2:29 PM CDT documented in this encounter Plan of Treatment Not on file documented as of this encounter Visit Diagnoses Not on filedocumented in this encounter Care Teams Marketing Operations Specialist Relationship Specialty Start Date End Date Provider Not In System, [facility] PCP - General 05/02/22 Roxann Corona, RN Registered Nurse 05/16/22 Maddison Mcfadden, DPM [address] [place] [address] Consulting Physician Podiatry 06/06/22 Roxann Corona, RN Registered Nurse 10/04/22 documented as of this encounter
--- OUTSIDE RECORDS SUMMARY | 2025-03-02 11:20 | XMS_ITS | Encounter Summary ---
Author Organization [employer] ([place], [place], [place], [place]) Address [address] [place] [address] Care Team Providers Care Public Safety Telecommunicator Name Role Phone Provider Not In System, McT Primary Care Provide r Unavailable Roxann Corona RN Unavailable Unavailab le Maddison Mcfadden DPM Unavailable Roxann Corona RN Unavailable Unavailab le Encounter Details Date Type Department Care Team (Late st Contact Info) Description 12/26/2019 Transcribed Document [facility] Family [place] [facility] [place] [address] ProviderMayte MD [address] [place] [id number] Social History Tobacco Use Types Packs/Day Years [...] on filedocumented in this encounter Care Teams Public Safety Telecommunicator Relationship Specialty Start Date End Date Provider Not In System, [facility] PCP - General 05/02/22 Roxann Corona, RN Registered Nurse 05/16/22 Maddison Mcfadden DPM [address] [place] [address] Consulting Physician Podiatry 06/06/22 Roxann Corona, RN Registered Nurse 10/04/22 documented as of this encounter
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
--- NOTE | 2025-03-02 11:42 | CT_ITS ---
PROCEDURE INFORMATION: Exam: CT Abdomen And Pelvis With Contrast Exam date and time: 03/02/2025 12:31 PM Age: 55 years old Clinical indication: Other: Left testicle swelling; Additional info: Left testicle swelling concern for austyn's gang TECHNIQUE: Imaging protocol: Computed tomography of the abdomen and pelvis with contrast. Radiation optimization: All CT scans at this facility use at least one of these dose optimization techniques: automated exposure control; mA and/or kV adjustment per patient size (includes targeted exams where dose is matched to clinical indication); or iterative reconstruction. Contrast material: ISOVUE; Contrast volume: 75 ml; Contrast route: IV; COMPARISON: CT HIP RT W CON 10/10/2022 8:30 PM FINDINGS: Lungs: Calcified granuloma in the right lower lobe. Liver: Normal. No mass. Gallbladder and biliary ducts: Normal. No calcified stones. No ductal dilation. Pancreas: Normal. No ductal dilation. Spleen: Normal. No splenomegaly. Adrenal glands: Normal. No mass. Kidneys and ureters: Nonobstructing right renal calculi including a 9 mm stone in the right renal pelvis. No hydronephrosis. Stomach and bowel: Unremarkable. No obstruction. No mucosal thickening. Appendix: No evidence of appendicitis. Intraperitoneal space: Within normal limits. Vasculature: Unremarkable. No abdominal aortic aneurysm. Lymph nodes: Unremarkable. No enlarged lymph nodes. Urinary bladder: Unremarkable as visualized. Reproductive: Diffusely hyperdense appearance of the left testicle and left spermatic cord. Small bilateral hydroceles. No abscess. No subcutaneous emphysema. Bones/joints: Chronic dislocation of the hips. Thoracolumbar spinal fixation hardware is seen with corpectomy and graft in the lower thoracic spine. Some hyperdensity within the spinal canal in the upper lumbar region could reflect sequela of prior myelogram. Similar lucency about the right sacroiliac screw. Soft tissues: See Reproductive finding. IMPRESSION: 1. Diffusely hyperdense appearance of the left testicle and left spermatic cord. Findings are favored to reflect sequela of prior insult or could be infectious or inflammatory. Consider scrotal ultrasound for further evaluation. No abscess or subcutaneous emphysema. 2. Nonobstructing right renal calculi including a 9 mm stone in the right renal pelvis.
--- NOTE | 2025-03-02 11:50 | PC.NURSE ---
I spoke with Rodríguez BARRON about the zosyn order and pts listed penicillin allergy. pt states he does not think he is allergic but was told he maybe had a reaction to it at one point. I discussed this with who also talked with . ok'd giving them med and observing him closely.
--- NOTE | 2025-03-02 12:00 | PC.NURSE ---
difficulty obtaining second set of cultures
[2025-03-02 12:11] LABS: Hematocrit 41.0 % (42.0-52.0); Hemoglobin 13.9 g/dL (14.1-18.0); Immature Granulocytes % 1.0 %; Mean Corpuscular HGB Conc 33.9 g/dL (31.8-35.4); Mean Corpuscular Hemoglobin 29.5 pg (27.0-31.2); Mean Corpuscular Volume 87.0 fl (80-94); Nucleated Red Blood Cells % 0 %; Platelet Count 292 K/mm3 (142-424); Red Blood Count 4.71 M/mm3 (4.60-6.20); Red Cell Distribution Width-SD 47.6 fL; White Blood Count 13.3 K/mm3 (4.8-10.8)
[2025-03-02 12:26] LABS: Hemoglobin A1C 6.6 % (4.0-6.0)
[2025-03-02 12:27] LABS: Albumin Level 4.1 g/dl (3.5-5.0); Chloride 105 mmol/L (98-107); Potassium 4.3 mmoL/L (3.5-5.1); Sodium 136 mmol/L (136-145)
[2025-03-02 12:30] LABS: Alanine Aminotransferase 26 U/L (12-78); Albumin/Globulin Ratio 1.4 (1.1-1.8); Alkaline Phosphatase 80 U/L (38-126); Anion Gap 11.3 mEq/L (5-15); Aspartate Amino Transferase 25 U/L (17-59); Bilirubin,Total 0.5 mg/dl (0.2-1.3); Blood Urea Nitrogen 28 mg/dl (9-20); Carbon Dioxide 24 mmol/L (22.0-30.0); Creatinine Clearance Estimated 144 mL/min (50-200); Creatinine,Serum 0.80 mg/dl (0.66-1.25); Estimated Glomerular Filt Rate 100 ml/min (>60); GFR (African American) 121 ML/MIN (>60); Globulin 3.0 g/dL (1.3-3.2); Total Protein,Serum 7.1 g/dl (6.3-8.2)
[2025-03-02 12:31] LABS: Calcium 8.8 mg/dl (8.4-10.2); Glucose 131 mg/dl (74-100)
[2025-03-02] MEDS: SODIUM CHLORIDE 0.9% 10ML SYR (RAD ONLY) 10 ML IV (12:31)
[2025-03-02] MEDS: IOPAMIDOL-370 (76%);100ML BOTTLE 75 ML IV (12:31)
[2025-03-02] MEDS: PIPERACILLIN/TAZO 4.5 GM in 0.9 % SODIUM CHLORIDE 100 ML IV ×2 (13:00→20:33)
--- NOTE | 2025-03-02 13:05 | PC.NURSE ---
Called for a consult.
[2025-03-02] MEDS: LACTATED RINGERS 1000ML 2,050 ML 1025 ML IV (13:27)
--- NOTE | 2025-03-02 13:29 | PC.NURSE ---
[facility] RN notified of the need for a bed to admit the pt to
--- NOTE | 2025-03-02 13:30 | HMH.PHAINT1 ---
Pharmacy Intervention Comments: MEDICATION RECONCILIATION COMPLETED ON PATIENT USING EXTERNAL FILL HISTORY FROM PHARMACY AND DISCHARGE SUMMARY FROM PREVIOUS ADMISSION. -SHAINA GARY, PAULINED
--- NOTE | 2025-03-02 13:45 | PC.NURSE ---
report called to nicolasa on second floor
[2025-03-02 13:52] LABS: Hepatitis C Ab Qual. W/ RFX NEGATIVE (Negative)
--- NOTE | 2025-03-02 14:11 | PC.NURSE ---
arrived to floor by stretcher from ED
--- NOTE | 2025-03-02 14:57 | PC.WOUNDNOTE ---
scab on sacrum
[2025-03-02 15:41] LABS: C-Reactive Protein 58.6 mg/L (0-4)
[2025-03-02] MEDS: LINEZOLID 600 MG/300 ML IV.SOLN 300 MG IV ×2 (16:02→23:55)
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
[2025-03-02 19:16] LABS: Microscopic, Urine URINE MICROSCOPIC (MICROSCOPIC)
[2025-03-02 19:18] LABS: Bilirubin,Urine Negative (Negative); Color,Urine YELLOW (Yellow); Glucose,Urine (UA) 1+ (Negative); Ketones,Urine Negative (Negative); Leukocyte Esterase,Urine 1+ (Negative); PH,Urine 5.5 (5.0-8.5); Protein,Urine Negative (Negative); Specific Gravity, Urine 1.015 (1.005-1.030); Urobilinogen,Urine 1.0 EU/dl (0.2)
[2025-03-02 19:33] LABS: WBC,Urine 20-50 #/hpf (0-3)
[2025-03-02 19:35] LABS: Bacteria,Urine 1+ /lpf
[2025-03-03] MEDS: PIPERACILLIN/TAZO 4.5 GM in 0.9 % SODIUM CHLORIDE 100 ML IV ×3 (03:15→19:58)
--- NOTE | 2025-03-03 03:20 | PC.NURSE ---
Pt A&OX4 and has tolerated room air. He has denied any pain this shift. Rosas has remained in place with good output. He has received IV abx throughout the shift. No complaints at this time, call light within reach.
[2025-03-03 04:00] VITALS: BP 147/86; PULSE 84; RESP 16; TEMP 36.8; O2SAT 91; BMI 32.1
[2025-03-03] MEDS: SITAGLIPTIN 50MG TABLET 100 MG PO (06:31)
[2025-03-03 07:42] VITALS: BP 132/76; PULSE 60; RESP 16; TEMP 36.8; O2SAT 95
[2025-03-03] MEDS: AMLODIPINE 5MG TABLET 5 MG PO (09:39)
[2025-03-03] MEDS: FUROSEMIDE 40 MG TABLET PO (09:39)
[2025-03-03] MEDS: LISINOPRIL 20MG TABLET 40 MG PO (09:39)
[2025-03-03] MEDS: METOPROLOL SUCCINATE XL 25MG TABLET 25 MG PO (09:39)
[2025-03-03] MEDS: SPIRONOLACTONE 25MG TABLET 25 MG PO (09:39)
[2025-03-03 10:13] LABS: Hematocrit 40.6 % (42.0-52.0); Hemoglobin 13.7 g/dL (14.1-18.0); Immature Granulocytes % 1.0 %; Mean Corpuscular HGB Conc 33.7 g/dL (31.8-35.4); Mean Corpuscular Hemoglobin 29.5 pg (27.0-31.2); Mean Corpuscular Volume 87.3 fl (80-94); Nucleated Red Blood Cells % 0 %; Platelet Count 290 K/mm3 (142-424); Red Blood Count 4.65 M/mm3 (4.60-6.20); Red Cell Distribution Width-SD 48.6 fL; White Blood Count 10.0 K/mm3 (4.8-10.8)
[2025-03-03] MEDS: LINEZOLID 600 MG/300 ML IV.SOLN 300 MG IV (12:09)
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
[2025-03-03 15:48] VITALS: BP 126/74; PULSE 75; RESP 12; TEMP 36.6; O2SAT 95
--- NOTE | 2025-03-03 17:00 | PC.NURSE ---
patient is a/o x4 and remains on room air tolerating well. laureano remains in place. patient states he has rested this shift, also states he is feeling much better. IV ABX per AUG. Denies pain. tolerating diet. dressing to bottom C/D/I. call light within reach, no further requests at this time.
[2025-03-03 20:00] VITALS: BP 125/76; PULSE 98; RESP 18; TEMP 36.8; O2SAT 94
--- OUTSIDE RECORDS SUMMARY | 2025-03-03 20:42 | XMS_ITS | Encounter Summary ---
Author Organization [employer] ([place], [place], [place], [place]) Address [address] [place] [address] Care Team Providers Care Cable Splicing Technician Name Role Phone Provider Not In System, McT Primary Care Provide r Unavailable Roxann Corona RN Unavailable Unavailab Maddison Beth DPM Unavailable [phone] Roxann Corona RN Unavailable Unavailab le Encounter Details Date Type Department Care Team (Late st Contact Info) Description 12/23/2019 Transcribed Document [facility] [place] [facility] [place] [address] ProviderMayte MD [address] [place] [address] [id number] Social History Tobacco Use Types Packs/Day Years [...] filedocumented in this encounter Care Teams Cable Splicing Technician Relationship Specialty Start Date End Date Provider Not In System, [facility] PCP - General 05/02/22 Roxann Corona, RN Registered Nurse 05/16/22 Maddison Mcfadden, DPM [address] [place] [address] Consulting Physician Podiatry 06/06/22 Roxann Corona, RN Registered Nurse 10/04/22 documented as of this encounter
--- OUTSIDE RECORDS SUMMARY | 2025-03-03 20:42 | XMS_ITS | Encounter Summary ---
Author Organization [employer] ([place], [place], [place], [place]) Address [address] [place] [address] Care Team Providers Care Entertainer Or Variety Artist Name Role Phone Provider Not In System, McT Primary Care Provide r Unavailable Roxann Corona RN Unavailable Unavailab Maddison Beth DPM Unavailable [phone] Roxann Corona RN Unavailable Unavailab le Encounter Details Date Type Department Care Team (Late st Contact Info) Description 12/23/2019 Transcribed Document [facility] Family Medicine [facility] [place] [address] ProviderMayte MD [address] [place] [address] [id number] Social History Tobacco Use Types Packs/Day Years [...] Assessment Comment/Summary Points : Patient will request Maintenance Carpenter when feeling up to discussing advance directive. Provided supportive presence. Spirital Assessment Comment/Summary Report : SPIRITUAL ASSESSMENT COMMENT/SUMMARY No qualifying data available. SUHAIL RESENDIZ P - 12/23/2019 14:40 EDT Interventions Advance Directive Information Provided : No Spiritual and Sabianist : Spiritual/Sabianist support provided SUHAIL RESENDIZ P - 12/23/2019 14:40 EDT Electronically signed by [facility], [facility] [employer]version [employer] Supervisor Cerner at 10/17/2022 2:17 PM CDT documented in this encounter Plan of Treatment Not on file documented as of this encounter Visit Diagnoses Not on filedocumented in this encounter Care Teams Entertainer Or Variety Artist Relationship Specialty Start Date End Date Provider Not In System, [facility] PCP - General 05/02/22 Roxann Corona, RN Registered Nurse 05/16/22 Maddison Mcfadden DPM [address] [place] [address] Consulting Physician Podiatry 06/06/22 Roxann Corona, RN Registered Nurse 10/04/22 documented as of this encounter
--- OUTSIDE RECORDS SUMMARY | 2025-03-03 20:42 | XMS_ITS | Encounter Summary ---
Author Organization [employer] ([place], [place], [place], [place]) Address [address] [place] [address] Care Team Providers Care Retail Advisor Name Role Phone Provider Not In System, McT Primary Care Provide r Unavailable Roxann Corona RN Unavailable Unavailab le Maddison Mcfadden DPM Unavailable [phone] Roxann Corona RN Unavailable Unavailab le Encounter Details Date Type Department Care Team (Late st Contact Info) Description 12/23/2019 Transcribed Document [facility] [place] [facility] [place] [address] ProviderMayte MD [address] [place] [address] [id number] Social History Tobacco Use Types Packs/Day Years [...] of the form. Electronically signed by Aparna, [facility] [employer]version [employer] Weigher Cerner at 10/17/2022 2:12 PM CDT documented in this encounter Plan of Treatment Not on file documented as of this encounter Visit Diagnoses Not on filedocumented in this encounter Care Teams Retail Advisor Relationship Specialty Start Date End Date Provider Not In System, [facility] PCP - General 05/02/22 Roxann Corona, MATHEW Registered Nurse 05/16/22 Maddison Mcfadden DPM [address] [place] [address] Consulting Physician Podiatry 06/06/22 Roxann Corona, RN Registered Nurse 10/04/22 documented as of this encounter
--- OUTSIDE RECORDS SUMMARY | 2025-03-03 20:42 | XMS_ITS | Encounter Summary ---
Author Organization [employer] ([place], [place], [place], [place]) Address [address] [place] [address] Care Team Providers Care Clam Shucker Name Role Phone Provider Not In System, McT Primary Care Provide r Unavailable Roxann Corona RN Unavailable Unavailab Maddison Beth DPM Unavailable Roxann Corona RN Unavailable Unavailab le Encounter Details Date Type Department Care Team (Late st Contact Info) Description 12/23/2019 Transcribed Document [facility] [place] [facility] [place] [address] ProviderMayte MD [address] [place] [id number] Social History Tobacco Use Types Packs/Day [...] PNED ; Probability: 0 ; Diagnosis Code: [id number] ED Height and Weight Height Source : Stated Height Entry Format : [place] Height, Feet : 5 ft(Converted to: 152 cm, 60 Inch) Height, Inches : 7 Inch(Converted to: 0 ft 7 Inch, 17.78 cm) Clinical Height : 170.18 cm Weight Source, ED : Critical estimated dosing weight Weight Entry Format : [place] Weight, Pounds : 230 lb Clinical Dosing Weight : 104.55 kg Body Surface Area (BSA) : 2.15 m2 Body Mass Index : 36.1 kg/m2 (HI) Hardy Body Weight (IBW) : 65.16 kg LANCE DENNIS 12/23/2019 1:17 EDT Electronically signed by [facility] Conversion Price Checker Cerner at 10/17/2022 2:25 PM CDT documented in this encounter Plan of Treatment Not on file documented as of this encounter Visit Diagnoses Not on filedocumented in this encounter Care Teams Clam Shucker Relationship Specialty Start Date End Date Provider Not In System, [facility] PCP - General 05/02/22 Roxann Corona, RN Registered Nurse 05/16/22 Maddison Mcfadden DPM [address] [place] [address] Consulting Physician Podiatry 06/06/22 Roxann Corona, RN Registered Nurse 10/04/22 documented as of this encounter
--- OUTSIDE RECORDS SUMMARY | 2025-03-03 20:42 | XMS_ITS | Encounter Summary ---
Author Organization [employer] ([place], [place], [place], [place]) Address [address] [place] [address] Care Team Providers Care Ward Maid Name Role Phone Provider Not In System, McT Primary Care Provide r Unavailable Roxann Corona RN Unavailable Unavailab le Maddison Mcfadden DPM Unavailable [phone] Roxann Corona RN Unavailable Unavailab le Encounter Details Date Type Department Care Team (Late st Contact Info) Description 12/23/2019 Transcribed Document [facility] [place] [address] ProviderMayte MD [address] [place] [address] [phone] Social History Tobacco Use Types Packs/Day Years [...] filedocumented in this encounter Care Teams Ward Maid Relationship Specialty Start Date End Date Provider Not In System, [facility] PCP - General 05/02/22 Roxann Corona, RN Registered Nurse 05/16/22 Maddison Mcfadden DPM [address] [place] [address] Consulting Physician Podiatry 06/06/22 Roxann Corona, RN Registered Nurse 10/04/22 documented as of this encounter
--- OUTSIDE RECORDS SUMMARY | 2025-03-03 20:42 | XMS_ITS | Encounter Summary ---
Author Organization [employer] ([place], [place], [place], [place]) Address [address] [place] [address] Care Team Providers Care Director Of Accounts Payable Name Role Phone Provider Not In System, McT Primary Care Provide r Unavailable Roxann Corona RN Unavailable Unavailab Maddison Beth DPM Unavailable [phone] Roxann Corona RN Unavailable Unavailab le Encounter Details Date Type Department Care Team (Late st Contact Info) Description 12/23/2019 Transcribed Document [facility] [place] Family Medicine [facility] [place] [address] ProviderMayte MD [address] [place] [address] Social History Tobacco Use Types Packs/Day [...] Advance Directive Comment : Patient will request Pattern Chain Maker Supervisor when feeling up to discussing. SUHAIL RESENDIZ - 12/23/2019 14:39 EDT documented in this encounter Plan of Treatment Not on file documented as of this encounter Visit Diagnoses Not on filedocumented in this encounter Care Teams Director Of Accounts Payable Relationship Specialty Start Date End Date Provider Not In System, [facility] PCP - General 05/02/22 Roxann Corona, RN Registered Nurse 05/16/22 Maddison Mcfadden DPM [address] [place] [address] Consulting Physician Podiatry 06/06/22 Roxann Corona, RN Registered Nurse 10/04/22 documented as of this encounter
--- OUTSIDE RECORDS SUMMARY | 2025-03-03 20:42 | XMS_ITS | Clinical Summary ---
Author Organization [employer] ([place], [place], [place], [place]) Address [address] [place] [address] Care Team Providers Care Political Director Name Role Phone Provider Not In System, [facility] Primary Care Provide r Unavailable Roxann Corona RN Unavailable Unavailab Maddison Beth DPM Unavailable [phone] Roxann Corona RN Unavailable Unavailab le Allergies [...] Date Kamran rded Speak language other than Romanian at home Not on file 07/21/2023 Want [...] Tdap) 02/22/2028 Insurance [employer] Care Teams Political Director Relationship Specialty Start Date End Date Provider Not In System, McT PCP - General 05/02/22 Roxann Corona, RN Registered Nurse 05/16/22 Maddison Mcfadden, DPBrian [address] [facility] [address] [place] [address] Consulting Physician Podiatry 06/06/22 Roxann Corona, RN Registered Nurse 10/04/22
--- OUTSIDE RECORDS SUMMARY | 2025-03-03 20:42 | XMS_ITS | Encounter Summary ---
Author Organization [employer] ([place], [place], [place], [place]) Address [address] [place] [address] Care Team Providers Care Pan Washer Name Role Phone Provider Not In System, McT Primary Care Provide r Unavailable Roxann Corona RN Unavailable Unavailab le Maddison Mcfadden DPM Unavailable [phone] Roxann Corona RN Unavailable Unavailab le Encounter Details Date Type Department Care Team (Late st Contact Info) Description 12/23/2019 Transcribed Document [facility] [place] Family Medicine [facility] [place] [address] ProviderMayte MD [address] [place] [address] [phone] Social History Tobacco Use Types Packs/Day Years [...] Mayte ProviderMD - 12/23/2019 4:58 AM CDT [facility] Inpatient Documentation Entered On: 12/24/2019 6:51 EDT Performed On: 12/24/2019 6:50 EDT by CULLEN MACDONALD RN [facility] Admission Date : Admit Date 12/23/2019 [...] - 12/24/2019 6:50 EDT Electronically signed by [facility] Conversion Gem Stone Cutter Cerner at 10/17/2022 2:26 PM CDT documented in this encounter Plan of Treatment Not on file documented as of this encounter Visit Diagnoses Not on filedocumented in this encounter Care Teams Pan Washer Relationship Specialty Start Date End Date Provider Not In System, [facility] PCP - General 05/02/22 Roxann Corona, RN Registered Nurse 05/16/22 Maddison Mcfadden DPM [address] [place] [address] Consulting Physician Podiatry 06/06/22 Roxann Corona, RN Registered Nurse 10/04/22 documented as of this encounter
--- OUTSIDE RECORDS SUMMARY | 2025-03-03 20:42 | XMS_ITS | Encounter Summary ---
Author Organization [employer] ([place], [place], [place], [place]) Address [address] [place] [address] Care Team Providers Care Police Cadet Name Role Phone Provider Not In System, McT Primary Care Provide r Unavailable Roxann Corona RN Unavailable Unavailab le Maddison Mcfadden DPM Unavailable [phone] Roxann Corona RN Unavailable Unavailab le Encounter Details Date Type Department Care Team (Late st Contact Info) Description 12/23/2019 Transcribed Document [facility] [place] [address] ProviderMayte MD [address] [place] [address] [phone] Social History Tobacco Use Types Packs/Day Years [...] Communication Barrier : None Primary Language : Korean Any Spiritual/Cultural Needs or Requests : No [...] WDL with exceptions Nail Bed Color : [place] Chest Pain : Yes EKG Time Completed [...] - 12/23/2019 1:48 EDT Electronically signed by [facility] Conversion Dexigraph Operator Cerner at 10/17/2022 2:29 PM CDT documented in this encounter Plan of Treatment Not on file documented as of this encounter Visit Diagnoses Not on filedocumented in this encounter Care Teams Police Cadet Relationship Specialty Start Date End Date Provider Not In System, [facility] PCP - General 05/02/22 Roxann Corona, RN Registered Nurse 05/16/22 Maddison Mcfadden, DPM [address] [place] [address] Consulting Physician Podiatry 06/06/22 Roxann Corona, RN Registered Nurse 10/04/22 documented as of this encounter
--- OUTSIDE RECORDS SUMMARY | 2025-03-03 20:42 | XMS_ITS | Encounter Summary ---
Author Organization [employer] ([place], [place], [place], [place]) Address [address] [place] [address] Care Team Providers Care Bias Machine Operator Name Role Phone Provider Not In System, McT Primary Care Provide r Unavailable Roxann Corona RN Unavailable Unavailab Maddison Beth DPM Unavailable [phone] Roxann Corona RN Unavailable Unavailab le Encounter Details Date Type Department Care Team (Late st Contact Info) Description 12/24/2019 Transcribed Document [facility] [place] [facility] [place] [address] ProviderMayte MD [address] [place] [address] Social History Tobacco Use Types Packs/Day [...] Mayte ProviderMD - 12/24/2019 2:00 AM CDT Conventional Mortgage Underwriter Details Entered On: 12/24/2019 7:59 EDT Performed [...] 12/24/2019 7:59 EDT Electronically signed by Aparna [facility] Conversion Outside Sales Representative Insurance Cerner at 10/17/2022 2:12 PM CDT documented in this encounter Plan of Treatment Not on file documented as of this encounter Visit Diagnoses Not on filedocumented in this encounter Care Teams Bias Machine Operator Relationship Specialty Start Date End Date Provider Not In System, [facility] PCP - General 05/02/22 Roxann Corona, RN Registered Nurse 05/16/22 Maddison Mcfadden DPM [address] [place] [address] Consulting Physician Podiatry 06/06/22 Roxann Corona, RN Registered Nurse 10/04/22 documented as of this encounter
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
--- OUTSIDE RECORDS SUMMARY | 2025-03-03 20:42 | XMS_ITS | Encounter Summary ---
Author Organization [employer] ([place], [place], [place], [place]) Address [address] [place] [address] Care Team Providers Care Silk Winding Machine Operator Name Role Phone Provider Not In System, McT Primary Care Provide r Unavailable Roxann Corona RN Unavailable Unavailab le Maddison Mcfadden DPM Unavailable [phone] Roxann Corona RN Unavailable Unavailab le Encounter Details Date Type Department Care Team (Late st Contact Info) Description 12/23/[address] [facility] [place] Family [place] [facility] [place] [address] ProviderMayte MD [address] [place] [address] [phone] Social History Tobacco Use Types Packs/Day Years [...] On: 12/23/2019 9:00 EDT by Geneva Chawla, [facility] Phone Call for Consults Consult Phone Call/Page Attempt : Other: already seen by doctor Geneva Chawla, [facility] - 12/23/2019 15:53 EDT Electronically signed by Benigno Braun Conversion Avionics Electronics Technician Cerner at 10/17/2022 2:29 PM CDT documented in this encounter Plan of Treatment Not on file documented as of this encounter Visit Diagnoses Not on filedocumented in this encounter Care Teams Silk Winding Machine Operator Relationship Specialty Start Date End Date Provider Not In System, [facility] PCP - General 05/02/22 Roxann Corona, RN Registered Nurse 05/16/22 Maddison Mcfadden DPM [address] [place] [address] Consulting Physician Podiatry 06/06/22 Roxann Corona, RN Registered Nurse 10/04/22 documented as of this encounter
--- OUTSIDE RECORDS SUMMARY | 2025-03-03 20:42 | XMS_ITS | Encounter Summary ---
Author Organization [employer] ([place], [place], [place], [place]) Address [address] [place] [address] Care Team Providers Care Sommelier Name Role Phone Provider Not In System, McT Primary Care Provide r Unavailable Roxann Corona RN Unavailable Unavailab le Maddison Mcfadden DPM Unavailable [phone] Roxann Corona RN Unavailable Unavailab le Encounter Details Date Type Department Care Team (Late st Contact Info) Description 12/23/2019 Transcribed Document [facility] [place] [facility] [place] [address] ProviderMayte MD [address] [place] [address] [phone] Social History Tobacco Use Types Packs/Day Years [...] Mayte ProviderMD - 12/23/2019 1:03 AM CDT [place] Suicide Severity Rating Scale (C-SSRS) Entered On: 12/23/2019 1:31 EDT Performed On: 12/23/2019 1:26 EDT by LANCE DENNIS [place] Suicide Severity Rating Scale (C-SSRS) CSSRS Past Month Wish to be : No CSSRS Past Month Suicidal Thoughts : No CSSRS Lifetime Suicide Behavior : No Suicide Severity Rating Score : 0 Suicide Severity Rating : No Additional Care Required at this time LANCE DENNIS Jorge James 12/23/2019 1:26 EDT Electronically signed by Emir rBaun Conversion Geophysical Laboratory Supervisor Cerner at 10/17/2022 2:18 PM CDT documented in this encounter Plan of Treatment Not on file documented as of this encounter Visit Diagnoses Not on filedocumented in this encounter Care Teams Sommelier Relationship Specialty Start Date End Date Provider Not In System, [facility] PCP - General 05/02/22 Roxann Corona, RN Registered Nurse 05/16/22 Maddison Mcfadden DPM [address] [place] [address] Consulting Physician Podiatry 06/06/22 Roxann Corona, RN Registered Nurse 10/04/22 documented as of this encounter
--- OUTSIDE RECORDS SUMMARY | 2025-03-03 20:42 | XMS_ITS | Encounter Summary ---
Author Organization [employer] ([place], [place], [place], [place]) Address [address] [place] [address] Care Team Providers Care Lean Engineer Name Role Phone Provider Not In System, McT Primary Care Provide r Unavailable Roxann Corona RN Unavailable Unavailab Maddison Beth DPM Unavailable [phone] Roxann Corona RN Unavailable Unavailab le Encounter Details Date Type Department Care Team (Late st Contact Info) Description 12/24/2019 Transcribed Document [facility] [place] [facility] [place] [address] ProviderMayte MD [facility] [place] [address] Social History Tobacco Use Types [...] CDS Signature: __Daphne Mo RN Phone #: _[phone] PRESSURE ULCER STAGES Stage I: Erythema Stage II: Partial thickness Stage III: Full thickness Stage IV: Necrosis to muscle/bone This is a permanent part of the Medical Record Q50 2019 [facility] Updated: documented in this encounter Plan of Treatment Not on file documented as of this encounter Visit Diagnoses Not on filedocumented in this encounter Care Teams Lean Engineer Relationship Specialty Start Date End Date Provider Not In System, [facility] PCP - General 05/02/22 Roxann Corona, RN Registered Nurse 05/16/22 Maddison Mcfadden DPM [address] [place] [address] Consulting Physician Podiatry 06/06/22 Roxann Corona, RN Registered Nurse 10/04/22 documented as of this encounter
--- OUTSIDE RECORDS SUMMARY | 2025-03-03 20:42 | XMS_ITS | Encounter Summary ---
Author Organization [employer] ([place], [place], [place], [place]) Address [address] [place] [address] Care Team Providers Care Aging Room Hand Name Role Phone Provider Not In System, McT Primary Care Provide r Unavailable Roxann Corona RN Unavailable Unavailab le Maddison Mcfadden DPM Unavailable [phone] Roxann Corona RN Unavailable Unavailab le Encounter Details Date Type Department Care Team (Late st Contact Info) Description 12/23/2019 Transcribed Document [facility] [place] [facility] [place] [address] ProviderMayte MD [address] [place] [address] [phone] Social History Tobacco Use Types Packs/Day Years [...] 12/23/2019 8:12 EDT by JEAN CLAUDE SYED, PIN PULLER Event Note ED Event Date/Time : 12/23/2019 8:12 EDT ED Event Location : Assigned room ED Description of Event : Pt is sleeping. JEAN CLAUDE SYED RN - 12/23/2019 8:12 EDT Electronically signed by Aparna [facility] Conversion Stockroom Clerk Cerner at 10/17/2022 2:13 PM CDT documented in this encounter Plan of Treatment Not on file documented as of this encounter Visit Diagnoses Not on filedocumented in this encounter Care Teams Aging Room Hand Relationship Specialty Start Date End Date Provider Not In System, [facility] PCP - General 05/02/22 Roxann Corona, RN Registered Nurse 05/16/22 Maddison Mcfadden DPM [address] [place] [address] Consulting Physician Podiatry 06/06/22 Roxann Corona, RN Registered Nurse 10/04/22 documented as of this encounter
--- OUTSIDE RECORDS SUMMARY | 2025-03-03 20:42 | XMS_ITS | Encounter Summary ---
Author Organization [employer] ([place], [place], [place], [place]) Address [address] [place] [address] Care Team Providers Care Research Biostatistician Name Role Phone Provider Not In System, McT Primary Care Provide r Unavailable Roxann Corona RN Unavailable Unavailab le Maddison cMfadden DPM Unavailable [phone] Roxann Corona RN Unavailable Unavailab le Encounter Details Date Type Department Care Team (Late st Contact Info) Description 12/24/2019 Transcribed Document [facility] [place] Family Medicine [facility] [place] [address] ProviderMayte MD [address] [place] [address] [phone] Social History Tobacco Use Types Packs/Day Years [...] Insurance 1 Health Plan: [employer] Policy Number: [id number] Authorization Number: Insurance Primary Name : [employer] Policy Number: [id number] Historical Authorization Comments-Primary : No Authorization Comments Found CHELSY HENDERSON Rn-Utilization Review - 12/24/2019 8:15 EDT Electronically signed by Aparna [facility] Conversion Freight Unloader Cerner at 10/17/2022 2:11 PM CDT documented in this encounter Plan of Treatment Not on file documented as of this encounter Visit Diagnoses Not on filedocumented in this encounter Care Teams Research Biostatistician Relationship Specialty Start Date End Date Provider Not In System, [facility] PCP - General 05/02/22 Roxann Corona, RN Registered Nurse 05/16/22 Maddison Mcfadden DPM [address] [place] [address] Consulting Physician Podiatry 06/06/22 Roxann Corona, RN Registered Nurse 10/04/22 documented as of this encounter
--- OUTSIDE RECORDS SUMMARY | 2025-03-03 20:42 | XMS_ITS | Encounter Summary ---
Author Organization [employer] ([place], [place], [place], [place]) Address [address] [place] [address] Care Team Providers Care Sales Advisor Name Role Phone Provider Not In System, McT Primary Care Provide r Unavailable Roxann Corona RN Unavailable Unavailab Maddison Beth DPM Unavailable [phone] Roxann Corona RN Unavailable Unavailab le Encounter Details Date Type Department Care Team (Late st Contact Info) Description 12/23/2019 Transcribed Document [facility] [place] Family Medicine [facility] [place] [address] ProviderMayte MD [address] [place] [address] [phone] Social History Tobacco Use Types Packs/Day Years [...] Chart was reviewed. Time spent, 55 minutes. /[id number] MD ROSIO Sanchez/AQ / ROSIO / MODL CC: Dr. Rafa Griggs Electronically signed by [facility] Conversion Mail Agent Cerner at 10/17/2022 2:25 PM CDT documented in this encounter Plan of Treatment Not on file documented as of this encounter Visit Diagnoses Not on filedocumented in this encounter Care Teams Sales Advisor Relationship Specialty Start Date End Date Provider Not In System, [facility] PCP - General 05/02/22 Roxann Corona, RN Registered Nurse 05/16/22 Maddison Mcfadden, DPM [address] [place] [address] Consulting Physician Podiatry 06/06/22 Roxann Corona, RN Registered Nurse 10/04/22 documented as of this encounter
--- OUTSIDE RECORDS SUMMARY | 2025-03-03 20:42 | XMS_ITS | Encounter Summary ---
Author Organization [employer] ([place], [place], [place], [place]) Address [address] [place] [address] Care Team Providers Care Steel Division Supervisor Name Role Phone Provider Not In System, McT Primary Care Provide r Unavailable Roxann Corona RN Unavailable Unavailab le Maddison Mcfadden DPM Unavailable [phone] Roxann Corona RN Unavailable Unavailab le Encounter Details Date Type Department Care Team (Late st Contact Info) Description 12/23/2019 Transcribed Document [facility] [place] Family [place] [facility] [address] ProviderMayte MD [address] [place] [address] Social History Tobacco Use Types Packs/Day [...] 12/25/2019 1:51 EDT Electronically signed by Aparna [facility] Conversion Production Drilling Machine Operator Cerner at 10/17/2022 2:28 PM CDT documented in this encounter Plan of Treatment Not on file documented as of this encounter Visit Diagnoses Not on filedocumented in this encounter Care Teams Steel Division Supervisor Relationship Specialty Start Date End Date Provider Not In System, [facility] PCP - General 05/02/22 Roxann Corona, RN Registered Nurse 05/16/22 Maddison Mcfadden DPM [address] [place] [address] Consulting Physician Podiatry 06/06/22 Roxann Corona, RN Registered Nurse 10/04/22 documented as of this encounter
--- OUTSIDE RECORDS SUMMARY | 2025-03-03 20:42 | XMS_ITS | Encounter Summary ---
Author Organization [employer] ([place], [place], [place], [place]) Address [address] [place] [address] Care Team Providers Care Contract Loader Name Role Phone Provider Not In System, McT Primary Care Provide r Unavailable Roxann Corona RN Unavailable Unavailab Maddison Beth DPM Unavailable [phone] Roxann Corona RN Unavailable Unavailab le Encounter Details Date Type Department Care Team (Late st Contact Info) Description 12/23/2019 Transcribed Document [facility] [place] [address] ProviderMayte MD [address] [place] [address] [phone] Social History Tobacco Use Types Packs/Day Years [...] No productive cough. He [facility] 12[facility]2019. I was consulted on 12/23/2019 [...] Medical History of UTI / SNOMED CT 5248593668 / Confirmed Paraplegia / SNOMED CT 042264938 / Confirmed Pressure ulcer of hip / SNOMED CT 5779275965 / Confirmed, Active Problems (3) History of [...] Normal strength, No tenderness. Integumentary: Warm, Dry, [place], No pallor, No rash, Sacral decub into [...] No Radiology Results Found Diagnostic Findings: ACC: [id number] ORDER: Flu A/B Rapid Screen DATE: 12/23/2019 01:30 SOURCE: Nasal SITE: Reports Final 12/23/2019 02:07 Negative for Rapid Influenza A and B Antigen Rapid Influenza tests are for screening purposes only. Negative tests should be confirmed by more sensitive methodologies. == ACC: [id number] ORDER: Strep Throat Screen DATE: 12/23/2019 01:30 [...] on filedocumented in this encounter Care Teams Contract Loader Relationship Specialty Start Date End Date Provider Not In System, [facility] PCP - General 05/02/22 Roxann Corona, RN Registered Nurse 05/16/22 Maddison Mcfadden DPM [address] [place] [address] Consulting Physician Podiatry 06/06/22 Roxann Corona, RN Registered Nurse 10/04/22 documented as of this encounter
--- OUTSIDE RECORDS SUMMARY | 2025-03-03 20:43 | XMS_ITS | Encounter Summary ---
Author Organization [employer] ([place], [place], [place], [place]) Address [address] [place] [address] Care Team Providers Care Geospatial Developer Name Role Phone Provider Not In System, McT Primary Care Provide r Unavailable Roxann Corona RN Unavailable Unavailab Maddison Beth DPM Unavailable [phone] Roxann Corona RN Unavailable Unavailab le Encounter Details Date Type Department Care Team (Late st Contact Info) Description 09/12/2019 Transcribed Document [facility] [place] [address] ProviderMayte MD [address] [place] [address] [phone] Social History Tobacco Use Types Packs/Day Years [...] him here again in another 2 weeks. /[id number] MD WESLEY Farrell III/JEANETTE / WESLEY / MODL /[id number] documented in this encounter Plan of Treatment Not on file documented as of this encounter Visit Diagnoses Not on filedocumented in this encounter Care Teams Geospatial Developer Relationship Specialty Start Date End Date Provider Not In System, [facility] PCP - General 05/02/22 Roxann Corona, RN Registered Nurse 05/16/22 Maddison Mcfadden DPM [address] [place] [address] Consulting Physician Podiatry 06/06/22 Roxann Corona, RN Registered Nurse 10/04/22 documented as of this encounter
--- OUTSIDE RECORDS SUMMARY | 2025-03-03 20:43 | XMS_ITS | Encounter Summary ---
Author Organization [employer] ([place], [place], [place], [place]) Address [address] [place] [address] Care Team Providers Care Senior Tax Manager Name Role Phone Provider Not In System, McT Primary Care Provide r Unavailable Roxann Corona RN Unavailable Unavailab Maddison Beth DPM Unavailable [phone] Roxann Corona RN Unavailable Unavailab le Encounter Details Date Type Department Care Team (Late st Contact Info) Description 12/23/[address] [facility] [place] [facility] [place] [address] ProviderMayte MD [address] [place] [address] [phone] Social History Tobacco Use Types Packs/Day Years [...] 1970 Associated Diagnoses: None Author: AKASH GREY [facility] R/O Covid 19 patient with fever Covid 19 result pending will consult ID documented in this encounter Plan of Treatment Not on file documented as of this encounter Visit Diagnoses Not on filedocumented in this encounter Care Teams Senior Tax Manager Relationship Specialty Start Date End Date Provider Not In System, [facility] PCP - General 05/02/22 Roxann Corona, RN Registered Nurse 05/16/22 Maddison Mcfadden, DPM [address] [place] [address] Consulting Physician Podiatry 06/06/22 Roxann Corona, RN Registered Nurse 10/04/22 documented as of this encounter
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
--- OUTSIDE RECORDS SUMMARY | 2025-03-03 20:43 | XMS_ITS | Encounter Summary ---
Author Organization [employer] ([place], [place], [place], [place]) Address [address] [place] [address] Care Team Providers Care Services Coordinator Name Role Phone Provider Not In System, McT Primary Care Provide r Unavailable Roxann Corona RN Unavailable Unavailab Maddison Beth DPM Unavailable [phone] Roxann Corona RN Unavailable Unavailab le Encounter Details Date Type Department Care Team (Late st Contact Info) Description 11/07/2019 Transcribed Document [facility] [place] [facility] [place] [address] ProviderMayte MD [address] [place] [address] [phone] Social History Tobacco Use Types Packs/Day Years [...] requirements. This information will be provided to [employer], which has requested updates on his temporarily added disability. /[id number] MD WESLEY Farrell III/JEANETTE / WESLEY / MICKIL /[id number] documented in this encounter Plan of Treatment Not on file documented as of this encounter Visit Diagnoses Not on filedocumented in this encounter Care Teams Services Coordinator Relationship Specialty Start Date End Date Provider Not In System, [facility] PCP - General 05/02/22 Roxann Corona, RN Registered Nurse 05/16/22 Maddison Mcfadden DPBrian [address] [place] [address] Consulting Physician Podiatry 06/06/22 Roxann Corona, RN Registered Nurse 10/04/22 documented as of this encounter
--- OUTSIDE RECORDS SUMMARY | 2025-03-03 20:43 | XMS_ITS | Clinical Summary ---
Author Organization Healthcare Address [address] [place] [address] Care Team Providers Care Radio Maintainer Name Role Phone Unavailable Primary Care Provider Unavailabl e Encounters Date Type Department Care Team Description 03/02/2025 Orders Only External Location [address] [place] [address] Arin Morgan MD from Last 3 Months Social History Tobacco Use Types Packs/Day Years Used Date Smoking Tobacco: Never Assessed Sex and Gender Information Value Date Recorded Sex Assigned at Not on file Legal Sex Male 7:38 PM EDT Gender Identity Not on file Sexual Orientation Not on file Plan of Treatment Not on file Procedures Procedure Name Priority Date/Time Associated Diagnosis Comments CT OUTSIDE IMAGES 03/02/2025 12:31 PM EDT from Last 3 Months Results * CT OUTSIDE IMAGES (03/02/2025 12:31 PM EDT) Anatomical Region Laterality Modality Computed Tomogra phy 03/02/2025 12:3 1 PM EDT us Arin Morgan MD IMG CT PROCEDURES Final Result from Last 3 Months
--- OUTSIDE RECORDS SUMMARY | 2025-03-03 20:43 | XMS_ITS | Encounter Summary ---
Author Organization [employer] ([place], [place], [place], [place]) Address [address] [place] [address] Care Team Providers Care Tobacco Shaker Name Role Phone Provider Not In System, McT Primary Care Provide r Unavailable Roxann Corona RN Unavailable Unavailab le Maddison Mcfadden DPM Unavailable [phone] Roxann Corona RN Unavailable Unavailab le Encounter Details Date Type Department Care Team (Late st Contact Info) Description 12/24/2019 Transcribed Document [facility] [place] [facility] [place] [address] ProviderMayte MD [address] [place] [address] [phone] Social History Tobacco Use Types Packs/Day Years [...] Insurance 1 Health Plan: [employer] Policy Number: [id number] Authorization Number: Insurance Primary Name : [employer] Policy Number: [id number] Authorization Status-Primary : Awaiting callback Reference Number-Primary : pending # [id number] Authorized Service Begin Date-Primary : 12/24/2019 EDT Authorization Comments-Primary : Submitted Inpt Auth on Availity with Pended status. RN reviewer has EMR access Historical Authorization Comments-Primary : No Authorization Comments Found CHELSY HENDERSON Rn-Utilization Review - 12/24/2019 8:39 EDT Electronically signed by [facility] Conversion Senior Stereo Compiler Team Lead Cerner at 10/17/2022 2:27 PM CDT documented in this encounter Plan of Treatment Not on file documented as of this encounter Visit Diagnoses Not on filedocumented in this encounter Care Teams Tobacco Shaker Relationship Specialty Start Date End Date Provider Not In System, [facility] PCP - General 05/02/22 Roxann Corona, RN Registered Nurse 05/16/22 Maddison Mcfadden, DPM [address] [place] [address] Consulting Physician Podiatry 06/06/22 Roxann Corona, RN Registered Nurse 10/04/22 documented as of this encounter
--- OUTSIDE RECORDS SUMMARY | 2025-03-03 20:43 | XMS_ITS | Encounter Summary ---
Author Organization [employer] ([place], [place], [place], [place]) Address [address] [place] [address] Care Team Providers Care Domestic Cleaner Name Role Phone Provider Not In System, McT Primary Care Provide r Unavailable Roxann Corona RN Unavailable Unavailab Maddison Beth DPM Unavailable [phone] Roxann Corona RN Unavailable Unavailab le Encounter Details Date Type Department Care Team (Late st Contact Info) Description 08/27/2019 Transcribed Document [facility] [place] [facility] [place] [address] ProviderMayte MD [address] [place] [address] [phone] Social History Tobacco Use Types Packs/Day Years [...] - Historical ProviderMD - 08/27/2019 5:10 PM ANTENNA ENGINEER DATE OF CONSULTATION: 08/15/2019 This a 49-year-old [...] reassess him here again in 2 weeks. /[id number] MD WESLEY Farrell III/JEANETTE / WESLEY / MODL /[id number] Electronically signed by Aparna [facility] Conversion Client Service And Consulting Manager Cerner at 10/17/2022 2:07 PM CDT documented in this encounter Plan of Treatment Not on file documented as of this encounter Visit Diagnoses Not on filedocumented in this encounter Care Teams Domestic Cleaner Relationship Specialty Start Date End Date Provider Not In System, [facility] PCP - General 05/02/22 Roxann Corona, RN Registered Nurse 05/16/22 Maddison Mcfadden, DPM [address] [place] [address] Consulting Physician Podiatry 06/06/22 Roxann Corona, RN Registered Nurse 10/04/22 documented as of this encounter
--- OUTSIDE RECORDS SUMMARY | 2025-03-03 20:43 | XMS_ITS | Encounter Summary ---
Author Organization [email or web address] ([place], [place], [place], [place]) Address [address] [place] [address] Care Team Providers Care Welding Instructor Name Role Phone Provider Not In System, McT Primary Care Provide r Unavailable Roxann Corona RN Unavailable Unavailab Maddison Beth DPM Unavailable [phone] Roxann Corona RN Unavailable Unavailab le Encounter Details Date Type Department Care Team (Late st Contact Info) Description 12/26/2019 Transcribed Document [facility] [place] [facility] [place] [facility] [place] [address] ProviderMayte MD [address] [place] [address] [phone] Social History Tobacco Use Types Packs/Day Years [...] No productive cough. He was [facility]. I was [...] No tenderness, No deformity. Integumentary: Warm, Dry, [place], No pallor, No rash, Sacral decub into [...] 22) Lipase 82 (ROBERTO 22) , ACC: [id number] ORDER: Culture Urine DATE: 12/23/2019 01:30 SOURCE: Urine, Clean Catch SITE: Reports Final 12/26/2019 08:51 >100,000 cfu/ml Escherichia coli Pre 12/25/2019 06:53 >100,000 cfu/ml Gram Negative Rods == ACC: [id number] ORDER: Culture Wound and Stain DATE: 12/23/2019 [...] cells Rare Gram Positive Cocci == ACC: [id number] ORDER: .Strep A Confirmation DATE: 12/23/2019 02:00 SOURCE: Throat SITE: Reports Final 12/25/2019 09:58 Culture confirmation: No Group A Strep isolated Pre 12/24/2019 06:53 No Beta Strep isolated at 24 hours == ACC: [id number] ORDER: Culture Blood DATE: 12/23/2019 01:30 SOURCE: Blood SITE: Reports Pre 12/26/2019 06:01 No growth at 3 days. Pre 12/25/2019 06:01 No growth at 2 days. Pre 12/24/2019 06:01 No growth at 1 day. Pre 12/23/2019 16:02 Culture less than 24 Hrs old == ACC: [id number] ORDER: Culture Blood DATE: 12/23/2019 01:30 SOURCE: Blood SITE: Reports Pre 12/26/2019 06:01 No growth at 3 days. Pre 12/25/2019 06:01 No growth at 2 days. Pre 12/24/2019 06:01 No growth at 1 day. Pre 12/23/2019 16:02 Culture less than 24 Hrs old == ACC: [id number] ORDER: Flu A/B Rapid Screen DATE: 12/23/2019 01:30 SOURCE: Nasal SITE: Reports Final 12/23/2019 02:07 Negative for Rapid Influenza A and B Antigen Rapid Influenza tests are for screening purposes only. Negative tests should be confirmed by more sensitive methodologies. == ACC: [id number] ORDER: Strep Throat Screen DATE: 12/23/2019 01:30 [...] on filedocumented in this encounter Care Teams Welding Instructor Relationship Specialty Start Date End Date Provider Not In System, [facility] PCP - General 05/02/22 Roxann Corona, RN Registered Nurse 05/16/22 Maddison Mcfadden DPM [address] [place] [address] Consulting Physician Podiatry 06/06/22 Roxann Corona, RN Registered Nurse 10/04/22 documented as of this encounter
--- OUTSIDE RECORDS SUMMARY | 2025-03-03 20:43 | XMS_ITS | Encounter Summary ---
Author Organization [employer] ([place], [place], [place], [place]) Address [address] [place] [address] Care Team Providers Care Web Marketing Intern Name Role Phone Provider Not In System, McT Primary Care Provide r Unavailable Roxann Corona RN Unavailable Unavailab Maddison Beth DPM Unavailable [phone] Roxann Corona RN Unavailable Unavailab le Encounter Details Date Type Department Care Team (Late st Contact Info) Description 12/24/2019 Transcribed Document [facility] [place] [address] ProviderMayte MD [address] [place] [address] [phone] Social History Tobacco Use Types Packs/Day Years [...] admitted to [facility] from the [facility]term on 12/23/2019. I was consulted on 12/23/2019 [...] No tenderness, No deformity. Integumentary: Warm, Dry, [place], No pallor, No rash, Sacral decub into [...] 22) Lipase 82 (DEC 22) , ACC: [id number] ORDER: .Strep A Confirmation DATE: 12/23/2019 02:00 SOURCE: Throat SITE: Reports Pre 12/24/2019 06:53 No Beta Strep isolated at 24 hours == ACC: [id number] ORDER: Culture Wound and Stain DATE: 12/23/2019 08:45 SOURCE: Wound SITE: Sacrum Reports Pre 12/24/2019 06:37 Culture in progress GS 12/23/2019 15:22 Rare epithelial cells Rare Gram Positive Cocci == ACC: [id number] ORDER: Culture Blood DATE: 12/23/2019 01:30 SOURCE: Blood SITE: Reports Pre 12/24/2019 06:01 No growth at 1 day. Pre 12/23/2019 16:02 Culture less than 24 Hrs old == ACC: [id number] ORDER: Culture Blood DATE: 12/23/2019 01:30 SOURCE: Blood SITE: Reports Pre 12/24/2019 06:01 No growth at 1 day. Pre 12/23/2019 16:02 Culture less than 24 Hrs old == ACC: [id number] ORDER: Flu A/B Rapid Screen DATE: 12/23/2019 01:30 SOURCE: Nasal SITE: Reports Final 12/23/2019 02:07 Negative for Rapid Influenza A and B Antigen Rapid Influenza tests are for screening purposes only. Negative tests should be confirmed by more sensitive methodologies. == ACC: [id number] ORDER: Strep Throat Screen DATE: 12/23/2019 01:30 SOURCE: Throat SITE: Reports Final 12/23/2019 02:00 Strep Screen negative for Group A; Culture confirmation to follow == . Chest x-ray results Radiology Results (Last 48 hours) [id number] -- 12/24/2019 08:26 CR Chest 1 Vw [...] on filedocumented in this encounter Care Teams Web Marketing Intern Relationship Specialty Start Date End Date Provider Not In System, [facility] PCP - General 05/02/22 Roxann Corona, RN Registered Nurse 05/16/22 Maddison Mcfadden DPM [address] [place] [address] Consulting Physician Podiatry 06/06/22 Roxann Corona, RN Registered Nurse 10/04/22 documented as of this encounter
--- OUTSIDE RECORDS SUMMARY | 2025-03-03 20:43 | XMS_ITS | Encounter Summary ---
Author Organization [employer] ([place], [place], [place], [place]) Address [address] [place] [address] Care Team Providers Care Dealer Relationship Manager Name Role Phone Provider Not In System, McT Primary Care Provide r Unavailable Roxann Corona RN Unavailable Unavailab le Maddison Mcfadden DPM Unavailable [phone] Roxann Corona RN Unavailable Unavailab le Encounter Details Date Type Department Care Team (Late st Contact Info) Description 12/25/2019 Transcribed Document [facility] [place] [facility] [place] [address] ProviderMayte MD [address] [place] [address] [phone] Social History Tobacco Use Types Packs/Day Years [...] Performed On: 12/25/2019 9:50 EDT by CHELSY EHNDERSON Rn-Utilization Review Primary Insurance Authorization Authorization and Policy Numbers : Insurance 1 Health Plan: [employer] Policy Number: [id number] Authorization Number: Insurance Primary Name : [employer] Policy Number: [id number] Authorization Status-Primary : Admit approved Reference Number-Primary : [id number] Number of Days Authorized-Primary : 1 Day(s) [...] 12/25/2019 9:50 EDT Electronically signed by Aparna [facility] Conversion Metal Bonder Cerner at 10/17/2022 2:27 PM CDT documented in this encounter Plan of Treatment Not on file documented as of this encounter Visit Diagnoses Not on filedocumented in this encounter Care Teams Dealer Relationship Manager Relationship Specialty Start Date End Date Provider Not In System, [facility] PCP - General 05/02/22 Roxann Corona, RN Registered Nurse 05/16/22 Maddison Mcfadden DPM [address] [place] [address] Consulting Physician Podiatry 06/06/22 Roxann Corona, RN Registered Nurse 10/04/22 documented as of this encounter
--- OUTSIDE RECORDS SUMMARY | 2025-03-03 20:43 | XMS_ITS | Encounter Summary ---
Author Organization Healthcare Address [address] [place] [address] Care Team Providers Care Creative Producer Name Role Phone Unavailable Primary Care Provider Unavailabl e Encounter Details Date Type Department Care Team (Late st Contact Info) Description 03/02/2025 Orders Only External Location [address] [place] [address] Arin Morgan MD [address] [place] [address] Social History Tobacco Use Types Packs/Day Years Used Date Smoking Tobacco: Never Assessed Sex and Gender Information Value Date Recorded Sex Assigned at Not on file Legal Sex Male 7:38 PM EDT Gender Identity Not on file Sexual Orientation Not on file documented as of this encounter Plan of Treatment Not on file documented as of this encounter Procedures Procedure Name Priority Date/Time Associated Diagnosis Comments CT OUTSIDE IMAGES 03/02/2025 12:31 PM EDT documented in this encounter Results * CT OUTSIDE IMAGES (03/02/2025 12:31 PM EDT) Anatomical Region Laterality Modality Computed Tomogra phy 03/02/2025 12:3 1 PM EDT us Arin Morgan MD IMG CT PROCEDURES Final Result documented in this encounter Visit Diagnoses Not on filedocumented in this encounter
--- OUTSIDE RECORDS SUMMARY | 2025-03-03 20:43 | XMS_ITS | Encounter Summary ---
Author Organization [employer] ([place], [place], [place], [place]) Address [address] [place] [address] Care Team Providers Care Shade Classifier Name Role Phone Provider Not In System, McT Primary Care Provide r Unavailable Roxann Corona RN Unavailable Unavailab le Maddison Mcfadden DPM Unavailable [phone] Roxann Corona RN Unavailable Unavailab le Encounter Details Date Type Department Care Team (Late st Contact Info) Description 12/26/2019 Transcribed Document [facility] [place] [facility] [address] ProviderMayte MD [address] [place] [address] Social History Tobacco Use Types Packs/Day [...] 12/26/2019 16:29 EDT Electronically signed by Aparna [facility] Conversion Chemist Organic Cerner at 10/17/2022 2:14 PM CDT documented in this encounter Plan of Treatment Not on file documented as of this encounter Visit Diagnoses Not on filedocumented in this encounter Care Teams Shade Classifier Relationship Specialty Start Date End Date Provider Not In System, [facility] PCP - General 05/02/22 Roxann Corona, RN Registered Nurse 05/16/22 Maddison Mcfadden DPM [address] [place] [address] Consulting Physician Podiatry 06/06/22 Roxann Corona, RN Registered Nurse 10/04/22 documented as of this encounter
--- OUTSIDE RECORDS SUMMARY | 2025-03-03 20:43 | XMS_ITS | Encounter Summary ---
Author Organization [employer] ([place], [place], [place], [place]) Address [address] [place] [address] Care Team Providers Care Housekeeping Worker Name Role Phone Provider Not In System, McT Primary Care Provide r Unavailable Roxann Corona RN Unavailable Unavailab le Maddison Mcfadden DPM Unavailable [phone] Roxann Corona RN Unavailable Unavailab le Encounter Details Date Type Department Care Team (Late st Contact Info) Description 12/23/2019 Transcribed Document [facility] [place] [facility] [place] [address] ProviderMayte MD [address] [place] [address] [phone] Social History Tobacco Use Types Packs/Day Years [...] on filedocumented in this encounter Care Teams Housekeeping Worker Relationship Specialty Start Date End Date Provider Not In System, [facility] PCP - General 05/02/22 Roxann Corona, RN Registered Nurse 05/16/22 Maddison Mcfadden DPM [address] [place] [address] Consulting Physician Podiatry 06/06/22 Roxann Corona, RN Registered Nurse 10/04/22 documented as of this encounter
--- OUTSIDE RECORDS SUMMARY | 2025-03-03 20:43 | XMS_ITS | Encounter Summary ---
Author Organization [employer] ([place], [place], [place], [place]) Address [address] [place] [address] Care Team Providers Care Merchandising Manager Name Role Phone Provider Not In System, McT Primary Care Provide r Unavailable Roxann Corona RN Unavailable Unavailab le Madd[place] Mcfadden DPM Unavailable [phone] Roxann Corona RN Unavailable Unavailab le Encounter Details Date Type Department Care Team (Late st Contact Info) Description 12/25/2019 Transcribed Document [facility] [place] Family Medicine [facility] [place] [address] ProviderMayte MD [address] [place] [address] [phone] Social History Tobacco Use Types Packs/Day Years [...] Insurance 1 Health Plan: [employer] Policy Number: [id number] Authorization Number: Insurance Primary Name : [employer] Policy Number: [id number] Authorization Status-Primary : Awaiting callback Reference Number-Primary : [id number] Number of Days Authorized-Primary : 1 Day(s) [...] Electronically signed by [facility] Conversion Gas Engine Performance Engineer Cerner at 10/17/2022 2:04 PM CDT documented in this encounter Plan of Treatment Not on file documented as of this encounter Visit Diagnoses Not on filedocumented in this encounter Care Teams Merchandising Manager Relationship Specialty Start Date End Date Provider Not In System, [facility] PCP - General 05/02/22 Roxann Corona, RN Registered Nurse 05/16/22 [place] Mcfadden DPM [address] [place] [address] Consulting Physician Podiatry 06/06/22 Roxann Corona, RN Registered Nurse 10/04/22 documented as of this encounter
--- OUTSIDE RECORDS SUMMARY | 2025-03-03 20:43 | XMS_ITS | Encounter Summary ---
Author Organization [email or web address] ([place], [place], [place], [place]) Address [address] [place] [address] Care Team Providers Care Fur Finisher Name Role Phone Provider Not In System, McT Primary Care Provide r Unavailable Roxann Corona RN Unavailable Unavailab [place] Beth DPM Unavailable [phone] Roxann Corona RN Unavailable Unavailab le Encounter Details Date Type Department Care Team (Late st Contact Info) Description 08/27/2019 Transcribed Document [facility] [place] Family Medicine [facility] [place] [address] ProviderMayte MD [address] [place] [address] [phone] Social History Tobacco Use Types Packs/Day Years [...] - Historical ProviderMD - 08/27/2019 5:34 PM SUPERVISOR MAPPING DATE OF ADMISSION: 08/08/2019 HISTORY OF PRESENT ILLNESS: This is a 49-year-old male, resident of [place], [place]. We are seeing on his own referral. Concern is a wound in the sacral-buttock area. The patient indicates that about 3 weeks previous, he had an orthopedic procedure and was in the hospital for a few days and following that when he returned home, it was noted that he was having some abnormalities of skin. His mother is his primary bobbin fixer. She is present here today, but the [...] established a 1 week revisit to reassess. /[id number] MD WESLEY Farrell III/JEANETTE / WESLEY / SUSAN Electronically signed by Aparna [facility] Conversion Pump House Operator Cerner at 10/17/2022 2:05 PM CDT documented in this encounter Plan of Treatment Not on file documented as of this encounter Visit Diagnoses Not on filedocumented in this encounter Care Teams Fur Finisher Relationship Specialty Start Date End Date Provider Not In System, [facility] PCP - General 05/02/22 Roxann Corona, RN Registered Nurse 05/16/22 [place] Mcfadden DPM [address] [place] [address] Consulting Physician Podiatry 06/06/22 Roxann Corona, RN Registered Nurse 10/04/22 documented as of this encounter
--- OUTSIDE RECORDS SUMMARY | 2025-03-03 20:43 | XMS_ITS | Encounter Summary ---
Author Organization [employer] ([place], [place], [place], [place]) Address [address] [place] [address] Care Team Providers Care Osteopathic Physician Name Role Phone Provider Not In System, McT Primary Care Provide r Unavailable Roxann Corona RN Unavailable Unavailab [place] Beth DPM Unavailable [phone] Roxann Corona RN Unavailable Unavailab le Encounter Details Date Type Department Care Team (Late st Contact Info) Description 12/23/2019 Transcribed Document [facility] [place] Family Medicine [facility] [place] [address] ProviderMayte MD [address] [place] [address] [phone] Social History Tobacco Use Types Packs/Day Years [...] EDT Height Source Stated Height Entry Format [place] Height/Length, CAMBODIAN (ft) 5 ft Height/Length CAMBODIAN 7 Inch CLINICALHEIGHT 170.18 cm [place] Body Weight 65.16 kg Weight Source, ED Critical estimated dosing weight Weight Entry Format Saltese Weight Spanish lb 230 lb CLINICALWEIGHT 104.55 kg Body [...] Triage: ED C-SSRS: ED Clinical Reconciliation: ED fixed capital clerk: ED Sepsis Alert: Flu A/B Rapid Screen: [...] % LOW Lymph # 0.30 x10(3)/uL LOW Harlan % 5.0 % Harlan # 0.62 K/uL Eos % 0.5 % Eos # 0.06 x10(3)/uL Baso % 0.3 % Baso # 0.04 x10(3)/uL RBC Morphology Normal Anisocytosis 1+ Platelet Ct Estimate Adequate Slide Review Technologist IG# 0.09 x10(3)/uL HI IG% 0.70 % HI PT 11.9 Second(s) INR 1.1 Urine Type U CleanCatch Urine Color Yellow Urine Appearance Cloudy Urine Specific [place] 1.012 Urine pH Dipstick 6.0 Urine Leukocyte [...] Calls-Consults - 12/23/2019 04:01:00 , AKASH [facility]Y [facility], will admit to observation. Plan Condition: Improved, Stable. Counseled: Patient. documented in this encounter Plan of Treatment Not on file documented as of this encounter Visit Diagnoses Not on filedocumented in this encounter Care Teams Osteopathic Physician Relationship Specialty Start Date End Date Provider Not In System, [facility] PCP - General 05/02/22 Roxann Corona, RN Registered Nurse 05/16/22 [place] Mcfadden DPM [address] [place] [address] Consulting Physician Podiatry 06/06/22 Rxoann Corona, RN Registered Nurse 10/04/22 documented as of this encounter
--- OUTSIDE RECORDS SUMMARY | 2025-03-03 20:43 | XMS_ITS | Encounter Summary ---
Author Organization [employer] ([place], [place], [place], [place]) Address [address] [place] [address] Care Team Providers Care Commercial Maintenance Technician Name Role Phone Provider Not In System, McT Primary Care Provide r Unavailable Roxann Corona RN Unavailable Unavailab [place] Beth DPM Unavailable [phone] Roxann Corona RN Unavailable Unavailab le Encounter Details Date Type Department Care Team (Late st Contact Info) Description 09/12/2019 Transcribed Document [facility] [place] Medicine [facility]placed by [facility] [place] [address] ProviderMayte MD [address] [place] [address] [phone] Social History Tobacco Use Types Packs/Day Years [...] 10 sq cm of tissue was debrided. /[id number] MD WESLEY Farrell III/JEANETTE / WESLEY / MODL /[id number] Electronically signed by Aparna [facility] Conversion Gm Video Cerner at 10/17/2022 2:16 PM CDT documented in this encounter Plan of Treatment Not on file documented as of this encounter Visit Diagnoses Not on filedocumented in this encounter Care Teams Commercial Maintenance Technician Relationship Specialty Start Date End Date Provider Not In System, [facility] PCP - General 05/02/22 Roxann Corona, RN Registered Nurse 05/16/22 Madd[place] Mcfadden, DPBrian [address] [place] [address] Consulting Physician Podiatry 06/06/22 Roxann Corona, RN Registered Nurse 10/04/22 documented as of this encounter
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
--- OUTSIDE RECORDS SUMMARY | 2025-03-03 20:43 | XMS_ITS | Encounter Summary ---
Author Organization [employer] ([place], [place], [place], [place]) Address [address] [place] [address] Care Team Providers Care Embossing Toolsetter Name Role Phone Provider Not In System, McT Primary Care Provide r Unavailable Roxann Corona RN Unavailable Unavailab Madd[place] Beth DPM Unavailable [phone] Roxann Corona RN Unavailable Unavailab le Encounter Details Date Type Department Care Team (Late st Contact Info) Description 12/25/2019 Transcribed Document [facility] [place] Family [place] [facility] [place] [address] ProviderMayte MD [address] [place] [address] Social History Tobacco Use Types Packs/Day [...] Mayte ProviderMD - 12/25/2019 2:00 AM CDT Mortgage Loan Processor Details Entered On: 12/25/2019 8:45 EDT Performed [...] 12/25/2019 8:45 EDT Electronically signed by Aparna [facility] Conversion Copy Worker Cerner at 10/17/2022 2:10 PM CDT documented in this encounter Plan of Treatment Not on file documented as of this encounter Visit Diagnoses Not on filedocumented in this encounter Care Teams Embossing Toolsetter Relationship Specialty Start Date End Date Provider Not In System, [facility] PCP - General 05/02/22 Roxann Corona, RN Registered Nurse 05/16/22 Madd[place] Mcfadden DPM [address] [place] [address] Consulting Physician Podiatry 06/06/22 Roxann Corona, RN Registered Nurse 10/04/22 documented as of this encounter
--- OUTSIDE RECORDS SUMMARY | 2025-03-03 20:43 | XMS_ITS | Encounter Summary ---
Author Organization [employer] ([place], [place], [place], [place]) Address [address] [place] [address] Care Team Providers Care Rigger Name Role Phone Provider Not In System, McT Primary Care Provide r Unavailable Roxann Corona RN Unavailable Unavailab le [place] Mcfadden DPM Unavailable Roxann Corona RN Unavailable Unavailab le Encounter Details Date Type Department Care Team (Late st Contact Info) Description 12/23/2019 Transcribed Document [facility] [place] Family [place] [address] ProviderMayte MD [address] [place] [address] [phone] Social History Tobacco Use Types Packs/Day Years [...] Obtained From : Patient Primary Language : Greenlandic Communication Barrier : None Nessa España RN [...] Level : 46 or > High Risk [place] Fall Interventions : Adequate lighting, Assistive devices [...] Source : Stated Height Entry Format : [place] Height, Feet : 5 ft(Converted to: 152 cm, 60 Inch) Height, Inches : 7 Inch(Converted to: 0 ft 7 Inch, 17.78 cm) Clinical Height : 170.18 cm Weight Source : Bed scale Weight Entry Format : [place] Clinical Dosing Weight : 104.55 kg Weight, Pounds : 230 lb Body Surface Area (BSA) : 2.15 m2 Body Mass Index : 36.1 kg/m2 (HI) Blanding Body Weight : 65 kg Nessa España [...] Nessa España RN - 12/23/2019 10:46 EDT [place] Suicide Severity Rating Scale (C-SSRS) CSSRS Past [...] - 12/23/2019 10:46 EDT Electronically signed by [facility] Conversion Atmospheric Drier Tender Cerner at 10/17/2022 2:11 PM CDT documented in this encounter Plan of Treatment Not on file documented as of this encounter Visit Diagnoses Not on filedocumented in this encounter Care Teams Rigger Relationship Specialty Start Date End Date Provider Not In System, [facility] PCP - General 05/02/22 Roxann Corona, RN Registered Nurse 05/16/22 [place] Mcfadden DPM [address] [place] [address] Consulting Physician Podiatry 06/06/22 Roxann Corona, RN Registered Nurse 10/04/22 documented as of this encounter
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
--- OUTSIDE RECORDS SUMMARY | 2025-03-03 20:43 | XMS_ITS | Encounter Summary ---
Author Organization [employer] ([place], [place], [place], [place]) Address [address] [place] [address] Care Team Providers Care Pin Ball Machine Mechanic Name Role Phone Provider Not In System, McT Primary Care Provide r Unavailable Roxann Corona RN Unavailable Unavailab le [place] Mcfadden DPM Unavailable [phone] Roxann Corona RN Unavailable Unavailab le Encounter Details Date Type Department Care Team (Late st Contact Info) Description 12/26/2019 Transcribed Document [facility] [place] [facility] [place] [address] ProviderMayte MD [address] [place] [address] Social History Tobacco Use Types Packs/Day [...] 12/26/2019 8:31 EDT Electronically signed by Aparna [facility] Conversion Watch Repair Technician Cerner at 10/17/2022 2:15 PM CDT documented in this encounter Plan of Treatment Not on file documented as of this encounter Visit Diagnoses Not on filedocumented in this encounter Care Teams Pin Ball Machine Mechanic Relationship Specialty Start Date End Date Provider Not In System, [facility] PCP - General 05/02/22 Roxann Corona, RN Registered Nurse 05/16/22 [place] Mcfadden DPM [address] [place] [address] Consulting Physician Podiatry 06/06/22 Roxann Corona, RN Registered Nurse 10/04/22 documented as of this encounter
--- OUTSIDE RECORDS SUMMARY | 2025-03-03 20:43 | XMS_ITS | Encounter Summary ---
Author Organization [employer] ([place], [place], [place], [place]) Address [address] [place] [address] Care Team Providers Care Fishing Rod Assembler Name Role Phone Provider Not In System, McT Primary Care Provide r Unavailable Roxann Corona RN Unavailable Unavailab le [place] Mcfadden DPM Unavailable [phone] Roxann Corona RN Unavailable Unavailab le Encounter Details Date Type Department Care Team (Late st Contact Info) Description 12/24/2019 Transcribed Document [facility] [place] Family [place] [address] ProviderMayte MD [address] [place] [address] [phone] Social History Tobacco Use Types Packs/Day Years [...] 12/24/2019 20:17 EDT Electronically signed by Aparna [facility] Conversion Drop Wire Aligner Cerner at 10/17/2022 2:14 PM CDT documented in this encounter Plan of Treatment Not on file documented as of this encounter Visit Diagnoses Not on filedocumented in this encounter Care Teams Fishing Rod Assembler Relationship Specialty Start Date End Date Provider Not In System, [facility] PCP - General 05/02/22 Roxann Corona, RN Registered Nurse 05/16/22 [place] Mcfadden, DPM [address] [place] [address] Consulting Physician Podiatry 06/06/22 Roxann Corona, RN Registered Nurse 10/04/22 documented as of this encounter
--- OUTSIDE RECORDS SUMMARY | 2025-03-03 20:43 | XMS_ITS | Encounter Summary ---
Author Organization [employer] ([place], [place], [place], [place]) Address [address] [place] [address] Care Team Providers Care Portrait Photographer Name Role Phone Provider Not In System, McT Primary Care Provide r Unavailable Roxann Corona RN Unavailable Unavailab le [place] Mcfadden DPM Unavailable [phone] Roxann Corona RN Unavailable Unavailab le Encounter Details Date Type Department Care Team (Late st Contact Info) Description 12/24/2019 Transcribed Document [facility] [place] [facility] [place] [address] ProviderMayte MD [address] [place] [address] [phone] Social History Tobacco Use Types Packs/Day Years [...] 12/24/2019 8:05 EDT by CULLEN MACDONALD RN [facility] Admission Date : Admit Date 12/24/2019 [...] been followed by Dr Garcia at the [facility] and currently states his coccyx wound has healed but has a scab. Pt has pictures on his phone from his last [facility] visit. WOCNs able to assess [...] 12/25/2019 11:56 EDT Electronically signed by Aparna [facility] Conversion Lab Courier Cerner at 10/17/2022 2:15 PM CDT documented in this encounter Plan of Treatment Not on file documented as of this encounter Visit Diagnoses Not on filedocumented in this encounter Care Teams Portrait Photographer Relationship Specialty Start Date End Date Provider Not In System, [facility] PCP - General 05/02/22 Roxann Corona, RN Registered Nurse 05/16/22 [place] Mcfadden, JAIR [address] [place] [address] Consulting Physician Podiatry 06/06/22 Roxann Corona, RN Registered Nurse 10/04/22 documented as of this encounter
--- OUTSIDE RECORDS SUMMARY | 2025-03-03 20:43 | XMS_ITS | Encounter Summary ---
Author Organization [employer] ([place], [place], [place], [place]) Address [address] [place] [address] Care Team Providers Care Public Speaking Instructor Name Role Phone Provider Not In System, McT Primary Care Provide r Unavailable Roxann Corona RN Unavailable Unavailab le [place] Mcfadden DPM Unavailable [phone] Roxann Corona RN Unavailable Unavailab le Encounter Details Date Type Department Care Team (Late st Contact Info) Description 12/24/2019 Transcribed Document [facility] [place] [facility] [place] [address] ProviderMayte MD [address] [place] [address] Social History Tobacco Use Types Packs/Day [...] 12/24/2019 8:00 EDT Electronically signed by Aparna [facility] Conversion Spring Tier Cerner at 10/17/2022 2:20 PM CDT documented in this encounter Plan of Treatment Not on file documented as of this encounter Visit Diagnoses Not on filedocumented in this encounter Care Teams Public Speaking Instructor Relationship Specialty Start Date End Date Provider Not In System, [facility] PCP - General 05/02/22 Roxann Corona, RN Registered Nurse 05/16/22 [place] Mcfadden DPM [address] [place] [address] Consulting Physician Podiatry 06/06/22 Roxann Corona, RN Registered Nurse 10/04/22 documented as of this encounter
--- OUTSIDE RECORDS SUMMARY | 2025-03-03 20:43 | XMS_ITS | Encounter Summary ---
Author Organization [employer] ([place], [place], [place], [place]) Address [address] [place] [address] Care Team Providers Care Cigarette Packer Name Role Phone Provider Not In System, McT Primary Care Provide r Unavailable Roxann Corona RN Unavailable Unavailab [place] Beth DPM Unavailable [phone] Roxann Corona RN Unavailable Unavailab le Encounter Details Date Type Department Care Team (Late st Contact Info) Description 12/11/2019 Transcribed Document [facility] [place] Family Medicine [place] [address] ProviderMayte MD [address] [place] [address] [phone] Social History Tobacco Use Types Packs/Day Years [...] We will reassess him in 2 weeks. /[id number] MD WESLEY Farrell III/JEANETTE / WESLEY / SUSAN /[id number] documented in this encounter Plan of Treatment Not on file documented as of this encounter Visit Diagnoses Not on filedocumented in this encounter Care Teams Cigarette Packer Relationship Specialty Start Date End Date Provider Not In System, [facility] PCP - General 05/02/22 Roxann Corona, MATHEW Registered Nurse 05/16/22 [place] Mcfadden DPM [address] [place] [address] Consulting Physician Podiatry 06/06/22 Roxann Corona, RN Registered Nurse 10/04/22 documented as of this encounter
--- OUTSIDE RECORDS SUMMARY | 2025-03-03 20:43 | XMS_ITS | Encounter Summary ---
Author Organization [employer] ([place], [place], [place], [place]) Address [address] [place] [address] Care Team Providers Care Sterile Processing Technologist Name Role Phone Provider Not In System, McT Primary Care Provide r Unavailable Roxann Corona RN Unavailable Unavailab le Maddison Mcfadden DPM Unavailable [phone] Roxann Corona RN Unavailable Unavailab le Encounter Details Date Type Department Care Team (Late st Contact Info) Description 12/26/2019 Transcribed Document [facility] Radiology 1 [place] [address] Moises Mireles MD [address] [place] [address] [place] [address] Social History Tobacco Use Types Packs/Day Years [...] on filedocumented in this encounter Care Teams Sterile Processing Technologist Relationship Specialty Start Date End Date Provider Not In System, [facility] PCP - General 05/02/22 Roxann Corona, RN Registered Nurse 05/16/22 Maddison Mcfadden DPM [address] [place] [address] Consulting Physician Podiatry 06/06/22 Roxann Corona, RN Registered Nurse 10/04/22 documented as of this encounter
--- OUTSIDE RECORDS SUMMARY | 2025-03-03 20:43 | XMS_ITS | Encounter Summary ---
Author Organization [employer] ([place], [place], [place], [place]) Address [address] [place] [address] Care Team Providers Care Professor Of Music Name Role Phone Provider Not In System, McT Primary Care Provide r Unavailable Roxann Corona RN Unavailable Unavailab le Maddison Mcfadden DPM Unavailable [phone] Roxann Corona RN Unavailable Unavailab le Encounter Details Date Type Department Care Team (Late st Contact Info) Description 12/25/2019 Transcribed Document [facility] Family Medicine [facility] [place] [address] ProviderMayte MD [address] [place] [address] Social History Tobacco Use Types Packs/Day [...] 8:45 EDT Electronically signed by Aparna [facility] Conversion Producer Cerner at 10/17/2022 2:21 PM CDT documented in this encounter Plan of Treatment Not on file documented as of this encounter Visit Diagnoses Not on filedocumented in this encounter Care Teams Professor Of Music Relationship Specialty Start Date End Date Provider Not In System, [facility] PCP - General 05/02/22 Roxann Corona, RN Registered Nurse 05/16/22 Maddison Mcfadden DPM [address] [place] [address] Consulting Physician Podiatry 06/06/22 Roxann Corona, RN Registered Nurse 10/04/22 documented as of this encounter
--- OUTSIDE RECORDS SUMMARY | 2025-03-03 20:43 | XMS_ITS | Encounter Summary ---
Author Organization [employer] ([place], [place], [place], [place]) Address [address] [place] [address] Care Team Providers Care Repair Service Dispatcher Name Role Phone Provider Not In System, McT Primary Care Provide r Unavailable Roxann Corona RN Unavailable Unavailab le Maddison Mcfadden DPM Unavailable [phone] Roxann Corona RN Unavailable Unavailab le Encounter Details Date Type Department Care Team (Late st Contact Info) Description 12/23/2019 Transcribed Document [facility] [place] [address] ProviderMayte MD [address] [place] [address] [phone] Social History Tobacco Use Types Packs/Day Years [...] 12/23/2019 3:22 EDT Electronically signed by Aparna [facility] Conversion Film Splicer Cerner at 10/17/2022 2:08 PM CDT documented in this encounter Plan of Treatment Not on file documented as of this encounter Visit Diagnoses Not on filedocumented in this encounter Care Teams Repair Service Dispatcher Relationship Specialty Start Date End Date Provider Not In System, [facility] PCP - General 05/02/22 Roxann Corona, RN Registered Nurse 05/16/22 Maddison Mcfadden, DPM [address] [place] [address] Consulting Physician Podiatry 06/06/22 Roxann Corona, RN Registered Nurse 10/04/22 documented as of this encounter
--- OUTSIDE RECORDS SUMMARY | 2025-03-03 20:43 | XMS_ITS | Encounter Summary ---
Author Organization [employer] ([place], [place], [place], [place]) Address [address] [place] [address] Care Team Providers Care Stonecutter Name Role Phone Provider Not In System, McT Primary Care Provide r Unavailable Roxann Corona RN Unavailable Unavailab Maddison Beth DPM Unavailable [phone] Roxann Corona RN Unavailable Unavailab le Encounter Details Date Type Department Care Team (Late st Contact Info) Description 12/25/2019 Transcribed Document [facility] Family Medicine [facility] [place] [address] ProviderMayte MD [address] [place] [id number] Social History Tobacco Use Types Packs/Day Years [...] No productive cough. He was [facility]. I was [...] No tenderness, No deformity. Integumentary: Warm, Dry, [place], No pallor, No rash, Sacral decub into [...] Critical Care - Code Management Assessment: ACC: [id number] ORDER: Culture Urine DATE: 12/23/2019 01:30 SOURCE: Urine, Clean Catch SITE: Reports Pre 12/25/2019 06:53 >100,000 cfu/ml Gram Negative Rods == ACC: [id number] ORDER: .Strep A Confirmation DATE: 12/23/2019 02:00 SOURCE: Throat SITE: Reports Pre 12/24/2019 06:53 No Beta Strep isolated at 24 hours == ACC: [id number] ORDER: Culture Wound and Stain DATE: 12/23/2019 08:45 SOURCE: Wound SITE: Sacrum Reports Pre 12/24/2019 06:37 Culture in progress GS 12/23/2019 15:22 Rare epithelial cells Rare Gram Positive Cocci == ACC: [id number] ORDER: Culture Blood DATE: 12/23/2019 01:30 SOURCE: Blood SITE: Reports Pre 12/25/2019 06:01 No growth at 2 days. Pre 12/24/2019 06:01 No growth at 1 day. Pre 12/23/2019 16:02 Culture less than 24 Hrs old == ACC: [id number] ORDER: Culture Blood DATE: 12/23/2019 01:30 SOURCE: Blood SITE: Reports Pre 12/25/2019 06:01 No growth at 2 days. Pre 12/24/2019 06:01 No growth at 1 day. Pre 12/23/2019 16:02 Culture less than 24 Hrs old == [facility]: [id number] ORDER: Flu A/B Rapid Screen DATE: 12/23/2019 01:30 SOURCE: Nasal SITE: Reports Final 12/23/2019 02:07 Negative for Rapid Influenza A and B Antigen Rapid Influenza tests are for screening purposes only. Negative tests should be confirmed by more sensitive methodologies. == [facility]: [id number] ORDER: Strep Throat Screen DATE: 12/23/2019 01:30 [...] on filedocumented in this encounter Care Teams Stonecutter Relationship Specialty Start Date End Date Provider Not In System, [facility] PCP - General 05/02/22 Roxann Corona, RN Registered Nurse 05/16/22 Maddison Mcfadden DPM [address] [place] [address] Consulting Physician Podiatry 06/06/22 Roxann Corona, RN Registered Nurse 10/04/22 documented as of this encounter
--- OUTSIDE RECORDS SUMMARY | 2025-03-03 20:43 | XMS_ITS | Encounter Summary ---
Author Organization [employer] ([place], [place], [place], [place]) Address [address] [place] [address] Care Team Providers Care Tower Attendant Name Role Phone Provider Not In System, McT Primary Care Provide r Unavailable Roxann Corona RN Unavailable Unavailab le Maddison Mcfadden DPM Unavailable [phone] Roxann Corona RN Unavailable Unavailab le Encounter Details Date Type Department Care Team (Late st Contact Info) Description 12/24/2019 Transcribed Document [facility] Radiology 1 [place] [address] Moises Mireles MD [address] [place] [address] [place] [address] Social History Tobacco Use Types Packs/Day Years Used Date Smoking Tobacco: Never Assessed Sex and Gender Information Value Date Recorded Sex Assigned at Male 12/30/2021 5:50 PM CDT Legal Sex Male 7:04 PM CDT Gender Identity Male 12/30/2021 5:50 PM CDT Sexual Orientation Not on file documented as of this encounter Miscellaneous Notes * Cerner Conversion Note - Moises Mrieles MD - 12/24/2019 10:00 AM EDT Patient: [...] At risk for sleep apnea / IMO [id number] / Confirmed History of UTI / SNOMED CT 9856550135 / Confirmed Paraplegia / SNOMED CT 331095650 / Confirmed Pressure ulcer of hip / SNOMED CT 9541423625 / Confirmed, Active Problems (4) At risk [...] H 141 (DEC 23 05:23) H 188 (ROBEROT 22:19) DBP 71 (DEC 23 05:23) 71 [...] Source Bed scale Routine Weight Entry Format [place] Routine Weight, Pounds 226 lb Routine Weight, Ounces 9 oz Routine Weight Calculation 102.98 kg 12/23/2019 10:46 EDT Height Source Stated Height Entry Format [place] Height/Length, BAHRAINI (ft) 5 ft Height/Length BAHRAINI 7 Inch CLINICALHEIGHT 170.18 cm [place] Body Weight 65 kg Weight Source Bed scale Weight Entry Format [place] Weight [place] lb 230 lb CLINICALWEIGHT 104.55 kg Body Surface Area (BSA) 2.15 m2 Body Mass Index 36.1 kg/m2 HI 12/23/2019 0:13 EDT Height Source Stated Height Entry Format [place] Height/Length, BAHRAINI (ft) 5 ft Height/Length BAHRAINI 7 Inch CLINICALHEIGHT 170.18 cm [place] Body Weight 65.16 kg Weight Source, ED Critical estimated dosing weight Weight Entry Format [place] Weight [place] lb 230 lb CLINICALWEIGHT 104.55 kg Body [...] a CBC and CMP in the morning. [employer] Contentation system used. Computer program makes numerous spelling grammar mistakes. If you have any questions or concerns do not hesitate call Dr. Moises Wilkerson at cell phone number [phone]. documented in this encounter Plan of Treatment Not on file documented as of this encounter Visit Diagnoses Not on filedocumented in this encounter Care Teams Tower Attendant Relationship Specialty Start Date End Date Provider Not In System, [facility] PCP - General 05/02/22 Roxann Corona, RN Registered Nurse 05/16/22 Maddison Mcfadden DPM [address] [place] [address] Consulting Physician Podiatry 06/06/22 Roxann Corona, RN Registered Nurse 10/04/22 documented as of this encounter
--- OUTSIDE RECORDS SUMMARY | 2025-03-03 20:43 | XMS_ITS | Encounter Summary ---
Author Organization [employer] ([place], [place], [place], [place]) Address [address] [place] [address] Care Team Providers Care Radiologic Technology Teacher Name Role Phone Provider Not In System, McT Primary Care Provide r Unavailable Roxann Corona RN Unavailable Unavailab Maddison Beth DPM Unavailable [phone] Roxann Corona RN Unavailable Unavailab le Encounter Details Date Type Department Care Team (Late st Contact Info) Description 11/27/2019 Transcribed Document [facility] Family Medicine [facility] [place] [address] ProviderMayte MD [address] [place] [id number] Social History Tobacco Use Types Packs/Day Years [...] that he is going to stay closed. /[id number] MD WESLEY Farrell III/JEANETTE / WESLEY / MODL /[id number] Electronically signed by Aparna [facility] Conversion Electronic Tech Cerner at 10/17/2022 2:11 PM CDT documented in this encounter Plan of Treatment Not on file documented as of this encounter Visit Diagnoses Not on filedocumented in this encounter Care Teams Radiologic Technology Teacher Relationship Specialty Start Date End Date Provider Not In System, [facility] PCP - General 05/02/22 Roxann Corona, RN Registered Nurse 05/16/22 Maddison Mcfadden DPM [address] [place] [address] Consulting Physician Podiatry 06/06/22 Roxann Corona, RN Registered Nurse 10/04/22 documented as of this encounter
--- OUTSIDE RECORDS SUMMARY | 2025-03-03 20:43 | XMS_ITS | Clinical Summary ---
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 region, stage 4 111322193 (SNOMED CT) 12/31 Active 12/31 Chioma Bill Pressure ulcer stage 4 Acute cystitis w/o hematuria 95162595 (SNOMED CT) 12/31 Active 12/31 Chioma Bill [...] Active 12/31 Chioma Bill Leukemoid reaction Cholestasis 85582459 (SNOMED CT) 12/31 Active 12/31 Chioma Bill Cholestasis Hypoalbuminemi a 482042634 (SNOMED CT) 12/31 Active 12/31 Chioma Bill Hypoalbuminemia Anemia in chronic diseases(docum ent disease) D63.8 (ICD-10-CM ) 12/31 Active 12/31 Chioma Khan Anemia in other chronic diseases classified elsewhere Medications Medication Instructions Start Date Stop Date Generic Name NDC Provider SYMBICORT 80-4.5 MCG/ACT AERO 2 Puff, Inhalation, BID 0 BUDESONIDE-FOR MOTEROL FUMARATE 54252027568 Paige Aguirre POTASSIUM CHLORIDE ER 10 MEQ CR-CAPS Take by mouth twice a day 0 POTASSIUM CHLORIDE 44141911738 Paige Aguirre LISINOPRIL-HYD ROCHLOROTHIAZI DE 10-12.5 MG TABS Take one by mouth daily 0 LISINOPRIL-HYD ROCHLOROTHIAZI DE 05673116312 Paige Aguirre CEFUROXIME AXETIL 500 MG TABS Take by mouth twice a day 0 CEFUROXIME AXETIL 12650835133 Paige Aguirre Medications Administered No information available. [...] status SMOK STATUS Never smoker Toba financial analyst accountant smoking status Plan of Care Type Date [...]
--- OUTSIDE RECORDS SUMMARY | 2025-03-03 20:43 | XMS_ITS | Encounter Summary ---
Author Organization [employer] ([place], [place], [place], [place]) Address [address] [place] [address] Care Team Providers Care Engineering Lecturer Name Role Phone Provider Not In System, McT Primary Care Provide r Unavailable Roxann Corona RN Unavailable Unavailab le Maddison Mcfadden DPM Unavailable [phone] Roxann Corona RN Unavailable Unavailab le Encounter Details Date Type Department Care Team (Late st Contact Info) Description 12/25/2019 Transcribed Document [facility] Radiology 1 [place] [address] Moises Mireles MD [address] [place] [address] [place] [address] Social History Tobacco Use Types Packs/Day Years [...] At risk for sleep apnea / IMO 76576112 / Confirmed History of UTI / SNOMED CT 9386213041 / Confirmed Paraplegia / SNOMED CT 928552560 / Confirmed Pressure ulcer of hip / SNOMED CT 4803526185 / Confirmed, Active Problems (4) At risk [...] Source Bed scale Routine Weight Entry Format [place] Routine Weight, Pounds 226 lb Routine Weight, [...] 141 (ROBERTO 24) 139 (ROBERTO 23) 140 (ROBRETO 22) K C 2.7 (ROBERTO 24) L [...] Recheck a CBC CMP in the morning. Beibambooation system used. Computer program makes numerous spelling grammar mistakes. If you have any questions or concerns do not hesitate call Dr. Moises Wilkerson at cell phone number [phone]. documented in this encounter Plan of Treatment Not on file documented as of this encounter Visit Diagnoses Not on filedocumented in this encounter Care Teams Engineering Lecturer Relationship Specialty Start Date End Date Provider Not In System, [facility] PCP - General 05/02/22 Roxann Corona, MATHEW Registered Nurse 05/16/22 Maddison Mcfadden DPBrian [address] [place] [address] Consulting Physician Podiatry 06/06/22 Roxann Corona, RN Registered Nurse 10/04/22 documented as of this encounter
--- OUTSIDE RECORDS SUMMARY | 2025-03-03 20:44 | XMS_ITS | Encounter Summary ---
Author Organization [employer] ([place], [place], [place], [place]) Address [address] [place] [address] Care Team Providers Care Clinical Practitioner Name Role Phone Provider Not In System, McT Primary Care Provide r Unavailable Roxann Corona RN Unavailable Unavailab le Maddison Mcfadden DPM Unavailable [phone] Roxann Corona RN Unavailable Unavailab le Encounter Details Date Type Department Care Team (Late st Contact Info) Description 12/26/2019 Transcribed Document [facility] [place] [facility] [place] [address] ProviderMayte MD [address] [place] [address] [phone] Social History Tobacco Use Types Packs/Day Years [...] On: 12/26/2019 14:13 EDT by AUBREY WILCOX, dressage instructor Documentation Patient Disposition, General : Discharge Discharge To : Home with ambulatory/outpatient follow-up AUBREY WILCOX RN - 12/26/2019 14:13 EDT documented in this encounter Plan of Treatment Not on file documented as of this encounter Visit Diagnoses Not on filedocumented in this encounter Care Teams Clinical Practitioner Relationship Specialty Start Date End Date Provider Not In System, [facility] PCP - General 05/02/22 Roxann Corona, RN Registered Nurse 05/16/22 Maddison Mcfadden, DPBrian [address] [place] [address] Consulting Physician Podiatry 06/06/22 Roxann Corona, RN Registered Nurse 10/04/22 documented as of this encounter
--- OUTSIDE RECORDS SUMMARY | 2025-03-03 20:44 | XMS_ITS | Encounter Summary ---
Author Organization [employer] ([place], [place], [place], [place]) Address [address] [place] [address] Care Team Providers Care Marketing/Sales Person Name Role Phone Provider Not In System, McT Primary Care Provide r Unavailable Roxann Corona RN Unavailable Unavailab Maddison Beth DPM Unavailable [phone] Roxann Corona RN Unavailable Unavailab le Encounter Details Date Type Department Care Team (Late st Contact Info) Description 12/26/2019 Transcribed Document [facility] Family Medicine [facility] [address] ProviderMayte MD [address] [place] [address] Social History Tobacco Use Types Packs/Day [...] 12/26/2019 14:31 EDT Electronically signed by Aparna [facility] Conversion Director Of [facility] Cerner at 10/17/2022 2:24 PM CDT documented in this encounter Plan of Treatment Not on file documented as of this encounter Visit Diagnoses Not on filedocumented in this encounter Care Teams Marketing/Sales Person Relationship Specialty Start Date End Date Provider Not In System, [facility] PCP - General 05/02/22 Roxann Corona, RN Registered Nurse 05/16/22 Maddison Mcfadden, DPM [address] [place] [address] Consulting Physician Podiatry 06/06/22 Roxann Corona, RN Registered Nurse 10/04/22 documented as of this encounter
--- OUTSIDE RECORDS SUMMARY | 2025-03-03 20:44 | XMS_ITS | Referral Summary ---
Author Organization [employer] ([place], [place], [place], [place]) Address [address] [place] [address] Care Team Providers Care Field Assistant Name Role Phone Provider Not In System, [facility] Primary Care Provide r Unavailable Roxann Corona RN Unavailable Unavailab Maddison Beth DPM Unavailable [phone] Roxann Corona RN Unavailable Unavailab le Allergies [...] Date Kamran rded Speak language other than Cambodian at home Not on file 07/21/2023 Want [...] on file Insurance [employer] Care Teams Field Assistant Relationship Specialty Start Date End Date Provider Not In System, [facility] PCP - General 05/02/22 Roxann Corona, RN Registered Nurse 05/16/22 Maddison Mcfadden, DPBrian [address] [place], [place] [id number] [place] [address] Consulting Physician Podiatry 06/06/22 Roxann Corona, RN Registered Nurse 10/04/22
--- OUTSIDE RECORDS SUMMARY | 2025-03-03 20:44 | XMS_ITS | Encounter Summary ---
Author Organization [employer] ([place], [place], [place], [place]) Address [address] [place] [address] Care Team Providers Care Manager Coding Name Role Phone Provider Not In System, McT Primary Care Provide r Unavailable Roxann Corona RN Unavailable Unavailab Maddison Beth DPM Unavailable [phone] Roxann Corona RN Unavailable Unavailab le Encounter Details Date Type Department Care Team (Late st Contact Info) Description 12/26/2019 Transcribed Document [facility] [place] [facility] [place] [address] ProviderMayte MD [address] [place] [id number] Social History Tobacco Use Types Packs/Day Years [...] these instructions at home: Medicines ??? Take [id number] and prescription medicines only as told by [...] often using soap and water. Use hand stock wetter if soap and water are not available. [...] 01/25/2019 Document Revised: 01/25/2019 Document Reviewed: 01/25/2019 [employer] Interactive Patient Education ? 2020 [employer]. documented in this encounter Plan of Treatment Not on file documented as of this encounter Visit Diagnoses Not on filedocumented in this encounter Care Teams Manager Coding Relationship Specialty Start Date End Date Provider Not In System, [facility] PCP - General 05/02/22 Roxann Corona, RN Registered Nurse 05/16/22 Maddison Mcfadden DPM [address] [place] [address] Consulting Physician Podiatry 06/06/22 Roxann Corona, RN Registered Nurse 10/04/22 documented as of this encounter
--- OUTSIDE RECORDS SUMMARY | 2025-03-03 20:44 | XMS_ITS | Encounter Summary ---
Author Organization [employer] ([place], [place], [place], [place]) Address [address] [place] [address] Care Team Providers Care Sas Sql Developer Name Role Phone Provider Not In System, McT Primary Care Provide r Unavailable Roxann Corona RN Unavailable Unavailab le Maddison Mcfadden DPM Unavailable [phone] Roxann Corona RN Unavailable Unavailab le Encounter Details Date Type Department Care Team (Late st Contact Info) Description 12/26/2019 Transcribed Document [facility] Family [place] [facility] [place] [address] ProviderMayte MD [address] [place] [id number] Social History Tobacco Use Types Packs/Day Years [...] Insurance 1 Health Plan: [employer] Policy Number: [id number] Authorization Number: Insurance Primary Name : [employer] Policy Number: [id number] Authorization Status-Primary : Admit approved Reference Number-Primary : [id number] Number of Days Authorized-Primary : 1 Day(s) [...] 12/26/2019 14:25 EDT Electronically signed by Aparna [facility] Conversion Certification And Selection Specialist Cerner at 10/17/2022 2:29 PM CDT documented in this encounter Plan of Treatment Not on file documented as of this encounter Visit Diagnoses Not on filedocumented in this encounter Care Teams Sas Sql Developer Relationship Specialty Start Date End Date Provider Not In System, [facility] PCP - General 05/02/22 Roxann Corona, RN Registered Nurse 05/16/22 Maddison Mcfadden, DPM [address] [place] [address] Consulting Physician Podiatry 06/06/22 Roxann Corona, RN Registered Nurse 10/04/22 documented as of this encounter
--- OUTSIDE RECORDS SUMMARY | 2025-03-03 20:44 | XMS_ITS | Encounter Summary ---
Author Organization [employer] ([place], [place], [place], [place]) Address [address] [place] [address] Care Team Providers Care Mess Cook Name Role Phone Provider Not In System, McT Primary Care Provide r Unavailable Roxann Corona RN Unavailable Unavailab Maddison Beth DPM Unavailable [phone] Roxann Corona RN Unavailable Unavailab le Encounter Details Date Type Department Care Team (Late st Contact Info) Description 01/02/2020 Transcribed Document [facility] [place] [address] ProviderMayte MD [address] [place] [phone] Social History Tobacco Use Types Packs/Day Years [...] have to work that out with the [facility], but I certainly see the advantage of doing it. /[id number] MD WESLEY Farrell III/JEANETTE / WESLEY / MICKIL /[id number] documented in this encounter Plan of Treatment Not on file documented as of this encounter Visit Diagnoses Not on filedocumented in this encounter Care Teams Mess Cook Relationship Specialty Start Date End Date Provider Not In System, [facility] PCP - General 05/02/22 Roxann Corona, RN Registered Nurse 05/16/22 Maddison Mcfadden, DPM [address] [place] [address] Consulting Physician Podiatry 06/06/22 Roxann Corona, RN Registered Nurse 10/04/22 documented as of this encounter
--- OUTSIDE RECORDS SUMMARY | 2025-03-03 20:44 | XMS_ITS | Encounter Summary ---
Author Organization [employer] ([place], [place], [place], [place]) Address [address] [place] [address] Care Team Providers Care Junior Network Administrator Name Role Phone Provider Not In System, McT Primary Care Provide r Unavailable Roxann Corona RN Unavailable Unavailab Maddison Beth DPM Unavailable [phone] Roxann Corona RN Unavailable Unavailab le Encounter Details Date Type Department Care Team (Late st Contact Info) Description 12/26/2019 Transcribed Document [facility] [place] Family Medicine [facility] [place] [address] ProviderMayte MD [address] [place] [address] Social History Tobacco Use Types Packs/Day [...] Mayte ProviderMD - 12/26/2019 2:00 AM CDT Palletizer Operator Details Entered On: 12/26/2019 8:31 EDT Performed [...] 12/26/2019 8:30 EDT Electronically signed by Aparna [facility] Conversion Rip And Groove Machine Operator Cerner at 10/17/2022 2:21 PM CDT documented in this encounter Plan of Treatment Not on file documented as of this encounter Visit Diagnoses Not on filedocumented in this encounter Care Teams Junior Network Administrator Relationship Specialty Start Date End Date Provider Not In System, [facility] PCP - General 05/02/22 Roxann Corona, RN Registered Nurse 05/16/22 Maddison Mcfadden DPM [address] [place] [address] Consulting Physician Podiatry 06/06/22 Roxann Corona, RN Registered Nurse 10/04/22 documented as of this encounter
--- OUTSIDE RECORDS SUMMARY | 2025-03-03 20:44 | XMS_ITS | Encounter Summary ---
Author Organization [facility] ([place], [place], [place], [place]) Address [address] [place] [address] Care Team Providers Care Supervisor Steel Division Name Role Phone Provider Not In System, McT Primary Care Provide r Unavailable Roxann Corona RN Unavailable Unavailab le Maddison Mcfadden DPM Unavailable [phone] Roxann Corona RN Unavailable Unavailab le Encounter Details Date Type Department Care Team (Late st Contact Info) Description 12/26/2019 Transcribed Document [facility] [place] Family Medicine [facility] [place] [address] ProviderMayte MD [address] [place] [address] Social History Tobacco Use Types Packs/Day [...] Giles MD - 12/26/2019 2:14 PM CDT [facility] [place] [address] [address]ABY[address] QUIÑONEZ :1970 [...] Comments Appointment has been made Where: [address] [place] [address]- Business (1) Follow Up with [facility] When 01/02/2020 01:15 PM EDT Comments Appointment has been made Where: [address] [place] [address]- Follow Up with NATALI SYED MD When Within 1 week Comments Call for follow up appointment; office was closed on 12/25 Where: [address] [facility] [address] [place] [address]- Medications What How Much When Instructions Next [...] these instructions at home: Medicines ??? Take styj-mnf-znmbinh and prescription medicines only as told by [...] often using soap and water. Use hand lithographic plate maker if soap and water are not available. [...] 01/25/2019 Document Revised: 01/25/2019 Document Reviewed: 01/25/2019 [employer] Patient Education ?? 2020 [employer]. Emergency Awareness and Preventative Care STROKE is [...] Assistance with quitting is available by contacting 6-577-WTNT-NOW. This is a free resource providing counseling, [...] and 14.9 ) ANC #: 7 K/uL [place] Percent Man: 5 % -- Normal range [...] range between ( 0.0 and 7.0 ) [place] #: 1.20 K/uL -- Normal range between ( 0.16 and 1.00 ) Eos #: 0.18 x10(3)/uL -- Normal range between ( 0.00 and 0.80 ) [place] %: 12.3 % -- Normal range between [...] ) Urine Bilirubin Dipstick: Negative Urine Specific [place]: 1.012 -- Normal range between ( 1.005 [...] was given the opportunity to ask questions. Patient/Automation Application Engineer Name: Patient/Automation Application Engineer Signature: Relationship to Patient: Clinician/Hospital Automation Application Engineer Signature: Date: documented in this encounter Plan of Treatment Not on file documented as of this encounter Visit Diagnoses Not on filedocumented in this encounter Care Teams Supervisor Steel Division Relationship Specialty Start Date End Date Provider Not In System, [facility] PCP - General 05/02/22 Roxann Corona, RN Registered Nurse 05/16/22 Maddison Mcfadden DPM [address] [place] [address] Consulting Physician Podiatry 06/06/22 Roxann Corona, RN Registered Nurse 10/04/22 documented as of this encounter
--- OUTSIDE RECORDS SUMMARY | 2025-03-03 20:44 | XMS_ITS | Encounter Summary ---
Author Organization [employer] ([place], [place], [place], [place]) Address [address] [place] [address] Care Team Providers Care Care Companion Name Role Phone Provider Not In System, McT Primary Care Provide r Unavailable Roxann Corona RN Unavailable Unavailab le Maddison Mcfadden DPM Unavailable [phone] Roxann Corona RN Unavailable Unavailab le Encounter Details Date Type Department Care Team (Late st Contact Info) Description 12/26/2019 Transcribed Document [facility] Family Medicine [facility] [place] [address] ProviderMayte MD [address] [place] [id number] Social History Tobacco Use Types Packs/Day Years [...] on filedocumented in this encounter Care Teams Care Companion Relationship Specialty Start Date End Date Provider Not In System, [facility] PCP - General 05/02/22 Roxann Corona, RN Registered Nurse 05/16/22 Maddison Mcfadden DPM [address] [place] [address] Consulting Physician Podiatry 06/06/22 Roxann Corona, RN Registered Nurse 10/04/22 documented as of this encounter
--- OUTSIDE RECORDS SUMMARY | 2025-03-03 20:44 | XMS_ITS | Patient Health Record ---
[facility] Address [address] [facility] [address] [place] [id number] Care Team Providers Care Cycle Director Name Role Phone Cherelle Diego Primary Care Provider [phone] Jorge Chen Unavailable [phone] Dinora Davies Unavailable [phone] Allergies Allergen (clinical drug ingredient) Drug/Non Drug [...] 22 Performing Lab: Notes/Report: Test performed by [facility] [address] [place] [address] [place] [address] Issac Romero MD, Loading Checker CLIA: [id number] Sodium 139 135-145 mmol/L Potassium 4.0 3.5-5.3 [...] Interpretation:293 Performing Lab: Notes/Report: Test performed by [facility] [address] [place] [address] [place] [address] Issac Romero MD, Loading Checker CLIA: [id number] Testosterone Total 293.00 264.00-916.00 ng/dL P-Lipid Panel Reviewed date:02/05/2025 06:07:33 PM Interpretation:trigs 169, hdl 24, chol/hdl 6.58, non-hdl 134, ldl/hdl 4.2 Performing Lab: Notes/Report: Test performed by [facility] [address] [place] [address] [place] [address] Issac Romero MD, Loading Checker CLIA: [id number] Cholesterol 158 <200 mg/dL Triglycerides 169 <150 [...] Interpretation:Normal Performing Lab: Notes/Report: Test performed by [facility], [address] , [place] [address] Issac Romero MD, Loading Checker CLIA: [id number] PSA 0.49 <4.00 ng/mL Please note this is an ultrasensitive PSA assay with a lower limit of detection of 0.014 ng/mL. This test is performed by the Regis ECLIA methodology. Values obtained with different assay methods or kits cannot be directly compared. P-Microalbumin/Creatinine, R andom Urine Sample Reviewed date:02/05/2025 06:08:30 PM Interpretation:Normal Performing Lab: Notes/Report: Test performed by [facility] [address] [place] [address] , [place] [address] Issac Romero MD, Loading Checker CLIA: [id number] Albumin/Creatinine Ratio, Urine 19 0-30 ug/mg Microalbumin, Urine, Random 1.9 Creatinine, Urine 100.2 P-Uric Acid Reviewed date:02/05/2025 06:07:58 PM Interpretation:Normal Performing Lab: Notes/Report: Test performed by [facility] [address] [place] [address] , [place] [address] Issac Romero MD, Loading Checker CLIA: [id number] Uric Acid 5.1 3.4-8.0 mg/dL H-CBC (Not yet reviewed by jung corrales) Interpretation: Performing Lab: Notes/Report: WBC 10.0 4.8-10.8 K/mm3 RBC 4.65 4.60-6.20 M/mm3 HGB 13.7 14.1-18.0 g/dL HCT 40.6 42.0-52.0 % MCV 87.3 80-94 fl MCH 29.5 27.0-31.2 pg MCHC 33.7 31.8-35.4 g/dL RDW-SD 48.6 RDW 15.1 11.5-17.5 % PLT 290 142-424 K/mm3 MPV 9.6 7.4-10.4 fl NE% 74.1 37.0-80.0 % LY% 11.2 10-50 % MO% 10.2 1.7-9.3 % EO% 2.9 0.1-12.0 % BA% 0.6 0.1-2.0 % NRBC% 0 IG% 1.0 NE# 7.5 1.8-7.8 K/mm3 LY# 1.1 0.7-4.5 K/mm3 MO# 1.0 0.1-1.0 K/mm3 EO# 0.3 0.0-0.4 Kmm3 BA# 0.1 0-0.2 K/mm3 NRBC# 0 IG# 0.10 H-CBC Reviewed date:02/26/2025 01:21:16 PM Interpretation: Performing Lab: Notes/Report: WBC 11.5 4.8-10.8 K/mm3 Delta: 17.5 o n 02/25/25-0544 RBC 4.66 4.60-6.20 M/mm3 HGB 14.0 14.1-18.0 [...] BUN 22 9-20 mg/dl Delta: 16 on 02/24/25-1215 CREATT 0.70 0.66-1.25 mg/dl CRCLE 167 50-200 mL/min GFRAA 142 >60 ML/MIN EGFR 117 >60 ml/min GLU 133 74-100 mg/dl CA 8.7 8.4-10.2 mg/dl BILIT 1.2 0.2-1.3 mg/dl AST 27 17-59 U/L ALT 21 12-78 U/L Delta: 30 on 02/24/25-1214 TP 7.0 6.3-8.2 g/dl ALB 4.0 3.5-5.0 [...] date:02/25/2025 09:24:45 AM Interpretation: Performing Lab: Notes/Report: RASHAD MANUAL DIFFERENTIAL MANUAL DIFF TCC 100 NEUT%M [...] Duration) Notes Start Date End Date Status OvermediaCastE 2 READER KIT - test once daily E11.9 11/25/2021 Not-Taking Crestor 5 MG 1 tablet Orally Once a day; Duration: 30 day(s) 08/21/2023 Not-Taking Januvia 100 MG 1 tab(s) orally once a day; Duration: 90 days Active CATHETER SELF-CATHETER 14FR - [facility]N [facility] A[facility], In&out Urinary catheters 14 Persian Quad tip 03/16/2022 Active Furosemide 40 MG [...] Status W/U Status Risk Notes Problem Hyperlipidemia (98349506) Hyperlipidemia (E78.5) Active confirmed Problem Gout (97703030) Gout (M10.9) Active confirmed Problem Essential hypertension (02261585) Essential hypertension (I10) Active confirmed Problem Seasonal allergy (707604631) Seasonal allergies (J30.2) Active confirmed Problem Asthma (695510083) Asthma (J45.909) Active conf irmed Problem Neurogenic dysfunction of the urinary bladder (486159603) Neurogenic bladder disorder (N31.9) Active confirmed Problem Diabetic foot ulcer (413441109) Other specified diabetes mellitus with foot ulcer (E13.621) Active confirmed Problem Chronic ulcer of dominique t (357443793) Non-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 with unspecified severity (L97.509) Active confirmed Problem Paraplegia (19694502) Paraplegia (G82.20) Active confirmed Problem Gout (68866455) Uric acid arthro cordell (M10.9) Active confirmed Problem Mild intermittent asthma (828306842) Mild intermittent asthma without complication (J45.20) Active confirmed Problem Obstructive sleep apnea syndrome (68566729) KODI (obstructive sleep apnea) (G47.33) Active confirmed Problem Erectile dysfunction (disorder) (008168471) ED (erectile dysfunction) (N52.9) Active confirmed Problem Type II diabetes mellitus without complication (328187381) Type 2 diabetes mellitus without complication, without long-term current use of insulin (E11.9) Active confirmed Problem Pure hypercholesterolemia (113074377) Pure hypercholesterolemia (E78.00) Active confirmed Problem Type II diabetes mellitus without complication (023694066) Diabetes mellitus without complication (E11.9) Active confirmed Problem Type II diabetes mellitus without complication (511642520) Type 2 diabetes mellitus without complication, unspecified whether terminal clerk insulin use (E11.9) Active confirmed Problem Diastolic dysfunctio n (2958055) Diastolic dysfunction (I51.89) Active confirmed Problem Paraplegia (37491283) Paraplegia at T4 level (G82.20) Active confirmed Vital Signs Heart Rate 72 /min 02/04/2025 Blood pressure diastolic 91 mm Hg 02/04/2025 Height 000 in 02/04/2025 Blood pressure systolic 139 mm Hg 02/04/2025 Weight 000 lbs 02/04/2025 Encounters Encounter Location Date Provider Diagnosis Mary [address] [facility] [address] [place], [place] [id number] 11/27/2024 R Suresh Diego [facility] [address] [facility] [address] [place], [place] [id number] 01/31/2025 R Suresh Diego Essential hypertensi on I10 [facility] [address] [facility] [address] [place], [place] [id number] 02/18/2025 R Suresh Diego [facility] [address] [facility] [address] [place], [place] [id number] 02/26/2025 Jorge Chen [facility] [address] [facility] [address] [place], [place] [id number] 02/04/2025 Dinora Davies ED (erectile dysfunction) N52.9 [...] Notes Treatment Clinical Notes Section Notes 02/04/2025 Essential hypertensi on (ICD-10 - I10) 02/04/2025 ED (erectile dysfunction) (ICD-10 - N52.9) 01/31/2025 Essential hypertensi on (ICD-10 - I10) 02/04/2025 Type 2 diabetes jed itus without complication, without long-term current use of insulin (ICD-10 - E11.9) Does not routinely monitor BS; has been on a 0145-2985 amara diet for the last week with [...] pox as a child Plan Of Treatment Pending Test Test Name Order Date H-CBC 03/03/2025 Next Appt Details Provider Name:Jorge Charles er, 03/10/2025 04:00:00 PM, [address], [address], [place], [place], [id number], Insurance Providers Payer Name Payer Address Payer Phone Subscriber Number Group Number Insured Name Patient Relationship to Insured Coverage Start Date Coverage End Date TAMEKA KAY [employer] [address] [place] [address] [id number] JOSELINE BAUER Self - patient is [...] surgeries - mihir placements/remova l 1984, 1995, 2005 gall stones removal 1999 Fasciotomy of right arm - co mpartment syndrome/biceps tendon rupture- Dr. Galvan 2019 Hospitalization History Reason Date(Month/Year)
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
--- OUTSIDE RECORDS SUMMARY | 2025-03-03 20:44 | XMS_ITS | Encounter Summary ---
Author Organization [employer] ([place], [place], [place], [place]) Address [address] [place] [address] Care Team Providers Care Wood Sash And Frame Carpenter Name Role Phone Provider Not In System, McT Primary Care Provide r Unavailable Roxann Corona RN Unavailable Unavailab Maddison Beth DPM Unavailable [phone] Roxann Corona RN Unavailable Unavailab le Encounter Details Date Type Department Care Team (Late st Contact Info) Description 12/26/2019 Transcribed Document [facility] [place] Family Medicine [facility] [place] [address] ProviderMayte MD [address] [place] [address] Social History Tobacco Use Types Packs/Day [...] on filedocumented in this encounter Care Teams Wood Sash And Frame Carpenter Relationship Specialty Start Date End Date Provider Not In System, [facility] PCP - General 05/02/22 Roxann Corona, RN Registered Nurse 05/16/22 Maddison Mcfadden DPM [address] [place] [address] Consulting Physician Podiatry 06/06/22 Roxann Corona, RN Registered Nurse 10/04/22 documented as of this encounter
[2025-03-04] MEDS: LINEZOLID 600 MG/300 ML IV.SOLN 300 MG IV ×2 (00:22→11:47)
[2025-03-04 04:00] VITALS: BP 135/70; PULSE 84; RESP 16; TEMP 36.8; O2SAT 92; BMI 32.4
[2025-03-04] MEDS: PIPERACILLIN/TAZO 4.5 GM in 0.9 % SODIUM CHLORIDE 100 ML IV ×3 (04:21→20:05)
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
[2025-03-04] MEDS: SITAGLIPTIN 50MG TABLET 100 MG PO (07:06)
[2025-03-04 07:54] VITALS: BP 141/75; PULSE 81; RESP 18; TEMP 36.6; O2SAT 95
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
[2025-03-04] MEDS: AMLODIPINE 5MG TABLET 5 MG PO (08:18)
[2025-03-04] MEDS: METOPROLOL SUCCINATE XL 25MG TABLET 25 MG PO (08:19)
[2025-03-04] MEDS: SPIRONOLACTONE 25MG TABLET 25 MG PO (08:19)
[2025-03-04] MEDS: FUROSEMIDE 40 MG TABLET PO (08:19)
[2025-03-04] MEDS: LISINOPRIL 20MG TABLET 40 MG PO (08:19)
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
--- NOTE | 2025-03-04 12:40 | SW/DCPLANNER ---
Per PT no needs at this time.
[2025-03-04 14:16] VITALS: BMI 32.4
[2025-03-04 16:00] VITALS: BP 140/73; PULSE 75; RESP 20; TEMP 36.7; O2SAT 98
--- NOTE | 2025-03-04 18:16 | PC.NURSE ---
pt resting in bed, sridevi C/D/I, no complaints at this time, call light in reach
[2025-03-04 20:00] VITALS: BP 157/87; PULSE 87; RESP 16; TEMP 36.7; O2SAT 96
[2025-03-05] MEDS: LINEZOLID 600 MG/300 ML IV.SOLN 300 MG IV ×2 (01:05→13:51)
--- NOTE | 2025-03-05 03:34 | PC.NURSE ---
Pt A&Ox4 and has tolerated room air. Pt did wear home CPAP throughout the night. Kpad has remained in place. He has received IV abx. Rosas has remained in place. No complaints at this time, call light within reach.
[2025-03-05 04:00] VITALS: BP 167/93; PULSE 69; RESP 16; TEMP 36.7; BMI 33.0
[2025-03-05] MEDS: PIPERACILLIN/TAZO 4.5 GM in 0.9 % SODIUM CHLORIDE 100 ML IV ×3 (04:49→20:02)
[2025-03-05] MEDS: SITAGLIPTIN 50MG TABLET 100 MG PO (06:17)
[2025-03-05 07:44] VITALS: BP 154/79; PULSE 74; RESP 18; TEMP 36.7; O2SAT 96
[2025-03-05] MEDS: FUROSEMIDE 40 MG TABLET PO (08:21)
[2025-03-05] MEDS: METOPROLOL SUCCINATE XL 25MG TABLET 25 MG PO (08:21)
[2025-03-05] MEDS: SPIRONOLACTONE 25MG TABLET 25 MG PO (08:21)
[2025-03-05] MEDS: LISINOPRIL 20MG TABLET 40 MG PO (08:21)
[2025-03-05] MEDS: AMLODIPINE 5MG TABLET 5 MG PO (08:21)
--- NOTE | 2025-03-05 08:31 | EXP.PHA.PN ---
Subjective *Date: 03/05/25 *Time: 08:31 Medical Exam Vital signs and Labs for Last 24 Hours: Vital Signs Temp Pulse Resp BP Pulse Ox O2 Del Method 03/05/25 07:49 Room Air 03/05/25 07:44 98.1 F 74 18 154/79 H 96 Room Air 03/05/25 06:37 Room Air 03/05/25 05:00 CPAP 03/05/25 04:00 98.1 F 69 16 167/93 H 03/05/25 03:00 CPAP 03/05/25 01:00 CPAP 03/04/25 23:00 CPAP 03/04/25 21:00 Room Air 03/04/25 20:00 Room Air 03/04/25 20:00 98.1 F 87 16 157/87 H 96 Room Air 03/04/25 18:20 Room Air 03/04/25 17:00 Room Air 03/04/25 16:00 98.0 F 75 20 140/73 98 Room Air 03/04/25 15:00 Room Air, Nasal Cannula 03/04/25 13:00 Room Air 03/04/25 10:42 Room Air 03/04/25 08:38 Room Air Intake and Output 03/04/25 03/05/25 03/05/25 23:59 07:59 15:59 Intake Total 580 / 2390 700 / 700 Output Total 925 / 1675 450 / 450 Balance -345 / 715 250 / 250 Intake: Intake, Oral Amount 480 / 1490 300 / 300 Intake, Total IV Amount 100 / 900 400 / 400 Linezolid 600 mg In 300 ml @ 300 / 300 300 mls/hr IV Q12H RONNIE Rx#: [id number] Piperacillin/Tazo 4.5 gm In 0.9 100 / 300 100 / 100 % Sodium Chloride 100 ml @ 200 mls/hr IV Q8H RONNIE Rx#:[id number] Output: Output, Urine Amount 925 / 1675 450 / 450 Other: Number of Unmeasured Voids 0 Number of Bowel Movements 1 Weight 99.025 kg Patient Weight 03/05/25 23:59 Weight 99.025 kg I & O for Labs for Last 24 Hours: Intake & Output 03/02/25 03/03/25 03/04/25 03/05/25 23:59 23:59 23:59 23:59 Intake Total 2550 / 2750 1880 / 2120 2090 / 2390 700 / 700 Output Total 700 / 700 3550 / 3550 1675 / 1675 450 / 450 Balance 185 / 2049 -1670 / -1430 415 / 715 250 / 250 Weight 95.935 kg 96.162 kg 97.154 kg 99.025 kg Microbiology Reports for the Last 24 Hours: Microbiology 03/02/25 12:54 Blood Blood Culture - Preliminary NO GROWTH AFTER 48 HOURS 03/02/25 11:55 Blood Blood Culture - Preliminary NO GROWTH AFTER 48 HOURS 03/02/25 18:40 Urine,Clean Catch Urine Culture - Final No growth. The patient's infection will respond to the chosen ABx?: Yes (INITIAL URINE CX = E COLI, REPEAT = NO GROWTH, BLOOD CX NO GROWTH) Is the patient receiving the right drug, dose, and route?: Yes Could a more targeted ABx be ordered?: No How long ABx needed (days)?: 7
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
[2025-03-05 16:00] VITALS: BP 151/78; PULSE 78; RESP 18; TEMP 36.8; O2SAT 96
--- NOTE | 2025-03-05 18:14 | PC.NURSE ---
pt resting in bed, no complaints at this time, call light in reach
[2025-03-05 20:00] VITALS: BP 144/76; PULSE 70; RESP 16; TEMP 37.1; O2SAT 96
[2025-03-06] MEDS: LINEZOLID 600 MG/300 ML IV.SOLN 300 MG IV (00:06)
[2025-03-06 04:00] VITALS: BP 122/82; PULSE 82; RESP 14; TEMP 36.8; O2SAT 96; BMI 33.7
[2025-03-06] MEDS: PIPERACILLIN/TAZO 4.5 GM in 0.9 % SODIUM CHLORIDE 100 ML IV ×2 (04:37→12:47)
[2025-03-06] MEDS: SITAGLIPTIN 50MG TABLET 100 MG PO (05:59)
[2025-03-06 08:00] VITALS: BP 135/63; PULSE 72; RESP 16; TEMP 36.7; O2SAT 93
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
[2025-03-06 08:40] LABS: Adenovirus F 40/41, stool Not Detected (NotDetected); Clostridium Difficile A/B, PCR Not Detected (NotDetected); Cyclospora Cayetanesis Not Detected (NotDetected); Plesimonas Shigalloides, PCR Not Detected (NotDetected); Salmonella, PCR Not Detected (NotDetected); Shiga-like toxin E coli Not Detected (NotDetected); Shigella Enterovasive E coli Not Detected (NotDetected); Vibrio, PCR Not Detected (NotDetected); Yersinia Entercolitica, PCR Not Detected (NotDetected)
[2025-03-06] MEDS: AMLODIPINE 5MG TABLET 5 MG PO (09:54)
[2025-03-06] MEDS: LISINOPRIL 20MG TABLET 40 MG PO (09:54)
[2025-03-06] MEDS: SPIRONOLACTONE 25MG TABLET 25 MG PO (09:55)
[2025-03-06] MEDS: METOPROLOL SUCCINATE XL 25MG TABLET 25 MG PO (09:55)
[2025-03-06] MEDS: FUROSEMIDE 40 MG TABLET PO (09:55)
[2025-03-06 13:02] LABS: Hematocrit 43.7 % (42.0-52.0); Hemoglobin 14.6 g/dL (14.1-18.0); Immature Granulocytes % 0.4 %; Mean Corpuscular HGB Conc 33.4 g/dL (31.8-35.4); Mean Corpuscular Hemoglobin 29.3 pg (27.0-31.2); Mean Corpuscular Volume 87.6 fl (80-94); Nucleated Red Blood Cells % 0 %; Platelet Count 305 K/mm3 (142-424); Red Blood Count 4.99 M/mm3 (4.60-6.20); Red Cell Distribution Width-SD 47.3 fL; White Blood Count 11.7 K/mm3 (4.8-10.8)
[2025-03-06 13:27] LABS: Chloride 104 mmol/L (98-107); Potassium 3.8 mmoL/L (3.5-5.1); Sodium 137 mmol/L (136-145)
[2025-03-06 13:30] LABS: Blood Urea Nitrogen 14 mg/dl (9-20); Creatinine Clearance Estimated 149 mL/min (50-200); Creatinine,Serum 0.80 mg/dl (0.66-1.25); Estimated Glomerular Filt Rate 100 ml/min (>60); GFR (African American) 121 ML/MIN (>60)
[2025-03-06 13:31] LABS: Anion Gap 9.8 mEq/L (5-15); Calcium 9.0 mg/dl (8.4-10.2); Carbon Dioxide 27 mmol/L (22.0-30.0); Glucose 165 mg/dl (74-100)
--- NOTE | 2025-03-06 14:32 | PC.WOUNDNOTE ---
RIGHT BUTTOCK, STAGE 1 ULCERATION. PATIENT HAS BEEN TURNED EVERY TWO HOURS TO OFFLOAD PRESSURE, BONY PROMINENCES PADDED WITH FOAM DRESSINGS.
--- NOTE | 2025-03-07 10:18 | SW/DCPLANNER ---
Spoke with patient on the phone. Patient stated that he is doing good. Patient stated that he is aware of his upcoming appointments. Patient stated that he was able to get his new medicine picked up from clinic pharmacy. Patient stated that he has no concerns or questions at this time. Krzysztof Desai
== END 2025-03-06 15:36 | disposition home or self-care (01) | DRG 728 ==
LOC: ER 11:16 → 2ND 13:59
PROVIDERS: Physician Assistant; Admitting Provider Family Medicine; Emergency Provider Student in an Organized Health Care Education/Training Program; PCP Family Medicine; Visit Provider Family Medicine
DX: N45.2 Orchitis (principal); N39.0 Urinary tract infection, site not specified; G82.20 Paraplegia, unspecified; I10 Essential (primary) hypertension; G47.33 Obstructive sleep apnea (adult) (pediatric); E11.9 Type 2 diabetes mellitus without complications; R19.7 Diarrhea, unspecified; Z79.84 Long term (current) use of oral hypoglycemic drugs; Z79.899 Other long term (current) drug therapy; Z88.0 Allergy status to penicillin; Z88.2 Allergy status to sulfonamides; Z88.1 Allergy status to other antibiotic agents; E66.9 Obesity, unspecified; Z68.33 Body mass index [BMI] 33.0-33.9, adult; L89.312 Pressure ulcer of right buttock, stage 2
CPT/HCPCS: 36415; 51702; 74177; 80048; 80053; 81001; 83036; 83605; 85025; 85651; 86140; 86803; 87040; 87086; 87389; 87507; 97162; 99284; J2020; J2543; J7120; Q9967

== ENCOUNTER 2025-03-26 15:27 | Outpatient (CLI) | payer BC, SELFPAY ==
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
--- OUTSIDE RECORDS SUMMARY | 2025-02-04 05:45 | XMS_ITS ---
Author Organization [facility] Address [address] [facility] [address] [facility] [address] [place] [id number] Care Team Providers Care Lead Pharmacy Technician Name Role Phone Cherelle Diego Primary Care Provider [phone] Dinora Davies Unavailable [phone] Allergies Allergen (clinical drug ingredient) Drug/Non Drug Allergy documented on EMR Reaction Allergy Type Onset Date Status sulfamethoxazole / trimethoprim Bactrim DS Unknown Drug Allergy Active cephalexin Cephalexin Unknown Drug Allergy Activ e Ciprofloxacin Unknown Drug Allergy Act veronica nitrofurantoin Macrodantin Unknown Drug Allergy Active cefuroxime Cefuroxime rash Drug Allergy Activ e Results Component Value Reference Range Notes CBC Venipuncture (in house) Reviewed date:02/05/2025 06:06:06 PM Interpretation:Normal Performing Lab: Notes/Report: Normal wbc 7.8 3.5 - 10 lymph 20.2% 15 - 50 mid 5.1% 2 - 15 gran 74.7% 35 - 80 rbc 5.25 3.5 - 5.5 hgb 15.4 11.5 - 16.5 hct 45.9 35 - 55 mcv 87.5 75 - 100 mch 29.4 25 - 35 mchc 33.7 31 - 38 platlet 263 100 - 400 Glycohemoglobin A1c (in hous e) Reviewed date:02/05/2025 06:05:32 PM Interpretation:6.9 Performing Lab: Notes/Report: 6.9 glycohemoglobin 6.9% 5 - 6.5 % P-Comprehensive Metabolic Pa chinyere (CMP) Reviewed date:02/05/2025 06:06:34 PM Interpretation:gluc 131, bun 22 Performing Lab: Notes/Report: CLIA: [id number] Issac Romero MD, Clean Out Driller Helper [address] [place] [address] [place] [address] Test performed by [facility] Sodium 139 135-145 mmol/L Potassium 4.0 3.5-5.3 mmol/L Chloride 103 97-108 mmol/L CO2 24 20-32 mmol/L Glucose 131 65-99 mg/dL BUN 22 6-20 mg/dL Creatinine 0.71 0.70-1.30 mg/dL Calcium 9.2 8.6-10.4 mg/dL eGFR by Creatinine 108 >59 mL/min/1.73m2 Protein 6.8 6.0-8.3 g/dL Albumin 4.3 3.5-5.3 g/dL Alkaline Phosphatase 89 40-129 IU/L ALT (SGPT) 22 <5-55 IU/L AST (SGOT) 17 <5-46 IU/L Bilirubin, Total 0.5 <0.2-1.2 mg/dL A/G Ratio 1.7 1.1-2.5 P-Testosterone Total (Adult Male) Reviewed date:02/05/2025 06:03:54 PM Interpretation:293 Performing Lab: Notes/Report: Test performed by [facility] [address] [place] [address] , [address] [place] [id number] Issac Romero MD, [employer] Out Driller Helper CLIA: [id number] Testosterone Total 293.00 264.00-916.00 ng/dL P-Lipid Panel Reviewed date:02/05/2025 06:07:33 PM Interpretation:trigs 169, hdl 24, chol/hdl 6.58, non-hdl 134, ldl/hdl 4.2 Performing Lab: Notes/Report: Test performed by [facility] [address] [place] [address] [place] [address] Issac Romero MD, [employer] Out [employer]iller Helper CLIA: [id number] Cholesterol 158 <200 mg/dL Triglycerides 169 <150 mg/dL HDL Cholesterol 24 >39 mg/dL Cholesterol / HDL Ratio 6.58 0.00-4.99 Ratio Non-HDL Cholesterol 134 <130 mg/dL LDL Cholesterol (Calculation) 100 <130 mg/dL LDL Cholesterol Levels* Less than 100 mg/dL Optimal 100 to 129 mg/dL Near Optimal/ Above Optimal 130 to 159 mg/dL Borderline High 160 to 189 mg/dL High 190 mg/dL and above Very High * Categories as recommended by the 2004 ATPIII guidelines LDL/HDL Ratio 4.2 <3.3 Ratio LDL Cholesterol Patient History Test Date: 08/15/2023 LDL Results: 107 Units: mg/dL % Change: - Test Date: 02/04/2025 LDL Results: 100 Units: mg/dL % Change: -6% P-PSA Reviewed date:02/05/2025 06:08:53 PM Interpretation:Normal Performing Lab: Notes/Report: Test performed by [facility], [address] , [address], [place] [address] Issac Romero MD, Clean Out Driller Helper CLIA: [id number] PSA 0.49 <4.00 ng/mL Please note this is an ultrasensitive PSA assay with a lower limit of detection of 0.014 ng/mL. This test is performed by the [employer] ECLIA methodology. Values obtained with different assay methods or kits cannot be directly compared. P-Microalbumin/Creatinine, R andom Urine Sample Reviewed date:02/05/2025 06:08:30 PM Interpretation:Normal Performing Lab: Notes/Report: Test performed by [facility] [address] [place] [address] , [address], [place] [address] Issac Romero MD, [employer] Out Driller Helper CLIA: [id number] Albumin/Creatinine Ratio, Urine 19 0-30 ug/mg Microalbumin, Urine, Random 1.9 Creatinine, Urine 100.2 P-Uric Acid Reviewed date:02/05/2025 06:07:58 PM Interpretation:Normal Performing Lab: Notes/Report: Test performed by [facility] [address] [place] [address] , [address], [place] [address] Issac Romero MD, [employer] Out Driller Helper CLIA: [id number] Uric Acid 5.1 3.4-8.0 mg/dL REASON FOR VISIT yearly checkup with fasting labs, Needs labs with PSA & shingles vaccine Medications Medication SIG (Take, Route, Frequency, Duration) Notes Start Date End Date Status Crestor 5 MG 1 tablet Orally Once a day; Duration: 30 day(s) 08/21/2023 Not-Taking CATHETER SELF-CATHETER 14FR - PRN [facility] code A4352, In&out Urinary catheters 14 Monegasque Quad tip 03/16/2022 Active Spironolactone 25 MG 1 tab(s) orally 2 times a day; Duration: 90 days Active Power Chair Battery as directed prn 12/06/2024 Active Januvia 100 MG 1 tab(s) orally once a day Active FREESTYLE ROJELIO 2 READER KIT - test once daily E11.9 11/25/2021 Not-Taking amLODIPine Besylate 5 MG 1 tab(s) orally once a day Active cloNIDine HCl 0.1 MG 1 tab(s) orally Two times a day Active Lisinopril 40 MG 1 tab(s) orally once a day Active Metoprolol Succinate ER 25 MG 1 tab(s) orally twice a day Active Allopurinol 300 MG 1 tablet Orally Once a day Active Diclofenac Sodium 75 MG 1 tablet as needed Orally Twice a day; Duration: 21 days 2023 Not-Taking Furosemide 40 MG 1 tab(s) orally once a day Active Albuterol Sulfate HFA 108 (90 Base) MCG/ACT 2 puff(s) inhaled every 6 hours As needed prn Active Problems Problem Type SNOMED Code ICD Code Onset Dates Problem Status W/U Status Risk Notes Problem Erectile dysfunction (disorder) (900139513) ED (erectile dysfunction) (N52.9) Active confirmed Problem Neurogenic dysfunction of the urinary bladder (913172428) Neurogenic bladder disorder (N31.9) Active confirmed Vital Signs Weight 000 lbs 02/04/2025 Blood pressure systolic 139 mm Hg 02/05/20 25 Blood pressure diastolic 91 mm Hg 025 Heart Rate 72 /min 02/04/2025 Height 000 in 02/04/2025 Encounters Encounter Location Date Provider Diagnosis [facility] [address] [id number] 02/04/2025 Dinora Davies ED (erectile dysfunction) N52.9 ; Essential hypertension I10 ; Type 2 diabetes mellitus without complication, without long-term current use of insulin E11.9 ; Paraplegia at T4 level G82.20 ; Diastolic dysfunction I51.89 ; Mild intermittent asthma without complication J45.20 ; KODI (obstructive sleep apnea) G47.33 ; Screening PSA (prostate specific antigen) Z12.5 ; Pure hypercholesterolemia E78.00 ; Screening, lipid Z13.220 ; Low testosterone R79.89 ; Hyperlipidemia E78.5 ; 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 ; Fatigue R53.83 ; Edema of both legs R60.0 and Neurogenic bladder disorder N31.9 Assessments Encounter Date Diagnosis (ICD Code) Assessment Notes Treatment Notes Treatment Clinical Notes Section Notes 02/04/2025 ED (erectile dysfunction) (ICD-10 - N52.9) 02/04/2025 Essential hypertensi on (ICD-10 - I10) 02/04/2025 Type 2 diabetes jed itus without complication, without long-term current use of insulin (ICD-10 - E11.9) Does not routinely monitor BS; has been on a 7470-4696 amara diet for the last week with assistance of an geoff to help keep track 02/04/2025 Paraplegia at T4 lev el (ICD-10 - G82.20) 02/04/2025 Diastolic dysfunctio n (ICD-10 - I51.89) 02/04/2025 Mild intermittent as thma without complication (ICD-10 - J45.20) 02/04/2025 KODI (obstructive sle ep apnea) (ICD-10 - G47.33) wears CPAP 02/04/2025 Screening PSA (prost ate specific antigen) (ICD-10 - Z12.5) 02/04/2025 Pure hypercholesterolemia (ICD-10 - E78.00) 02/04/2025 Screening, lipid (IC D-10 - Z13.220) 02/04/2025 Low testosterone (IC D-10 - R79.89) 02/04/2025 Hyperlipidemia (ICD- 10 - E78.5) nerver started Crestor 02/04/2025 Uric acid arthropath y (ICD-10 - M10.9) 02/04/2025 Fatigue (ICD-10 - R53.83) 02/04/2025 Edema of both legs (ICD-10 - R60.0) discussed differnet types of support hose 02/04/2025 Neurogenic bladder disorder (ICD-10 - N31.9) 02/04/2025 Other encouraged his restart of exercise; will consider the Shingrix; had cicken pox as a child Plan Of Treatment Medication Medication Name Sig Start Date Stop Date Notes CATHETER SELF-CATHETER 14FR - [facility] , In&out Urinary catheters 14 Monegasque Quad tip Spironolactone 25 MG 1 tab(s) orally 2 times a day; Duration: 90 days Power Chair Battery as directed prn 12/06/2024 Januvia 100 MG 1 tab(s) orally once a day amLODIPine Besylate 5 MG 1 tab(s) orally once a day cloNIDine HCl 0.1 MG 1 tab(s) orally Two times a day Lisinopril 40 MG 1 tab(s) orally once a day Metoprolol Succinate ER 25 MG 1 tab(s) orally twice a day Allopurinol 300 MG 1 tablet Orally Once a day Furosemide 40 MG 1 tab(s) orally once a day Albuterol Sulfate HFA 108 (90 Base) MCG/ACT 2 puff(s) inhaled every 6 hours prn Treatment Notes Assessment Notes Type 2 diabetes mellitus wit hout complication, without long-term current use of insulin Does not routinely monitor BS; has been on a 9687-3876 amara diet for the last week with assistance of an geoff to help keep track KODI (obstructive sleep apnea) wears CPAP Hyperlipidemia nerver started Crest or Edema of both legs discussed differnet types of support hose Other encouraged his restart of exercise; will consider the Shingrix; had cicken pox as a child Next Appt Details Follow Up: 1 Year,and Cherelle toth: Progress Notes * LATANYA BAUEROB:1970 ([age] yo M)Acc No.[id number]:02/04/2025 Progress Notes Patient: JOSELINE LUTHER Provider: TIARA Ruiz :1970 A ge:55 Y S ex:Male Date:02/04/2025 Address:[address] [place] [address] Pcp:Cherelle Diego Subjective: * Chief Complaints: * 1 . Yearly checkup with fasting labs. 2. Needs labs with PSA & shingles vaccine. * HPI: C ardiology: The pt is here today for a check-up on Hypertension and diabetes. Pt states he is doing good and denies any new concerns. Pt is fasting. Pt states he is needing a refill for Spironolactone sent to [facility] in [place]. Denies : Chest Pain. D enies : Short of Breath. D enies : Dizziness. D enies : Palpitations. * ROS: C ARDIOLOGY: no C hest pain. n o P alpitations. L eg edema?yes, w ithout fluid pill. n o S hortness of breath. D ERMATOLOGY: no R eleni. n o H jb. G ASTROENTEROLOGY: no N ausea. n o V omiting. n o D iarrhea.? U ROLOGY: no D ifficulty urinating. n o B lood in urine. * Medical History: A sthma, Hypertension, UTI's [...] 2 puff(s) inhaled every 6 hours , Notes to Pharmacist: prn, Taking amLODIPine Besylate 5 MG Tablet 1 tab(s) orally once a day , Taking Metoprolol Succinate ER 25 MG Tablet Extended Release 24 Hour 1 tab(s) orally twice a day , Taking cloNIDine HCl 0.1 MG Tablet 1 tab(s) orally Two times a day , Taking Lisinopril 40 MG Tablet 1 tab(s) orally once a day , Taking Spironolactone 25 MG Tablet 1 tab(s) orally 2 times a day , Taking CATHETER SELF-CATHETER 14FR - PRN , Notes to Pharmacist: [facility] code A4352, In&out Urinary catheters 14 Monegasque Quad tip, Taking Januvia 100 MG Tablet 1 tab(s) orally once a day , Taking Power Chair Battery as directed prn , Taking Furosemide 40 MG Tablet 1 tab(s) orally once a day , Not-Taking Diclofenac Sodium 75 MG Tablet Delayed Release 1 tablet as needed Orally Twice a day , Not-Taking FREESTYLE ROJELIO 2 READER KIT - test once daily , Notes to Pharmacist: E11.9, Not-Taking Crestor 5 MG Tablet 1 tablet Orally Once a day , Medication List reviewed and reconciled with the patient * Allergies: C ephalexin, Macrodantin, Ciprofloxacin, Bactrim DS, Cefuroxime: rash - Allergy. Objective: * Vitals: W t: 000, Temp: 98.1, BP: 139/91, HR: 72, O2 Sat: 96% on RA, Nurse: RACQUEL, Ht: 000. * Examination: G eneral Examination: General Appearance: N AD, appears healthy, alert, Color good; presents in his motorized wheelchair. H EENT: s clera and conjunctiva clear, PERRLA, TM's normal, translucent. O ral cavity: m ucosa moist and WNL, no erythema. N melissa: s upple, no lymphadenopathy, no carotid bruits, thyroid normal. H eart: R RR. L ungs: C TAB A&P. A bdomen: b owel sounds present, soft and nontender. N eurologic Exam: a lert and oriented. E xtremities: r ight foot in a soft boot; bilateral support hose on; + lower leg edema. Assessment: * Assessment: 1. E D (erectile dysfunction) - N52.9 (Primary) 2 . E ssential hypertension - I10 3 . T ype 2 diabetes mellitus without complication, without long-term current use of insulin - E11.9 4 . P araplegia at T4 level - G82.20 5. D iastolic dysfunction - I51.89 6 . M ild intermittent asthma without complication - J45.20 7 . O SA (obstructive sleep apnea) - G47.33 ?8. S creening PSA (prostate specific antigen) - Z12.5 9 . P ure hypercholesterolemia - E78.00 1 0. S creening, lipid - Z13.220 1 1. L ow testosterone - R79.89 1 2. H yperlipidemia - E78.5 1 3. U ronel acid arthropathy - M10.9 1 4. F atigue - R53.83 1 5. E kirby of both legs - R60.0 1 6. N eurogenic bladder disorder - N31.9 Plan: * Treatment: Value Reference Range T estosterone Total (Adult Male) 293.00 264.00-91 6.00 - ng/dL * Dinora Davies 02/05/2025 06:03:40 PM EDT >I spoke with pt and reported rresults 2.?Essential hypertension? Continue Metoprolol Succinate ER Tablet Extended Release 24 Hour, 25 MG, 1 tab(s), orally, twice a day;?Continue Lisinopril Tablet, 40 MG, 1 tab(s), orally, once a day;?Continue cloNIDine HCl Tablet, 0.1 MG, 1 tab(s), orally, Two times a day.?LAB: P-Comprehensive Metabolic Panel (CMP) (Collection Date & Time - 02/04/2025 09:55 AM)?gluc 131, bun 22* Value Reference Range A /G Ratio 1.7 1.1-2.5 - * A lbumin 4.3 3.5-5.3 - g/dL * A lkaline Phosphatase 89 40-129 - IU/L * A LT (SGPT) 22 <5-55 - IU/L * A ST (SGOT) 17 <5-46 - IU/L * B ilirubin, Total 0.5 <0.2-1.2 - mg/dL * B UN 22 H 6-20 - mg/dL * C alcium 9.2 8.6-10.4 - mg/dL * C hloride 103 97-108 - mmol/L * C O2 24 20-32 - mmol/L * C reatinine 0.71 0.70-1.30 - mg/dL * G lucose 131 H 65-99 - mg/dL * P otassium 4.0 3.5-5.3 - mmol/L * S odium 139 135-145 - mmol/L * P rotein 6.8 6.0-8.3 - g/dL * e GFR by Creatinine 108 >59 - mL/min/1.73m2 * Dinora Davies 02/05/2025 06:06:15 PM EDT > spoke with pt and reviewed results with him ?LAB: CBC Venipuncture (in house) (Collection Date & Time - 02/04/2025)? Normal* Value Reference Range w bc 7.8 3.5 - 10 * l ymph 20.2% 15 - 50 * m id 5.1% 2 - 15 * g ran 74.7% 35 - 80 * r bc 5.25 3.5 - 5.5 * h gb 15.4 11.5 - 16.5 * h ct 45.9 35 - 55 * m cv 87.5 75 - 100 * m ch 29.4 25 - 35 * m chc 33.7 31 - 38 * p latlet 263 100 - 400 * Crystal Vargas 02/04/2025 11: 39:29 AM EDT >Dinora Davies 02/05/2025 06:05:49 PM EDT >I spoke with pt and reviewed results with him 3.?Type 2 diabetes mellitus without complication, without long-term current use of insulin? Continue Januvia Tablet, 100 MG, 1 tab(s), orally, once a day.?LAB: P-Microalbumin/Creatinine, Random Urine Sample (Collection Date & Time - 02/04/2025 09:55 AM)?Normal* Value Reference Range A lbumin/Creatinine Ratio, Urine 19 0-30 - ug /mg * C reatinine, Urine 100.2 - mg/dL * M icroalbumin, Urine, Random 1.9 - mg/dL * Dinora Davies 02/05/2025 06:08:07 PM EDT >I spoke with pt and reported results ?LAB: Glycohemoglobin A1c (in house) (Collection Date & Time - 02/04/2025)? 6.9* Value Reference Range g lycohemoglobin 6.9% 5 - 6.5 % * Crystal Vargas 02/04/2025 11: 38:00 AM EDT >Dinora Davies 02/05/2025 06:04:14 PM EDT >I spoke with pt and reported results; he is working on dietary changes; to repeat A1C and lipids in 4 months Notes: Does not routinely monitor BS; has been on a 2824-1607 amara diet for the last week with assistance of an geoff to help keep track??4.?Diastolic dysfunction ? Continue amLODIPine Besylate Tablet, 5 MG, 1 tab(s), orally, once a day.?? 5.?Mild intermittent asthma without complication? Continue Albuterol Sulfate HFA Aerosol Solution, 108 (90 Base) MCG/ACT, 2 puff(s), inhaled, every 6hours As needed, Notes to Pharmacist: prn.??6.?KODI (obstructive sleep apnea)? Notes: wears CPAP??7.?Screening PSA (prostate specific antigen)?LAB: P-PSA (Collection Date & Time - 02/04/2025 09:55 AM)?Normal* Value Reference Range P SA 0.49 <4.00 - ng/mL * Dinora Davies 02/05/2025 06:08:39 PM EDT >I spoke with pt and reported results 8.?Hyperlipidemia?LAB: P-Lipid Panel (Collection Date & Time - 02/04/2025 09:55 AM)?trigs 169, hdl 24, chol/hdl 6.58, non-hdl 134, ldl/hdl 4.2* Value Reference Range C holesterol / HDL Ratio 6.58 H 0.00-4.99 - Ratio * C holesterol 158 <200 - mg/dL * H DL Cholesterol 24 L >39 - mg/dL * L DL Cholesterol (Calculation) 100 <130 - mg/d L * L DL/HDL Ratio 4.2 H <3.3 - Ratio * N on-HDL Cholesterol 134 H <130 - mg/dL * T riglycerides 169 H <150 - mg/dL * Dinora Davies 02/05/2025 06:06:44 PM EDT >I spoke with pt and reviewed results with him will repeat in 4 months; he declines statin at this time Notes: nerver started Crestor??9.?Uric acid arthropathy? Continue Allopurinol Tablet, 300 MG, 1 tablet, Orally, Once a day.?LAB: P-Uric Acid (Collection Date & Time - 02/04/2025 09:55 AM)?Normal* Value Reference Range U ronel Acid 5.1 3.4-8.0 - mg/dL * Dinora Davies 02/05/2025 06:07:40 PM EDT >I spoke with pt and reported results 10.?Edema of both legs? Continue Spironolactone Tablet, 25 MG, 1 tab(s), orally, 2 times a day, 90 days, 180 Tablet, Refills 1;?Continue Furosemide Tablet, 40 MG, 1 tab(s), orally, once a day.?? Notes: discussed differnet types of support hose??11.?Neurogenic bladder disorder? Continue CATHETER SELF-CATHETER 14FR, -, PRN, Notes to Pharmacist: [facility] code A4352, In&out Urinary catheters 14 Monegasque Quad tip.??12.?Others? Continue Power Chair Battery, as directed, prn.?? Notes: encouraged his restart of exercise; will consider the Shingrix; had cicken pox as a child?? * Procedure Codes: 8 5025 CBC WITH AUTO DIFF, 10653 GLYCATED HEMOGLOBIN TEST, Modifiers: QW , 3044F HG A1C LEVEL LT 7.0%, 1036F TOBACCO NON-USER * Follow Up: 1 Year,and prn * Images: Billing Information: * Visit Code: 94276 Office Visit, Est Pt., Level 4. * Procedure Codes: 38163 CBC WITH AUTO DIFF. 94074 GLYCATED HEMOGLOBIN TEST. Modifiers: QW 3044F HG A1C LEVEL LT 7.0%. 1036F TOBACCO NON-USER. * Electronic signature of Rebecca Davies APRN on 03/26/2025 at 03:29 PM EDT Sign off status: Pending * Provider: TIARA Ruiz Date: 0 02/04/2025 Generated for Praveena spaulding/Adebayo/Denis on: 0 03/26/2025 03:29 PM EDT History and Physical Notes * HPI (History of Present Illness) Category Sub-Category Detail Notes Category Not es Cardiology Short of Breath Chest Pain Palpitations Dizziness Examination Category Sub-Category Detail Notes Category Not es General Examination HEENT: sclera and c onjunctiva clear, PERRLA, TM's normal, translucent Heart: RRR Lungs: CTAB A&P Abdomen: bowel sounds present , soft and nontender Extremities: right foot in a soft boot; bilateral support hose on; + lower leg edema General Appearance: NAD, appears healthy , alert, Color good; presents in his motorized wheelchair Neurologic Exam: alert and oriented Neck: supple, no lymphaden opathy, no carotid bruits, thyroid normal Oral cavity: mucosa moist and WNL , no erythema
--- OUTSIDE RECORDS SUMMARY | 2025-03-10 12:00 | XMS_ITS ---
Author Organization [facility] Address [address] [place] [address] [address] [phone] Care Team Providers Care Gift Consultant Name Role Phone Cherelle Diego Primary Care Provider Jorge Chen [phone] REASON FOR VISIT [facility] d/c f/u Encounters Encounter Location Date Provider Diagnosis [facility] [address] [phone] 03/10/2025 Jorge Chen Assessments Encounter Date Diagnosis (ICD Code) Assessment Notes Treatment Notes Treatment Clinical Notes Section Notes 03/10/2025 Other Discharge summary with available lab/diagnostic imaging results obtained and reviewed. Discharge medication list reconciled. Appropriate counseling provided. Moderate Complexity Plan Of Treatment Treatment Notes Assessment Notes Other Discharge summary wi th available lab/diagnostic imaging results obtained and reviewed. Discharge medication list reconciled. Appropriate counseling provided. Moderate Complexity Progress Notes * LATANYA BAUEROB:1970 ([age] yo M)Acc No.[id number]:03/10/2025 Patient: JOSELINE LUTHER Provider: Jorge Chen M.D. :1970 A ge:55 Y S ex:Male Date:03/10/2025 Address:[address] [place] [address] [id number] Pcp:Cherelle Diego Subjective: * Chief Complaints: * 1 . [facility] d/c f/u. * HPI: H PI: Patient is here today for a Transition of Care Visit. Discharge from the following Facility: admitted to [facility] 02/24/2025 for UTI/sepsis , Discharge date: 02/26/2025 ,Date of phone contact following discharge: 02/27/2025. * Medical History: Objective: * Vitals: Assessment: Plan: * Treatment: * Procedure Codes: 9 9495 TRANS CARE MGMT 14 DAY DISCH, 1111F DS[facility] MED/CURENT MED MERGE * Images: Billing Information: * Visit Code: * Procedure Codes: 24334 TRANS CARE MGMT 14 DAY DISCH. 1111F DSCHR MED/CURENT MED MERGE. * Electronic signature of Jorge Chen MD on 03/26/2025 at 03:29 PM EDT Sign off status: Pending * Provider: Jorge Chen M.D. Date: 03/10/2025 Generated for Praveena spaulding/Adebayo/Giasmitting on: 03/26/2025 03:29 PM EDT History and Physical Notes * HPI (History of Present Illness) Category Sub-Category Detail Notes Category Not es HPI Patient is here today for a [facility] sition of Care Visit. Discharge from the following Facility: admitted to [facility] 02/24/2025 for UTI/sepsis ,Discharge date: 02/26/2025 ,Date of phone contact following discharge: 02/27/2025
--- OUTSIDE RECORDS SUMMARY | 2025-03-13 06:15 | XMS_ITS ---
Author Organization [facility] Address [address] [facility] [address] [place] [id number] Care Team Providers Care Roving Can Tender Name Role Phone Cherelle Diego Primary Care Provider [phone] Annamaria Cho Unavailable [phone] Allergies Allergen (clinical drug ingredient) Drug/Non Drug Allergy documented on EMR Reaction Allergy Type Onset Date Status sulfamethoxazole / trimethoprim Bactrim DS Unknown Drug Allergy Active cephalexin Cephalexin Unknown Drug Allergy Activ e Ciprofloxacin Unknown Drug Allergy Act veronica nitrofurantoin Macrodantin Unknown Drug Allergy Active cefuroxime Cefuroxime rash Drug Allergy Activ e REASON FOR VISIT F/U [facility] Medications Medication SIG (Take, Route, Frequency, Duration) Notes Start Date End Date Status Geofusion ROJELIO 2 READER KIT - test once daily E11.9 11/25/2021 Unknown Januvia 100 MG 1 tab(s) orally once a day; Duration: 90 days Active Furosemide 40 MG 1 tab(s) orally once a day Active Power Chair Battery as directed prn 12/06/2024 Active CATHETER SELF-CATHETER 14FR - PRN HCPCS code A4352, In&out Urinary catheters 14 Tajik Quad tip 03/16/2022 Active Spironolactone 25 MG 1 tab(s) orally 2 times a day; Duration: 90 days Active cloNIDine HCl 0.1 MG 1 tab(s) orally Two times a day Active Metoprolol Succinate ER 25 MG 1 tab(s) orally twice a day Active amLODIPine Besylate 5 MG 1 tab(s) orally once a day Active Allopurinol 300 MG 1 tablet Orally Once a day Active Ciprofloxacin HCl 500 MG 1 tablet Orally every 12 hrs Not-Taking Lisinopril 40 MG 1 tab(s) orally once a day Active Jardiance 10 MG 1 tablet Orally Once a day Not-Taking Vital Signs Weight 000 lbs 03/13/2025 Blood pressure systolic 136 mm Hg 03/13/20 25 Blood pressure diastolic 70 mm Hg 025 Heart Rate 77 /min 03/13/2025 Height 000 in 03/13/2025 Encounters Encounter Location Date Provider Diagnosis [facility] [address] [facility] [address] [place], [place] [id number] 03/13/2025 Annamaria Cho Orchitis N45.2 ; Acu te UTI N39.0 ; Paraplegia G82.20 and Acute diarrhea R19.7 Assessments Encounter Date Diagnosis (ICD Code) Assessment Notes Treatment Notes Treatment Clinical Notes Section Notes 03/13/2025 Orchitis (ICD-10 - N45.2) Improved, will continue to follow with Dr. Hardin. Will need to get records. 03/13/2025 Acute UTI (ICD-10 - N39.0) Culture was normal. 03/13/2025 Paraplegia (ICD-10 - G82.20) 03/13/2025 Acute diarrhea (ICD-10 - R19.7) Resolved now that he has stopped the abx. 03/13/2025 Other Discharge summary with available lab/diagnostic imaging results obtained and reviewed. Discharge medication list reconciled. Appropriate counseling provided. Moderate Complexity Plan Of Treatment Treatment Notes Assessment Notes Orchitis Improved, will cristian nue to follow with Dr. Hardin. Will need to get records. Acute UTI Culture was normal. Acute diarrhea Resolved now that he has stopped the abx. Other Discharge summary wi available lab/diagnostic imaging results obtained and reviewed. Discharge medication list reconciled. Appropriate counseling provided. Moderate Complexity Next Appt Details Follow Up: with urology, [place] son: Progress Notes * LATANYA FOXOB:1970 ([age] yo M)Acc No.[id number]:03/13/2025 Progress Notes Patient: JOSELINE LUTHER Provider: AUGUSTUS Horn :1970 A ge:55 Y S ex:Male Date:03/13/2025 Address:[address] [place] [address] [id number] Pcp:Cherelle Diego Subjective: * Chief Complaints: * 1 . F/U [facility]. * HPI: H PI: 55 year old male presents with c/o Here for follow up on: P t is here today for a f/u from [facility]. Pt was seen at [facility] on 03/02 for c/o swollen testicle. Pt sts he has had recurring UTI's associated with self in and out cathing. Pt sts he saw the uroligist on Monday and sts they took him off of the antibiotics and put him on something for inflammation.. Patient is here today for a Transition of Care Visit. Discharge from the following Facility: admitted to [facility] 02/24/2025 for UTI/Sepsis, Discharge date: 02/26/2025 ,Date of phone contact following discharge: 02/27/2025. * ROS: D ERMATOLOGY: no R eleni. [...] yes. 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 * Medications: T aking Allopurinol 300 MG Tablet 1 tablet Orally Once a day , Taking amLODIPine Besylate 5 MG Tablet 1 tab(s) orally once a day , Taking Metoprolol Succinate ER 25 MG Tablet Extended Release 24 Hour 1 tab(s) orally twice a day , Taking Lisinopril 40 MG Tablet 1 tab(s) orally once a day , Taking cloNIDine HCl 0.1 MG Tablet 1 tab(s) orally Two times a day , Taking Spironolactone 25 MG Tablet 1 tab(s) orally 2 times a day , Taking CATHETER SELF-CATHETER 14FR - PRN , Notes to Pharmacist: HCPCS code A4352, In&out Urinary catheters 14 Tajik Quad tip, Taking Power Chair Battery as directed prn , Taking Furosemide 40 MG Tablet 1 tab(s) orally once a day , Taking Januvia 100 MG Tablet 1 tab(s) orally once a day , Not-Taking Jardiance 10 MG Tablet 1 tablet Orally Once a day , Not-Taking Ciprofloxacin HCl 500 MG Tablet 1 tablet Orally every 12 hrs , Discontinued Albuterol Sulfate HFA 108 (90 Base) MCG/ACT Aerosol Solution 2 puff(s) inhaled every 6 hours As needed, Notes to Pharmacist: prn, Discontinued Diclofenac Sodium 75 MG Tablet Delayed Release 1 tablet as needed Orally Twice a day , Discontinued Crestor 5 MG Tablet 1 tablet Orally Once a day , Unknown FREESTYLE ROJELIO 2 READER KIT - test once daily , Notes to Pharmacist: E11.9, Medication List reviewed and reconciled with the patient * Allergies: C ephalexin, Macrodantin, Ciprofloxacin, Bactrim DS, Cefuroxime: rash - Allergy. Objective: * Vitals: W t: 000, Temp: 98.2, BP: 136/70, HR: 77, O2 Sat: 94% on RA, Nurse: david, Ht: 000. * Examination: G eneral Examination: General Appearance: N AD. C hest: n ormal shape and expansion. H eart: R SR. L ungs: c lear to auscultation. G enitalia: t esticle much smaller and nontender. Assessment: * Assessment: 1. O rchitis - N45.2 (Primary) 2 . A cute UTI - N39.0 3 .?Paraplegia - G82.20 4 . A cute diarrhea - R19.7 Plan: * Treatment: 2. A cute UTI Notes: Culture was normal. 3. A cute diarrhea Notes: Resolved now that he has stopped the abx. 4. O thers Notes: Discharge summary with available lab/diagnostic imaging results obtained and reviewed. Discharge medication list reconciled. Appropriate counseling provided. Moderate Complexity * Procedure Codes: 9 9495 TRANS CARE MGMT 14 DAY DISCH, 1111F DSCHR MED/CURENT MED MERGE, 1036F TOBACCO NON-USER, 3075F SYST BP GE 130 - 139MM HG, 3078F DIAST BP < 80 MM HG * Follow Up: w [facility] urology * Images: Billing Information: * Visit Code: 96637 Office Visit, Est Pt., Level 3. * Procedure Codes: 21333 TRANS CARE MGMT 14 DAY DISCH. 1111F DSCHR MED/CURENT MED MERGE. 1036F TOBACCO NON-USER. 3075F SYST BP GE 130 - 139MM HG. 3078F DIAST BP < 80 MM HG. * Electronic signature of AUGUSTUS Barrios on 03/26/2025 at 03:29 PM EDT Sign off status: Pending * Provider: AUGUSTUS Horn Date: 03/13/2025 Generated for Praveena spaulding/Adebayo/eTransmitting on: 03/26/2025 03:29 PM EDT History and Physical Notes * HPI (History of Present Illness) Category Sub-Category Detail Notes Category Not es HPI Here for follow up on: Pt is her e today for a f/u from [facility]. Pt was seen at [facility] on 03/02 for c/o swollen testicle. Pt sts he has had recurring UTI's associated with self in and out cathing. Pt sts he saw the uroligist on Monday and sts they took him off of the antibiotics and put him on something for inflammation. Patient is here today for a Transition o f Care Visit. Discharge from the following Facility: admitted to [facility] 02/24/2025 for UTI/Sepsis, Discharge date: 02/26/2025 ,Date of phone contact following discharge: 02/27/2025 Examination Category Sub-Category Detail Notes Category Not es General Examination Heart: RSR Lungs: clear to auscultatio n General Appearance: NAD Genitalia: testicle much smalle r and nontender Chest: normal shape and exp ansion
--- OUTSIDE RECORDS SUMMARY | 2025-03-26 15:29 | XMS_ITS | Clinical Summary ---
Author Organization [facility] Address [address] [facility] [address] [place] [address] Phone Care Team Providers Care Dealer Compliance Representative Name Role Phone Denny VIDAL, Rodolfo Benavidez Unavailable [ ] Conditions or Problems Problem Name Problem Code Onset Date Status Entry Date Provider Comment Standard Description Annotate Fungal dermatitis 94168247 (SNOMED CT) 01/05 Active 01/05 Rodolfo Baldwin MD Dermal mycosis Pressure ulcer of sacral region, stage 4 582291765 (SNOMED CT) 12/31 Active 12/31 Chioma Bill Pressure ulcer stage 4 Acute cystitis w/o hematuria 11525680 (SNOMED CT) 12/31 Active 12/31 Chioma Bill [...] Active 12/31 Chioma Bill Leukemoid reaction Cholestasis 07850952 (SNOMED CT) 12/31 Active 12/31 Chioma Bill Cholestasis Hypoalbuminemi a 930624932 (SNOMED CT) 12/31 Active 12/31 Chioma Bill Hypoalbuminemia Anemia in chronic diseases(docum ent disease) D63.8 (ICD-10-CM ) 12/31 Active 12/31 Chioma Khan Anemia in other chronic diseases classified elsewhere Medications Medication Instructions Start Date Stop Date Generic Name NDC Provider SYMBICORT 80-4.5 MCG/ACT AERO 2 Puff, Inhalation, BID 0 BUDESONIDE-FOR MOTEROL FUMARATE [id number] Paige Aguirre POTASSIUM CHLORIDE ER 10 MEQ CR-CAPS Take by mouth twice a day 0 POTASSIUM CHLORIDE 04591327374 Paige Aguirre LISINOPRIL-HYD ROCHLOROTHIAZI DE 10-12.5 MG TABS Take one by mouth daily 0 LISINOPRIL-HYD ROCHLOROTHIAZI DE 18325599207 Paige Aguirre CEFUROXIME AXETIL 500 MG TABS Take by mouth twice a day 0 CEFUROXIME AXETIL 06410029453 Paige Aguirre Medications Administered No information available. Allergies, Adverse Reactions, Alerts Allergy Name Reaction Description Start Date Severity Statu s Provider MACRODANTIN Moderate Active Paige Aguirre SULFA DRUGS Moderate Active Paige Aguirre Results Date Name Value Unit Range Flag Description Office Visit: Rm 1-HFU MEDS REVIEW Done Documenta tion of current medications (procedure) ORALTOBACUSE Never Tobacco smoking status SMOK STATUS Never smoker Toba business account leader smoking status Plan of Care Type Date [...]
--- OUTSIDE RECORDS SUMMARY | 2025-03-26 15:29 | XMS_ITS | Encounter Summary ---
Author Organization [facility] Address [address] [place] [address] Care Team Providers Care Manufacturing Plant Technician Name Role Phone Unavailable Primary Care Provider Unavailabl e Encounter Details Date Type Department Care Team (Late st Contact Info) Description 03/02/2025 Orders Only External Location [address] [place] [address] Arin Morgan MD [address] [place] [address] Social History Tobacco Use Types Packs/Day Years [...]
--- OUTSIDE RECORDS SUMMARY | 2025-03-26 15:29 | XMS_ITS | Clinical Summary ---
Author Organization [facility] Address [address] [place] [address] Care Team Providers Care Decorating Kiln Operator Name Role Phone Unavailable Primary Care Provider Unavailabl e Encounters Date Type Department Care Team Description 03/02/2025 Orders Only External Location [address] [place] [address] Arin Morgan MD from Last 3 Months [...] phy 03/02/2025 12:3 1 PM EDT us Arni Morgan MD IMG CT PROCEDURES Final Result from Last 3 Months
--- OUTSIDE RECORDS SUMMARY | 2025-03-26 15:30 | XMS_ITS | Patient Health Record ---
Author Organization [facility] Address [address] [facility] [place] [address] [place] [id number] Care Team Providers Care Relations Specialist Name Role Phone Cherelle Diego Primary Care Provider [phone] Jorge Chen Unavailable [phone] Dinora Davies Unavailable [phone] Annamaria Cho Unavailable [phone] Allergies Allergen (clinical drug ingredient) Drug/Non Drug Allergy documented on EMR Reaction Allergy Type Onset Date Status sulfamethoxazole / trimethoprim Bactrim DS Unknown Drug Allergy Active cephalexin Cephalexin Unknown Drug Allergy Activ e Ciprofloxacin Unknown Drug Allergy Act veronica nitrofurantoin Macrodantin Unknown Drug Allergy Active cefuroxime Cefuroxime rash Drug Allergy Activ e Results Component Value Reference Range Notes H-CBC Reviewed date:02/26/2025 01:21:16 PM Interpretation: Performing [...] 0.1 0-0.2 K/mm3 NRBC# 0 IG# 0.06 H-CBC Reviewed date:03/04/2025 10:11:14 AM Interpretation: Performing Lab: Notes/Report: WBC 10.0 4.8-10.8 [...] 0.1 0-0.2 K/mm3 NRBC# 0 IG# 0.10 CBC Venipuncture (in house) Reviewed date:02/05/2025 06:06:06 [...] 22 Performing Lab: Notes/Report: Test performed by [facility] [address] [place] [address] , [address], [place] [address] Issac Romero MD, Business Solution Analyst CLIA: [id number] Sodium 139 135-145 mmol/L Potassium 4.0 3.5-5.3 [...] Interpretation:293 Performing Lab: Notes/Report: Test performed by [facility] [address] [place] [address] , [facility] [place] [address] Issac Romero MD, Business Solution Analyst CLIA: [id number] Testosterone Total 293.00 264.00-916.00 ng/dL P-Lipid Panel Reviewed date:02/05/2025 06:07:33 PM Interpretation:trigs 169, hdl 24, chol/hdl 6.58, non-hdl 134, ldl/hdl 4.2 Performing Lab: Notes/Report: Test performed by [facility] [address] [place] [address] , [address], [place] [address] Issac Romero MD, Business Solution Analyst CLIA: [id number] Cholesterol 158 <200 mg/dL Triglycerides 169 <150 [...] Results: 107 Units: mg/dL % Change: - ------- Test Date: 02/04/2025 LDL Results: 100 Units: mg/dL % Change: -6% P-PSA Reviewed date:02/05/2025 06:08:53 PM Interpretation:Normal Performing Lab: Notes/Report: Test performed by [facility] [address] [place] [address] Issac Romero MD, Business Solution Analyst CLIA: [id number] PSA 0.49 <4.00 ng/mL Please note this is an ultrasensitive PSA assay with a lower limit of detection of 0.014 ng/mL. This test is performed by the [employer] ECLIA methodology. Values obtained with different assay methods or kits cannot be directly compared. P-Microalbumin/Creatinine, R andom Urine Sample Reviewed date:02/05/2025 06:08:30 PM Interpretation:Normal Performing Lab: Notes/Report: Test performed by [facility] [address] [place] [address] [place] [address] Issac Romero MD, Business Solution Analyst CLIA: [id number] Albumin/Creatinine Ratio, Urine 19 0-30 ug/mg Microalbumin, Urine, Random 1.9 Creatinine, Urine 100.2 P-Uric Acid Reviewed date:02/05/2025 06:07:58 PM Interpretation:Normal Performing Lab: Notes/Report: Test performed by [facility], [address] , [facility] [place] [address] Issac Romero MD, Business Solution Analyst CLIA: [id number] Uric Acid 5.1 3.4-8.0 mg/dL H-DIARRHEA PANEL Reviewed date:03/06/2025 12:55:29 PM Interpretation: Performing Lab: Notes/Report: CAMPYLOBACTER Not Detected NotDetected CLOSTR DIFFICIL Not Detected NotDetected PLESIOMONAS Not Detected NotDetected SALMONELLA, PCR Not Detected NotDetected YERSINIA Not Detected NotDetected VIBRIO, PCR Not Detected NotDetected VIBRIO CHOLERAE Not Detected NotDetected ECOLI (EAEC) Not Detected NotDetected ECOLI (EPEC) Not Detected NotDetected ECOLI (ETEC) Not Detected NotDetected SHIGATOXIN Not Detected NotDetected ECOLI O157 Not Detected NotDetected SHIG-INVAS ECOL Not Detected NotDetected CRYPTO Not Detected NotDetected CYCLOSPORA Not Detected NotDetected EHISTOLYTICA Not Detected NotDetected GIARDIA Not Detected NotDetected ADENO STOOL Not Detected NotDetected ASTROVIRUS Not Detected NotDetected NOROVIRUS Not Detected NotDetected ROTOVIRUS A Not Detected NotDetected SAPOVIRUS Not Detected NotDetected H-CBC Reviewed date:03/07/2025 01:41:40 PM Interpretation: Performing Lab: Notes/Report: WBC 11.7 4.8-10.8 K/mm3 RBC 4.99 4.60-6.20 M/mm3 HGB 14.6 14.1-18.0 g/dL HCT 43.7 42.0-52.0 % MCV 87.6 80-94 fl MCH 29.3 27.0-31.2 pg MCHC 33.4 31.8-35.4 g/dL RDW-SD 47.3 RDW 14.7 11.5-17.5 % PLT 305 142-424 K/mm3 MPV 9.5 7.4-10.4 fl NE% 80.1 37.0-80.0 % LY% 10.0 10-50 % MO% 5.6 1.7-9.3 % EO% 3.3 0.1-12.0 % BA% 0.6 0.1-2.0 % NRBC% 0 IG% 0.4 NE# 9.3 1.8-7.8 K/mm3 LY# 1.2 0.7-4.5 K/mm3 MO# 0.7 0.1-1.0 K/mm3 EO# 0.4 0.0-0.4 Kmm3 BA# 0.1 0-0.2 K/mm3 NRBC# 0 IG# 0.05 H-BMP Reviewed date:03/07/2025 01:41:40 PM Interpretation: Performing Lab: Notes/Report: NA 137 136-145 mmol/L K 3.8 3.5-5.1 mmoL/L CL 104 98-107 mmol/L CO2 27 22.0-30.0 mmol/L GAP 9.8 5-15 mEq/L BUN 14 9-20 mg/dl CREATT 0.80 0.66-1.25 mg/dl CRCLE 149 50-200 mL/min GFRAA 121 >60 ML/MIN EGFR 100 >60 ml/min GLU 165 74-100 mg/dl CA 9.0 8.4-10.2 mg/dl Reason For Referral No Information Medications Medication SIG (Take, Route, Frequency, Duration) Notes Start Date End Date Status Metoprolol Succinate ER 25 MG 1 tab(s) orally twice a day Active FREESTYLE ROJELIO 2 READER KIT - test once daily E11.9 11/25/2021 Unknown amLODIPine Besylate 5 MG 1 tab(s) orally once a day Active Allopurinol 300 MG 1 tablet Orally Once a day Active Ciprofloxacin HCl 500 MG 1 tablet Orally every 12 hrs Not-Taking Jardiance 10 MG 1 tablet Orally Once a day Not-Taking Januvia 100 MG 1 tab(s) orally once a day; Duration: 90 days Active Furosemide 40 MG 1 tab(s) orally once a day Active Power Chair Battery as directed prn 12/06/2024 Active CATHETER SELF-CATHETER 14FR - [facility] A[facility], In&out Urinary catheters 14 Polish Quad tip 03/16/2022 Active Spironolactone 25 MG 1 tab(s) orally 2 times a day; Duration: 90 days Active cloNIDine HCl 0.1 MG 1 tab(s) orally Two times a day Active Lisinopril 40 MG 1 tab(s) orally once a day Active Immunizations Vaccine Route Administration Date Status Comme nts Tetanus Tdap-Adacel (over 7yrs) Unknown 02/21/2018 Admi nistered Problems Problem Type SNOMED Code ICD Code Onset Dates Problem Status W/U Status Risk Notes Problem Hyperlipidemia (28943061) Hyperlipidemia (E78.5) Active confirmed Problem Gout (58570340) Gout (M10.9) Active confirmed Problem Essential hypertension (70266987) Essential hypertension (I10) Active confirmed Problem Seasonal allergy (832522724) Seasonal allergies (J30.2) Active confirmed Problem Asthma (608162666) Asthma (J45.909) Active conf irmed Problem Neurogenic dysfunction of the urinary bladder (482173929) Neurogenic bladder disorder (N31.9) Active confirmed Problem Diabetic foot ulcer (482782605) Other specified diabetes mellitus with foot ulcer (E13.621) Active confirmed Problem Chronic ulcer of dominique t (284255125) Non-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 with unspecified severity (L97.509) Active confirmed Problem Paraplegia (10035537) Paraplegia (G82.20) Active confirmed Problem Gout (74632868) Uric acid arthro cordell (M10.9) Active confirmed Problem Mild intermittent asthma (996988482) Mild intermittent asthma without complication (J45.20) Active confirmed Problem Obstructive sleep apnea syndrome (45688507) KODI (obstructive sleep apnea) (G47.33) Active confirmed Problem Erectile dysfunction (disorder) (051234112) ED (erectile dysfunction) (N52.9) Active confirmed Problem Type II diabetes mellitus without complication (337746323) Type 2 diabetes mellitus without complication, without long-term current use of insulin (E11.9) Active confirmed Problem Pure hypercholesterolemia (923913145) Pure hypercholesterolemia (E78.00) Active confirmed Problem Type II diabetes mellitus without complication (759968781) Diabetes mellitus without complication (E11.9) Active confirmed Problem Type II diabetes mellitus without complication (541263494) Type 2 diabetes mellitus without complication, unspecified whether director long term care insulin use (E11.9) Active confirmed Problem Diastolic dysfunctio n (4300084) Diastolic dysfunction (I51.89) Active confirmed Problem Paraplegia (40962491) Paraplegia at T4 level (G82.20) Active confirmed Vital Signs Heart Rate 77 /min 03/13/2025 Blood pressure diastolic 70 mm Hg 03/13/2025 Height 000 in 03/13/2025 Blood pressure systolic 136 mm Hg 03/13/2025 Weight 000 lbs 03/13/2025 Encounters Encounter Location Date Provider [facility] [address] [facility] [address] [id number] 02/04/2025 Dinora Davies ED (erectile dysfunction) N52.9 [...] legs R60.0 and Neurogenic bladder disorder N31.9 [facility] [address] [id number] 03/13/2025 Annamaria Crowdy Orchitis N45.2 ; Acu te UTI N39.0 ; Paraplegia G82.20 and Acute diarrhea R19.7 [facility] [address] [place], [place] [id number] 03/13/2025 Annamaria Crowdy [facility] [address] [place] [facility] [address] [place], [place] [id number] 11/27/2024 R Suresh Diego [facility] [address] [facility] [address] [place] [id number] 01/31/2025 R Suresh Diego Essential hypertensi on I10 [facility] [address] [facility] [address] [place], [place] [id number] 02/18/[address] [facility] [address] [facility] 36 [facility] [address] [place] [id number] 02/26/2025 Jorge Chen [facility] [address] [facility] 36 [facility] [address] [place], [place] [id number] 03/10/2025 R Suresh Diego Wrist pain, left M25 .532 Assessments Encounter Date Diagnosis (ICD Code) Assessment Notes Treatment Notes Treatment Clinical Notes Section Notes 01/31/2025 Essential hypertensi on (ICD-10 - I10) 02/04/2025 Essential hypertensi on (ICD-10 - I10) 02/04/2025 ED (erectile dysfunction) (ICD-10 - N52.9) 03/10/2025 Wrist pain, left (ICD-10 - M25.532) 03/13/2025 Orchitis (ICD-10 - N45.2) Improved, will continue to follow with Dr. Hardin. Will need to get records. 03/13/2025 Acute UTI (ICD-10 - N39.0) Culture was normal. 03/13/2025 Paraplegia (ICD-10 - G82.20) 02/04/2025 Type 2 diabetes mellitus without complication, without long-term current use of insulin (ICD-10 - E11.9) Does not routinely monitor BS; has been on a 1638-0609 amara diet for the last week with assistance of an geoff to help keep track 03/13/2025 Acute diarrhea (ICD- 10 - R19.7) Resolved now that he has stopped the abx. 02/04/2025 Paraplegia at T4 lev el (ICD-10 - G82.20) 02/04/2025 Diastolic dysfunctio n (ICD-10 - I51.89) 02/04/2025 Mild intermittent asthma without complication (ICD-10 - J45.20) 02/04/2025 KODI (obstructive sle ep apnea) (ICD-10 - G47.33) wears CPAP 02/04/2025 Screening PSA (prost ate specific antigen) (ICD-10 - Z12.5) 02/04/2025 Pure hypercholesterolemia (ICD-10 - E78.00) 02/04/2025 Screening, lipid (ICD-10 - Z13.220) 02/04/2025 Low testosterone (ICD-10 - R79.89) 02/04/2025 Hyperlipidemia (ICD- 10 - E78.5) nerver started Crestor 02/04/2025 Uric acid arthropath y (ICD-10 - M10.9) 02/04/2025 Fatigue (ICD-10 - R53.83) 02/04/2025 Edema of both legs (ICD-10 - R60.0) discussed differnet types of support hose 02/04/2025 Neurogenic bladder disorder (ICD-10 - N31.9) 02/04/2025 Other encouraged his restart of exercise; will consider the Shingrix; had cicken pox as a child 03/10/2025 Other Discharge summary with available lab/diagnostic imaging results obtained and reviewed. Discharge medication list reconciled. Appropriate counseling provided. Moderate Complexity 03/13/2025 Other Discharge summary with available lab/diagnostic imaging results obtained and reviewed. Discharge medication list reconciled. Appropriate counseling provided. Moderate Complexity Plan Of Treatment No Information Insurance Providers Payer Name Payer Address Payer Phone Subscriber Number Group Number Insured Name Patient Relationship to Insured Coverage Start Date Coverage End Date [facility] [address] [place] [address] [phone] [id number] JOSELINE BAUER Self - patient is [...]
--- NOTE | 2025-03-26 15:33 | US_ITS ---
FINAL REPORT TECHNIQUE: Sonographic images of the testicles and scrotum were obtained in the longitudinal and transverse planes. CLINICAL HISTORY: EPIDIDYMO-ORCHITIS FINDINGS: The right testicle measures 3.8 x 3.5 x 2.4 centimeters. There is no intratesticular mass. The epididymis is within normal limits. There is a cystic lesion adjacent to and possible arising from the epididymis, could be epididymal cyst or spermatocele. This lesion measures 16 mm. There is a small right hydrocele. The left testicle measures 3.8 x 4.0 x 2.6 centimeters. There is no intratesticular mass. The epididymis is within normal limits. There is a large left hydrocele. Blood flow is increased. Color imaging reveals no evidence of testicular torsion. IMPRESSION: No evidence of intratesticular mass or testicular torsion. Left orchitis. Large left hydrocele. Reviewed, Interpreted and Dictated by Faye Huang MD Transcribed by Dorothy Evans Authenticated and [facility]
== END 2025-03-26 23:59 | disposition home or self-care (01) ==
LOC: RAD 15:28
PROVIDERS: PCP Family Medicine; Visit Provider Urology
DX: N43.3 Hydrocele, unspecified (principal); N45.3 Epididymo-orchitis
CPT/HCPCS: 76870